=== PATIENT | female | born 1985 | race African-American/Black ===

== ENCOUNTER 2023-01-17 10:46 | Outpatient (OUT) | payer OTHER, SELFPAY ==
--- NOTE | 2023-01-17 10:57 | XR_ITS ---
The [address] [address] Patient Name: ELIANA HAGER MRN: [id number] date: 1985 Sex: F Assigned Patient Location: [facility] Current Patient Location: [facility] Accession/Order Number: [id number] Exam Date: 01/17/2023 11:00 Report Date: 01/17/2023 13:01 At the request of: KRISTINA CALVILLO Procedure: XR knee ZACHARY 4V EXAMINATION: XR knee ZACHARY 4V HISTORY: Pain In Bilateral Knee COMPARISON: No relevant comparison available. FINDINGS: RIGHT FINDINGS: BONES: No acute fracture or dislocation. Moderate tricompartmental osteoarthropathy with joint space narrowing and marginal osteophyte formation SOFT TISSUES: Negative. No visible soft tissue swelling. OTHER: Negative. LEFT FINDINGS: BONES: No acute fracture or dislocation. Moderate tricompartmental osteoarthropathy with joint space narrowing and marginal osteophyte formation SOFT TISSUES: Negative. No visible soft tissue swelling. OTHER: Small suprapatellar joint effusion XR/XR knee ZACHARY 4V IMPRESSION: RIGHT CONCLUSION: Moderate osteoarthritis LEFT CONCLUSION: Moderate osteoarthritis Electronically authenticated by: MINOR GARCIA Date: 01/17/2023 13:01
== END 2023-01-17 10:47 | disposition home or self-care (01) ==
LOC: RAD 10:46
PROVIDERS: Visit Provider Orthopaedic Surgery
DX: M25.561 Pain in right knee (principal); M25.562 Pain in left knee; M17.0 Bilateral primary osteoarthritis of knee
CPT/HCPCS: 73564

== ENCOUNTER 2023-05-24 19:38 | Emergency (ER) | payer SELFPAY ==
[2023-05-24 19:47] VITALS: BP 152/84; PULSE 84; RESP 16; TEMP 38.4; O2SAT 98; BMI 80.5
--- NOTE | 2023-05-24 20:07 | XR_ITS ---
The [address] [address] Patient Name: ELIANA HAGER MRN: [id number] date: 1985 Sex: F Assigned Patient Location: ED.MAIN Current Patient Location: ER Accession/Order Number: [id number] Exam Date: 05/24/2023 20:10 Report Date: 05/24/2023 20:29 At the request of: BASIA NESS Procedure: XR chest 2V EXAM: XR chest 2V REASON FOR EXAM: Female, 37 years, cough, fever. TECHNIQUE: PA and lateral views of the chest are performed. COMPARISON: None. FINDINGS: Study is slightly limited due to large body habitus. The lungs are expanded and clear. Normal pleura. Normal size heart. Normal mediastinum and carolyn. Normal visualized pulmonary arteries. Normal visualized aortic arch and descending thoracic aorta. Normal visualized thoracic spine. Normal visualized ribs, clavicles, and shoulders. There is no demonstrated abnormality of the visualized soft tissue structures of the upper abdomen. XR/XR chest 2V IMPRESSION: Normal examination of the chest. Electronically authenticated by: LOLA ROSAS Date: 05/24/2023 20:29
[2023-05-24 20:18] LABS: Adenovirus NOT DETECTED (NOT DETECTE); Bordetella parapertussis NOT DETECTED (NOT DETECTE); Coronavirus 229E NOT DETECTED (NOT DETECTE); Coronavirus HKU1 NOT DETECTED (NOT DETECTE); Coronavirus NL63 NOT DETECTED (NOT DETECTE); Coronavirus OC43 NOT DETECTED (NOT DETECTE); Human Metapneumovirus NOT DETECTED (NOT DETECTE); Human Rhinovirus/Enterovirus NOT DETECTED (NOT DETECTE); Influenza B NOT DETECTED (NOT DETECTE); Mycoplasma pneumoniae NOT DETECTED (NOT DETECTE); Parainfluenza Virus 1 NOT DETECTED (NOT DETECTE); Parainfluenza Virus 2 NOT DETECTED (NOT DETECTE); Parainfluenza Virus 3 NOT DETECTED (NOT DETECTE); Parainfluenza Virus 4 NOT DETECTED (NOT DETECTE); Respiratory Syncytial Virus NOT DETECTED (NOT DETECTE); SARS-CoV-2 NOT DETECTED (NOT DETECTE)
[2023-05-24] MEDS: ACETAMINOPHEN 500 MG TABLET 1000 MG PO (20:30)
--- NOTE | 2023-05-24 20:30 | ED_ITS ---
HPI - General Adult General Chief complaint: Upper Respiratory Infection Stated complaint: FLU Time Seen by Provider: 05/24/23 19:50 Source: patient Mode of arrival: Wheelchair Limitations: no limitations History of Present Illness HPI narrative: Patient presents with URI symptoms - nasal congestion, sore throat, cough - that has been present since mid April. She developed fever today and also has been choking on phlegm, causing gagging and vomiting. She said if she tries to eat she vomits. On Apr 25 she was evaluated at [place] ED and diagnosed with RSV. 2 weeks later she went back for continued symptoms, tested negative for Influenza and Covid and was diagnosed with virus . 2 weeks ago she was placed on Augmentin 500mg BID for UTI . Symptoms have not resolved. She is concerned about pneumonia. She took Tylenol around 945am this morning. Related Data Home Medications Medication Instructions Recorded Confirmed allopurinol 100 mg tablet 100 mg PO DAILY 05/24/23 05/24/23 cholecalciferol (vitamin D3) 1,250 1,250 mcg PO DAILY 05/24/23 05/24/23 mcg (50,000 unit) capsule dulaglutide 0.75 mg/0.5 mL 0.75 mg subcut .weekly 05/24/23 05/24/23 subcutaneous pen injector (Trulicity) ferrous sulfate 325 mg (65 mg 325 mg PO DAILY 05/24/23 05/24/23 iron) tablet,delayed release lorazepam 1 mg tablet 1 mg PO PRN 05/24/23 05/24/23 losartan 50 mg-hydrochlorothiazide 1 tab PO DAILY 05/24/23 05/24/23 12.5 mg tablet metformin 500 mg tablet 500 mg PO DAILY 05/24/23 05/24/23 thiamine HCl (vitamin B1) 50 mg 50 mg PO DAILY 05/24/23 05/24/23 tablet Previous Rx's Medication Instructions Recorded euugtikpgmlpgvg-xedzgtbcgnitjyj-AF 5 ml PO Q6H PRN cold symptoms #118 05/24/23 2 mg-30 mg-10 mg/5 mL oral syrup mL (Bromfed DM) ondansetron 4 mg disintegrating 4 mg PO Q6H PRN nausea and 05/24/23 tablet vomiting #20 tabs Allergies Allergy/AdvReac Type Severity Reaction Status Date / Time No Known Drug Allergies Allergy Verified 05/24/23 19:54 PFSH PFSH Social History Smoking status: Never smoker Exam Narrative Exam Narrative: Nurses notes and vital signs reviewed and patient is not hypoxic. Febrile T101.1F General: Well-appearing and in no apparent distress. Skin: Warm, dry, no pallor noted. No rash. Head: Normocephalic, atraumatic. Neck: Supple, non-tender. No cervical lymphadenopathy. No meningismus. Eye: Pupils are equal, round and EOMI. No scleral icterus. Ears, Nose, Mouth, and Throat: TM are dull bilaterally, mild posterior oropharynx erythema and nasal mucosal hypertrophy, uvula is mid-line. Oral mucosa is moist Cardiovascular: Regular Rate and Rhythm without murmur, gallop or rub. Respiratory: No accessory muscle use or respiratory distress. Lungs are clear to auscultation, no wheezing, rales or rhonchi Musculoskeletal: normal ROM GI: Abdomen is soft, non-distended. Normal bowel sounds. No tenderness to palpation. No rebound, guarding, or rigidity noted. Neurological: A&O x4. No cranial nerve dysfunction observed. No truncal ataxia. Moves all extremities. Sensation intact. Psychiatric: Cooperative and interactive. Normal mood and affect. Constitutional Vital Signs, click to edit/add: Last Vital Signs Temp 101.1 F H 05/24/23 19:47 Pulse 84 05/24/23 19:47 Resp 16 05/24/23 19:47 BP 152/84 H 05/24/23 19:47 Pulse Ox 98 05/24/23 19:47 O2 Del Method Room Air 05/24/23 19:47 Course Vital Signs Vital signs: Vital Signs Temperature 101.1 F H 05/24/23 19:47 Pulse Rate 84 05/24/23 19:47 Respiratory Rate 16 05/24/23 19:47 Blood Pressure 152/84 H 05/24/23 19:47 Pulse Oximetry 98 05/24/23 19:47 Oxygen Delivery Method Room Air 05/24/23 19:47 Temperature 101.1 F H 05/24/23 19:47 Pulse Rate 84 05/24/23 19:47 Respiratory Rate 16 05/24/23 19:47 Blood Pressure 152/84 H 05/24/23 19:47 Pulse Oximetry 98 05/24/23 19:47 Oxygen Delivery Method Room Air 05/24/23 19:47 Medical Decision Making MDM Narrative Medical decision making narrative: Patient was swabbed -respiratory panel & rapid strep. She was also given Tylenol for her fever and Zofran oral dissolvable tablet for nausea. Chest x-ray did not reveal any acute abnormality, per radiologist. Limited by body habitus. Strep negative. Patient tested positive for Influenza. She is outside of the window for tamiflu. She was discharged home with prescriptions for bromfed cough syrup and zofran ODT. Lab Data Lab results reviewed: Yes I reviewed the patient's lab results Labs: Lab Results 05/24/23 Range/Units 19:55 Adenovirus (PCR) Not detected (NOT DETECTE) C. pneumoniae DNA (PCR) Not detected (NOT DETECTE) Coronavirus Type OC43 Not detected (NOT DETECTE) Coronavirus Type HKU1 Not detected (NOT DETECTE) Coronavirus Type 229E Not detected (NOT DETECTE) Coronavirus Type NL63 Not detected (NOT DETECTE) Human Metapneumovir PCR Not detected (NOT DETECTE) Influenza A (H3) PCR Detected M. pneumoniae (PCR) Not detected (NOT DETECTE) Parainfluenza PCR Not detected (NOT DETECTE) Parainfluenza 2 (PCR) Not detected (NOT DETECTE) Parainfluenza 3 (PCR) Not detected (NOT DETECTE) Parainfluenza 4 (PCR) Not detected (NOT DETECTE) RSV (RT-PCR) Not detected (NOT DETECTE) Entero/Rhino (PCR) Not detected (NOT DETECTE) SARS-CoV-2 (PCR) Not detected (NOT DETECTE) Streptococcus Screen Negative Bordetella pertussis (PCR) Not detected (NOT DETECTE) B parapertussis DNA PCR Not detected (NOT DETECTE) Influenza Type B (PCR) Not detected (NOT DETECTE) Imaging Data Chest x-ray: Radiologist's impression: ITS Impressions Chest X-Ray 05/24/23 20:07 IMPRESSION: Normal examination of the chest. Electronically authenticated by: LOLA ROSAS Date: 05/24/2023 20:29 Discharge Plan Discharge Chief Complaint: Upper Respiratory Infection Clinical Impression: Viral infection, Influenza Patient Disposition: Home, Self-Care Time of Disposition Decision: 21:18 Prescriptions / Home Meds: New ondansetron 4 mg tablet,disintegrating 4 mg PO Q6H PRN (Reason: nausea and vomiting) Qty: 20 0RF ptiigebnklkkwhx-vvmnnxjkg-RT [Bromfed DM] 2-30-10 mg/5 mL syrup 5 ml PO Q6H PRN (Reason: cold symptoms) Qty: 118 0RF No Action metformin 500 mg tablet 500 mg PO DAILY allopurinol 100 mg tablet 100 mg PO DAILY lorazepam 1 mg tablet 1 mg PO PRN ferrous sulfate 325 mg (65 mg iron) tablet,delayed release (DR/EC) 325 mg PO DAILY losartan-hydrochlorothiazide 50-12.5 mg tablet 1 tab PO DAILY thiamine HCl (vitamin B1) 50 mg tablet 50 mg PO DAILY cholecalciferol (vitamin D3) 1,250 mcg (50,000 unit) capsule 1,250 mcg PO DAILY Trulicity 0.75 mg/0.5 mL pen injector 0.75 mg SUBCUT .weekly Instructions: Influenza (ED), Viral Syndrome (ED) Stand Alone Forms: Portal Instructions Referrals: Physician,Non-Staff, MD [Primary Care Provider] - 1 week
[2023-05-24] MEDS: ONDANSETRON 4 MG RAPDIS TABLET SL (20:40)
[2023-05-24 20:44] LABS: Internal Control Within Normal Limits; Strep A Antigen Screen Negative
[2023-05-24 21:11] LABS: Influenza A\\H3 DETECTED
[2023-05-24 21:30] VITALS: BP 145/90; PULSE 90; RESP 20; O2SAT 98
== END 2023-05-24 21:30 | disposition home or self-care (01) ==
PROVIDERS: Emergency Provider Emergency Medicine
DX: J10.1 Influenza due to other identified influenza virus with other respiratory manifestations (principal); R50.9 Fever, unspecified; Z79.899 Other long term (current) drug therapy; Z79.84 Long term (current) use of oral hypoglycemic drugs; Z20.822 Contact with and (suspected) exposure to COVID-19
CPT/HCPCS: 0202U; 71046; 87070; 87880; 99285; Q0162

== ENCOUNTER 2023-08-08 07:54 | Outpatient (RCR) | payer OTHER, SELFPAY ==
[2023-07-27 14:26] VITALS: BP 123/75; PULSE 67; TEMP 36.6; O2SAT 93
--- NOTE | 2023-07-27 14:33 | PC.NURSE ---
1355: Pt. to [facility] via w/c accompanied by mother. Pt. brought own Vit. B12 vials in prescription bottle. Directions on bottle to administer B12 IM daily x 5 days then weekly. Pt. medicated with Vitamin B12 Im to left deltoid, no bleeding to site. Covered with bandaid prophylactically. Right breast dressing removed. Packing in wound moistened before removal. 4x4 gauze packing with small amount serosang. drainage. Wound bed irrigated with saline and loosely packed with saline soaked 4x4. Covered with ABD and secured with paper tape. Pt. tolerated with min. c/o. Pt. asked about family member changing dressing and giving injection to save on travel from [place] daily. Informed pt. that this RN would teach designated person on dressing change and administration of IM B12. Pt. relays understanding. Pt. given list of supplies to purchase for dressings. Pt. relays comfort. 1413: Pt. d/c'd via w/c to car and home with mother.
[2023-07-28 13:15] VITALS: BP 153/72; PULSE 78; TEMP 36.3; O2SAT 95
--- NOTE | 2023-07-28 14:42 | PC.NURSE ---
1315: Pt. to [facility] via w/c accompanied by mother. Dressing and 4x4 packing removed from right breast. Both with small amount serosang. drainage. Edges of wound well defined. Wound bed beefy red. Irrigated with saline. Packed with saline soaked 4x4. Covered with ABD and secured with tape. Pt. brought home med. Vit. B12. Pt. medicated with Vitamin B12 IM to right deltoid. Trace bleeding to site, covered with bandaid. Pt. tolerated all with min. c/o discomfort. 1330: Pt. transported via w/c to car and home with mother.
[2023-07-29 14:29] VITALS: BP 134/76; PULSE 74; TEMP 36.3; O2SAT 96
--- NOTE | 2023-07-29 14:30 | PC.NURSE ---
1330 Arrival per wheelchair to department. alert oriented. Dressing removed from rt breast area, dressing removed. noted small amount of drainage on old dressing. packing removed, wound measure approx 4.5 cm deep appears beefy red wound bed. 4 cm in transverse, and 1.5 cm from head to toe. wound just superior to rt nipple area. area of induration from aprox 2 o'cloc position to 6 oclock position, patient complains of pain with wound care. wound irrigated with ns, skin surrounding wound cleansed with soap and water, skin prep applied, wound packed with ns wetted 4x4 opened up fully, nearly all of 4x4 packed into wound. covered with abd, secured with tape. Medicated with vit b 12 1000 mg IM as ordered. released per wheelchair
--- NOTE | 2023-07-29 14:31 | PC.NURSE ---
Patient brought in her B12 Injection, in the original bottle with the prescription label. This was given in her left deltoid, she tolerated injection well.
--- NOTE | 2023-07-31 12:29 | PC.NURSE ---
[employer] made two attempts to contact patient in regards to her appointment. [employer] did leave message for patient to call [facility] [place] and notify us if she isn't going to make her appointment. She was a no call no show on 07/30/23.
[2023-08-01 14:31] VITALS: BP 148/82; PULSE 78; TEMP 36.6; O2SAT 97
--- NOTE | 2023-08-01 14:34 | PC.NURSE ---
1415: Pt. to [facility] via w/c accompanied by mother. Medicated with home med. Vit. B12 to left deltoid. Trace bleeding to site, bandaid applied. Dressin to right breast removed. Packing removed with small amount serosang. drainage noted. Wound bed flushed with saline irrigant. Packed with fluffed saline soaked 4x4. Covered with ABD and secured with mesh tape. Pt. tolerated all with minimal c/o. 1429: Pt. taken to car via w/c and d/c'd to home with mother.
--- NOTE | 2023-08-03 11:35 | PC.NURSE ---
1115 Arrival per wheelchair with family accompanying patient. dressing removed from rt breast above nipple area, ns to old packing to loosen and remove, small amount of drainage on old dressing. wound irrigated with normal saline, repacked with 1 4x4 wet with normal saline, surrounding skin cleansed with soap and water, rinsed, dried, skin prep applied. packing covered with abd, secured with mesh tape, tolerated well. Released per wheelchair
--- NOTE | 2023-08-03 11:44 | PC.NURSE ---
1115 Vitamin B12 1000 mcg IM rt deltoid per Gisselle Herrera RN(using home meds). patient tolerated well.
== END 2023-08-09 23:59 | disposition home or self-care (01) ==
LOC: INF 07:54
PROVIDERS: Visit Provider Internal Medicine Hematology & Oncology
DX: N61.1 Abscess of the breast and nipple (principal)
CPT/HCPCS: 96372

== ENCOUNTER 2023-10-04 07:36 | Outpatient (RCR) | payer OTHER, SELFPAY ==
[2023-09-28 10:40] VITALS: BP 132/70; PULSE 66; TEMP 37.4; O2SAT 96
--- NOTE | 2023-09-28 11:16 | PC.NURSE ---
1040:Pt. to [facility] via w/c accompanied by 2 children. VSS. Dressing to right breast wound removed. 4x4 packing removed. Both with serosang. drainage observed. See documentation on wound appearance. Wound flushed with saline and outer area cleansed with saline. Wound packed with saline soaked 4x4 and covered with ABD dressing. Secured with paper tape after skin prep applied. Pt. relayed moderate pain with procedure. 1055: Pt. d/c'd via w/c to home with kids.
--- NOTE | 2023-09-29 11:26 | PC.NURSE ---
see wound assessment. old dressing removed, pinkish drainage noted on old packing. irrigated with ns, wound bed beefy red. surrounding skin clear, no irritation noted, cleansed with soap and water, skin prep applied to intact skin, repacked with 4x4 fluff/wet with ns. covered with abd, secured with paper tape. tolerated fairly well. did note above wound some induration of breast tissue. noted moderate amount of pain with care of wound.
--- NOTE | 2023-09-30 13:42 | PC.NURSE ---
1100 old dressing removed, pinkish drainage noted on old packing. irrigated with ns, wound bed beefy red. surrounding skin clear, no irritation noted, cleansed with soap and water, skin prep applied to intact skin, repacked with 4x4 fluff/wet with ns. covered with abd, secured with paper tape. tolerated fairly well. did note above wound some induration of breast tissue. noted moderate amount of pain with care of wound. patient states she is not coming in on weekend going to have family change dressing.
== END 2023-10-07 10:52 | disposition home or self-care (01) ==
LOC: INF 07:36
PROVIDERS: Visit Provider Internal Medicine Hematology & Oncology
DX: Z48.01 Encounter for change or removal of surgical wound dressing (principal)

== ENCOUNTER 2024-02-20 20:23 | Emergency (ER) | payer OTHER, SELFPAY ==
[2024-02-20 20:28] VITALS: BP 120/93; PULSE 68; TEMP 36.6; O2SAT 99; BMI 77.9
--- OUTSIDE RECORDS SUMMARY | 2024-02-20 20:29 | XMS_ITS | CCD ---
Author Organization [facility] Care Team Providers Care Potato Grader Name Role Phone CESAR MARTIN Admitting Unavailable CESAR MARTIN Attending Unavailable MISC, DOCTOR Primary Care Unavailable MINOR NUNO V Consulting Unavailable CESAR MARTIN Consulting Unavailable TOLEDO, JESUS MANUEL S Admitting Unavailable [place] JESUS MANUEL S Attending Unavailable MISC, DOCTOR Consulting Unavailable TOLEDO, JESUS MANUEL S Consulting Unavailable TOLEDO, JESUS MANUEL S Admitting Unavailable TOLEDO, JESUS MANUEL S Attending Unavailable [facility] Unava ilable TOLEDO, JESUS MANUEL S Consulting Unavailable TOLEDO, JESUS MANUEL S Admitting Unavailable TOLEDO, JESUS MANUEL S Attending Unavailable [facility] Unava ilable JESUS MAE Consulting Unavailable JACOB SANTANA Admitting Unavailable JACOB SANTANA Attending Unavailable Mp Smith Primary Care Provider [phone] BEVERLY SALMERON Referring Unavailabl e FAVIOLA, BEVERLY Trivedi Primary Care Unavailabl e FAVIOLA, BEVERLY Trivedi Referring Unavailabl e FAVIOLABEVERLY Primary Care Unavailabl e FAVIOLABEVERLY Referring Unavailabl e FAVIOLA, BEVERLY Trivedi Primary Care Unavailabl e FAVIOLABEVERLY Referring Unavailabl e FAVIOLA, BEVERLY Trivedi Primary Care Unavailabl e SERVICES, [facility] Care Unava ilable RAVI THIBODEAUX Attending Unavailable RAVI THIBODEAUX Attending Unavailable RAVI THIBODEAUX Referring Unavailable SERVICES, [facility] Care Unava ilable ABEL COFFEY Attending Unavailable BEVERLY SALMERON Referring Unavailabl e FAVIOLA, BEVERLY Trivedi Primary Care Unavailabl e NON STAFF Primary Care Provider UnavailCONCHITA Aceves Emergency Provider MD Lauren Oropeza Admit Provider MD Lauren Oropeza Attending Provider DO Kash Hooks Attending Provider MD Мария Danielle Other Provider CHANEL COFFEYNADIYA Trivedi Attending Unavailable ALEXXABEL SAMAYOA Referring Unavailable FAVIOLA, BEVERLY Trivedi Primary Care Unavailabl e FAVIOLA, BEVERLY M Referring Unavailabl e FAVIOLA, BEVERLY M Primary Care Unavailabl e NADERER, MP A Primary Care Unavailable ECTOR REDDING Attending Unavailable NADERER, MP A Primary Care Unavailable KENYA HERNÁNDEZ Attending Unavailable NADERER, MP A Primary Care Unavailable ECTOR REDDING Attending Unavailable ECTOR REDDING Referring Unavailable NADERER, MP A Primary Care Unavailable ECTOR REDDING Attending Unavailable VERO FRITZ Attending Unavailable NADERER, MP A Primary Care Unavailable NADERER, MP A Primary Care Unavailable ECTOR REDDING Attending Unavailable NADERER, MP A Primary Care Unavailable KENYA HERNÁNDEZ Attending Unavailable DO Yared Saavedra Emergency Provider [phone] MD Мария Danielle Attending Provider МАРИЯ TERESA Attending Unavailable МАРИЯ TERESA Attending Unavailable NON STAFF Primary Care Unavailable Мария Danielle Admitting Unavailable Мария Danielle Attending Unavailable Yared Saavedra Admitting Unavailable Yared Saavedra Attending Unavailable NON STAFF Primary Care Unavailable Kash Hooks Attending Unavailabl e NON STAFF Primary Care Unavailable Мария Danielle Consulting Unavailable Lauren Oropeza Admitting Unavailable PIRKL, TOMASA Referring Unavailable JACKSON, JUAQUIN Referring Unavailable JACKSON, JUAQUIN Referring Unavailable SALMISTYALDMARY, AYA Referring Unavailable JACKSONJUAQUIN NOBLE Referring Unavailable RAFA PERRY Attending Unavailable DASH HARDIN Attending Unavailabl e MAKENZIE BRAVO Attending Unavailable DINO, ALEXX Admitting Unavailable MICHELLE MEYERS Attending Unavailable PIRKL, TOMASA Referring Unavailable SHELIA RODRIGUEZ Referring Unavailable PIRKL, TOMASA Referring Unavailable PIRKL, TOMASA Referring Unavailable Allergies Allergy Classification Reported Allergen(s) Allergy Type Date of Onset Reaction(s) Facility (4 sources) Ibuprofen; Translations: [IBUPROFEN] Drug Allergy [facility] Repository (1 source) ALLERGIES NOT ON FILE; Translations: [ALLERGIES NOT ON FILE] Propensity to adverse reactions (disorder) [facility] Repository Medications Current Medications Medication Drug Class(es) Dates Sig (Normalized) Sig (Original) acetaminophen 325 mg / oxyCODONE hydrochloride 5 mg oral tablet (6 sources) Opioid Agonist Start: 09-27-2023 take 1 tablet by mouth every six hours Oxycodone-Acetami nophen (Percocet) 5-325 mg tablet Active 1 TAB PO Every 6 hours 05 11September 27, 2023 Start: 09-23-2023 End: 09-27-2023 take 1 tablet by mouth every four to six hours Oxycodone-Acetaminophen (Percocet) 5-325 mg tablet Discontinued 1 TAB PO EVERY 4-6 HOURS 12 September 23, 2023 September 27, 2023 12:52pm Start: 07-25-2023 End: 09-23-2023 take 1 tablet by mouth every four hours Oxycodone-Acetaminophen (Percocet) 5-325 mg tablet Discontinued 1 TAB PO Q4H 30 July 25, 2023 September 23, 2023 7:12pm allopurinol 100 mg oral tablet (12 sources) Xanthine Oxidase Inhibitor Start: 07-22-2023 take 100 mg by mouth once daily Allopurinol Active 100 MG PO Daily July 22, 2023 12:00am Start: 06-20-2007 ALLOPURINOL 30 0 MG TAB Take one(1) tablet daily. 0 06/20/2007 Active Comment on above: Take one(1) tablet d aily. amoxicillin 875 mg / clavulanate 125 mg oral tablet (5 sources) Penicillin-class Antibacterial Start: End: take 1 tablet by mouth twice daily Amoxicillin-Pot Clavulanate Active 1 TAB PO Twice daily September 23, 2023 12:00am cholecalciferol 0.125 mg oral capsule (10 sources) Vitamin D Start: take 5000 [IU] by mouth once daily Cholecalciferol (Vitamin D3) Active 5000 UNIT PO Daily July 22, 2023 12:00am Start: 06-02-2022 End: 08-01-2022 take 1 capsule by mouth every week cholecalciferol, Vitamin D3, (VITAMIN D3) 1,250 mcg (50,000 unit) cap capsule Take 1 capsule by mouth one time a week. 4 capsule 1 06/02/2022 Active Comment on above: Take 1 capsule by mo [facility] one time a week. 0.5 ml dulaglutide 3 mg/ml auto-injector (18 sources) GLP-1 Receptor Agonist Start: 07-22-2023 Dulaglutide (Trulicity) 1.5 mg/0.5 mL pen injector Active 1.5 MG SUBCUT every week July 22, 2023 12:00am Start: 09-20-2022 End: 12-07-2022 TRULICITY 1.5 mg/0.5 mL pen injector INJECT 1 SYRINGE SUBCUTANEOUSLY ONCE A WEEK 4 mL 0 12/07/2022 Active Start: 07-14-2022 End: 08-13-2022 TRULICITY 1.5 mg/0.5 mL pen injector INJECT 1 SYRINGE SUBCUTANEOUSLY ONCE A WEEK 4 mL 0 08/04/2022 Active Start: 06-16-2022 End: 10-08-2022 inject 0.75 mg by subcutaneous injection every week dulaglutide (TRULICITY) 0.75 mg/0.5 mL pen injector Inject 0.75 mg subcutaneously one time a week. 2 mL 0 06/16/2022 10/08/2022 Discontinued Comment on above: Inject 0.75 mg subcu taneously one time a week. Inject 1.5 mg subcut aneously one time a week. INJECT 1 SYRINGE SUB CUTANEOUSLY ONCE A WEEK ferrous sulfate 325 mg oral tablet (9 sources) Start: 07-22-2023 take 1 tablet by mouth once daily Ferrous Sulfate (Glen-Time) 325 mg (65 mg iron) tablet Active 325 MG PO Daily July 22, 2023 12:00am Start: 06-02-2022 End: 08-31-2022 take 1 tablet by mouth once daily ferrous sulfate 325 mg (65 mg iron) tablet Take 1 tablet by mouth once daily. 30 tablet 2 06/02/2022 08/31/2022 Active FERROUS SULFATE ORAL ferrous sulfate 0 Active Comment on above: Take 1 tablet by [facility] once daily. ferrous sulfate gabapentin 100 mg oral capsule (3 sources) Anti-epileptic Agent Star t: 07-10 take 1 capsule by mouth once daily Gabapentin (Neurontin) 100 mg capsule Active 100 MG PO Daily July 22, 2023 12:00am hydroCHLOROthiazide 25 mg oral tablet (3 sources) Thiazide Diuretic Star t: 07-10 take 25 mg by mouth once daily Hydrochlorothiazide Active 25 MG PO Daily July 22, 2023 12:00am metFORMIN hydrochloride 500 mg oral tablet (3 sources) Biguanide Star t: 07-10 take 500 mg by mouth once daily Metformin Active 500 MG PO Daily July 22, 2023 12:00am tirzepatide (MOUNJARO) 2.5 mg/0.5 mL pen injector (1 source) Star t: 05-13 End: 06-10 inject 2.5 mg by subcutaneous injection every week tirzepatide (MOUNJARO) 2.5 mg/0.5 mL pen injector Inject 2.5 mg subcutaneously one time a week. 2 mL 0 05/31/2022 06/30/2022 Active Comment on above: Inject 2.5 mg subcut aneously one time a week. tirzepatide (MOUNJARO) 5 mg/0.5 mL pen injector (1 source) Star t: 06-09 End: 07-10 inject 5 mg by subcutaneous injection every week tirzepatide (MOUNJARO) 5 mg/0.5 mL pen injector Inject 5 mg subcutaneously one time a week. 2 mL 0 06/25/2022 07/25/2022 Active Comment on above: Inject 5 mg subcutan eously one time a week. Completed/Discontinued Medications Medication Drug Class(es) Dates Sig (Normalized) Sig (Original) Calcium Carbonate / vitamin D3 (9 sources) Start: 04-02-2008 calcium carbonate/vitamin d3(CALCIUM 500 WITH VITAMIN D 500 MG-125 UNIT TAB) Take one(1) tablet twice daily. 0 0 04/02/2008 Active Comment on above: Take one(1) tablet t wice daily. ciprofloxacin 500 mg oral tablet (13 sources) Quinolone Antimicrobial Start: 07-22-2023 End: 07-25-2023 take 500 mg by mouth twice daily Ciprofloxacin Hcl Discontinued 500 MG PO Twice daily July 22, 2023 12:00am July 25, 2023 2:22pm Start: 06-20-2008 ciprofloxacin hcl(CIPRO 500 MG TAB) Take one(1) tablet twice daily. 6 0 06/20/2008 Active Comment on above: Take one(1) tablet t wice daily. colchicine 0.6 mg oral tablet (3 sources) Start: 07-22-19 24 End: 07-23-19 24 take 0.6 mg by mouth once daily Colchicine Discontinued 0.6 MG PO Daily July 22, 2023 12:00am July 23, 2023 6:38pm CPAP (9 sources) Start: 07-13-19 08 CPAP Use as directed. 0 07/13/2007 Active Comment on above: Use as directed. famotidine 20 mg oral tablet (9 sources) Histamine-2 Receptor Antagonist Start: 02-20-20 08 FAMOTIDINE 20 MG TAB take one tab twice a day 180 2 02/20/2008 Active Comment on above: take one tab twice a day lisinopril 40 mg oral tablet (3 sources) Angiotensin Converting Enzyme Inhibitor Start: 07-22-19 24 End: 07-23-19 24 take 40 mg by mouth once daily Lisinopril Discontinued 40 MG PO Daily July 22, 2023 12:00am July 23, 2023 6:38pm nystatin 100 unt/mg topical powder (9 sources) Polyene Antifungal Start: 06-21-19 09 NYSTATIN 100,000 UNIT/G TOPICAL POWDER TOPICAL 2 TIMES DAILY 30grams 0 06/20/2008 Active Comment on above: TOPICAL 2 TIMES EDNA Y ondansetron 4 mg disintegrating oral tablet (9 sources) Serotonin-3 Receptor Antagonist Start: 05-27-19 09 ondansetron(ZOFRAN ODT 4 MG TAB, RAPID DISSOLVE) Take one(1) tablet daily. 0 0 05/27/2008 Active Comment on above: Take one(1) tablet d aily. vits w-ca,fe,fa(<1mg)(PRENA DALTON FORMULA TAB) (9 sources) Start: 05-24-19 09 vits w-ca,fe,fa( Take one(1) tablet daily. 0 0 05/24/2008 Active Comment on above: Take one(1) tablet d aily. 72 hr scopolamine 0.0139 mg/hr transdermal system (9 sources) Anticholinergic Start: 05-27-19 09 SCOPOLAMINE 1.5 MG 72 HR TRANSDERM PATCH Every 72 hours 0 0 05/27/2008 Active Comment on above: Every 72 hours Sennosides-Docusate Sodium (3 sources) Start: 07-25-19 End: 09-23-19 take 1 tablet by mouth twice daily Sennosides-Docusate Sodium Discontinued 1 TAB-CAP PO Twice daily July 25, 2023 12:00am September 23, 2023 7:12pm Start: 07-25-2023 take 1 tablet by stacey th twice daily Sennosides-Docusate Sodium Active 1 TAB-CAP PO Twice daily July 25, 2023 12:00am thiamine 50 mg oral tablet (7 sources) Start: 06-02-2022 End: 08-31-2022 take 1 tablet by mouth once daily thiamine (VITAMIN B1) 50 mg tablet Take 1 tablet by mouth once daily. 30 tablet 2 06/02/2022 Active Comment on above: Take 1 tablet by stacey th once daily. ursodiol 300 mg oral capsule (9 sources) Bile Acid Start: 02-20-2008 URSODIOL 300 M G CAP Take one(1) capsule twice daily. 180 2 02/20/2008 Active Comment on above: Take one(1) capsule twice daily. vitamin b12 1 mg/ml injectable solution (15 sources) Vitamin B12 Start: 07-25-2023 End: 09-23-2023 Cyanocobalamin (Vitamin B-12) Discontinued 1000 MCG IM Daily July 25, 2023 12:00am September 23, 2023 7:11pm Give once a day for 5 doses, then once a week for 5 doses. Start: 07-22-2023 take 100 ug by mouth once daily Cyanocobalamin (Vitamin B-12) Active 100 MCG PO Daily July 22, 2023 12:00am take 1 tablet by stacey th once daily cyanocobalamin (VITAMIN B-12) 1,000 mcg tab cyanocobalamin (vit B-12) 1,000 mcg tablet TAKE 1 TABLET BY MOUTH ONCE DAILY 0 Active Comment on above: cyanocobalamin (vit B-12) 1,000 mcg tablet TAKE 1 TABLET BY MOUTH ONCE DAILY Problems Active Problems Problem Classification Problem Date Documented Da te Episodic/Chronic Complications of surgical procedures or medical care (9 sources) Post-surgical malabsorption; Translations: [Postsurgical malabsorption, not elsewhere classified] Onset: 8 04-02-2008 Chronic Deficiency and other anemia (2 sources) Iron deficiency anemia, unspecified; Translations: [Iron deficiency anemia, unspecified] Onset: 4 Episodic Diabetes mellitus without complication (10 sources) Type 2 diabetes mellitus without complications; Translations: [Type 2 diabetes mellitus] Onset: 9 07-23-2023 Chronic Essential hypertension (10 sources) Essential (primary) hypertension; Translations: [Essential hypertension] Onset: 8 06-20-2007 Chronic Genitourinary symptoms and ill-defined conditions (9 sources) Urinary incontinence; Translations: [Unspecified urinary incontinence] Onset: 8 07-13-2007 Chronic Gout and other crystal arthropathies (9 sources) Gout; Translations: [Gout, unspecified] Onset: 8 06-20-2007 Chronic Headache; including migraine (9 sources) Migraine without aura; Translations: [Migraine without aura, not intractable, without status migrainosus] Onset: 8 07-13-2007 Chronic Immunizations and screening for infectious disease (2 sources) Encounter for immunization; Translations: [Encounter for immunization] Onset: 4 Episodic Malaise and fatigue (2 sources) Weakness; Translations: [Weakness] Onset: 4 Episodic Miscellaneous mental health disorders (11 sources) Eating disorder; Translations: [Eating disorder, unspecified] Onset: 8 Chronic Mood disorders (18 sources) Recurrent major depressive episodes, mild ; Translations: [Major depressive disorder, recurrent, mild] Onset: 8 06-20-2007 Chronic Nausea and vomiting (6 sources) Nausea with vomiting, unspecified; Translations: [Vomiting, unspecified] Onset: 9 Episodic Nonmalignant breast conditions (15 sources) Unspecified lump in the right breast, unspecified quadrant; Translations: [Abscess of the breast and nipple] Onset: 4 07-22-2023 Episodic Osteoarthritis (15 sources) Bilateral primary osteoarthritis of knee; Translations: [Degenerative joint disease involving multiple joints] Onset: 8 07-13-2007 Chronic Other aftercare (1 source) MCC (current) use of oral hypoglycemic drugs; Translations: [FCI USE ORAL HYPOGLYCEMIC DX] Onset: 9 Other connective tissue disease (2 sources) Unspecified symptoms and signs involving the nervous system; Translations: [Unspecified symptoms and signs involving the nervous system] Onset: 4 Episodic Other gastrointestinal disorders (9 sources) History of bypass of stomach; Translations: [Bariatric surgery status] Onset: 3 02-07-2023 Episodic Other gastrointestinal disorders (1 source) Diarrhea, unspecified; Translations: [Diarrhea, unspecified] Onset: 4 Episodic Other lower respiratory disease (11 sources) Dyspnea; Translations: [Shortness of breath] Onset: 8 Episodic Other lower respiratory disease (1 source) Shortness of breath; Translations: [Shortness of breath] Onset: 4 Episodic Other nervous system disorders (3 sources) Neuropathy; Translations: [Polyneuropathy, unspecified] 07-23-2023 Chronic Other nervous system disorders (4 sources) Polyneuropathy, unspecified; Translations: [Mononeuritis of unspecified site] Onset: 4 07-25-2023 Chronic Other nervous system disorders (1 source) Acute postoperative pain; Translations: [Other acute postprocedural pain] 09-27-2023 Episodic Other nervous system disorders (1 source) Other acute postprocedural pain; Translations: [Other acute postprocedural pain] Onset: 4 Episodic Other nutritional; endocrine; and metabolic disorders (1 source) Obesity, unspecified; Translations: [OBESITY UNSPECIFIED] Onset: 9 Chronic Other nutritional; endocrine; and metabolic disorders (9 sources) Disorder of lipid metabolism; Translations: [Disorder of lipoprotein metabolism, unspecified] Onset: 8 07-13-2007 Chronic Other nutritional; endocrine; and metabolic disorders (10 sources) Morbid obesity; Translations: [Morbid (severe) obesity due to excess calories] Onset: 8 02-07-2023 Chronic Other nutritional; endocrine; and metabolic disorders (5 sources) Body mass index 40+ - severely obese; Translations: [Body mass index (BMI) 70 or greater, adult] 02-18-2023 Chronic Other nutritional; endocrine; and metabolic disorders (6 sources) Body mass index (BMI) 70 or greater, adult; Translations: [Body Mass Index 70 and over, adult] Onset: 4 07-25-2023 Chronic Other nutritional; endocrine; and metabolic disorders (5 sources) Morbid (severe) obesity due to excess calories; Translations: [Psychological factors affecting morbid obesity (HCC)] Onset: 8 Chronic Other nutritional; endocrine; and metabolic disorders (1 source) Abnormal weight gain; Translations: [Weight gain following gastric bypass surgery] Onset: 4 Episodic Other upper respiratory infections (1 source) Chronic sinusitis, unspecified; Translations: [Chronic sinusitis, unspecified] Onset: 4 Chronic Residual codes; unclassified (9 sources) Sleep apnea; Translations: [Sleep apnea, unspecified] Onset: 8 Chronic Residual codes; unclassified (5 sources) Obstructive sleep apnea syndrome; Translations: [Obstructive sleep apnea (adult) (pediatric)] Onset: 3 02-07-2023 Chronic Residual codes; unclassified (2 sources) Obstructive sleep apnea (adult) (pediatric); Translations: [Obstructive sleep apnea (adult) (pediatric)] Onset: 3 Chronic Residual codes; unclassified (1 source) Other specified postprocedural states; Translations: [OTH SPECIFIED POSTPROCEDURAL STATES] Onset: 9 Skin and subcutaneous tissue infections (2 sources) Abscess; Translations: [Cutaneous abscess, unspecified] 09-23-2023 Episodic Unclassified (1 source) Breast Abscess Onset: 4 Unclassified (2 sources) New Patient Onset: 4 Unclassified (1 source) Supraventricular tachycardia, unspecified; Translations: [Supraventricular tachycardia, unspecified] Onset: 4 Past or Other Problems Problem Classification Problem Date Documented Da te Episodic/Chronic Abdominal pain (1 source) Epigastric pain; Translations: [EPIGASTRIC PAIN] Onset: 9 Episodic Acute and unspecified renal failure (1 source) Acute kidney failure with tubular necrosis; Translations: [ACUTE RENAL FAILURE TUBULR NECROSIS] Onset: 9 Episodic Administrative/social admission (7 sources) Reduced mobility; Translations: [Other reduced mobility] Onset: 3 02-07-2023 Episodic Bacterial infection; unspecified site (5 sources) Other specified bacterial agents as the cause of diseases classified elsewhere; Translations: [Bacterial infection due to Proteus mirabilis] Onset: 4 07-25-2023 Episodic Calculus of urinary tract (9 sources) Kidney stone; Translations: [Calculus of kidney] Onset: 8 07-13-2007 Episodic Intestinal infection (1 source) Viral intestinal infection, unspecified; Translations: [VIRAL INTESTINAL INFECTION UNSPEC] Onset: 9 Episodic Nutritional deficiencies (7 sources) Cobalamin deficiency; Translations: [Deficiency of other specified B group vitamins] Onset: 4 07-24-2023 Episodic Other aftercare (1 source) Other [facility] (current[facility] drug therapy; Translations: [OTH [facility] CURRENT DRUG THERAPY] Onset: 9 Episodic Other gastrointestinal disorders (6 sources) Bariatric surgery status; Translations: [Bariatric surgery status] Onset: 3 07-25-2023 Episodic Other non-traumatic joint disorders (4 sources) Pain in left knee; Translations: [PAIN IN LEFT KNEE] Onset: 9 Episodic Other non-traumatic joint disorders (1 source) Pain in right knee; Translations: [PAIN IN RIGHT KNEE] Onset: 9 Episodic Other upper respiratory infections (1 source) Streptococcal pharyngitis; Translations: [STREPTOCOCCAL PHARYNGITIS] Onset: 9 Episodic Unclassified (1 source) Supraventricular tachycardia, unspecified; Translations: [Supraventricular tachycardia, unspecified] Onset: 4 Results Test Name Value Interpretation Reference Range Facility 12-28-2023 36 No answer post discharge [facility] 12-23-2023 36 Discussed results wi th patient, who is agreeable to starting APAP. Faxed order, demographics, PSG report, and visit notes to [facility]. [facility] 36 ----- Message from A joe Choi MD sent at 12/23/2023 1:36 PM EDT ----- Regarding: Positive PSG Positive PSG. Report complete. Dae, please notify the patient and ask if she would be agreeable to be set up on APAP therapy. Will place order on your desk just in case. [facility] 2912-21-2023 29 Encounter addended b y: Kleber Choi MD on: 12/23/2023 1:38 PM Actions taken: Charge Capture section accepted [facility] Orders Onlyon 12-19-2023 Orders Only [id number] Bernie Hager chey Yepez 1985 Provider Department Center 12/19/2023 [id number] HARDIN INT MED Comprehensiv Family History Family history unknown: Yes [facility] Office Visiton 12-09-2023 Follow-up visit [id number] Bernie Hager chey Yepez 1985 Provider Department Center 12/09/2023 [id number] BRAVO [facility] INT MED Comprehensiv Family History Family history unknown: Yes Level of Service:53542 ME OFFICE/OUTPATIENT ESTABLISHED LOW MDM 20 MIN Reason for Visit and Comments: Office Visit [Other] - Pain in the right breast Paper work [facility] Office Visiton 11-25-2023 Follow-up visit [id number] Bernie Hager chey Yepez 1985 Provider Department Center 11/25/2023 [id number] PERRY [facility] Family History Family history unknown: Yes Level of Service:70186 ME OFFICE/OUTPATIENT ESTABLISHED MOD MDM 30 MIN Reason for Visit and Comments: New Patient [Other] - [facility] Follow up SVT [facility] MICROALBUMIN, URINE, RANDOMo n 11-14-2023 Albumin DL <= 20 mg/L (U) [Mass/Vol] mg/dL Normal [facility] Comment on above: Performed By: #### L [id number] #### [facility] (BEAKER) [address] [place] [address] Creatinine (U) [Mass/Vol] 49.0 mg/dL Normal 26-299 [facility] Comment on above: Performed By: #### L [id number] #### [facility] ([facility]) [address] [place] [address] MICROALBUMIN/CREATININ E (MG/G) IN URINE Normal [facility] Comment on above: Result Comment: Unab le to calculate Performed By: #### L [id number] #### [facility] ([facility] [address] [facility] [place] [address] Office Visiton 11-14-2023 Follow-up visit [id number] Bernie Hager 1985 [facility] Provider Department Center 11/14/2023 [id number] NATARAJAN INT MED Comprehensiv Family History Family history unknown: Yes Level of Service:20940 ME TRANSJ CARE MGMT HIGH MDM F2F 7 DOROTA D DISCHARGE () Reason for Visit and Comments: Hospital Follow-up [832] Normal [facility] Telephoneon 11-14-2023 Telephone [id number] Bernie Hager 1985 Provider Department Center 11/14/2023 [id number] RAMIREZ [facility] QA None Family History Family history unknown: Yes [facility] 36on 11-09-2023 36 Attempted call at 10 :18 am and voicemail said unable to leave a message. Normal [facility] Telephoneon 11-09-2023 Telephone [id number] Bernie Hager 1985 Provider Department Center 11/09/2023 ROSELYN PAZ KYRA [facility] C Family History Family history unknown: Yes [facility] 30on 11-08-2023 30 The patient is Moder ately Stable - Low risk of patient condition declining or worsening The patient's goals for the shift include dc The clinical goals for the shift include VSS comfort Normal [facility] POCT GLUCOSE METER UNSOLICIT ED RESULTSon 11-08-2023 Glucose [Mass/Vol] 120 mg/dL High 70-105 [address] [facility] Comment on above: Order Comment: Waive d Testing in the ED is performed under the ED CLIA certificate #[id number]. Result Comment: rajiv mathias Performed By: #### L [id number] #### [facility] ([facility]) [address] [place] [address] 30on 11-07-2023 30 The patient is Moder ately Stable - Low risk of patient condition declining or worsening The patient's goals for the shift include dc The clinical goals for the shift include VSS comfort Problem: Pain - Adult Goal: Verbalizes/displays adequate comfort level or baseline comfort level Outcome: Progressing Flowsheets (Taken 11/06/2023914 by Elda Sierra RN) Verbalizes/displays adequate comfort level or baseline comfort level: Encourage patient to monitor pain and request assistance Assess pain using appropriate pain scale Administer analgesics based on type and severity of pain and evaluate response Implement non-pharmacological measures as appropriate and evaluate response Problem: Safety - Adult Goal: Free from fall injury Outcome: Progressing Flowsheets (Taken 11/06/20232099 by Jeronimo Serra RN) Free from fall injury: Assess patient frequently for physical needs Sibley fall precautions as indicated by assessment Identify cognitive and physical deficits and behaviors that affect risk of falls Educate patient/family on patient safety, including physical limitations Instruct patient to call for assistance with activity based on assessment Problem: Discharge Planning Goal: Discharge to home or other facility with appropriate resources Outcome: Progressing Flowsheets (Taken 11/06/2023914 by Elda Sierra RN) Discharge to home or other facility with appropriate resources: Identify barriers to discharge with patient and caregiver Arrange for needed discharge resources and transportation as appropriate Identify discharge learning needs (meds, wound care, etc) Problem: Chronic Conditions and Co-morbidities Goal: Patient's chronic conditions and co-morbidity symptoms are monitored and maintained or improved Outcome: Progressing Flowsheets (Taken 11/06/2023914 by Elda Sierra RN) Care Plan - Patient's Chronic Conditions and Co-Morbidity Symptoms are Monitored and Maintained or Improved: Monitor and assess patient's chronic conditions and comorbid symptoms for stability, deterioration, or improvement Collaborate with multidisciplinary team to address chronic and comorbid conditions and prevent exacerbation or deterioration Update acute care plan with appropriate goals if chronic or comorbid symptoms are exacerbated and prevent overall improvement and discharge Normal [facility] 30 Daily Case Managemen t Update Multidisciplinary rounds have been completed. Barriers to Discharge: Pending Clinical course. Await CT and echocardiogram. Cardiology recommending Outpatient stress and Started metoprolol. Return home on discharge. 17:03 Spoke with patient and she would like DME to be at [facility] in [place], [place]. Faxed prescription and F2F to [facility] and then given to patient. Information added to AVS for Msc. Diet: Dietary Orders (From admission, onward) Start Ordered 11/06/23 0019 Regular Diet Heart Healthy/HTN, CABG,Stroke, (2gNA, low fat, low cholesterol) Diet effective now Question Answer Comment Room Service? Yes Fat restriction: Heart Healthy/HTN, CABG,Stroke, (2gNA, low fat, low cholesterol) 11/06/23 0018 Physician Expected Discharge Date: 11/08/2023 Discharge Delays: PT Six Click Score: 22 OT Six Click Score: PT Recommendations: OT Recommendations: New Consults: Therapy Orders (From admission, onward) Start Ordered 11/06/23 1312 OT eval and treat Until therapy completed Question: Reason for OT? Answer: left leg weakness, numbess 11/06/23 1311 11/06/23 1311 PT eval and treat Until therapy completed Question: Reason for PT? Answer: lef tleg weakness, numbess 11/06/23 1311 Normal [facility] 30 The patient is Moder ately Stable - Low risk of patient condition declining or worsening The patient's goals for the shift include comfort The clinical goals for the shift include vss Normal [facility] 30 The patient is Moder ately Stable - Low risk of patient condition declining or worsening The patient's goals for the shift include comfort The clinical goals for the shift include vss Normal [facility] BASIC METABOLIC PANELon 07- Anion gap [Moles/Vol] 10 mmol/L Normal 7-20 [facility] Comment on above: Performed By: #### L [id number] ####[facility] ([facility])[address] [place] [address] Calcium [Mass/Vol] 9.2 mg/dL Normal 8.6-10.3 [facility] Comment on above: Performed By: #### L [id number] ####[facility] ([facility] [place] [address] Chloride [Moles/Vol] 103 mmol/L Normal 98-107 [facility] Comment on above: Performed By: #### L [id number] ####[facility] ([facility])[address] [place] [address] CO2 [Moles/Vol] 26 mmol/L Normal 21-31 [facility] Comment on above: Performed By: #### L [id number] ####[facility] ([facility])[address] [place] [address] Creatinine [Mass/Vol] 0.85 mg/dL Normal 0.60-1.20 [facility] Comment on above: Performed By: #### L [id number] ####[facility] ([facility])[address] [place] [address] GLOMERULAR FILTRATION RATE ML/MIN/1.73 SQ M.PREDICTED 89.3 mL/min/1.73m*2 Normal >60.0 [facility] Comment on above: Result Comment: The [facility]???s estimated glomerular filtration rate (eGFR) will no longer include consideration of race in its calculation. The National Kidney Foundation???s eGFR Task Force developed new recommendations for the estimation of the glomerular filtration rate in the [place] They recommend immediate implementation of the new equation refit without the race variable in all laboratories because the calculation does not include race. In addition to not including race in the calculation and reporting, it included diversity in its development, and has acceptable performance characteristics and potential consequences that do not disproportionately affect any one group of individuals. Performed By: #### L [id number] ####[facility] ([facility])[address] [place] [address] Glucose [Mass/Vol] 92 mg/dL Normal 70-100 [facility] Comment on above: Performed By: #### L [id number] ####[facility] ([facility])[address] [place] [address] Potassium [Moles/Vol] 4.0 mmol/L Normal 3.5-5.1 [facility] Comment on above: Performed By: #### L [id number] ####[facility] ([facility]AKER)[address] [place] [address] Sodium [Moles/Vol] 135 mmol/L Low 136-145 [facility] Comment on above: Performed By: #### L [id number] ####[facility] ([facility] [place] [address] Urea nitrogen [Mass/Vol] 7 mg/dL Normal 7-25 [facility] Comment on above: Performed By: #### L [id number] ####[facility] ([facility])[address] [place] [address] UREA NITROGEN/CREATININE (MASS RATIO) IN SER/PLAS 8.2 Normal [facility] Comment on above: Performed By: #### L [id number] ####[facility] ([facility])[address] [place] [address] CBC WITH AUTO DIFFERENTIALon 11-07-2023 Basophils (Bld) [#/Vol] 0.02 10*3/uL Normal 0.00-0.20 [facility] Comment on above: Performed By: #### L [id number] #### [facility] ([facility]) [address] [place] [address] Basophils/100 WBC (Bld) 0.4 % Normal 0.0-1.0 [facility] Comment on above: Performed By: #### L [id number] #### [facility] ([facility]) [address] [place] [address] Eosinophils (Bld) [#/Vol] 0.07 10*3/uL Normal 0.00-0.50 [facility] Comment on above: Performed By: #### L [id number] #### [facility] ([facility]) [address] [place] [address] Eosinophils/100 WBC (Bld) 1.5 % Normal 0.0-6.0 [facility] Comment on above: Performed By: #### L [id number] #### [facility] ([facility]) [address] [place] [address] Erythrocyte distribution width (RBC) [Ratio] 18.5 % High 11.5-15.0 [facility] Comment on above: Performed By: #### L [id number] #### [facility] ([facility]) [address] [place] [address] ERYTHROCYTE MEAN CORPUSCULAR HEMOGLOBIN CONCENTRATION (G/DL) BY AUTOMATED 31.0 g/dL Low 32.0-35.0 [facility] Comment on above: Performed By: #### L [id number] #### [facility] ([facility]) [address] [place] [address] Hematocrit (Bld) [Volume fraction] 29.4 % Low 36.0-48.0 [facility] Comment on above: Performed By: #### L [id number] #### [facility] ([facility]) [address] [place] [address] Hemoglobin (Bld) [Mass/Vol] 9.1 g/dL Low 12.0-15.0 [facility] Comment on above: Performed By: #### L [id number] #### [facility] ([facility]) [address] [place] [address] Immature granulocytes (Bld) [#/Vol] 0.01 10*3/uL Normal 0.00-0.20 [facility] Comment on above: Performed By: #### L [id number] #### [facility] ([facility]) [address] [place] [address] Immature granulocytes/100 WBC (Bld) 0.2 % Normal 0.0-1.0 [facility] Comment on above: Performed By: #### L [id number] #### [facility] ([facility]) [address] [place] [address] Lymphocytes (Bld) [#/Vol] 1.97 10*3/uL Normal 1.20-4.00 [facility] Comment on above: Performed By: #### L [id number] #### [facility] ([facility]) [address] [place] [address] Lymphocytes/100 WBC (Bld) 42.1 % Normal 20.0-45.0 [facility] Comment on above: Performed By: #### L [id number] #### [facility] ([facility]) [address] [place] [address] MCH (RBC) [Entitic mass] 27.6 pg Normal 27.0-33.0 [facility] Comment on above: Performed By: #### L [id number] #### [facility] ([facility]) [address] [place] [address] MCV (RBC) [Entitic vol] 89.1 fL Normal 82.0-98.0 [facility] Comment on above: Performed By: #### L [id number] #### [facility] ([facility]) [address] [place] [address] Monocytes (Bld) [#/Vol] 0.33 10*3/uL Normal 0.10-1.00 [facility] Comment on above: Performed By: #### L [id number] #### [facility] ([facility]) [address] [place] [address] Monocytes/100 WBC (Bld) 7.1 % Normal 5.0-12.0 [facility] Comment on above: Performed By: #### L [id number] #### [facility] ([facility]) [address] [place] [address] Neutrophils (Bld) [#/Vol] 2.28 10*3/uL Normal 1.60-7.60 [facility] Comment on above: Performed By: #### L [id number] #### [facility] ([facility]) [address] [place] [address] Neutrophils/100 WBC (Bld) 48.7 % Normal 40.0-72.0 [facility] Comment on above: Performed By: #### L [id number] #### [facility] ([facility]) [address] [place] [address] NRBC (PER 100 WBCS) BY AUTOMATED COUNT 0.0 % Normal 0 [facility] Comment on above: Performed By: #### L [id number] #### [facility] ([facility]) [address] [place] [address] PLATELETS (10*3/UL) IN BLOOD AUTOMATED COUNT 274 10*3/uL Normal 150-400 [facility] Comment on above: Performed By: #### L [id number] #### [facility] ([facility]) [address] [place] [address] RBC (Bld) [#/Vol] 3.30 10*6/uL Low 3.80-5.00 [facility] Comment on above: Performed By: #### L [id number] #### [facility] ([facility]) [address] [place] [address] WBC (Bld) [#/Vol] 4.68 10*3/uL Normal 4.00-10.60 [facility] Comment on above: Performed By: #### L [id number] #### [facility] ([facility]) [address] [place] [address] CT HEAD WO IV CONTRASTon CT HEAD WO IV CONTRAST HISTORY: A 37 yea r old female with the history of the stroke is suspected. Left-sided weakness. EXAM/TECHNIQUE: Multidetector spiral CT scan of brain is obtained. Multiplanar reconstruction images are reformatted. COMPARISON: Comparison is made with prior CT scan of the head of 11/05/2023. FINDINGS: The ventricular system is normal in size and configuration. There is normal differentiation of canela and white matters. There is no evidence of intracranial hemorrhage or acute pathology. The cerebellum and brainstem are unremarkable.No mass effect, midline shift of the structures or extra-axial fluid collections are noted. There is a empty sella. The calvarium is intact. The visualized paranasal sinuses and mastoid air cells are clear. IMPRESSION: *No evidence of intracranial hemorrhage or acute pathology. *No significant interval change from prior study. All CT scans at this facility use dose modulation, iterative reconstruction, and/or weight based dosing when appropriate to reduce radiation dose to as low as reasonably achievable. Electronically signed: Sher Frank. 8 Invalid Interpretation Code [facility] DSon 11-07-2023 DS Admit Date 11/05/2023 Discharge Date 11/07/2023 Discharge Diagnosis SVT (supraventricular tachycardia) (CMS/HCC) suspect complex migraine Elevated troponin - likely demand ischemia from SVT Primary hypertension Iron deficnecy Anemia DMII - HgbA1C 5.9 Obese class 3/morbid obesity - BMI 78 Discharge Disposition Home or Self Care () Discharge Medications Your medication list START taking these medications Instructions Last Dose Given Next Dose Due aspirin 81 mg EC tablet Start taking on: November 08, 2023 Take 1 tablet (81 mg) by mouth in the morning for 30 doses. Do not start before November 08, 2023. atorvastatin 40 mg tablet Commonly known as: Lipitor Take 1 tablet (40 mg) by mouth at bedtime for 30 doses. CONTINUE taking these medications Instructions Last Dose Given Next Dose Due allopurinol 100 mg tablet Commonly known as: Zyloprim cholecalciferol (vitamin D3) 50 mcg (2,000 unit) capsule cyanocobalamin 1,000 mcg tablet Commonly known as: Vitamin B-12 FERROUS SULFATE ORAL HYDROcodone-acetaminophen 5-325 mg tablet Commonly known as: [place] losartan-hydrochlorothiazi de 50-12.5 mg tablet Commonly known as: Hyzaar metFORMIN XR 500 mg 24 hr tablet Commonly known as: Glucophage-XR Trulicity 1.5 mg/0.5 mL pen injector Generic drug: dulaglutide Where to Get Your Medications These medications were sent to [address] [place] [address] [address] aspirin 81 mg EC tablet atorvastatin 40 mg tablet Activity Normal activity as tolerated Diet Continue on the same type of diet and foods as you were eating before your admission. Drink plenty of water. Allergies Patient has no known allergies. Hospital Course History of Present Illness Eliana Hager is an 37 y.o. female who came from home with past medical history of morbid obesity s/p gastric bypass, hypertension, DM2, depression presents to the emergency department with a chief complaint of palpitations, nausea, lightheadedness and diaphoresis. Patient states that these symptoms awoke her from sleep. She also endorses shortness of breath but denies chest pain. She denies taking any medications to help. She states that she called EMS. When EMS arrived, patient was found to have a heart rate in the 190s. Patient was given 6 mg IV adenosine, nitroglycerin and Zofran in the rig which improved heart rate to the 120s. In the emergency department, patient was found a blood pressure of 123/78, heart rate 118, temp 97.9 and 99% on room air. Labs were completed showing hemoglobin 10.9, troponin 0.06. Repeat troponin comes back at 0.25. CXR was completed showing no acute cardiopulmonary abnormality. EKG is completed showing sinus tachycardia. During my examination, patient reports that palpitations, nausea, lightheadedness, diaphoresis had subsided but does still state a mild headache with some left eye blurry vision. CT scan to be ordered to rule out any further process, however, before CT scan could be ordered, patient began to have sudden onset left upper extremity and left lower extremity numbness, tingling and weakness. She was also noted to have a left-sided facial droop. Stroke alert was called. NIH was found to be a 4. CT head without IV contrast showed no acute intracranial pathology. CTA head/neck also without acute pathology. Scans reviewed by neurology stroke attending and they would like ASA and MR brain in AM. Hospital Course Left leg weakness - initial stroke eval negative in the ER although NIHSS 4 - neuro was consulted - we were unable to do an MRI on the brain due to her weight - Neuro did repeat CTOH - they think she likely had a complex migraine - recommend ASA 81mg once a day SVT - When EMS arrived, patient was found to have a heart rate in the 190s. Patient was given 6 mg IV adenosine, nitroglycerin and Zofran in the rig which improved heart rate to the 120s. - echo pending at discharge, follow up with cards - cards consulted She presented via EMS after awakening with tachycardia. It is reported that she was in an SVT however, the documentation of that is unavailable to us to review. She is on a bblocker which is reasonable for prevention of recurrent SVT events. An alternative would be an SVT ablation, however, her body weight over 450 lbs likely precludes this, at least for now, due to weight limits on the table.We would recommend an outpatient echo and lexiscan stress to evaluate the abnormal troponin, however, this may very well just represent the SVT which is a known cause of elevation in this enzyme. Pertinent Physical Exam At Time of Discharge Physical Exam Constitutional: Appearance: Normal appearance. HENT: Head: Normocephalic. Mouth/Throat: Mouth: Mucous membranes are moist. Eyes: Extraocular Movements: Extraocular movements intact. Pupils: Pupils are equal, round, a (more content not included)... Normal [facility] FOLATEon 11-07-2023 FOLATE (NG/ML) IN SER/PLAS 10.06 ng/mL Normal 6.6-1000 [facility] Comment on above: Performed By: #### L [id number] #### [facility] ([facility]) [address] [place] [address] IRON AND TIBCon 11-07-2023 IRON (UG/DL) IN SER/PLAS 60 ug/dL Normal 50-212 [facility] Comment on above: Performed By: #### L [id number] ####[facility] ([facility])[address] [place] [address] IRON BINDING CAPACITY (UG/DL) IN SER/PLAS 396 ug/dL Normal 250-450 [facility] Comment on above: Performed By: #### L [id number] ####[facility] ([facility])[address] [place] [address] IRON BINDING CAPACITY.UNSATURATED (UG/DL) IN SER/PLAS 336.0 ug/dL Normal 155.0-355. 0 [facility] Comment on above: Performed By: #### L [id number] ####[facility] ([facility])[address] [place] [address] IRON SATURATION (%) IN SER/PLAS 15 % Low 20-50 [facility] Comment on above: Performed By: #### L [id number] ####[facility] ([facility])[address] [place] [address] MAGNESIUMon 11-07-2023 Magnesium [Mass/Vol] 1.9 mg/dL Normal 1.9-2.7 [facility] Comment on above: Performed By: #### L [id number] ####[facility] ([facility])[address] [place] [address] NURSNOTEon 11-07-2023 NURSNOTE Pt. Requires a baria tric rolling walker d/t generalized weakness. The pt.'s medical condition limits her ability to participate in MRADLS. The pt.'s mobility limitation cannot be sufficiently resoled by the use of a cane and can be with a walker. The pt. Can safely use the rolling walker. It will significantly improve MRADLS and will be used on a daily basis. The pt. Is aware of the need and benefit. Normal [facility] POCT GLUCOSE METER UNSOLICIT ED RESULTSon 11-07-2023 Glucose [Mass/Vol] 107 mg/dL High 70-105 [facility] Comment on above: Order Comment: Waive d Testing in the ED is performed under the ED CLIA certificate #[id number]. Result Comment: [email or web address] Performed By: #### L [id number] ####[facility] ([facility])[address] [place] [address] Glucose [Mass/Vol] 116 mg/dL High 70-105 [facility] Comment on above: Order Comment: Waive d Testing in the ED is performed under the ED CLIA certificate #[id number]. Result Comment: [email or web address] Performed By: #### L [id number] ####[facility] ([employer])[address] [place] [address] Glucose [Mass/Vol] 106 mg/dL High 70-105 [facility] Comment on above: Order Comment: Waive d Testing in the ED is performed under the ED CLIA certificate #[id number]. Result Comment: [email or web address] Performed By: #### L [id number] ####[facility] ([facility])[address] [place] [address] Glucose [Mass/Vol] 111 mg/dL High 70-105 [facility] Comment on above: Order Comment: Waive d Testing in the ED is performed under the ED CLIA certificate #[id number]. Result Comment: [email or web address] Performed By: #### L [id number] ####[facility] ([facility])[address] [place] [address] VITAMIN B12on 11-07-2023 Cobalamin (Vitamin B12) [Mass/Vol] 510 pg/mL Normal 180-914 [facility] Comment on above: Result Comment: REFE RENCE RANGES: 180-914 pg/mL Normal 145-179 pg/mL Indeterminate <145 pg/mL Deficient Performed By: #### L [id number] ####[facility] ([facility])[address] [place] [place] [address] 30on 11-06-2023 30 Problem: Pain - Adul t Goal: Verbalizes/displays adequate comfort level or baseline comfort level Outcome: Progressing Flowsheets (Taken 11/06/2023914) Verbalizes/displays adequate comfort level or baseline comfort level: Encourage patient to monitor pain and request assistance Assess pain using appropriate pain scale Administer analgesics based on type and severity of pain and evaluate response Implement non-pharmacological measures as appropriate and evaluate response Problem: Safety - Adult Goal: Free from fall injury Outcome: Progressing Flowsheets (Taken 11/06/2023914) Free from fall injury: Assess patient frequently for physical needs Identify cognitive and physical deficits and behaviors that affect risk of falls Sibley fall precautions as indicated by assessment Educate patient/family on patient safety, including physical limitations Instruct patient to call for assistance with activity based on assessment Modify environment to reduce risk of injury Consider OT/PT consult to assist with strengthening/mobility Problem: Discharge Planning Goal: Discharge to home or other facility with appropriate resources Outcome: Progressing Flowsheets (Taken 11/06/2023914) Discharge to home or other facility with appropriate resources: Identify barriers to discharge with patient and caregiver Arrange for needed discharge resources and transportation as appropriate Identify discharge learning needs (meds, wound care, etc) Problem: Chronic Conditions and Co-morbidities Goal: Patient's chronic conditions and co-morbidity symptoms are monitored and maintained or improved Outcome: Progressing Flowsheets (Taken 11/06/2023914) Care Plan - Patient's Chronic Conditions and Co-Morbidity Symptoms are Monitored and Maintained or Improved: Monitor and assess patient's chronic conditions and comorbid symptoms for stability, deterioration, or improvement Collaborate with multidisciplinary team to address chronic and comorbid conditions and prevent exacerbation or deterioration Update acute care plan with appropriate goals if chronic or comorbid symptoms are exacerbated and prevent overall improvement and discharge Problem: Neurosensory - Adult Goal: Achieves stable or improved neurological status Outcome: Progressing Flowsheets (Taken 11/06/2023914) Achieves stable or improved neurological status: Assess for and report changes in neurological status Initiate measures to prevent increased intracranial pressure Maintain blood pressure and fluid volume within ordered parameters to optimize cerebral perfusion and minimize risk of hemorrhage Monitor temperature, glucose, and sodium. Initiate appropriate interventions as ordered Problem: Respiratory - Adult Goal: Achieves optimal ventilation and oxygenation Outcome: Progressing Flowsheets (Taken 11/06/2023914) Achieves optimal ventilation and oxygenation: Assess for changes in respiratory status Assess for changes in mentation and behavior Position to facilitate oxygenation and minimize respiratory effort Oxygen supplementation based on oxygen saturation or arterial blood gases Respiratory therapy support as indicated Problem: Cardiovascular - Adult Goal: Maintains optimal cardiac output and hemodynamic stability Outcome: Progressing Flowsheets (Taken 11/06/2023914) Maintains optimal cardiac output and hemodynamic stability: Monitor blood pressure and heart rate Monitor urine output and notify Licensed Independent Practitioner for values outside of normal range Assess for signs of decreased cardiac output Problem: Skin/Tissue Integrity - Adult Goal: Skin integrity remains intact Outcome: Progressing Flowsheets (Taken 11/06/2023914) Skin integrity remains intact: Monitor for areas of redness and/or skin breakdown Problem: Musculoskeletal - Adult Goal: Return mobility to safest level of function Outcome: Progressing Flowsheets (Taken 11/06/2023914) Return mobility to safest level of function: Assess patient stability and activity tolerance for standing, transferring and ambulating with or without assistive devices Assist with transfers and ambulation using safe patient handling equipment as needed Ensure adequate protection for wounds/incisions during mobilization Obtain physical therapy/occupational therapy consults as needed Instruct patient/family in ordered activity level Problem: Gastrointestinal - Adult Goal: Maintains or returns to baseline bowel function Outcome: Progressing Flowsheets (Taken 11/06/2023914) Maintains or returns to baseline bowel function: Assess bowel function Encourage oral fluids to ensure adequate hydration Encourage mobilization and activity Problem: Genitourinary - Adult Goal: Absence of urinary retention Outcome: Progressing Flowsheets (Taken 11/06/2023914) Absence of urinary retention: Assess patient???s ability to void and empty bladder (more content not included)... Normal [facility] 30 Daily Case Managemen t Update Multidisciplinary rounds have been completed. Barriers to Discharge: 11/05: ER admit for SVT. Given adenosine by EMS. L sided facial droop/blurry vision. Stroke alert called overnight -TS Diet: Dietary Orders (From admission, onward) Start Ordered 11/06/23 0019 Regular Diet Heart Healthy/HTN, CABG,Stroke, (2gNA, low fat, low cholesterol) Diet effective now Question Answer Comment Room Service? Yes Fat restriction: Heart Healthy/HTN, CABG,Stroke, (2gNA, low fat, low cholesterol) 11/06/23 0018 Physician Expected Discharge Date: Unknown Discharge Delays: PT Six Click Score: 24 OT Six Click Score: PT Recommendations: OT Recommendations: New Consults: Consult Orders (From admission, onward) Start Ordered 11/06/23 0025 Inpatient consult to Neurology Stroke Once Provider: (Not yet assigned) Question Answer [facility] [employer] NEUROLOGY STROKE TEAM Reason for Consult? stroke like symptoms Level of Consultation Consultation and Management 11/06/23 0025 11/05/23 1849 Inpatient consult to Cardiology Once Specialty: Cardiology Provider: (Not yet assigned) Question Answer [facility] [employer] CARDIOLOGY TEAM Reason for Consult? SVT Level of Consultation Consultation and Management 11/05/23 1848 [facility] BASIC METABOLIC PANELon 10-10 Anion gap [Moles/Vol] 11 mmol/L Normal 7-20 [facility] Comment on above: Performed By: #### L [id number] ####[facility] (BEAKER)[address] [place] [place] [address] Calcium [Mass/Vol] 8.7 mg/dL Normal 8.6-10.3 [facility] Comment on above: Performed By: #### L [id number] ####[facility] (BEAKER)[address] [place] [place] [address] Chloride [Moles/Vol] 103 mmol/L Normal 98-107 [facility] Comment on above: Performed By: #### L [id number] ####[facility] (BEAKER)[address] [place] [place] [address] CO2 [Moles/Vol] 24 mmol/L Normal 21-31 [facility] Comment on above: Performed By: #### L [id number] ####[facility] ([facility])[address] [place] [address] Creatinine [Mass/Vol] 0.93 mg/dL Normal 0.60-1.20 [facility] Comment on above: Performed By: #### L [id number] ####[facility] ([facility])[address] [place] [address] GLOMERULAR FILTRATION RATE ML/MIN/1.73 SQ M.PREDICTED 80.2 mL/min/1.73m*2 Normal >60.0 [facility] Comment on above: Result Comment: The [facility]???s estimated glomerular filtration rate (eGFR) will no longer include consideration of race in its calculation. The National Kid[employer] Foundation???s eGFR Task Force developed new recommendations for the estimation of the glomerular filtration rate in the [place] They recommend immediate implementation of the new equation refit without the race variable in all laboratories because the calculation does not include race. In addition to not including race in the calculation and reporting, it included diversity in its development, and has acceptable performance characteristics and potential consequences that do not disproportionately affect any one group of individuals. Performed By: #### L [id number] ####[facility] ([facility])[address] [place] [address] Glucose [Mass/Vol] 94 mg/dL Normal 70-100 [facility] Comment on above: Performed By: #### L [id number] ####[facility] ([facility])[address] [place] [address] Potassium [Moles/Vol] 4.2 mmol/L Normal 3.5-5.1 [facility] Comment on above: Performed By: #### L [id number] ####[facility] ([facility])[address] [place] [address] Sodium [Moles/Vol] 134 mmol/L Low 136-145 [facility] Comment on above: Performed By: #### L [id number] ####[facility] ([facility])[address] [place] [address] Urea nitrogen [Mass/Vol] 7 mg/dL Normal 7-25 [facility] Comment on above: Performed By: #### L [id number] ####[facility] [place] [address] UREA NITROGEN/CREATININE (MASS RATIO) IN SER/PLAS 7.5 Normal [facility] Comment on above: Performed By: #### L [id number] ####[facility] ([facility] [place] [address] CBCon 11-06-2023 Erythrocyte distribution width (RBC) [Ratio] 18.8 % High 11.5-15.0 [facility] Comment on above: Performed By: #### L [id number] #### [facility] ([facility]) [address] [place] [address] ERYTHROCYTE MEAN CORPUSCULAR HEMOGLOBIN CONCENTRATION (G/DL) BY AUTOMATED 29.9 g/dL Low 32.0-35.0 [facility] Comment on above: Performed By: #### L [id number] #### [facility] ([facility]) [address] [place] [address] Hematocrit (Bld) [Volume fraction] 30.4 % Low 36.0-48.0 [facility] Comment on above: Performed By: #### L [id number] #### [facility] ([facility]) [address] [place] [address] Hemoglobin (Bld) [Mass/Vol] 9.1 g/dL Low 12.0-15.0 [facility] Comment on above: Performed By: #### L [id number] #### [facility] ([facility] [address] [place] [address] MCH (RBC) [Entitic mass] 27.4 pg Normal 27.0-33.0 [facility] Comment on above: Performed By: #### L [id number] #### [facility] ([facility] [address] [place] [address] MCV (RBC) [Entitic vol] 91.6 fL Normal 82.0-98.0 [facility] Comment on above: Performed By: #### L [id number] #### [facility] ([facility]) [address] [place] [address] PLATELETS (10*3/UL) IN BLOOD AUTOMATED COUNT 268 10*3/uL Normal 150-400 [facility] Comment on above: Performed By: #### L [id number] #### [facility] ([facility]) [address] [place] [address] RBC (Bld) [#/Vol] 3.32 10*6/uL Low 3.80-5.00 [facility] Comment on above: Performed By: #### L [id number] #### [facility] ([facility]) [address] [place] [address] WBC (Bld) [#/Vol] 6.43 10*3/uL Normal 4.00-10.60 [facility] Comment on above: Performed By: #### L [id number] #### [facility] ([facility]) [address] [place] [address] CONSULTon 11-06-2023 CONSULT ------ -- Attestation signed by Ángel Castellanos MD at 11/06/2023 3:26 PM I spoke with and examined Ms. Hager and agree with Dr. Doris Fontenot along with his assessment and plan. She presented via EMS after awakening with tachycardia. It is reported that she was in an SVT however, the documentation of that is unavailable to us to review. She is on a bblocker which is reasonable for prevention of recurrent SVT events. An alternative would be an SVT ablation, however, her body weight over 450 lbs likely precludes this, at least for now, due to weight limits on the table. We would recommend an outpatient echo and lexiscan stress to evaluate the abnormal troponin, however, this may very well just represent the SVT which is a known cause of elevation in this enzyme. -- Reason For Consult SVT History Of Present Illness Eliana Hager is a 37 y.o. female presenting with Rapid Heart Rate. PMHx of morbid obesity s/p gastric bypass, HTN, DM2, depression, reported SVT who presents to the emergency department with a chief complaint of palpitations, nausea, lightheadedness and diaphoresis. Patient states her symptoms awoke her from sleep and were associated with shortness of breath but denies chest pain. She denies taking any medications to help. She states that she called EMS. When EMS arrived, patient was found to have a heart rate in the 190s. Patient was given 6 mg IV adenosine, nitroglycerin and Zofran in the rig which improved heart rate to the 120s. No strips could be found upon evaluating the patient In the ED, patient was found a blood pressure of 123/78, heart rate 118, temp 97.9 and 99% on room air. Labs were completed showing hemoglobin 10.9, troponin 0.06. Repeat troponin comes back at 0.25. CXR was completed showing no acute cardiopulmonary abnormality. EKG is completed showing sinus tachycardia and nonspecific T wave changes. Follow up EKG showed normal sinus rhythm. Patient states that she had similar episodes years ago where she went to the ED for similar presentation and was given some medication and sent back home. Of note, during her hospitalization she developed strokelike symptoms and is being evaluated by neurology to rule out stroke. Past Medical History She has a past medical history of Depression (07/14/2017), Diabetes mellitus ([facility]), Essential hypertension (06/20/2007), Morbid obesity ([facility]) (12/07/2007), and S/P gastric bypass (02/07/2023). Surgical History She has a past surgical history that includes Gastric bypass. Family History Family History Family history unknown: Yes Social History She reports that she has never smoked. She has never used smokeless tobacco. She reports current alcohol use. She reports that she does not use drugs. Allergies Patient has no known allergies. Medications Medications Prior to Admission Medication Sig Dispense Refill Last Dose allopurinol (Zyloprim) 100 mg tablet Take 1 tablet by mouth in the morning. Trulicity 1.5 mg/0.5 mL pen injector Inject 1.5 mg under the skin 1 (one) time per week. cholecalciferol, vitamin D3, 50 mcg (2,000 unit) capsule Take 1 capsule by mouth in the morning. cyanocobalamin (Vitamin B-12) 1,000 mcg tablet Take 1 tablet by mouth in the morning. FERROUS SULFATE ORAL Take by mouth in the morning. HYDROcodone-acetaminophen ([place]) 5-325 mg tablet Take 2 tablets by mouth every 4 (four) hours if needed for moderate pain (4-7 pain score). losartan-hydrochlorothiazi de (Hyzaar) 50-12.5 mg tablet Take 1 tablet by mouth in the morning. metFORMIN XR (Glucophage-XR) 500 mg 24 hr tablet Take 500 mg by mouth 2 times daily. Active Hospital Medications Medication Dose Route Frequency Last Admin acetaminophen 650 mg oral q6h PRN 650 mg at 11/06/23 1205 allopurinol 100 mg oral Daily 100 mg at 11/06/23 0920 aspirin 81 mg oral Daily 81 mg at 11/06/23 1315 atorvastatin 40 mg oral Nightly cholecalciferol 2,000 Units oral Daily 2,000 Units at 11/06/23 09 [START ON 11/07/2023] clopidogrel 75 mg oral Daily cyanocobalamin 1,000 mcg oral Daily 1,000 mcg at 11/06/23 0920 glucose 24 g oral q15 min PRN Or dextrose 50 % in water (D50W) 25 g intravenous q15 min PRN heparin (porcine) 5,000 Units subcutaneous q12h MICAH 5,000 Units at 11/06/23 0920 insulin lispro 0-5 Units subcutaneous TID with meals And insulin lispro 0-4 Units subcutaneous Nightly losartan-hydrochlorothiazi de 1 tablet oral Daily 1 tablet at 11/06/23 09 melatonin 5 mg oral Nightly PRN 5 mg at 11/05/232114 ondansetron ODT 4 mg oral q8h PRN Or ondansetron 4 mg intravenous q6h PRN Review of Systems 12 point ROS negative except as in HPI Last Recorded Vitals Patient Vitals for the past 24 hrs: BP Temp Temp src Pulse Resp SpO2 Weight 11/06/23 1200 105/65 36.5 ???C (97. (more content not included)... Normal [facility] CONSULT ------ -- Attestation signed by Josey Power MD at 11/20/2023 11:16 PM I saw and examined the patient with Neurology fellow, I agree with examination, assessment, plan -- Stroke/ Neurointerventional Consult Note DATE OF ADMISSION 11/05/2023 1:40 PM REASON FOR CONSULTATION: Blurred vision and left sided weakness PCP: Beverly Salmeron MD CHIEF COMPLAINT: Blurred vision and left sided weakness HISTORY OF PRESENT ILLNESS: Eliana Hager is a 37 y.o. Black or female with PMH significant for Type II DM, HTN, morbid obesity s/p gastric bypass who presented initially with chief complain of left eye blurred vision and palpitation. She states that she woke from a nap around 12:00 pm, 11/05/2023 when noticed black spots in the left eye given the fact she went to bed around 6:00 am. Patient presented to the ER and she was found to have a heart rate in the 190s. Patient was given 6 mg IV adenosine, nitroglycerin and Zofran in the rig which improved heart rate to the 120s. Later last night nursing staff noticed left sided weakness involving face,arm and leg. Today she states that the weakness in the arm has improved but still have significant weakness in the left leg and numbness in the left side. LKW: 11/05/2023, 6:00 am NIHSS:5 TPA: No, out of window Endovasular:No DTN: Baseline Modified [place] Scale:2 PROBLEM: Principal Problem: SVT (supraventricular tachycardia) ([facility]) Active Problems: Elevated troponin Depression Diabetes mellitus, type II ([facility]) Essential hypertension Morbid obesity ([facility]) S/P gastric bypass Hypomagnesemia Stroke-like symptoms PAST MEDICAL HISTORY: Past Medical History: Diagnosis Date Depression 07/14/2017 Diabetes mellitus ([facility]) Essential hypertension 06/20/2007 Morbid obesity ([facility]) 12/07/2007 S/P gastric bypass 02/07/2023 PAST SURGICAL HISTORY: Past Surgical History: Procedure Laterality Date GASTRIC BYPASS ALLERGIES: No Known Allergies HOME MEDICATIONS: Medications Prior to Admission Medication Sig Dispense Refill Last Dose allopurinol (Zyloprim) 100 mg tablet Take 1 tablet by mouth in the morning. Trulicity 1.5 mg/0.5 mL pen injector Inject 1.5 mg under the skin 1 (one) time per week. cholecalciferol, vitamin D3, 50 mcg (2,000 unit) capsule Take 1 capsule by mouth in the morning. cyanocobalamin (Vitamin B-12) 1,000 mcg tablet Take 1 tablet by mouth in the morning. FERROUS SULFATE ORAL Take by mouth in the morning. HYDROcodone-acetaminophen ([place]) 5-325 mg tablet Take 2 tablets by mouth every 4 (four) hours if needed for moderate pain (4-7 pain score). losartan-hydrochlorothiazi de (Hyzaar) 50-12.5 mg tablet Take 1 tablet by mouth in the morning. metFORMIN XR (Glucophage-XR) 500 mg 24 hr tablet Take 500 mg by mouth 2 times daily. SOCIAL HISTORY: Social History Socioeconomic History Marital status: Single Spouse name: Not on file Number of children: Not on file Years of education: Not on file Highest education level: Not on file Occupational History Not on file Tobacco Use Smoking status: Never Smokeless tobacco: Never Substance and Sexual Activity Alcohol use: Yes Drug use: Never Sexual activity: Not on file Other Topics Concern Not on file Social History Narrative Not on file Social Determinants of Health Financial Resource Strain: Low Risk (11/05/2023) Overall Financial Resource Strain (CARDIA) Difficulty of Paying Living Expenses: Not hard at all Food Insecurity: No Food Insecurity (11/05/2023) Hunger Vital Sign Worried About Running Out of Food in the Last Year: Never true Ran Out of Food in the Last Year: Not on file Transportation Needs: No Transportation Needs (11/05/2023) Transportation Lack of Transportation (Medical): No Lack of Transportation (Non-Medical): Not on file Physical Activity: Not on file Stress: Not on file Social Connections: Not on file Intimate Partner Violence: Unknown (11/05/2023) Humiliation, Afraid, Rape, and Kick questionnaire Fear of Current or Ex-Partner: No Emotionally Abused: Not on file Physically Abused: Not on file Sexually Abused: Not on file Housing Stability: Low Risk (11/05/2023) Housing Stability Vital Sign Unable to Pay for Housing in the Last Year: Not on file Number of Places Lived in the Last Year: Not on file Unstable Housing in the Last Year: No FAMILY HISTORY: Family History Family history unknown: Yes REVIEW OF SYSTEMS: Pertinent items are noted in HPI. PHYSICAL EXAM: Vital Signs: Blood pressure 105/65, pulse 73, temperature 36.5 ???C (97.7 ???F), temperature source Temporal, resp. rate 16, height 1.651 m (5' 5 ), weight (!) 214 kg (471 lb 12.8 oz), SpO2 98 %. Respiratory Source: @RESPSOURCE@ Admission Weight: Weight: (more content not included)... Normal [facility] D-DIMER, QUANTITATIVEon - FIBRIN D-DIMER (UG/L FEU) IN PLATELET POOR PLASMA 0.35 mcg/mL FEU Normal 0.27-0.49 [facility] Comment on above: Order Comment: D-Dim er values of less than 0.50 ug/ml (FEU) are considered to be a negative predictor of thrombosis. However, the D-Dimer result should be used in conjunction with pretest probability and should not be used alone to diagnose a thrombotic event. Performed By: #### L [id number] ####[facility] (BEAKER)[address] [place] [address] HEMOGLOBIN A1Con 11-06-2023 Glucose [Mass/Vol] 123 mg/dL Normal [facility] Comment on above: Performed By: #### L [id number] ####[facility] ([facility])[address] [place] [address] HbA1c (Bld) [Mass fraction] 5.9 % Normal 4.0-6.0 [facility] Comment on above: Performed By: #### L [id number] ####[facility] ([facility])[address] [place] [address] LIPID PANELon 11-06-2023 CHOL/HDL 3.5 mg/dL Normal [facility] Comment on above: Order Comment: fasti ng Performed By: #### L [id number] ####[facility] ([facility])[address] [place] [address] Cholesterol [Mass/Vol] 143 mg/dL Normal 120-200 Un [facility] Comment on above: Order Comment: fasti ng Performed By: #### L [id number] ####[facility] ([facility])[address] [place] [address] Magnesium [Mass/Vol] 62 mg/dL Normal 40-149 [facility] Comment on above: Order Comment: fasti ng Result Comment: TRIG LYCERIDE REFERENCE RANGE: 20 YEARS AND OLDER CARDIOVASCULAR RISK LESS THAN 150 mg/dL LOW RISK 150 TO 199 mg/dL BORDERLINE RISK 200 mg/dL AND GREATER HIGH RISK Performed By: #### L [id number] ####[facility] ([facility])[address] [place] [address] Magnesium [Mass/Vol] 90 mg/dL Normal 0-160 [facility] Comment on above: Order Comment: fasti ng Performed By: #### L [id number] ####[facility] (BEAKER)[address] [place] [address] Magnesium [Mass/Vol] 41 mg/dL Normal 23-92 [facility] Comment on above: Order Comment: fasti ng Performed By: #### L [id number] ####[facility] (BEAKER)[address] [place] [address] NON HDL CHOL. (LDL+VLDL) 102 Normal [facility] Comment on above: Order Comment: fasti ng Performed By: #### L [id number] ####[facility] ([facility] [place] [address] TOTAL VLDL-C 12 mg/dL Normal 0-40 [facility] Comment on above: Order Comment: fasti ng Performed By: #### L [id number] ####[facility] ([facility])[address] [place] [address] MAGNESIUMon 11-06-2023 Magnesium [Mass/Vol] 2.2 mg/dL Normal 1.9-2.7 [facility] Comment on above: Performed By: #### L [id number] #### [facility] ([facility]) [address] [place] [address] NURSNOTEon 11-06-2023 NURSNOTE Pt came up from ED a t approximately 2130. During assessment, patient reported blurriness in left eye. Primary was already made aware of this down in ED. Patient also reported numbness and tingling in both her lower extremities, however claimed this is her baseline, due to not taking her prescribed gabapentin. During assessment patient showed no deficits in strength on either side and was able to get up to walk to the bathroom. At 2300, Dr. Ulrich and CHARISSE Mehta entered patient's room and performed a stroke assessment, resulting in a stroke alert being called. Patient taken down for stat CT at this time. Normal [facility] POCT GLUCOSE METER UNSOLICIT ED RESULTSon 11-06-2023 Glucose [Mass/Vol] 126 mg/dL High 70-105 [facility] Comment on above: Order Comment: Waive d Testing in the ED is performed under the ED CLIA certificate #[id number]. Result Comment: [email or web address] Performed By: #### L [id number] ####[facility] ([facility] [place] [address] Glucose [Mass/Vol] 108 mg/dL High 70-105 [facility] [place] [facility] Comment on above: Order Comment: Waive d Testing in the ED is performed under the ED CLIA certificate #[id number]. Result Comment: [email or web address] Performed By: #### L [id number] ####[facility] ([facility])[address] [place] [address] Glucose [Mass/Vol] 132 mg/dL High 70-105 [facility] Comment on above: Order Comment: Waive d Testing in the ED is performed under the ED CLIA certificate #[id number]. Result Comment: [email or web address] Performed By: #### L [id number] ####[facility] ([facility])[address] [place] [address] Glucose [Mass/Vol] 105 mg/dL Normal 70-105 [facility] Comment on above: Order Comment: Waive d Testing in the ED is performed under the ED CLIA certificate #[id number]. Result Comment: [email or web address] Performed By: #### L [id number] #### [facility] ([facility]) [address] [place] [address] TROPONIN Ion 11-06-2023 Troponin I.cardiac [Mass/Vol] 0.04 ng/mL Normal 0.00-0.04 [facility] Comment on above: Performed By: #### L [id number] ####[facility] ([facility])[address] [place] [address] Troponin I.cardiac [Mass/Vol] 0.05 ng/mL High 0.00-0.04 [facility] Comment on above: Performed By: #### L [id number] ####[facility] ([facility] [place] [address] Troponin I.cardiac [Mass/Vol] 0.10 ng/mL High 0.00-0.04 [facility] Comment on above: Performed By: #### L [id number] #### [facility] ([facility]) [address] [place] [address] TSHon 11-06-2023 THYROTROPIN (MIU/L) IN SER/PLAS BY DETECTION LIMIT <= 0.05 MIU/L 3.30 mIU/L Normal 0.34-5.60 [facility] Comment on above: Performed By: #### L [id number] #### [facility] ([facility]) [address] [place] [address] 30on 11-04-2023 30 The patient is Moder ately Stable - Low risk of patient condition declining or worsening The patient's goals for the shift include COMFORT The clinical goals for the shift include VSS Normal [facility] BASIC METABOLIC PANELon 10-10 Anion gap [Moles/Vol] 13 mmol/L Normal 7-20 [facility] Comment on above: Performed By: #### L [id number] #### [facility] ([facility]) [address] [place] [address] Calcium [Mass/Vol] 9.2 mg/dL Normal 8.6-10.3 [facility] Comment on above: Performed By: #### L [id number] #### [facility] ([facility]) [address] [place] [address] Chloride [Moles/Vol] 105 mmol/L Normal 98-107 [facility] Comment on above: Performed By: #### L [id number] #### [facility] ([facility]) [address] [place] [address] CO2 [Moles/Vol] 21 mmol/L Normal 21-31 [facility] Comment on above: Performed By: #### L [id number] #### [facility] ([facility]) [address] [place] [address] Creatinine [Mass/Vol] 0.88 mg/dL Normal 0.60-1.20 [facility] Comment on above: Performed By: #### L [id number] #### [facility] ([facility]) [address] [place] [address] GLOMERULAR FILTRATION RATE ML/MIN/1.73 SQ M.PREDICTED 85.7 mL/min/1.73m*2 Normal >60.0 [facility] Comment on above: Result Comment: The [facility]???s estimated glomerular filtration rate (eGFR) will no longer include consideration of race in its calculation. The National Kid[employer] Foundation???s eGFR Task Force developed new recommendations for the estimation of the glomerular filtration rate in the [place] They recommend immediate implementation of the new equation refit without the race variable in all laboratories because the calculation does not include race. In addition to not including race in the calculation and reporting, it included diversity in its development, and has acceptable performance characteristics and potential consequences that do not disproportionately affect any one group of individuals. Performed By: #### L [id number] #### [facility] ([facility]) [address] [place] [address] Glucose [Mass/Vol] 107 mg/dL High 70-100 [facility] Comment on above: Performed By: #### L [id number] #### [facility] ([facility]) [address] [place] [address] Potassium [Moles/Vol] 4.2 mmol/L Normal 3.5-5.1 [facility] Comment on above: Performed By: #### L [id number] #### [facility] ([facility]) [address] [place] [address] Sodium [Moles/Vol] 135 mmol/L Low 136-145 [facility] Comment on above: Performed By: #### L [id number] #### [facility] ([facility]) [address] [place] [address] Urea nitrogen [Mass/Vol] 5 mg/dL Low 7-25 [facility] Comment on above: Performed By: #### L [id number] #### [facility] ([facility]) [address] [place] [address] UREA NITROGEN/CREATININE (MASS RATIO) IN SER/PLAS 5.7 Normal [facility] Comment on above: Performed By: #### L [id number] #### [facility] ([facility]) [address] [place] [address] CBC WITH AUTO DIFFERENTIALon 11-05-2023 Basophils (Bld) [#/Vol] 0.05 10*3/uL Normal 0.00-0.20 [facility] Comment on above: Performed By: #### L [id number] #### [facility] ([facility]) [address] [place] [address] Basophils/100 WBC (Bld) 0.6 % Normal 0.0-1.0 [facility] Comment on above: Performed By: #### L [id number] #### [facility] ([facility]) [address] [place] [address] Eosinophils (Bld) [#/Vol] 0.07 10*3/uL Normal 0.00-0.50 [facility] Comment on above: Performed By: #### L [id number] #### [facility] ([facility]) [address] [place] [address] Eosinophils/100 WBC (Bld) 0.9 % Normal 0.0-6.0 [facility] Comment on above: Performed By: #### L [id number] #### [facility] ([facility]) [address] [place] [address] Erythrocyte distribution width (RBC) [Ratio] 18.5 % High 11.5-15.0 [facility] Comment on above: Performed By: #### L [id number] #### [facility] ([facility]) [address] [place] [address] ERYTHROCYTE MEAN CORPUSCULAR HEMOGLOBIN CONCENTRATION (G/DL) BY AUTOMATED 30.1 g/dL Low 32.0-35.0 [facility] Comment on above: Performed By: #### L [id number] #### [facility] ([facility]) [address] [place] [address] Hematocrit (Bld) [Volume fraction] 36.2 % Normal 36.0-48.0 [facility] Comment on above: Performed By: #### L [id number] #### [facility] ([facility]) [address] [place] [address] Hemoglobin (Bld) [Mass/Vol] 10.9 g/dL Low 12.0-15.0 [facility] Comment on above: Performed By: #### L [id number] #### [facility] ([facility] [address] [place] [address] Immature granulocytes (Bld) [#/Vol] 0.02 10*3/uL Normal 0.00-0.20 [facility] Comment on above: Performed By: #### L [id number] #### [facility] ([facility]) [address] [place] [address] Immature granulocytes/100 WBC (Bld) 0.2 % Normal 0.0-1.0 [facility] Comment on above: Performed By: #### L [id number] #### [facility] ([facility]) [address] [place] [address] Lymphocytes (Bld) [#/Vol] 3.89 10*3/uL Normal 1.20-4.00 [facility] Comment on above: Performed By: #### L [id number] #### [facility] ([facility]) [address] [place] [address] Lymphocytes/100 WBC (Bld) 48.0 % High 20.0-45.0 [facility] Comment on above: Performed By: #### L [id number] #### [facility] ([facility]) [address] [place] [address] MCH (RBC) [Entitic mass] 27.7 pg Normal 27.0-33.0 [facility] Comment on above: Performed By: #### L [id number] #### [facility] ([facility]) [address] [place] [address] MCV (RBC) [Entitic vol] 91.9 fL Normal 82.0-98.0 [facility] Comment on above: Performed By: #### L [id number] #### [facility] ([facility]) [address] [place] [address] Monocytes (Bld) [#/Vol] 0.57 10*3/uL Normal 0.10-1.00 [facility] Comment on above: Performed By: #### L [id number] #### [facility] ([facility]) [address] [place] [address] Monocytes/100 WBC (Bld) 7.0 % Normal 5.0-12.0 [facility] Comment on above: Performed By: #### L [id number] #### [facility] ([facility]) [address] [place] [address] Neutrophils (Bld) [#/Vol] 3.51 10*3/uL Normal 1.60-7.60 [facility] Comment on above: Performed By: #### L [id number] #### [facility] ([facility]) [address] [place] [address] Neutrophils/100 WBC (Bld) 43.3 % Normal 40.0-72.0 [facility] Comment on above: Performed By: #### L [id number] #### [facility] ([facility]) [address] [place] [address] NRBC (PER 100 WBCS) BY AUTOMATED COUNT 0.0 % Normal 0 [facility] Comment on above: Performed By: #### L [id number] #### [facility] ([facility]) [address] [place] [address] PLATELETS (10*3/UL) IN BLOOD AUTOMATED COUNT 335 10*3/uL Normal 150-400 [facility] Comment on above: Performed By: #### L [id number] #### [facility] ([facility]) [address] [place] [address] RBC (Bld) [#/Vol] 3.94 10*6/uL Normal 3.80-5.00 [facility] Comment on above: Performed By: #### L [id number] #### [facility] ([facility]) [address] [place] [address] WBC (Bld) [#/Vol] 8.11 10*3/uL Normal 4.00-10.60 [facility] Comment on above: Performed By: #### L [id number] #### [facility] ([facility]) [address] [place] [address] CT BRAIN PERFUSIONon [address] BRAIN PERFUSION 11/05/2023 11:31 PM CLINICAL INDICATIONS: New left eye blurring of the vision. Left-sided weakness and left leg numbness. TECHNOLOGIST COMMENTS: Stroke like symptoms. QUESTION FOR RADIOLOGIS: Evaluate possible stroke PROTOCOL: CT brain perfusion CONTRAST: 150 mL Omnipaque 350 TECHNIQUE: Multidetector CT axial slices of the brain were obtained without IV contrast. Sagittal, coronal, and 3-D reconstructions were performed and viewed on a separate workstation. Dynamic acquisition CT perfusion images were obtained in 18 seperate phases during and after administration of 50 mL Omnipaque 350 intravenously. Arterial and venous time activity curves were generated with regions of interest drawn over the arterial and venous circulations. Color maps for mean transit time, cerebral blood flow, cerebral perfusion, and time to peak perfusion were generated in the axial plane. Dynamic 3-D CT angiography images were reconstructed in sagittal coronal and axial plane and viewed on a separate workstation. All CT scans at this facility use dose modulation, iterative reconstruction, and/or weight based dosing when appropriate to reduce radiation dose to as low as reasonably achievable. COMPARISON: Noncontrast brain CT and CTA of the head earlier today FINDINGS: Arterial input function DYLON selected: RUBI. Venous outflow function DYLON: Torcula. Parametric maps: CTP characteristics {for area of interest}: + CBF {cerebral blood flow}: Symmetric. + MTT {mean transit time}: Symmetric. + CBV {cerebral blood volume}: Symmetric. Vascular territory involved: None. Tissue involved: None. Cerebral blood flow less than 30% is 0 mL. Time to maximum more than 6 seconds is 0 mL. Mismatch volume is 0 mL. mismatch ratio: none. If there is persistent concern for possible stroke, diffusion weighted MRI may be helpful in further evaluation. IMPRESSION: Symmetric perfusion indices. If there is persistent concern for possible stroke, diffusion weighted MRI may be helpful in further evaluation. Electronically signed: Grant Leiva MD. Not Vldtd Invalid Interpretation Code [facility] CT HEAD WO IV CONTRASTon CT HEAD WO IV CONTRAST CT HEAD WO IV CON TRAST 11/05/2023 11:31 PM CLINICAL INDICATIONS: New left biliary vision. Left-sided weakness and leg numbness. TECHNOLOGIST COMMENTS: Stroke like symptoms. QUESTION FOR THE RADIOLOGIST: Evaluate possibility of stroke. PROTOCOL: TECHNIQUE:Multi-detector CT axial slices of the brain were obtained without IV contrast. Helical,sagittal, coronal, and 3-D reconstructions were performed and viewed on a separate workstation. All CT scans at this facility use dose modulation, iterative reconstruction, and/or weight based dosing when appropriate to reduce radiation dose to as low as reasonably achievable COMPARISON: None. FINDINGS: There is no shift of the midline structures, acute intracranial bleeding, mass effects, or evidence of acute ischemia. The ventricular system is normal in size. The brainstem and the cerebellum are unremarkable. Suggestion of partial empty sella. The visualized intraorbital contents, the visualized paranasal sinuses, and the infratemporal soft tissues show no acute abnormality. The osseous structures in the skull base and the calvarium show no abnormality. IMPRESSION: No evidence of acute intracranial pathology Electronically signed: Grant Leiva MD. Normal [facility] CTA HEAD W IV CONTRASTon CTA HEAD W IV CONTRAST CTA HEAD W IV CON [facility] 11/05/2023 11:31 PM CLINICAL INDICATIONS: Left eye blurry vision and left-sided weakness in the arm and left leg numbness. PROTOCOL: CTA of the head CONTRAST: 150 mL Omnipaque 350 TECHNIQUE: Multi-detector CT angiography axial slices of the head were obtained before and during intravenous administration of IV contrast material. Sagittal, coronal, and 3-D reconstructions were performed and viewed on a separate workstation. All CT scans at this facility use dose modulation, iterative reconstruction, and/or weight based dosing when appropriate to reduce radiation dose to as low as reasonably achievable. COMPARISON: Noncontrast brain CT obtained earlier today FINDINGS: The superior cerebellar arteries, posterior inferior cerebellar arteries, and the basilar artery are within normal limits. The posterior cerebellar arteries are unremarkable. The intracranial segments of the internal carotid arteries are within normal limits. There are normal anterior and middle cerebral arteries. Anterior communicating artery is patent. Posterior communicating arteries are present. The deep venous system and dural venous systems appear to be patent. No bony abnormalities are appreciated. Study is slightly compromised due to suboptimal bolus timing and large body habitus IMPRESSION: No acute intracranial pathology. No evidence of focal stenosis, aneurysmal dilatation, dissection or occlusion. Electronically signed: Grant Leiva MD. Normal [facility] CTA NECK W IV CONTRASTon CTA NECK W IV CONTRAST CTA NECK W IV CON TRAST 11/05/2023 11:31 PM CLINICAL INDICATIONS: New left eye blurry vision, left-sided arm weakness and left leg numbness. PROTOCOL: Neck CTA CONTRAST: 150 mL Omnipaque 350 TECHNIQUE: Multi-detector CT angiography axial slices of the neck were obtained during intravenous administration of IV contrast material. Sagittal, coronal, and 3-D reconstructions were performed and viewed on a separate workstation. The [place] Symptomatic Carotid Endarterectomy Trial (NASCET) method for calculating the degree of stenosis was utilized for stenosis measurements. COMPARISON: None. FINDINGS: Examination is slightly suboptimal due to large body habitus and large neck with significant soft tissues limiting resolution despite using high-dose of contrast. There is a normal 3-vessel arch. The subclavian arteries are normal in course and caliber. The vertebral arteries are normal in course and caliber arising from the subclavian arteries. The superior cerebellar arteries, posterior inferior cerebellar arteries, and the basilar artery are within normal limits. The posterior cerebellar arteries are unremarkable. The common and internal carotid arteries are normal in course and caliber. Intracranially there are normal anterior and middle cerebral arteries. The anterior communicating artery is patent. The posterior communicating arteries are present. The deep venous system and dural venous systems appear to be patent. No bony abnormalities are appreciated. The lung apices are within normal limits. IMPRESSION: No evidence of focal stenosis, aneurysmal dilatation, dissection or occlusion. All CT scans at this facility use dose modulation, iterative reconstruction, and/or weight based dosing when appropriate to reduce radiation dose to as low as reasonably achievable Electronically signed: Grant Leiva MD. 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 Patient states she woke up this morning around noon with a rapid heart beat, nausea, lightheadedness, and diaphoresis. EMS states they found her heart rate to be around 190. Patient was given zofran, nitroglycerin, and adenosine en route. Patient's heart rate dropped to 115-120 after 6mg of adenosine. Normal [facility] EDPROVon 11-05-2023 EDPROV ------ -- Attestation signed by Juaquin Jackson MD at 11/06/2023 8:51 AM I performed a history and physical examination of Eliana Hager and discussed her management with the resident. I agree with the history, physical, assessment, and plan of care, with the following exceptions: None Juaquin Jackson MD -- HPI Chief Complaint Patient presents with Rapid Heart Rate HPI 37-year-old female presents emergency department via EMS after found to be in SVT she reports that she is feeling palpitations and feeling lightheadedness. EMS reports that she had a heart rate close to 180s and was given 6 mg of adenosine which converted her to normal sinus. Patient states that she is feeling asymptomatic at this time. Rakesh Coma Scale Score: 15 Patient History Past Medical History: Diagnosis Date Diabetes mellitus (CMS/HCC) Past Surgical History: Procedure Laterality Date GASTRIC BYPASS No family history on file. Social History Tobacco Use Smoking status: Never Smokeless tobacco: Never Substance Use Topics Alcohol use: Yes Drug use: Never Review of Systems Review of Systems Cardiovascular: Positive for palpitations. Physical Exam ED Triage Vitals Temp Heart Rate Resp BP 11/05/23 1433 11/05/23 1345 11/05/23 1345 11/05/23 1345 36.6 ???C (97.9 ???F) (!) 118 26 123/78 SpO2 Temp Source Heart Rate Source Patient Position 11/05/23 1345 11/05/23 1433 -- -- 98 % Oral BP Location FiO2 (%) -- -- Physical Exam Vitals and nursing note reviewed. Constitutional: General: She is not in acute distress. Appearance: She is well-developed. HENT: Head: Normocephalic and atraumatic. Eyes: Conjunctiva/sclera: Conjunctivae normal. Cardiovascular: Rate and Rhythm: Regular rhythm. Tachycardia present. Heart sounds: No murmur heard. Pulmonary: Effort: Pulmonary effort is normal. No respiratory distress. Breath sounds: Normal breath sounds. Abdominal: Palpations: Abdomen is soft. Tenderness: There is no abdominal tenderness. Musculoskeletal: General: No swelling. Cervical back: Neck supple. Skin: General: Skin is warm and dry. Capillary Refill: Capillary refill takes less than 2 seconds. Neurological: Mental Status: She is alert. Psychiatric: Mood and Affect: Mood normal. Procedures ED Course & MDM ED Course as of 11/05/232122 Sat Nov 05, [id number] Patient presented to EMS with SVT that was converted to normal sinus after 6mg of adenosine. Low suspicion for ACS provided nonischemic EKG and negative troponin. Low suspicion for pneumonia or pneumothorax with chest x-ray. Low suspicion for aortic dissection as patient had equal radial pulses with no motor deficits in either arm. She has an upward trend of troponin and I believe she would benefit from observation, trend in troponin and cardiology consult. Patient is agreeable to this plan. [LH] ED Course User Index [LH] Lula Sage MD Diagnoses as of 11/05/232122 Supraventricular tachycardia ([facility]/HCC) Medical Decision Making Attestation: I performed a history and physical exam on this patient and discussed his or her management with the resident. I reviewed the resident's note and agree with the documented findings and plan of care with the following exceptions: None Provider Statement DENY: Provider Statement 2nd Scribe. By electronically signing this emergency patient record, the Emergency Physician/CUSTOMER CARE VOICE CONSULTANT/PA-C attests that all entries made into the electronic medical record by the scribe prior to the Physician/CUSTOMER CARE VOICE CONSULTANT/PA-C signature reflect an accurate accounting of the evaluation and care rendered by that Emergency Physician/CUSTOMER CARE VOICE CONSULTANT/PA-C. The Emergency Physician/CUSTOMER CARE VOICE CONSULTANT/PA-C assumes full responsibility for those entries. The Emergency Physician/CUSTOMER CARE VOICE CONSULTANT/PAEdwinC also attests that any patient testing or treatment that was instituted by nursing staff. Lula Sage MD Resident 11/05/237 Normal [facility] MAGNESIUMon 11-05-2023 Magnesium [Mass/Vol] 1.7 mg/dL Low 1.9-2.7 [facility] Comment on above: Performed By: #### L [id number] #### [facility] ([facility]) [address] [place] [address] POCT GLUCOSE METER UNSOLICIT ED RESULTSon 11-05-2023 Glucose [Mass/Vol] 113 mg/dL High 70-105 [facility] Comment on above: Order Comment: Waive d Testing in the ED is performed under the ED CLIA certificate #[id number]. Result Comment: clon [email or web address] Performed By: #### L [id number] #### [facility] ([facility]) [address] [place] [address] Glucose [Mass/Vol] 112 mg/dL High 70-105 [facility] Comment on above: Order Comment: Waive d Testing in the ED is performed under the ED CLIA certificate #[id number]. Result Comment: [email or web address] Performed By: #### L [id number] ####[facility] ([facility])[address] [place] [address] TROPONIN Ion 11-05-2023 Troponin I.cardiac [Mass/Vol] 0.15 ng/mL Critically high 0.00-0.04 [facility] Comment on above: Result Comment: M-ME EVIOUS CRITICAL RESULT Previous result verified on 11/05/2023 1722 on specimen/case [id number] called with component Troponin I for procedure Troponin I with value 0.25 ng/mL. Performed By: #### L [id number] #### [facility] ([facility]) [address] [place] [address] Troponin I.cardiac [Mass/Vol] 0.25 ng/mL Critically high 0.00-0.04 [facility] Comment on above: Result Comment: M-TR OPONIN INITIAL CRITICAL HIGH; RESPUN AND RETESTED Performed By: #### L [id number] #### [facility] ([facility]) [address] [place] [address] Troponin I.cardiac [Mass/Vol] 0.06 ng/mL High 0.00-0.04 [facility] Comment on above: Performed By: #### L [id number] #### [facility] ([facility]) [address] [place] [address] Aerobic Cultureon 09-27-2023 Aerobic Culture Comment Right breast abscess ORGANISM: Proteus mirabilis (O:PROMIR) Comments Pure Growth Quantity of Growth Light Growth Comment Right breast abscess No Anaerobes Isolated 3 Days Comment Right breast abscess Gram Stain Result 2+ White Blood Cells No Bacteria Seen Aerobic LIN Charge (NMIC56) SUSCEPTIBILITY ORGANISM: O:PROMIR ANTIBIOTIC INTERPRETATION LIN Amikacin S <16 Amoxacillin/K Clavulanate S <8 Ampicillin S <8 Ampicillin/Sulbactam S <4 Aztreonam S <4 Cefazolin S <2 Cefepime S <2 Ceftazidime S <1 Ceftazidime/Avibactam S <4 Ceftolozane/Tazobactam S <2 Ceftriaxone S <1 Cefuroxime S <4 Ciprofloxacin S <0.25 Ertapenem S <0.5 Gentamicin S 4 Levofloxacin S <0.5 Meropenem S <1 Meropenem/Vaborbactam S <2 Piperacillin/Tazobactam S <8 Tobramycin S 4 Trimethoprim/Sulfamethoxaz ole S <0.5 S = SUSCEPTIBLE I = INTERMEDIATE R = RESISTANT BLANK = DATA NOT AVAILABLE, OR DRUG NOT ADVISABLE OR TESTED R* = RESISTANCE DUE TO EXTENDED SPECTRUM BETA-LACTAMASES ESBL = EXTENDED SPECTRUM BETA-LACTAMASE TFG = THYMIDINE-DEPENDENT STRAIN GENESIS = BETA-LACTAMASE POSITIVE IB = INDUCIBLE BETA-LACTAMASE. APPEARS IN PLACE OF 'S' WITH SPECIES KNOWN TO POSSESS INDUCIBLE BETA-LACTAMASES. POTENTIALLY THEY MAY BECOME RESISTANT TO ALL B-LACTAM DRUGS. PERFORMED BY: [place] [address] PATHOLOGIST [employer]ING [employer]SEMBL[employer] JONY MILAN M.D. Normal [facility] Comment on above: Performed By: #### P T, PTT, A1C WTH eA, CBC #### [address] Capillary blood glucose elías urement by glucometer (mass/volume)Ordered By: Мария Danielle on 09-27-2023 Glucose [Mass/Vol] 99 mg/dL Normal [facility] Comment on above: Random Glucose Refer ence Range is dependent on time and content of last meal. Glucose of more than 200 mg/dL in a nonstressed, ambulatory subject supports the diagnosis of Diabetes Mellitus. Result Comment: [place] om Glucose Reference Range is dependent on time and content of last meal. Glucose of more than 200 mg/dL in a nonstressed, ambulatory subject supports the diagnosis of Diabetes Mellitus. Performed By: #### P T, PTT, A1C WTH eA, CBC #### [place] [id number] [facility] ECG 12 lead ECGon 09-27-2023 ECG 12 lead ECG [facility] [place] [address] Electrocardiograph Report Signed Patient: Eliana Hager MR#: [id number] 08 : 1985 Acct:[id number] Age/Sex: 37 / F ADM Date: 09/27/23 Loc: [place] Room: Type: [facility] Attending Dr: Мария Danielle MD Ordering Provider: MINOR JACKSON DO Date of Service: 09/27/23 ECG/ECG 12 lead ECG: preop Copies to: Test Reason : Blood Pressure : / mmHG Vent. Rate : 073 BPM Atrial Rate : 073 BPM P-R Int : 132 ms QRS Dur : 082 ms QT Int : 422 ms P-R-T Axes : 048 010 -25 degrees QTc Int : 464 ms Normal sinus rhythm T wave abnormality, consider inferior ischemia Abnormal ECG No previous ECGs available Confirmed by BRENDAN WOO [facility] ([id number] on 09/27/2023 2:23:25 PM Referred By: Electronically Signed By:ERNESTO CARDONA MD [facility] Transcribed By: MUS Signed By Ernesto Cardona MD, [facility] 09/27/23 1423 Normal [facility] Glucose Poct Glucometerson 0 09-27-2023 Commemt1 Glu2: Cleaned Meter Normal [facility] Comment on above: Result Comment: PERF ORMED BY: [place] [address] PATHOLOGIST [employer] JONY MILAN M.D. Performed By: #### P T, PTT, A1C WTH eA, CBC #### [facility] [address] [place] [address] HCG ( test) IA.rapi d Ql (U)Ordered By: MINOR JACKSON on 09-27-2023 HCG ( test) Ql (U) Negative [facility] HCG,Urineon 09-27-2023 Beta HCG ( test) Ql (U) Negative Normal [facility] Comment on above: Result Comment: PERF ORMED BY: [place] [address] PATHOLOGIST [employer] JONY MILAN M.D. Performed By: #### U HCG #### [address] No Panel InformationOrdered By: Мария Danielle on 09-27-2023 Bedside Glucose Comment Glu2: cleaned meter [facility] Alanine aminotransferase [En zymatic activity/volume] in Serum or PlasmaOrdered By: Yared Saavedra on 09-23-2023 ALT [Catalytic activity/Vol] 6 U/L Low 7-52 [facility] Comment on above: Performed By: #### P T, PTT, A1C WTH eA, CBC #### [facility] [address] [place] [address] Albumin [Mass/volume] in Ser um or Plasma by Bromocresol green (BCG) dye binding methoOrdered By: Yared Saavedra on 09-23-2023 Albumin BCG dye [Mass/Vol] 3.8 g/dL 3.5-5.7 [facility] Alkaline phosphatase [Enzyma tic activity/volume] in Serum or PlasmaOrdered By: Yared Saavedra on 09-23-2023 ALP [Catalytic activity/Vol] 73 U/L Normal 34-104 [facility] Comment on above: Performed By: #### P T, PTT, A1C WTH eA, CBC #### [facility] [address] Aspartate aminotransferase [ Enzymatic activity/volume] in Serum or PlasmaOrdered By: Yared Saavedra on 09-23-2023 AST [Catalytic activity/Vol] 16 U/L Normal 13-39 [facility] Comment on above: Performed By: #### P T, PTT, A1C WTH eA, CBC #### [address] Automated basophil %Ordered By: Yared Saavedra on 09-23-2023 Basophils/100 WBC (Bld) 0.6 % Normal . [facility] Comment on above: Performed By: #### P T, PTT, A1C WTH eA, CBC #### [address] Automated basophil countOrde red By: Yared Saavedra on 09-23-2023 Basophils (Bld) [#/Vol] 0.1 10*3/uL Normal 0.0-0.2 [facility] Comment on above: Result Comment: PERF ORMED BY: [place] [address] PATHOLOGIST [employer]ING [employer] JONY MILAN M.D. Performed By: #### P T, PTT, A1C WTH eA, CBC #### [address] Automated blood monocyte cou ntOrdered By: Yared Saavedra on 09-23-2023 Monocytes (Bld) [#/Vol] 0.7 10*3/uL Normal 0.0-0.8 [facility] Comment on above: Performed By: #### P T, PTT, A1C WTH eA, CBC #### [place] [address] [place] Automated eosinophil %Ordere d By: Yared Saavedra on 09-23-2023 Eosinophils/100 WBC (Bld) 0.9 % Normal . [facility] Comment on above: Performed By: #### P T, PTT, A1C WTH eA, CBC #### [facility] [address] Automated eosinophil countOr dered By: Yared Saavedra on 09-23-2023 Eosinophils (Bld) [#/Vol] 0.1 10*3/uL Normal 0.0-0.45 [facility] Comment on above: Performed By: #### P T, PTT, A1C WTH eA, CBC #### [facility] [address] Automated monocyte %Ordered By: Yared Saavedra on 09-23-2023 Monocytes/100 WBC (Bld) 6.6 % Normal . [facility] Comment on above: Performed By: #### P T, PTT, A1C WTH eA, CBC #### [facility] [address] [place] [address] Automated neutrophil %Ordere d By: Yared Saavedra on 09-23-2023 Neutrophils/100 WBC (Bld) 69.4 % Normal . [facility] Comment on above: Performed By: #### P T, PTT, A1C WTH eA, CBC #### [facility] [address] [place] [address] Bilirubin.total [Mass/volume ] in Serum or PlasmaOrdered By: Yared Saavedra on 09-23-2023 Bilirubin [Mass/Vol] 0.3 mg/dL Normal 0.3-1.0 [facility] Comment on above: Performed By: #### P T, PTT, A1C WTH eA, CBC #### [facility] [address] [place] [address] [place] Calcium [Mass/volume] in Ser um or PlasmaOrdered By: Yared Saavedra on 09-23-2023 Calcium [Mass/Vol] 9.5 mg/dL Normal 8.6-10.3 [facility] Comment on above: Performed By: #### P T, PTT, A1C WTH eA, CBC #### [facility] [address] Carbon dioxide, total [Moles /volume] in Serum or PlasmaOrdered By: Yared Saavedra on 09-23-2023 CO2 [Moles/Vol] 25.8 mmol/L Normal 21.0-31.0 [facility] Comment on above: Performed By: #### P T, PTT, A1C WTH eA, CBC #### [facility] [address] [place] [address] Chloride [Moles/volume] in S vanna or PlasmaOrdered By: Yared Saavedra on 09-23-2023 Chloride [Moles/Vol] 102 mmol/L Normal 98-107 [facility] Comment on above: Performed By: #### P T, PTT, A1C WTH eA, CBC #### [address] Complete Blood Count Auto Di ffon 09-23-2023 Mean Corpuscular HGB Conc 32.3 g/dL Normal 32.0-35.0 [facility] Comment on above: Performed By: #### P T, PTT, A1C WTH eA, CBC #### [place] [address] [place] Monocytes/100 WBC (Bld) 20.93 % High 0.00-20.00 [facility] Comment on above: Result Comment: For adults in ED, MDW > 20.0 may be associated with a higher risk of sepsis during the first 12 hrs of hospital admission Performed By: #### P T, PTT, A1C WTH eA, CBC #### [facility] [address] [place] [address] [place] NRBC% 0.1 /100{WBC} Normal 0-0.5 [facility] Comment on above: Performed By: #### P T, PTT, A1C WTH eA, CBC #### [facility] [address] [place] [address] Comprehensive Metabolic Pane [place] 09-23-2023 Albumin [Mass/Vol] 3.8 g/dL Normal 3.5-5.7 [facility] Comment on above: Performed By: #### P T, PTT, A1C WTH eA, CBC #### [facility] [address] [place] [address] [place] Creatinine Clr Calc Pharmacy 165.73 Normal [facility] Comment on above: Result Comment: PERF ORMED BY: [place] [address] PATHOLOGIST [employer] JONY MILAN M.D. Performed By: #### P T, PTT, A1C WTH eA, CBC #### [facility] [address] [place] [address] [place] GFR/1.73 sq M.predicted MDRD (S/P/Bld) [Vol rate/Area] mL/min/{1.73_m2} Normal [facility] Comment on above: Performed By: #### P T, PTT, A1C WTH eA, CBC #### [facility] [address] [place] [address] [place] Creatinine [Mass/volume] in Serum or PlasmaOrdered By: Yared Saavedra on 09-23-2023 Creatinine [Mass/Vol] 0.87 mg/dL Normal 0.60-1.20 [facility] Comment on above: Performed By: #### P T, PTT, A1C WTH eA, CBC #### [place] [address] [place] Erythrocyte distribution wid th [Ratio] by Automated countOrdered By: Yared Saavedra on 09-23-2023 Erythrocyte distribution width (RBC) [Ratio] 20.1 % High 11.9-15.3 [facility] Comment on above: Performed By: #### P T, PTT, A1C WTH eA, CBC #### [facility] [address] [place] [address] [place] Erythrocytes [#/volume] in B lood by Automated countOrdered By: Yared Saavedra on 09-23-2023 RBC (Bld) [#/Vol] 3.51 10*6/uL Low 3.60-5.00 [facility] Comment on above: Performed By: #### P T, PTT, A1C WTH eA, CBC #### [facility] [address] [place] [address] [place] Glucose [Mass/volume] in Ser um or PlasmaOrdered By: Yared Saavedra on 09-23-2023 Glucose [Mass/Vol] 93 mg/dL Normal 70-100 [facility] Comment on above: ADA recommended refe rence rangeRandom Glucose Reference Range is dependent on time and content of last meal. Glucose of more than 200 mg/dL in a nonstressed, ambulatory subject supports the diagnosis of Diabetes Mellitus. Result Comment: [place] om Glucose Reference Range is dependent on time and content of last meal. Glucose of more than 200 mg/dL in a nonstressed, ambulatory subject supports the diagnosis of Diabetes Mellitus. ADA recommended reference range Performed By: #### P T, PTT, A1C WTH eA, CBC #### [facility] [address] Hematocrit [Volume Fraction] of Blood by Automated countOrdered By: Yared Saavedra on 09-23-2023 Hematocrit (Bld) [Volume fraction] 31.5 % Low 34.0-46.4 [facility] Comment on above: Performed By: #### P T, PTT, A1C WTH eA, CBC #### [facility] [address] [place] [address] [place] Hemoglobin [Mass/volume] in BloodOrdered By: Yared Saavedra on 09-23-2023 Hemoglobin (Bld) [Mass/Vol] 10.2 g/dL Low 11.8-15.4 [facility] Comment on above: Performed By: #### P T, PTT, A1C WTH eA, CBC #### [facility] [address] [place] [address] [place] Leukocytes [#/volume] correc arnoldo for nucleated erythrocytes in Blood by Automated counOrdered By: Yared Saavedra on 09-23-2023 WBC corrected for nucl RBC Auto (Bld) [#/Vol] 10.4 10*3/uL 3.8-11.6 [facility] Leukocytes [#/volume] in Blo od by Automated countOrdered By: Yared Saavedra on 09-23-2023 WBC (Bld) [#/Vol] 10.4 10*3/uL Normal 3.8-11.6 [facility] Comment on above: Performed By: #### P T, PTT, A1C WTH eA, CBC #### [facility] [address] Lymphocytes [#/volume] in Bl ood by Automated countOrdered By: Yared Saavedra on 09-23-2023 Lymphocytes (Bld) [#/Vol] 2.3 10*3/uL Normal 1.00-4.8 [facility] Comment on above: Performed By: #### P T, PTT, A1C WTH eA, CBC #### [place] [address] [place] Lymphocytes/100 leukocytes i n Blood by Automated countOrdered By: Yared Saavedra on 09-23-2023 Lymphocytes/100 WBC (Bld) 22.5 % Normal . [facility] Comment on above: Performed By: #### P T, PTT, A1C WTH eA, CBC #### [address] MCH [Entitic mass] by Automa arnoldo countOrdered By: Yared Saavedra on 09-23-2023 MCH (RBC) [Entitic mass] 29.0 pg Normal 24.7-34.3 [facility] Comment on above: Performed By: #### P T, PTT, A1C WTH eA, CBC #### [address] MCHC Auto (RBC) [Mass/Vol]Or dered By: Yared Saavedra on 09-23-2023 MCHC (RBC) [Mass/Vol] 32.3 g/dL 32.0-35.0 [facility] MCV [Entitic volume] by Auto mated countOrdered By: Yared Saavedra on 09-23-2023 MCV (RBC) [Entitic vol] 89.9 fL Normal 80-100 [facility] Comment on above: Performed By: #### P T, PTT, A1C WTH eA, CBC #### [place] [address] [place] Monocyte distribution width [Entitic volume] in Blood by AutomatedOrdered By: Yared Saavedra on 09-23-2023 Monocyte distribution width Auto (Bld) [Entitic vol] 20.93 % 0.00-20.00 [facility] Comment on above: For adults in ED, MD W > 20.0 may be associated with a higher risk of sepsis during the first 12 hrs of hospital admission Neutrophils [#/volume] in Bl ood by Automated countOrdered By: Yared Saavedra on 09-23-2023 Neutrophils (Bld) [#/Vol] 7.2 10*3/uL Normal 1.8-7.7 [facility] Comment on above: Performed By: #### P T, PTT, A1C WTH eA, CBC #### [facility] [address] No Panel InformationOrdered By: Yared Saavedra on 09-23-2023 Estimated GFR (CKD-EPI) > 60.0 mL/Min [facility] Creatinine Clearance (Chem 165.73 [facility] Nucleated erythrocytes [Pres ence] in Blood by Automated countOrdered By: Yared Saavedra on 09-23-2023 Nucleated RBC Auto Ql (Bld) 0.1 /100{WBC} 0-0.5 [facility] Platelet mean volume [Entiti c volume] in Blood by Automated countOrdered By: Yared Saavedra on 09-23-2023 Platelet mean volume (Bld) [Entitic vol] 8.1 fL Normal 6.3-10.7 [facility] Comment on above: Performed By: #### P T, PTT, A1C WTH eA, CBC #### [facility] [address] [place] [address] [place] Platelets [#/volume] in Bloo d by Automated countOrdered By: Yared Saavedra on 09-23-2023 Platelets (Bld) [#/Vol] 326 10*3/uL Normal 150-450 [facility] Comment on above: Performed By: #### P T, PTT, A1C WTH eA, CBC #### [facility] [address] [place] [address] [place] Potassium [Moles/volume] in Serum or PlasmaOrdered By: Yared Saavedra on 09-23-2023 Potassium [Moles/Vol] 3.9 mmol/L Normal 3.5-5.1 [facility] Comment on above: Performed By: #### P T, PTT, A1C WTH eA, CBC #### [facility] [address] [place] [address] Protein [Mass/volume] in Ser um or PlasmaOrdered By: Yared Saavedra on 09-23-2023 Protein [Mass/Vol] 7.9 g/dL Normal 6.4-8.9 [facility] Comment on above: Performed By: #### P T, PTT, A1C WTH eA, CBC #### [facility] [address] [place] [address] Serum globulin measurement b y calculation (mass/volume)Ordered By: Yared Saavedra on 09-23-2023 Globulin (S) [Mass/Vol] 4.1 g/dL [facility] Comment on above: Performed By: #### P T, PTT, A1C WTH eA, CBC #### [facility] [address] [place] [address] Serum or plasma albumin/glob ulin mass ratioOrdered By: Yared Saavedra on 09-23-2023 Albumin/Globulin [Mass ratio] 0.9 {ratio} [facility] Comment on above: Performed By: #### P T, PTT, A1C WTH eA, CBC #### [facility] [address] [place] [address] Serum or plasma anion gap de terminationOrdered By: Yared Saavedra on 09-23-2023 Anion gap [Moles/Vol] 11.1 mmol/L Normal 6.0-15.0 [facility] Comment on above: Performed By: #### P T, PTT, A1C WTH eA, CBC #### [facility] [address] [place] [address] Sodium [Moles/volume] in Ser um or PlasmaOrdered By: Yared Saavedra on 09-23-2023 Sodium [Moles/Vol] 135 mmol/L Low 136-145 [facility] Comment on above: Performed By: #### P T, PTT, A1C WTH eA, CBC #### [address] Urea nitrogen [Mass/volume] in Serum or PlasmaOrdered By: Yared Saavedra on 09-23-2023 Urea nitrogen [Mass/Vol] 5 mg/dL Low 7-25 [facility] Comment on above: Performed By: #### P T, PTT, A1C WTH eA, CBC #### [address] Automated basophil %Ordered By: Kash Hooks on 07-25-2023 Basophils/100 WBC (Bld) 0.5 % Normal . [facility] Comment on above: Performed By: #### P T, PTT, A1C WTH eA, CBC #### [address] Automated basophil countOrde red By: Kash Hooks on 07-25-2023 Basophils (Bld) [#/Vol] 0.0 10*3/uL Normal 0.0-0.2 [facility] Comment on above: Result Comment: PERF ORMED BY: [place] [address] PATHOLOGIST [employer] JONY MILAN M.D. Performed By: #### P T, PTT, A1C WTH eA, CBC #### [address] Automated blood monocyte cou ntOrdered By: Kash Hooks on 07-25-2023 Monocytes (Bld) [#/Vol] 0.4 10*3/uL Normal 0.0-0.8 [facility] Comment on above: Performed By: #### P T, PTT, A1C WTH eA, CBC #### [address] Automated eosinophil %Ordere d By: Kash Hooks on 07-25-2023 Eosinophils/100 WBC (Bld) 2.5 % Normal . [facility] Comment on above: Performed By: #### P T, PTT, A1C WTH eA, CBC #### [address] Automated eosinophil countOr dered By: Kash Hooks on 07-25-2023 Eosinophils (Bld) [#/Vol] 0.1 10*3/uL Normal 0.0-0.45 [facility] Comment on above: Performed By: #### P T, PTT, A1C WTH eA, CBC #### [facility] [address] Automated monocyte %Ordered By: Kash Hooks on 07-25-2023 Monocytes/100 WBC (Bld) 7.8 % Normal . [facility] Comment on above: Performed By: #### P T, PTT, A1C WTH eA, CBC #### [address] Automated neutrophil %Ordere d By: Kash Hooks on 07-25-2023 Neutrophils/100 WBC (Bld) 52.1 % Normal . [facility] Comment on above: Performed By: #### P T, PTT, A1C WTH eA, CBC #### [address] Basic Metabolic Panelon 07-10 Creatinine Clr Calc Pharmacy 159.80 Normal [facility] Comment on above: Result Comment: PERF ORMED BY: [place] [address] PATHOLOGIST [employer] JONY MILAN M.D. Performed By: #### P T, PTT, A1C WTH eA, CBC #### [place] [address] [place] GFR/1.73 sq M.predicted MDRD (S/P/Bld) [Vol rate/Area] mL/min/{1.73_m2} Normal [facility] Comment on above: Performed By: #### P T, PTT, A1C WTH eA, CBC #### [place] [address] [place] Calcium [Mass/volume] in Ser um or PlasmaOrdered By: Kash Hooks on 07-25-2023 Calcium [Mass/Vol] 9.0 mg/dL Normal 8.6-10.3 [facility] Comment on above: Performed By: #### P T, PTT, A1C WTH eA, CBC #### [facility] [address] Capillary blood glucose elías urement by glucometer (mass/volume)Ordered By: Kash Hooks on 07-25-2023 Glucose [Mass/Vol] 137 mg/dL Normal [facility] Comment on above: Random Glucose Refer ence Range is dependent on time and content of last meal. Glucose of more than 200 mg/dL in a nonstressed, ambulatory subject supports the diagnosis of Diabetes Mellitus. Result Comment: [place] om Glucose Reference Range is dependent on time and content of last meal. Glucose of more than 200 mg/dL in a nonstressed, ambulatory subject supports the diagnosis of Diabetes Mellitus. PERFORMED BY: [address] [place] [address] PATHOLOGIST [employer] JONY MILAN M.D. Performed By: #### P T, PTT, A1C WTH eA, CBC #### [place] [address] [place] Carbon dioxide, total [Moles /volume] in Serum or PlasmaOrdered By: Kash Hooks on 07-25-2023 CO2 [Moles/Vol] 30.7 mmol/L Normal 21.0-31.0 [facility] Comment on above: Performed By: #### P T, PTT, A1C WTH eA, CBC #### [facility] [address] [place] [address] [place] Chloride [Moles/volume] in S vanna or PlasmaOrdered By: Kash Hooks on 07-25-2023 Chloride [Moles/Vol] 100 mmol/L Normal 98-107 [facility] Comment on above: Performed By: #### P T, PTT, A1C WTH eA, CBC #### [facility] [address] [place] [address] Complete Blood Count Auto Di ffon 07-25-2023 Mean Corpuscular HGB Conc 32.4 g/dL Normal 32.0-35.0 [facility] Comment on above: Performed By: #### P T, PTT, A1C WTH eA, CBC #### [address] NRBC% 0.1 /100{WBC} Normal 0-0.5 [facility] Comment on above: Performed By: #### P T, PTT, A1C WTH eA, CBC #### [address] Creatinine [Mass/volume] in Serum or PlasmaOrdered By: Kash Hooks on 07-25-2023 Creatinine [Mass/Vol] 0.87 mg/dL Normal 0.60-1.20 [facility] Comment on above: Performed By: #### P T, PTT, A1C WTH eA, CBC #### [address] Erythrocyte distribution wid th [Ratio] by Automated countOrdered By: Kash Hooks on 07-25-2023 Erythrocyte distribution width (RBC) [Ratio] 20.5 % High 11.9-15.3 [facility] Comment on above: Performed By: #### P T, PTT, A1C WTH eA, CBC #### [address] Erythrocytes [#/volume] in B lood by Automated countOrdered By: Kash Hooks on 07-25-2023 RBC (Bld) [#/Vol] 3.24 10*6/uL Low 3.60-5.00 [facility] Comment on above: Performed By: #### P T, PTT, A1C WTH eA, CBC #### [address] Glucose Poct Glucometerson 0 07-25-2023 Glucose [Mass/Vol] 121 mg/dL Normal [facility] Comment on above: Result Comment: [place] om Glucose Reference Range is dependent on time and content of last meal. Glucose of more than 200 mg/dL in a nonstressed, ambulatory subject supports the diagnosis of Diabetes Mellitus. PERFORMED BY: [place] [address] PATHOLOGIST [employer]ING [employer]SEMBLER JONY MILAN M.D. Performed By: #### G VIVI #### Point of Care testing , Glucose [Mass/volume] in Ser um or PlasmaOrdered By: Kash Hooks on 07-25-2023 Glucose [Mass/Vol] 96 mg/dL Normal 70-100 [facility] Comment on above: ADA recommended refe rence rangeRandom Glucose Reference Range is dependent on time and content of last meal. Glucose of more than 200 mg/dL in a nonstressed, ambulatory subject supports the diagnosis of Diabetes Mellitus. Result Comment: [place] Glucose Reference Range is dependent on time and content of last meal. Glucose of more than 200 mg/dL in a nonstressed, ambulatory subject supports the diagnosis of Diabetes Mellitus. ADA recommended reference range Performed By: #### P T, PTT, A1C WTH eA, CBC #### [address] Hematocrit [Volume Fraction] of Blood by Automated countOrdered By: Kash Hooks on 07-25-2023 Hematocrit (Bld) [Volume fraction] 29.3 % Low 34.0-46.4 [facility] Comment on above: Performed By: #### P T, PTT, A1C WTH eA, CBC #### [facility] [address] [place] [address] [place] Hemoglobin [Mass/volume] in BloodOrdered By: Kash Hooks on 07-25-2023 Hemoglobin (Bld) [Mass/Vol] 9.5 g/dL Low 11.8-15.4 [facility] Comment on above: Performed By: #### P T, PTT, A1C WTH eA, CBC #### [place] [address] [place] Leukocytes [#/volume] correc arnoldo for nucleated erythrocytes in Blood by Automated counOrdered By: Kash Hooks on 07-25-2023 WBC corrected for nucl RBC Auto (Bld) [#/Vol] 5.7 10*3/uL 3.8-11.6 [facility] Leukocytes [#/volume] in Blo od by Automated countOrdered By: Kash Hooks on 07-25-2023 WBC (Bld) [#/Vol] 5.7 10*3/uL Normal 3.8-11.6 [facility] Comment on above: Performed By: #### P T, PTT, A1C WTH eA, CBC #### [place] [address] [place] Lymphocytes [#/volume] in Bl ood by Automated countOrdered By: Kash Hooks on 07-25-2023 Lymphocytes (Bld) [#/Vol] 2.1 10*3/uL Normal 1.00-4.8 [facility] Comment on above: Performed By: #### P T, PTT, A1C WTH eA, CBC #### [place] [address] [place] Lymphocytes/100 leukocytes i n Blood by Automated countOrdered By: Kash Hooks on 07-25-2023 Lymphocytes/100 WBC (Bld) 37.1 % Normal . [facility] Comment on above: Performed By: #### P T, PTT, A1C WTH eA, CBC #### [facility] [address] [place] [address] [place] MCH [Entitic mass] by Automa arnoldo countOrdered By: Kash Hooks on 07-25-2023 MCH (RBC) [Entitic mass] 29.3 pg Normal 24.7-34.3 [facility] Comment on above: Performed By: #### P T, PTT, A1C WTH eA, CBC #### [place] [address] [place] MCHC Auto (RBC) [Mass/Vol]Or dered By: Kash Hooks on 07-25-2023 MCHC (RBC) [Mass/Vol] 32.4 g/dL 32.0-35.0 [facility] MCV [Entitic volume] by Auto mated countOrdered By: Kash Hooks on 07-25-2023 MCV (RBC) [Entitic vol] 90.4 fL Normal 80-100 [facility] Comment on above: Performed By: #### P T, PTT, A1C WTH eA, CBC #### [facility] [address] Neutrophils [#/volume] in Bl ood by Automated countOrdered By: Kash Hooks on 07-25-2023 Neutrophils (Bld) [#/Vol] 3.0 10*3/uL Normal 1.8-7.7 [facility] Comment on above: Performed By: #### P T, PTT, A1C WTH eA, CBC #### [facility] [address] [place] [address] No Panel InformationOrdered By: Kash Hooks on 07-25-2023 Estimated GFR (CKD-EPI) > 60.0 mL/Min [facility] Creatinine Clearance (Chem 159.80 [facility] Nucleated erythrocytes [Pres ence] in Blood by Automated countOrdered By: Kash Hooks on 07-25-2023 Nucleated RBC Auto Ql (Bld) 0.1 /100{WBC} 0-0.5 [facility] Platelet mean volume [Entiti c volume] in Blood by Automated countOrdered By: Kash Hooks on 07-25-2023 Platelet mean volume (Bld) [Entitic vol] 8.1 fL Normal 6.3-10.7 [facility] Comment on above: Performed By: #### P T, PTT, A1C WTH eA, CBC #### [facility] [address] [place] [address] [place] Platelets [#/volume] in Bloo d by Automated countOrdered By: Kash Hooks on 07-25-2023 Platelets (Bld) [#/Vol] 322 10*3/uL Normal 150-450 [facility] Comment on above: Performed By: #### P T, PTT, A1C WTH eA, CBC #### [facility] [address] Potassium [Moles/volume] in Serum or PlasmaOrdered By: Kash Hooks on 07-25-2023 Potassium [Moles/Vol] 4.2 mmol/L Normal 3.5-5.1 [facility] Comment on above: Performed By: #### P T, PTT, A1C WTH eA, CBC #### [facility] [address] Serum or plasma anion gap de terminationOrdered By: Kash Hooks on 07-25-2023 Anion gap [Moles/Vol] 11.5 mmol/L Normal 6.0-15.0 [facility] Comment on above: Performed By: #### P T, PTT, A1C WTH eA, CBC #### [facility] [address] Sodium [Moles/volume] in Ser um or PlasmaOrdered By: Kash Hooks on 07-25-2023 Sodium [Moles/Vol] 138 mmol/L Normal 136-145 [facility] Comment on above: Performed By: #### P T, PTT, A1C WTH eA, CBC #### [facility] [address] Urea nitrogen [Mass/volume] in Serum or PlasmaOrdered By: Kash Hooks on 07-25-2023 Urea nitrogen [Mass/Vol] 6 mg/dL Low 7-25 [facility] Comment on above: Performed By: #### P T, PTT, A1C WTH eA, CBC #### [facility] [address] A1C with Estimated Average G melon 07-24-2023 Glucose [Mass/Vol] 108 mg/dL Normal [facility] Comment on above: Result Comment: PERF ORMED BY: [place] [address] PATHOLOGIST [employer]ING [employer]SEMBLER JONY MILAN M.D. Performed By: #### P T, PTT, A1C WTH eA, CBC #### [facility] [address] Activated partial thrombopla stin time (aPTT) in platelet poor plasma by coagulation aOrdered By: Kash Hooks on 07-24-2023 aPTT Coag (PPP) [Time] 27.9 s 25.1-36.5 [facility] Comment on above: A hematocrit value g reater than 55% may lead to inaccurate results in coagulation testing. Patients having hematocrit values >55% require a special collection tube for coagulation studies. Please contact the laboratory at [phone] for redraw instructions. Aerobic Cultureon 07-24-2023 Aerobic Culture Comment right breast abscess ORGANISM: Proteus mirabilis (O:PROMIR) Quantity of Growth Moderate Growth Comment right breast abscess Anaerobic Culture Results No Anaerobes Isolated 3 Days Comment right breast abscess Gram Stain Result Rare Epithelial Cells Rare White Blood Cells No Bacteria Seen Aerobic LIN Charge (NMIC56) SUSCEPTIBILITY ORGANISM: O:PROMIR ANTIBIOTIC INTERPRETATION LIN Amikacin S <16 Amoxacillin/K Clavulanate S <8 Ampicillin S <8 Ampicillin/Sulbactam S <4 Aztreonam S <4 Cefazolin S <2 Cefepime S <2 Ceftazidime S <1 Ceftazidime/Avibactam S <4 Ceftolozane/Tazobactam S <2 Ceftriaxone S <1 Cefuroxime S <4 Ciprofloxacin S <0.25 Ertapenem S <0.5 Gentamicin S 4 Levofloxacin S <0.5 Meropenem S <1 Meropenem/Vaborbactam S <2 Piperacillin/Tazobactam S <8 Tobramycin S <2 Trimethoprim/Sulfamethoxaz ole S <0.5 S = SUSCEPTIBLE I = INTERMEDIATE R = RESISTANT BLANK = DATA NOT AVAILABLE, OR DRUG NOT ADVISABLE OR TESTED R* = RESISTANCE DUE TO EXTENDED SPECTRUM BETA-LACTAMASES ESBL = EXTENDED SPECTRUM BETA-LACTAMASE TFG = THYMIDINE-DEPENDENT STRAIN GENESIS = BETA-LACTAMASE POSITIVE IB = INDUCIBLE BETA-LACTAMASE. APPEARS IN PLACE OF 'S' WITH SPECIES KNOWN TO POSSESS INDUCIBLE BETA-LACTAMASES. POTENTIALLY THEY MAY BECOME RESISTANT TO ALL B-LACTAM DRUGS. PERFORMED BY: [place] [address] PATHOLOGIST [employer]ING [employer] ASSEMBLER JONY MILAN M.D. Normal [facility] Comment on above: Performed By: #### P T, PTT, A1C WTH eA, CBC #### [address] Basic Metabolic Panelon 07-10 Anion gap [Moles/Vol] 9.5 mmol/L Normal 6.0-15.0 [facility] Comment on above: Performed By: #### P T, PTT, A1C WTH eA, CBC #### [address] Calcium [Mass/Vol] 9.1 mg/dL Normal 8.6-10.3 [facility] Comment on above: Performed By: #### P T, PTT, A1C WTH eA, CBC #### [address] Chloride [Moles/Vol] 103 mmol/L Normal 98-107 [facility] Comment on above: Performed By: #### P T, PTT, A1C WTH eA, CBC #### [address] CO2 [Moles/Vol] 25.6 mmol/L Normal 21.0-31.0 [facility] Comment on above: Performed By: #### P T, PTT, A1C WTH eA, CBC #### [address] Creatinine [Mass/Vol] 0.90 mg/dL Normal 0.60-1.20 [facility] Comment on above: Performed By: #### P T, PTT, A1C WTH eA, CBC #### [address] Creatinine Clr Calc Pharmacy 152.62 Normal [facility] Comment on above: Performed By: #### P T, PTT, A1C WTH eA, CBC #### [facility] [address] [place] [address] [place] GFR/1.73 sq M.predicted MDRD (S/P/Bld) [Vol rate/Area] mL/min/{1.73_m2} Normal [facility] Comment on above: Performed By: #### P T, PTT, A1C WTH eA, CBC #### [facility] [address] [place] [address] [place] Glucose [Mass/Vol] 95 mg/dL Normal 70-100 [facility] Comment on above: Result Comment: [facility] Glucose Reference Range is dependent on time and content of last meal. Glucose of more than 200 mg/dL in a nonstressed, ambulatory subject supports the diagnosis of Diabetes Mellitus. ADA recommended reference range Performed By: #### P T, PTT, A1C WTH eA, CBC #### [facility] [address] [place] [address] [place] Potassium [Moles/Vol] 4.1 mmol/L Normal 3.5-5.1 [facility] Comment on above: Performed By: #### P T, PTT, A1C WTH eA, CBC #### [facility] [address] [place] [address] [place] Sodium [Moles/Vol] 134 mmol/L Low 136-145 [facility] Comment on above: Performed By: #### P T, PTT, A1C WTH eA, CBC #### [facility] [address] [place] [address] [place] Urea nitrogen [Mass/Vol] 7 mg/dL Normal 7-25 [facility] Comment on above: Performed By: #### P T, PTT, A1C WTH eA, CBC #### [facility] [address] Complete Blood Count Auto Di ffon 07-24-2023 Basophils (Bld) [#/Vol] 0.0 10*3/uL Normal 0.0-0.2 [facility] Comment on above: Result Comment: PERF ORMED BY: [place] [address] PATHOLOGIST [employer]ING [employer]SEMBLER JONY MILAN M.D. Performed By: #### P T, PTT, A1C WTH eA, CBC #### [address] Basophils/100 WBC (Bld) 0.4 % Normal . [facility] Comment on above: Performed By: #### P T, PTT, A1C WTH eA, CBC #### [address] Eosinophils (Bld) [#/Vol] 0.1 10*3/uL Normal 0.0-0.45 [facility] Comment on above: Performed By: #### P T, PTT, A1C WTH eA, CBC #### [address] Eosinophils/100 WBC (Bld) 1.3 % Normal . [facility] Comment on above: Performed By: #### P T, PTT, A1C WTH eA, CBC #### [address] Erythrocyte distribution width (RBC) [Ratio] 20.8 % High 11.9-15.3 [facility] Comment on above: Performed By: #### P T, PTT, A1C WTH eA, CBC #### [address] Hematocrit (Bld) [Volume fraction] 29.6 % Low 34.0-46.4 [facility] Comment on above: Performed By: #### P T, PTT, A1C WTH eA, CBC #### [address] Hemoglobin (Bld) [Mass/Vol] 9.6 g/dL Low 11.8-15.4 [facility] Comment on above: Performed By: #### P T, PTT, A1C WTH eA, CBC #### [address] Lymphocytes (Bld) [#/Vol] 1.8 10*3/uL Normal 1.00-4.8 [facility] Comment on above: Performed By: #### P T, PTT, A1C WTH eA, CBC #### [address] Lymphocytes/100 WBC (Bld) 29.3 % Normal . [facility] Comment on above: Performed By: #### P T, PTT, A1C WTH eA, CBC #### [address] MCH (RBC) [Entitic mass] 29.3 pg Normal 24.7-34.3 [facility] Comment on above: Performed By: #### P T, PTT, A1C WTH eA, CBC #### [address] MCV (RBC) [Entitic vol] 89.9 fL Normal 80-100 [facility] Comment on above: Performed By: #### P T, PTT, A1C WTH eA, CBC #### [address] Mean Corpuscular HGB Conc 32.5 g/dL Normal 32.0-35.0 [facility] Comment on above: Performed By: #### P T, PTT, A1C WTH eA, CBC #### [address] Monocytes (Bld) [#/Vol] 0.5 10*3/uL Normal 0.0-0.8 [facility] Comment on above: Performed By: #### P T, PTT, A1C WTH eA, CBC #### [place] [address] [place] Monocytes/100 WBC (Bld) 7.4 % Normal . [facility] Comment on above: Performed By: #### P T, PTT, A1C WTH eA, CBC #### [address] Neutrophils (Bld) [#/Vol] 3.8 10*3/uL Normal 1.8-7.7 [facility] Comment on above: Performed By: #### P T, PTT, A1C WTH eA, CBC #### [address] Neutrophils/100 WBC (Bld) 61.6 % Normal . [facility] Comment on above: Performed By: #### P T, PTT, A1C WTH eA, CBC #### [address] NRBC% 0.0 /100{WBC} Normal 0-0.5 [facility] Comment on above: Performed By: #### P T, PTT, A1C WTH eA, CBC #### [address] Platelet mean volume (Bld) [Entitic vol] 8.4 fL Normal 6.3-10.7 [facility] Comment on above: Performed By: #### P T, PTT, A1C WTH eA, CBC #### [address] Platelets (Bld) [#/Vol] 320 10*3/uL Normal 150-450 [facility] Comment on above: Performed By: #### P T, PTT, A1C WTH eA, CBC #### [address] RBC (Bld) [#/Vol] 3.29 10*6/uL Low 3.60-5.00 [facility] Comment on above: Performed By: #### P T, PTT, A1C WTH eA, CBC #### [address] WBC (Bld) [#/Vol] 6.2 10*3/uL Normal 3.8-11.6 [facility] Comment on above: Performed By: #### P T, PTT, A1C WTH eA, CBC #### [address] Folate [Mass/volume] in Seru m or PlasmaOrdered By: Kash Hooks on 07-24-2023 Folate [Mass/Vol] 9.6 ng/mL >5.9 [facility] Comment on above: Folate reference ran ge: >5.9 ng/mlThe WHO technical consultation on folate and vitamin [id number] has determined that folate concentrations lessthan 4 ng/ml are considered deficient. Glucose Poct Glucometerson 0 07-24-2023 Commemt1 Glu2: Cleaned Meter Normal [facility] Comment on above: Result Comment: PERF ORMED BY: [place] [id number] PATHOLOGIST [employer]ING [employer] ASSEMBLER JONY MILAN M.D. Performed By: #### P T, PTT, A1C WTH eA, CBC #### [place] [address] [place] Glucose [Mass/Vol] 189 mg/dL Normal [facility] Comment on above: Result Comment: [place] Glucose Reference Range is dependent on time and content of last meal. Glucose of more than 200 mg/dL in a nonstressed, ambulatory subject supports the diagnosis of Diabetes Mellitus. Performed By: #### P T, PTT, A1C WTH eA, CBC #### [place] [address] [place] Glucose [Mass/Vol] 141 mg/dL Normal [facility] Comment on above: Result Comment: [place] Glucose Reference Range is dependent on time and content of last meal. Glucose of more than 200 mg/dL in a nonstressed, ambulatory subject supports the diagnosis of Diabetes Mellitus. PERFORMED BY: [place] [id number] PATHOLOGIST FISHING [employer] ASSEMBLER JOYN MILAN M.D. Performed By: #### P T, PTT, A1C WTH eA, CBC #### [place] [id number] [place] Glucose [Mass/Vol] 122 mg/dL Normal [facility] Comment on above: Result Comment: [place] Glucose Reference Range is dependent on time and content of last meal. Glucose of more than 200 mg/dL in a nonstressed, ambulatory subject supports the diagnosis of Diabetes Mellitus. PERFORMED BY: [address] [address] PATHOLOGIST FISHING [employer] ASSEMBLER JONY MILAN M.D. Performed By: #### P T, PTT, A1C WTH eA, CBC #### [address] [place] [address] [place] Glucose [Mass/Vol] 94 mg/dL Normal [facility] Comment on above: Result Comment: [place] Glucose Reference Range is dependent on time and content of last meal. Glucose of more than 200 mg/dL in a nonstressed, ambulatory subject supports the diagnosis of Diabetes Mellitus. PERFORMED BY: [place] [address] PATHOLOGIST FISHING [employer] ASSEMBLER JONY MILAN M.D. Performed By: #### P T, PTT, A1C WTH eA, CBC #### [address] Commemt1 Glu2: Cleaned Meter Normal [facility] Comment on above: Result Comment: PERF ORMED BY: [place] [address] PATHOLOGIST FISHING [employer] ASSEMBLER JONY MILAN M.D. Performed By: #### P T, PTT, A1C WTH eA, CBC #### [address] Glucose [Mass/Vol] 104 mg/dL Normal [facility] Comment on above: Result Comment: [facility] Glucose Reference Range is dependent on time and content of last meal. Glucose of more than 200 mg/dL in a nonstressed, ambulatory subject supports the diagnosis of Diabetes Mellitus. Performed By: #### P T, PTT, A1C WTH eA, CBC #### [address] Glucose mean value [Mass/vol ume] in Blood Estimated from glycated hemoglobinOrdered By: Kash Hooks on 07-24-2023 Average glucose Estimated from glycated hemoglobin (Bld) [Mass/Vol] 108 mg/dL [facility] Gram Stainon 07-24-2023 Microscopic observation Gram stain Nom (Unsp spec) Comment right breast abscess Gram Stain Result Rare Epithelial Cells Rare White Blood Cells No Bacteria Seen PERFORMED BY: [place] [address] PATHOLOGIST [employer]ING [employer] ASSEMBLER JONY MILAN M.D. Normal [facility] Comment on above: Performed By: #### P T, PTT, A1C WTH eA, CBC #### [facility] [address] Gram stain for investigation of transfusion reactionOrdered By: Мария Danielle on 07-24-2023 Microscopic observation Gram stain Nom (Unsp spec) Proteus mirabilis [facility] Hemoglobin A1c percentageOrd ered By: Kash Hooks on 07-24-2023 HbA1c (Bld) [Mass fraction] 5.4 % Normal 4.3-5.6 [facility] Comment on above: Increased risk for d iabetes: 5.7 - 6.4diabetes: >6.4glycemic control for adults with diabetes: <7.0 Result Comment: Incr eased risk for diabetes: 5.7 - 6.4 diabetes: >6.4 glycemic control for adults with diabetes: <7.0 Performed By: #### P T, PTT, A1C WTH eA, CBC #### [facility] [address] INR in Platelet poor plasma by Coagulation assayOrdered By: Kash Hooks on 07-24-2023 INR Coag (PPP) [Relative time] 1.1 {INR} Normal [facility] Comment on above: INR Therapeutic Rang e A) Pre- and Peroperative OAT started two weeks before surgery. NOT HIP SURGERY: 1.5 - 2.5 HIP SURGERY: 2 - 3B) Primary and secondary prevention of venous THROMBOSIS: 2 - 3C) Active venous thrombosis, pulmonary embolismand prevention of recurrent venous thrombosis: 2 - 3D) Prevention of arterial thromboembolismincluding patients with mechanical heart valves: 3 - 4.5 Result Comment: INR Therapeutic Range A) Pre- and Peroperative OAT started two weeks before surgery. NOT HIP SURGERY: 1.5 - 2.5 HIP SURGERY: 2 - 3 B) Primary and secondary prevention of venous THROMBOSIS: 2 - 3 C) Active venous thrombosis, pulmonary embolism and prevention of recurrent venous thrombosis: 2 - 3 D) Prevention of arterial thromboembolism including patients with mechanical heart valves: 3 - 4.5 Performed By: #### P T, PTT, A1C WTH eA, CBC #### [facility] [address] [place] [address] [place] 07-24-2023 L Specimen: Received: 07/25/23 Status: MADISYN Roque Num: [id number] Spec Type: Surgical Subm Dr: Мария Danielle MD Tissues: A Breast Biopsy/Mass Not Requiring Micro Eval of Margins (RT BREAST MASS) Procedures: HE/6, Gross/Micro L4 Age/ Patient Sex Location Account Attending Physician ChellyKayleehilda Yepez 37/F 3T [id number] Kash L DO Neva SPEC NUM: [id number] RECD: 07/25/23 STATUS: MADISYN ROQUE NUM: [id number] NELSON: 07/24/[address]: Мария Danielle MD ENTERED: 07/25/[address] [facility] DR: SPEC TYPE: Surgical DEPT: S ORDERED: HE/6, Gross/Micro L4 ORDERED: HE/6, Gross/Micro L4 Pathological Diagnosis Right breast mass, excision: -Patchy severe chronic inflammation around breast glands and ducts with moderate surrounding stromal fibrosis and occasional lymphangiectasia or pseudo microcystic change in at least 2 foci, and occasional mild surrounding chronic fatty degeneration, and at least 1 small focus of mild acute inflammation, 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 The specimen is serially sectioned and submitted entirely in A1?A6. RG/CYC Clinical history: Right breast abscess CPT Codes 38764 Specimen: [id number] Received: 07/25/23 Status: MADISYN Roque Num: [id number] Spec Type: Surgical Subm Dr: Мария Danielle MD Tissues: A Breast Biopsy/Mass Not Requiring Micro Eval of Margins (RT BREAST MASS) Procedures: HE/6, Gross/Micro L4 Patient: Eliana Hager [id number] (Continued) Signed (signature on file) Imelda Meyers MD 07/27/23 0958 Normal [facility] No Panel InformationOrdered By: Kash Hooks on 07-24-2023 Bedside Glucose Comment Glu2: cleaned meter [facility] Partial Thromboplastin Timeo n 07-24-2023 aPTT Coag (Bld) [Time] 27.9 s Normal 25.1-36.5 [facility] Comment on above: Result Comment: A he matocrit value greater than 55% may lead to inaccurate results in coagulation testing. Patients having hematocrit values >55% require a special collection tube for coagulation studies. Please contact the laboratory at [phone] for redraw instructions. PERFORMED BY: [place] [address] PATHOLOGIST [employer]ING [employer] ASSEMBLER JONY MILAN M.D. Performed By: #### P T, PTT, A1C WTH eA, CBC #### [facility] [address] [place] [address] [facility] Prothrombin time (PT)Ordered By: Kash Hooks on 07-24-2023 PT Coag (PPP) [Time] 12.7 s Normal 9.0-12.9 [facility] Comment on above: A hematocrit value g reater than 55% may lead to inaccurate results in coagulation testing. Patients having hematocrit values >55% require a special collection tube for coagulation studies. Please contact the laboratory at [phone] for redraw instructions. Result Comment: A he matocrit value greater than 55% may lead to inaccurate results in coagulation testing. Patients having hematocrit values >55% require a special collection tube for coagulation studies. Please contact the laboratory at [phone] for redraw instructions. Performed By: #### P T, PTT, A1C WTH eA, CBC #### [facility] [address] [place] [address] [facility] Serum or plasma trough vanco mycin levelOrdered By: Lauren Oropeza on 07-24-2023 Vancomycin trough [Mass/Vol] 13.9 ug/mL 10.0-20.0 [facility] Comment on above: Last dose: - Vancomycin [Mass/volume] in Serum or Plasma --peakOrdered By: Lauren Oropeza on 07-24-2023 Vancomycin peak [Mass/Vol] 17.8 ug/mL 20.0-40.0 [facility] Comment on above: Last dose: - Vancomycin,Peakon 07-24-2023 Vancomycin,Peak 17.8 ug/mL Low 20.0-40.0 [facility] Comment on above: Order Comment: Comme nt ?DRAW 1 HOUR AFTER INFUSION COMPLETES WANTS SOMEBODY ELSE ANALI YBARRA NOTIFIED ANALI 2323 RN TO TRY TO GET VANCO Date of last dose?: 20230723 Time of last dose?: 2048 Result Comment: Last dose: - PERFORMED BY: [place] [address] PATHOLOGIST [employer] JONY MILAN M.D. Performed By: #### P T, PTT, A1C WTH eA, CBC #### [address] Vancomycin,Troughon 07-24-19 Vancomycin,Trough 13.9 ug/mL Normal 10.0-20.0 [facility] Comment on above: Result Comment: Last dose: - PERFORMED BY: [place] [address] PATHOLOGIST [employer]SEM[employer] JONY MILAN M.D. Performed By: #### P T, PTT, A1C WTH eA, CBC #### [address] Vancomycin,Trough 23.3 ug/mL High 10.0-20.0 [facility] Comment on above: Order Comment: Time of next dose? 429 Date of last dose?: 20230723 Time of last dose?: 2048 Result Comment: Last dose: - PERFORMED BY: [place] [address] PATHOLOGIST [employer]SEM[employer] JONY MILAN M.D. Performed By: #### P T, PTT, A1C WTH eA, CBC #### [address] Vit. B12/Folate Profileon Folate 9.6 ng/mL Normal >5.9 [facility] Comment on above: Result Comment: Rand te reference range: >5.9 ng/ml The WHO technical consultation on folate and vitamin b12 deficiencies has determined that folate concentrations less than 4 ng/ml are considered deficient. PERFORMED BY: [place] [address] PATHOLOGIST [employer]SEM[employer] JONY MILAN M.D. Performed By: #### P T, PTT, A1C WTH eA, CBC #### [address] Vitamin B12 ser/plasOrdered By: Kash Hooks on 07-24-2023 Cobalamin (Vitamin B12) [Mass/Vol] 141 pg/mL Low 180-914 [facility] Comment on above: Performed By: #### P T, PTT, A1C WTH eA, CBC #### [facility] [address] [place] [id number] [facility] Bacterial blood cultureOrder ed By: Oumar Rivas on 07-23-2023 Bacteria identified Cx Nom (Bld) NO GROWTH 5 DAYS [facility] Blood Cultureon 07-23-2023 Bacteria identified Cx Nom (Bld) RN Notified AB 1519 RN NOTIFIED NO GROWTH 5 DAYS PERFORMED BY: [facility] [address] [place] [address] PATHOLOGIST [employer] JONY MILAN M.D. Normal [facility] Comment on above: Performed By: #### P T, PTT, A1C WTH eA, CBC #### [place] [id number] [facility] Glucose Poct Glucometerson 0 07-23-2023 Glucose [Mass/Vol] 120 mg/dL Normal [facility] Comment on above: Result Comment: [facility] Glucose Reference Range is dependent on time and content of last meal. Glucose of more than 200 mg/dL in a nonstressed, ambulatory subject supports the diagnosis of Diabetes Mellitus. PERFORMED BY: [place] [address] PATHOLOGIST [employer]SEM[employer]ER JONY MILAN M.D. Performed By: #### G LULS #### Point of Care testing , Glucose [Mass/Vol] 123 mg/dL Normal [facility] Comment on above: Result Comment: [facility] Glucose Reference Range is dependent on time and content of last meal. Glucose of more than 200 mg/dL in a nonstressed, ambulatory subject supports the diagnosis of Diabetes Mellitus. PERFORMED BY: [place] [id number] PATHOLOGIST [employer]SEMBLER JONY MILAN M.D. Performed By: #### P T, PTT, A1C WTH eA, CBC #### [place] [id number] [facility] Glucose [Mass/Vol] 128 mg/dL Normal [facility] Comment on above: Result Comment: [place] Glucose Reference Range is dependent on time and content of last meal. Glucose of more than 200 mg/dL in a nonstressed, ambulatory subject supports the diagnosis of Diabetes Mellitus. PERFORMED BY: [place] [address] PATHOLOGIST [employer]ING [employer]SEM[employer] JONY MILAN M.D. Performed By: #### P T, PTT, A1C WT eA, CBC #### [place] [id number] [facility] Glucose [Mass/Vol] 105 mg/dL Normal [facility] Comment on above: Result Comment: [facility] Glucose Reference Range is dependent on time and content of last meal. Glucose of more than 200 mg/dL in a nonstressed, ambulatory subject supports the diagnosis of Diabetes Mellitus. PERFORMED BY: [place] [address] PATHOLOGIST [employer]ING [employer] ASSEMBLER JONY MILAN M.D. Performed By: #### G LULS #### Point of Care testing , Alanine aminotransferase [En zymatic activity/volume] in Serum or PlasmaOrdered By: Oumar Rivas on 07-22-2023 ALT [Catalytic activity/Vol] 7 U/L Normal 7-52 [facility] Comment on above: Performed By: #### C BC, CMP #### [place] [address] [place] Albumin [Mass/volume] in Ser um or Plasma by Bromocresol green (BCG) dye binding methoOrdered By: Oumar Rivas on 07-22-2023 Albumin BCG dye [Mass/Vol] 3.9 g/dL 3.5-5.7 [facility] Alkaline phosphatase [Enzyma tic activity/volume] in Serum or PlasmaOrdered By: Oumar Rivas on 07-22-2023 ALP [Catalytic activity/Vol] 74 U/L Normal 34-104 [facility] Comment on above: Performed By: #### C BC, CMP #### [address] Aspartate aminotransferase [ Enzymatic activity/volume] in Serum or PlasmaOrdered By: Oumar Rivas on 07-22-2023 AST [Catalytic activity/Vol] 18 U/L Normal 13-39 [facility] Comment on above: Performed By: #### C BC, CMP #### [address] Automated basophil %Ordered By: Oumar Rivas on 07-22-2023 Basophils/100 WBC (Bld) 0.9 % Normal . [facility] Comment on above: Performed By: #### C BC, CMP #### [address] Automated basophil countOrde red By: Oumar Rivas on 07-22-2023 Basophils (Bld) [#/Vol] 0.1 10*3/uL Normal 0.0-0.2 [facility] Comment on above: Result Comment: PERF ORMED BY: [place] [address] PATHOLOGIST [employer] JONY MILAN M.D. Performed By: #### C BC, CMP #### [address] Automated blood monocyte cou ntOrdered By: Oumar Rivas on 07-22-2023 Monocytes (Bld) [#/Vol] 0.4 10*3/uL Normal 0.0-0.8 [facility] Comment on above: Performed By: #### C BC, CMP #### [address] Automated eosinophil %Ordere d By: Oumar Rivas on 07-22-2023 Eosinophils/100 WBC (Bld) 1.1 % Normal . [facility] Comment on above: Performed By: #### C BC, CMP #### [address] Automated eosinophil countOr dered By: Oumar Rivas on 07-22-2023 Eosinophils (Bld) [#/Vol] 0.1 10*3/uL Normal 0.0-0.45 [facility] Comment on above: Performed By: #### C BC, CMP #### [address] Automated monocyte %Ordered By: Oumar Rivas on 07-22-2023 Monocytes/100 WBC (Bld) 4.8 % Normal . [facility] Comment on above: Performed By: #### C BC, CMP #### [facility] [address] Automated neutrophil %Ordere d By: Oumar Rivas on 07-22-2023 Neutrophils/100 WBC (Bld) 60.7 % Normal . [facility] Comment on above: Performed By: #### C BC, CMP #### [address] Automated urine color determ inationOrdered By: Oumar Rivas on 07-22-2023 Color (U) Yellow Normal Yellow [facility] Comment on above: Order Comment: Name Collection Type:: Voided Performed By: #### P T, PTT, A1C WTH eA, CBC #### [address] Bacterial blood cultureOrder ed By: Oumar Rivas on 07-22-2023 Bacteria identified Cx Nom (Bld) NO GROWTH 5 DAYS [facility] Bilirubin Test strip Ql (U)O rdered By: Oumar Rivas on 07-22-2023 Bilirubin Ql (U) Negative Negative [facility] Bilirubin.total [Mass/volume ] in Serum or PlasmaOrdered By: Oumar Rivas on 07-22-2023 Bilirubin [Mass/Vol] 0.5 mg/dL Normal 0.3-1.0 [facility] Comment on above: Performed By: #### C BC, CMP #### [address] Blood Cultureon 07-22-2023 Bacteria identified Cx Nom (Bld) NO GROWTH 5 DAYS PERFORMED BY: [place] [address] PATHOLOGIST [employer] JONY MILAN M.D. Normal [facility] Comment on above: Performed By: #### P T, PTT, A1C WTH eA, CBC #### [address] Calcium [Mass/volume] in Ser um or PlasmaOrdered By: Oumar Rivas on 07-22-2023 Calcium [Mass/Vol] 9.7 mg/dL Normal 8.6-10.3 [facility] Comment on above: Performed By: #### C BC, CMP #### [address] Carbon dioxide, total [Moles /volume] in Serum or PlasmaOrdered By: Oumar Rivas on 07-22-2023 CO2 [Moles/Vol] 24.9 mmol/L Normal 21.0-31.0 [facility] Comment on above: Performed By: #### C BC, CMP #### [address] Chloride [Moles/volume] in S vanna or PlasmaOrdered By: Oumar Rivas on 07-22-2023 Chloride [Moles/Vol] 100 mmol/L Normal 98-107 [facility] Comment on above: Performed By: #### C BC, CMP #### [address] Complete Blood Count Auto Di ffon 07-22-2023 Mean Corpuscular HGB Conc 32.4 g/dL Normal 32.0-35.0 [facility] Comment on above: Performed By: #### C BC, CMP #### [address] Monocytes/100 WBC (Bld) 22.30 % High 0.00-20.00 [facility] Comment on above: Result Comment: For adults in ED, MDW > 20.0 may be associated with a higher risk of sepsis during the first 12 hrs of hospital admission Performed By: #### C BC, CMP #### [address] NRBC% 0.1 /100{WBC} Normal 0-0.5 [facility] Comment on above: Performed By: #### C BC, CMP #### [address] Comprehensive Metabolic Pane [place] 07-22-2023 Albumin [Mass/Vol] 3.9 g/dL Normal 3.5-5.7 [facility] Comment on above: Performed By: #### C BC, CMP #### [address] Creatinine Clr Calc Pharmacy 157.26 Normal [facility] Comment on above: Result Comment: PERF ORMED BY: [place] [address] PATHOLOGIST [employer] JONY MILAN M.D. Performed By: #### C BC, CMP #### [address] GFR/1.73 sq M.predicted MDRD (S/P/Bld) [Vol rate/Area] mL/min/{1.73_m2} Normal [facility] Comment on above: Performed By: #### C BC, CMP #### [address] Creatinine [Mass/volume] in Serum or PlasmaOrdered By: Oumar Rivas on 07-22-2023 Creatinine [Mass/Vol] 0.91 mg/dL Normal 0.60-1.20 [facility] Comment on above: Performed By: #### C BC, CMP #### [address] Erythrocyte distribution wid th [Ratio] by Automated countOrdered By: Oumar Rivas on 07-22-2023 Erythrocyte distribution width (RBC) [Ratio] 21.1 % High 11.9-15.3 [facility] Comment on above: Performed By: #### C BC, CMP #### [address] Erythrocytes [#/volume] in B lood by Automated countOrdered By: Oumar Rivas on 07-22-2023 RBC (Bld) [#/Vol] 3.89 10*6/uL Normal 3.60-5.00 [facility] Comment on above: Performed By: #### C BC, CMP #### [facility] [address] [place] [id number] [facility] Glucose Poct Glucometerson 0 07-22-2023 Glucose [Mass/Vol] 135 mg/dL Normal [facility] Comment on above: Result Comment: [place] Glucose Reference Range is dependent on time and content of last meal. Glucose of more than 200 mg/dL in a nonstressed, ambulatory subject supports the diagnosis of Diabetes Mellitus. PERFORMED BY: [facility] [address] [place] [address] PATHOLOGIST [employer]SEM[employer]ER JONY MILAN M.D. Performed By: #### P T, PTT, A1C WTH eA, CBC #### [facility] [address] [place] [id number] [facility] Glucose [Mass/volume] in Ser um or PlasmaOrdered By: Oumar Rivas on 07-22-2023 Glucose [Mass/Vol] 98 mg/dL Normal 70-100 [facility] Comment on above: ADA recommended refe rence rangeRandom Glucose Reference Range is dependent on time and content of last meal. Glucose of more than 200 mg/dL in a nonstressed, ambulatory subject supports the diagnosis of Diabetes Mellitus. Result Comment: [place] Glucose Reference Range is dependent on time and content of last meal. Glucose of more than 200 mg/dL in a nonstressed, ambulatory subject supports the diagnosis of Diabetes Mellitus. ADA recommended reference range Performed By: #### C BC, CMP #### [facility] [address] [place] [id number] [facility] HCG ( test) IA.rapi d Ql (U)Ordered By: Oumar Rivas on 07-22-2023 HCG ( test) Ql (U) Negative [facility] HCG,Urineon 07-22-2023 Beta HCG ( test) Ql (U) Negative Normal [facility] Comment on above: Order Comment: Name Collection Type:: Voided Result Comment: PERF ORMED BY: [address] [place] [address] PATHOLOGIST [employer]ING [employer]SEMBLER JONY MILAN M.D. Performed By: #### P T, PTT, A1C WTH eA, CBC #### [facility] [address] [place] [address] Hematocrit [Volume Fraction] of Blood by Automated countOrdered By: Oumar Rivas on 07-22-2023 Hematocrit (Bld) [Volume fraction] 35.2 % Normal 34.0-46.4 [facility] Comment on above: Performed By: #### C BC, CMP #### [address] Hemoglobin [Mass/volume] in BloodOrdered By: Oumar Rivas on 07-22-2023 Hemoglobin (Bld) [Mass/Vol] 11.4 g/dL Low 11.8-15.4 [facility] Comment on above: Performed By: #### C BC, CMP #### [address] Ketones Auto test strip (U) [Mass/Vol]Ordered By: Oumar Rivas on 07-22-2023 Ketones (U) [Mass/Vol] Negative Negative [facility] Leukocytes [#/volume] correc arnoldo for nucleated erythrocytes in Blood by Automated counOrdered By: Oumar Rivas on 07-22-2023 WBC corrected for nucl RBC Auto (Bld) [#/Vol] 8.3 10*3/uL 3.8-11.6 [facility] Leukocytes [#/volume] in Blo od by Automated countOrdered By: Oumar Rivas on 07-22-2023 WBC (Bld) [#/Vol] 8.3 10*3/uL Normal 3.8-11.6 [facility] Comment on above: Performed By: #### C BC, CMP #### [place] [address] [place] Lymphocytes [#/volume] in Bl ood by Automated countOrdered By: Oumar Rivas on 07-22-2023 Lymphocytes (Bld) [#/Vol] 2.7 10*3/uL Normal 1.00-4.8 [facility] Comment on above: Performed By: #### C BC, CMP #### [address] Lymphocytes/100 leukocytes i n Blood by Automated countOrdered By: Oumar Rivas on 07-22-2023 Lymphocytes/100 WBC (Bld) 32.5 % Normal . [facility] Comment on above: Performed By: #### C BC, CMP #### [address] MCH [Entitic mass] by Automa arnoldo countOrdered By: Oumar Rivas on 07-22-2023 MCH (RBC) [Entitic mass] 29.3 pg Normal 24.7-34.3 [facility] Comment on above: Performed By: #### C BC, CMP #### [address] MCHC Auto (RBC) [Mass/Vol]Or dered By: Oumar Rivas on 07-22-2023 MCHC (RBC) [Mass/Vol] 32.4 g/dL 32.0-35.0 [facility] MCV [Entitic volume] by Auto mated countOrdered By: Oumar Rivas on 07-22-2023 MCV (RBC) [Entitic vol] 90.6 fL Normal 80-100 [facility] Comment on above: Performed By: #### C BC, CMP #### [address] Monocyte distribution width [Entitic volume] in Blood by AutomatedOrdered By: Oumar Rivas on 07-22-2023 Monocyte distribution width Auto (Bld) [Entitic vol] 22.30 % 0.00-20.00 [facility] Comment on above: For adults in ED, MD W > 20.0 may be associated with a higher risk of sepsis during the first 12 hrs of hospital admission Neutrophils [#/volume] in Bl ood by Automated countOrdered By: Oumar Rivas on 07-22-2023 Neutrophils (Bld) [#/Vol] 5.0 10*3/uL Normal 1.8-7.7 [facility] Comment on above: Performed By: #### C BC, CMP #### [address] Nitrite Test strip Ql (U)Ord ered By: Oumar Rivas on 07-22-2023 Nitrite Ql (U) Negative Negative [facility] No Panel InformationOrdered By: Oumar Rivas on 07-22-2023 Estimated GFR (CKD-EPI) > 60.0 mL/Min [facility] Creatinine Clearance (Chem 157.26 [facility] Nucleated erythrocytes [Pres ence] in Blood by Automated countOrdered By: Oumar Rivas on 07-22-2023 Nucleated RBC Auto Ql (Bld) 0.1 /100{WBC} 0-0.5 [facility] Platelet mean volume [Entiti c volume] in Blood by Automated countOrdered By: Oumar Rivas on 07-22-2023 Platelet mean volume (Bld) [Entitic vol] 8.2 fL Normal 6.3-10.7 [facility] Comment on above: Performed By: #### C BC, CMP #### [address] Platelets [#/volume] in Bloo d by Automated countOrdered By: Oumar Rivas on 07-22-2023 Platelets (Bld) [#/Vol] 377 10*3/uL Normal 150-450 [facility] Comment on above: Performed By: #### C BC, CMP #### [address] Potassium [Moles/volume] in Serum or PlasmaOrdered By: Oumar Rivas on 07-22-2023 Potassium [Moles/Vol] 3.8 mmol/L Normal 3.5-5.1 [facility] Comment on above: Performed By: #### C BC, CMP #### [address] Protein Auto test strip (U) [Mass/Vol]Ordered By: Oumar Rivas on 07-22-2023 Protein (U) [Mass/Vol] Negative Negative [facility] Protein [Mass/volume] in Ser um or PlasmaOrdered By: Oumar Rivas on 07-22-2023 Protein [Mass/Vol] 8.6 g/dL Normal 6.4-8.9 [facility] Comment on above: Performed By: #### C KRISTINA, CMP #### [facility] [address] [place] [address] Serum globulin measurement b y calculation (mass/volume)Ordered By: Oumar Rivas on 07-22-2023 Globulin (S) [Mass/Vol] 4.7 g/dL Normal [facility] Comment on above: Performed By: #### C KRISTINA, CMP #### [address] Serum or plasma albumin/glob ulin mass ratioOrdered By: Oumar Rivas on 07-22-2023 Albumin/Globulin [Mass ratio] 0.8 {ratio} [facility] Comment on above: Performed By: #### C KRISTINA, CMP #### [address] Serum or plasma anion gap de terminationOrdered By: Oumar Rivas on 07-22-2023 Anion gap [Moles/Vol] 12.9 mmol/L Normal 6.0-15.0 [facility] Comment on above: Performed By: #### C KRISTINA, CMP #### [address] Sodium [Moles/volume] in Ser um or PlasmaOrdered By: Oumar Rivas on 07-22-2023 Sodium [Moles/Vol] 134 mmol/L Low 136-145 [facility] Comment on above: Performed By: #### C KRISTINA, CMP #### [address] Specific gravity Auto test s trip (U) [Rel density]Ordered By: Oumar Rivas on 07-22-2023 Specific gravity (U) [Rel density] 1.012 1.001-1.03 0 [facility] US breast RT limitedon 07-21 US breast RT limited [facility] [place] [address] [place] [address] Ultrasound Report Signed Patient: Eliana Hager MR#: [id number] 08 : 1985 Acct:[id number] Age/Sex: 37 / F ADM Date: 07/22/23 Loc: ER Room: Type: [facility] ER Attending Dr: Ordering Provider: Oumar Rivas APRN Date of Service: 07/22/23 US/US breast RT limited: pain, induration Copies to: Oumar Rivas APRN Ultrasound of the RIGHT breast HISTORY: History of RIGHT breast abscess. Patient on antibiotics. No improvement. History of drainage. nipple discharge. RIGHT breast scan in region of pain. At the 12 o'clock position in the retroareolar region there is complex fluid collection with internal debris and surrounding increased vascularity. This measures up to 4.5 cm. This is 5 cm from the nipple. US/US breast RT limited IMPRESSION: Complex fluid collection with surrounding increased vascularity concerning for abscess. Impression dictated by: Nicholas Ospina M.D.07/22/2023 4:28 PM Dictation Location: [place] [address] Tech: Izabel Yoana Transcribed By: OSCAR 07/22/23 1628 Dictated By: Nicholas Ospina DO 07/22/23 1625 Signed By: 07/22/23 1628 Normal [facility] Urea nitrogen [Mass/volume] in Serum or PlasmaOrdered By: Oumar Rivas on 07-22-2023 Urea nitrogen [Mass/Vol] 7 mg/dL Normal 7-25 [facility] Comment on above: Performed By: #### C BC, CMP #### [facility] [address] [place] [address] [place] Urinalysison 07-22-2023 Appearance (U) Clear Normal Clear [facility] Comment on above: Order Comment: Name Collection Type:: Voided Performed By: #### P T, PTT, A1C WTH eA, CBC #### [facility] [address] [place] [id number] [place] Bilirubin,Urine Negative Normal Negative [facility] Comment on above: Order Comment: Name Collection Type:: Voided Performed By: #### P T, PTT, A1C WTH eA, CBC #### [facility] [address] [place] [id number] [place] Glucose Ql (U) Normal Normal Normal [facility] Comment on above: Order Comment: Name Collection Type:: Voided Performed By: #### P T, PTT, A1C WTH eA, CBC #### [address] Ketones Ql (U) Negative Normal Negative [facility] Comment on above: Order Comment: Name Collection Type:: Voided Performed By: #### P T, PTT, A1C WTH eA, CBC #### [address] Leukocyte esterase Test strip Ql (U) Negative Normal Negative [facility] Comment on above: Order Comment: Name Collection Type:: Voided Performed By: #### P T, PTT, A1C WTH eA, CBC #### [place] [address] [place] Nitrite,Urine Negative Normal Negative [facility] Comment on above: Order Comment: Name Collection Type:: Voided Performed By: #### P T, PTT, A1C WTH eA, CBC #### [place] [address] [place] Occult Blood,Urine Negative Normal Negative [facility] Comment on above: Order Comment: Name Collection Type:: Voided Performed By: #### P T, PTT, A1C WTH eA, CBC #### [place] [address] [place] Protein,Urine Negative Normal Negative [facility] Comment on above: Order Comment: Name Collection Type:: Voided Performed By: #### P T, PTT, A1C WTH eA, CBC #### [place] [address] [place] Specificy [place],Urine 1.012 Normal 1.001-1.03 0 [facility] Comment on above: Order Comment: Name Collection Type:: Voided Performed By: #### P T, PTT, A1C WTH eA, CBC #### [address] Urobilinogen,Urine Normal Normal Normal [facility] Comment on above: Order Comment: Name Collection Type:: Voided Performed By: #### P T, PTT, A1C WTH eA, CBC #### [facility] [address] Urine clarity by refractomet ry automatedOrdered By: Oumar Rivas on 07-22-2023 Clarity Refractometry automated (U) Clear Clear [facility] Urine glucose measurement by automated test strip (mass/volume)Ordered By: Oumar Rivas on 07-22-2023 Glucose Auto test strip (U) [Mass/Vol] Normal mg/dL Normal [facility] Urine hemoglobin detection b y automated test stripOrdered By: Oumar Rivas on 07-22-2023 Hemoglobin Auto test strip Ql (U) Negative Negative [facility] Urine leukocyte esterase det ection by automated test stripOrdered By: Oumar Rivas on 07-22-2023 Leukocyte esterase Auto test strip Ql (U) Negative Negative [facility] Urine pH measurement by auto mated test stripOrdered By: Oumar Rivas on 07-22-2023 pH (U) 7.0 [pH] Normal 5.0-9.0 [facility] Comment on above: Order Comment: Name Collection Type:: Voided Performed By: #### P T, PTT, A1C WT eA, CBC #### [facility] [address] Urobilinogen Auto test strip (U) [Mass/Vol]Ordered By: Oumar Rivas on 07-22-2023 Urobilinogen (U) [Mass/Vol] Normal mg/dL Normal [facility] BASIC METABOLIC PANLon 07-20 Anion gap [Moles/Vol] 13 mmol/L Normal 5-15 [facility] Comment on above: Performed By: #### C SANDRINE TERRY, [address]-5 #### [facility] ([id number]) [address] [place] [address] Calcium [Mass/Vol] 9.6 mg/dL Normal 8.5-10.5 [facility] Comment on above: Performed By: #### C SANDRINE TERRY, 68478-2 #### [facility] ([id number]) [address], [address] [place] [address] Chloride [Moles/Vol] 100 mmol/L Normal 98-109 [facility] Comment on above: Performed By: #### C HARRISON [facility], 1987-08, 43080-9 #### [facility] ([id number]) [address], [address] [place] [address] CO2 [Moles/Vol] 24 mmol/L Normal 22-32 [facility] Comment on above: Performed By: #### SANDRINE Ponce BCA, 1989-08, 68334-2 #### [facility] ([id number]) [address], [address] [place] [address] Creatinine [Mass/Vol] 0.90 mg/dL Normal 0.40-1.00 [facility] Comment on above: Result Comment: METH OD TRACEABLE TO IDMS STANDARD Performed By: #### C HARRISON [facility], 1987-08, 32224-1 #### [facility] ([id number]) [address], [address] [place] [address] GFR/1.73 sq M.predicted among non-blacks MDRD (S/P/Bld) [Vol rate/Area] 83 mL/min/{1.73_m2} Normal >59 [facility] Comment on above: Result Comment: Reported eGFR is based on the CKD-EPI 2020 equation that does not use a race coefficient. Performed By: #### C SANDRINE TERRY, 1989-08, 31609-7 #### [facility] ([id number]) [address], [address] [place] [address] Glucose [Mass/Vol] 75 mg/dL Normal 65-99 [facility] Comment on above: Performed By: #### SANDRINE Ponce BCA, 1989-08, 06972-4 #### [facility] ([id number]) [address], [address] [place] [address] Potassium [Moles/Vol] 3.9 mmol/L Normal 3.5-5.0 [facility] Comment on above: Performed By: #### C HARRISON [facility], 1989-08, 60296-1 #### [facility] ([id number]) [address], [address] [place] [address] Sodium [Moles/Vol] 137 mmol/L Normal 134-146 [facility] Comment on above: Performed By: #### C HARRISON [facility], 1989-08, 41857-6 #### [facility] ([id number]) [address], [address] [place] [address] Urea nitrogen [Mass/Vol] 7 mg/dL Normal 5-23 [facility] Comment on above: Performed By: #### Kris TERRY [facility], 1989-08, 06788-0 #### [facility] ([id number]) [address], [address] [place] [address] BLOOD CULTUREon 07-21-2023 Bacteria identified Aer cx Nom (Bld) SPECIMEN NOTES 20ml left antecubital CULTURE RESULTS NO GROWTH 5 DAYS Normal [facility] Comment on above: Performed By: #### 1 7928-3 #### [facility] ([id number]) [address] [place] [address] Bacteria identified Aer cx Nom (Bld) SPECIMEN NOTES left acub CULTURE RESULTS NO GROWTH 5 DAYS Normal [facility] Comment on above: Performed By: #### 1 7928-3 #### [facility] ([id number]) [address] [place] [address] CBC AND AUTO DIFFon 07-21-19 24 ABSOLUTE BASOPHIL 0.0 X10E9/L Normal 0.0-0.2 [facility] Comment on above: Performed By: #### C SANDRINE TERRY, 1989-08, 77690-7 #### [facility] ([id number]) [address], [address] [place] [address] ABSOLUTE NEUTROPHIL 4.5 X10E9/L Normal 1.5-6.6 [facility] Comment on above: Performed By: #### Kris TERRY [facility], 1989-08, 54492-8 #### [facility] ([id number]) [address], [address] [place] [address] Basophils/100 WBC (Bld) 0.5 % Normal [facility] Comment on above: Performed By: #### Kris TERRY [facility], 1989-08, 37593-6 #### [facility] ([id number]) [address], [address] [place] [address] Eosinophils (Bld) [#/Vol] 0.1 10*3/uL Normal 0.0-0.4 [facility] Comment on above: Performed By: #### Kris TERRY [facility], 1989-08, 02608-3 #### [facility] ([id number]) [address], [address] [place] [address] Eosinophils/100 WBC (Bld) 1.4 % Normal [facility] Comment on above: Performed By: #### Kris TERRY [facility], 1989-08, 44231-9 #### [facility] ([id number]) [address], [address] [place] [address] Erythrocyte distribution width (RBC) [Ratio] 20.8 % High 11.5-15.0 [facility] Comment on above: Performed By: #### Kris TERRY [facility], 1989-08, 75438-2 #### [facility] ([id number]) [address] [place] [address] Hematocrit (Bld) [Volume fraction] 33.3 % Low 35-47 [facility] Comment on above: Performed By: #### Kris TERRY [facility], 1989-08, 30382-6 #### [facility] ([id number]) [address], [address] [place] [address] Hemoglobin (Bld) [Mass/Vol] 10.9 g/dL Low 11.7-15.5 [facility] Comment on above: Performed By: #### C SANDRINE TERRY, 1989-08, 18146-4 #### [facility] ([id number]) [address], [address] [place] [address] Lymphocytes (Bld) [#/Vol] 2.5 10*3/uL Normal 1.0-3.5 [facility] Comment on above: Performed By: #### Kris TERRY [facility], 1987-08, 30511-4 #### [facility] ([id number]) [address], [address] [place] [address] Lymphocytes/100 WBC (Bld) 32.4 % Normal [facility] Comment on above: Performed By: #### Kris TERRY [facility], 1989-08, 85646-6 #### [facility] ([id number]) [address], [address] [place] [address] MCH (RBC) [Entitic mass] 29.8 pg Normal 27-34 [facility] Comment on above: Performed By: #### SANDRINE Ponce BCA, 1989-08, 52138-8 #### [facility] ([id number]) [address], [address] [place] [address] MCHC (RBC) [Mass/Vol] 32.8 g/dL Normal 32-36 [facility] Comment on above: Performed By: #### SANDRINE Ponce BCA, 1989-08, 15181-1 #### [facility] ([id number]) [address], [address] [place] [address] MCV (RBC) [Entitic vol] 91 fL Normal 80-100 [facility] Comment on above: Performed By: #### SANDRINE Ponce BCA, 1989-08, 09185-0 #### [facility] ([id number]) [address], [address] [place] [address] Monocytes (Bld) [#/Vol] 0.5 10*3/uL Normal 0-0.9 [facility] Comment on above: Performed By: #### Kris TERRY [facility], 1989-08, 98485-1 #### [facility] ([id number]) [address], [address] [place] [address] Monocytes/100 WBC (Bld) 6.5 % Normal [facility] Comment on above: Performed By: #### Kris TERRY [facility], 1989-08, 88909-7 #### [facility] ([id number]) [address], [address] [place] [address] Neutrophils/100 WBC (Bld) 59.2 % Normal [facility] Comment on above: Performed By: #### Kris TERRY [facility], 1989-08, 86135-5 #### [facility] ([id number]) [address], [address] [place] [address] Platelet mean volume (Bld) [Entitic vol] 8.3 fL Normal 7-12 [facility] Comment on above: Performed By: #### Kris TERRY [facility], 1989-08, 38308-0 #### [facility] ([id number]) [address] [place] [address] Platelets (Bld) [#/Vol] 361 10*3/uL Normal 150-450 [facility] Comment on above: Performed By: #### Kris TERRY [facility], 1989-08, 14220-1 #### [facility] ([id number]) [address], [address] [place] [address] RBC COUNT 3.67 X10E12/L Low 3.80-5.20 [facility] Comment on above: Performed By: #### C HARRISON [facility], 1989-08, 27376-6 #### [facility] ([id number]) [address], [address] [place] [address] WBC (Bld) [#/Vol] 7.6 10*3/uL Normal 4.0-11.0 [facility] Comment on above: Performed By: #### C HARRISON [facility], 1989-08, 74678-6 #### [facility] ([id number]) [address], [address] [place] [address] CRP [Mass/Vol]on 07-21-2023 C REACTIVE PROTEIN 1.4 mg/dL High 0.000-0.7 4 4 [facility] Comment on above: Performed By: #### SANDRINE Ponce BCA, 1989-08, 81752-0 #### [facility] ([id number]) [address], [address] [place] [address] ESR Photometric method (Bld) [Velocity]on 07-21-2023 ESR, ERYTHROCYTE SEDIMENTATION RATE 77 mm/h High 0-20 [facility] Comment on above: Performed By: #### Kris TERRY [facility], 1989-08, 97239-3 #### [facility] ([id number]) [address], [address] [place] [address] US BREAST RT LIMITEDon 07-20 US BREAST RT LIMITED US BREAST RT LIMITE D EXAM: US BREAST RT LIMITED, 07/21/2023 12:10 PM CLINICAL INDICATIONS:Abscess of right breast. COMPARISON: Ultrasound 07/05/2023 and 07/14/2023 TECHNIQUE: Multiple real-time canela-scale images of the right breast in the retroareolar region was performed. Color Doppler was utilized to assess vascular flow. FINDINGS: Heterogeneous lobulated lesion measuring up to 3.3 cm consistent with the known abscess has recurred and measures approximately, similar to that on the pre--- aspiration ultrasound from 07/05/2023. Small amount of adjacent color flow vascularity present. IMPRESSION: Recurrent retroareolar abnormality consistent with known abscess. Have discussed this with the patient at time of exam. BI-RADS: BI-RADS 2 - Benign Recommendation: Follow up with referring physician Patient was given the results before leaving the department. Finalized by Fredrick Horvath MD on 07/21/2023 12:30 PM 2 F/U REFER DR Rollins [facility] ANAEROBE CULTUREon 4 Bacteria identified Anaer cx Nom (Unsp spec) CULTURE RESULTS NO ANAEROBIC ORGANISMS ISOLATED [facility] Comment on above: Performed By: #### C BCA, PINR, 02881-7, CMP, 3040-3, 82092-0, 94465-5 #### [facility] ([id number]) [address] [place] [address] ASPIRATE CULTUREon 4 Bacteria identified Aer cx Nom (Asp) GRAM STAIN >25 WHITE BLOOD CELLS/LPF 0 SQUAMOUS EPITHELIAL CELLS/LPF FEW GRAM NEGATIVE RODS CULTURE RESULTS MODERATE PROTEUS MIRABILIS [ S = SUSCEPTIBLE R = RESISTANT I = INTERMEDIATE S-DO = Susceptible-dose dependent NS = Non-suscceptible NO = No Interpretation ] Organism: PROTEUS MIRABILIS Antibiotic Interpretation LIN Status AMPICILLIN S <=2 F AMP/SULBACTAM S <=2/1 F CEFAZOLIN UNK <=4 F CLSI interpretive criteria for nonurinary isolates are as follows: <=2 Susceptible, 4 Intermediate, Resistant >=8. Contact Microbiology laboratory if further susceptibility testing for Cefazolin is required. CEFTRIAXONE S <=1 F CIPROFLOXACIN S <=0.25 F GENTAMICIN S <=1 F LEVOFLOXACIN S <=0.12 F PIPERACIL/TAZOBACTAM S <=4 F TOBRAMYCIN S <=1 F Susceptible [facility] Comment on above: Performed By: #### C BCA, PINR, 67081-7, CMP, 3040-3, 25912-2, 68064-1 #### [facility] ([id number]) [address] [place] [address] US BREAST CYST ASP INITIAL R Ton 04-04-2024 US BREAST CYST ASP INITIAL RT US BREAST CYST ASP INITIAL RT US BREAST CYST ASP INITIAL RT WITH TOMOSYNTHESIS. HISTORY: Abnormal ultrasound and prior diagnostic mammogram 07/05/2023 COMPARISON: Comparison FINDINGS: Risks and benefits explained to the patient. Written consent obtained. Site overlying the heterogeneous abnormality 12:00 position right breast identified under ultrasound guidance guidance, sterilely compared, locally anesthetized. During scanning it was noted that there is a large amount of acoustic through transmission and there were swirling echoes within the abnormality which was thought to represent an abscess. Biopsy was deferred and instead a 6.5 [place] one-step catheter was placed into abnormality and 10 mL cyst of hand-colored pus was removed this was sent to the laboratory for culture and sensitivity. After completion of the aspiration the abnormality was dramatically decreased in size no definite solid mass remain present. IMPRESSION: * Ultrasound-guided aspiration of what appears mammographically and procedurally to the eighth breast abscess. * ASSESSMENT: BI-RADS 3 probably benign * Recommendation: 6 month follow-up ultrasound. To confirm that the abscess does not recur in that no focal mass does generate in the area of the abscess. IMPRESSION: BI-RADS 3 - Probably Benign Finalized by Yoseph Morales MD on 07/14/2023 3:11 PM 3 Normal [facility] MAMM DIAGNOSTIC BILATERAL W CADon 07-05-2023 MAMM DIAGNOSTIC BILATERAL W CAD MAMM DIAGNOSTIC BILATERAL W CAD EXAM: MAMM DIAGNOSTIC BILATERAL W CAD, US BREAST RT LIMITED, 07/05/2023 11:26 AM CLINICAL INDICATIONS: Mass of right breast, unspecified quadrant, COMPARISON: None TECHNIQUE: Bilateral digital tomosynthesis MLO and CC views of the breasts were obtained, with creation of synthetic 2D views. Computer aided detection was utilized. Also, targeted ultrasound towards the palpable abnormality of the right breast performed. FINDINGS: There are scattered areas of fibroglandular density. In the retroareolar right breast 12:00 position, there is a 3 cm mass on the mammogram that correlates as palpated. Targeted ultrasound of this region shows a 3.2 cm heterogeneous solid lobulated mass. No internal color flow vascularity seen. There are no other suspicious masses, calcifications, or areas of architectural distortions. IMPRESSION: Retroareolar right breast mass is high suspicion for malignancy. Ultrasound-guided biopsy is recommended and will be scheduled. I have discussed the findings and biopsy with the patient at the time of exam. BI-RADS: BI-RADS 5 - Highly Suggestive of Malignancy Recommendation: Biopsy is recommended Patient was given the results before leaving the department. Finalized by Fredrick Horvath MD on 07/05/2023 12:07 PM 5 b BIOPSY Normal [facility] US BREAST RT LIMITEDon 07-04 US BREAST RT LIMITED US BREAST RT LIMITE D EXAM: MAMM DIAGNOSTIC BILATERAL W CAD, US BREAST RT LIMITED, 07/05/2023 11:26 AM CLINICAL INDICATIONS: Mass of right breast, unspecified quadrant, COMPARISON: None TECHNIQUE: Bilateral digital tomosynthesis MLO and CC views of the breasts were obtained, with creation of synthetic 2D views. Computer aided detection was utilized. Also, targeted ultrasound towards the palpable abnormality of the right breast performed. FINDINGS: There are scattered areas of fibroglandular density. In the retroareolar right breast 12:00 position, there is a 3 cm mass on the mammogram that correlates as palpated. Targeted ultrasound of this region shows a 3.2 cm heterogeneous solid lobulated mass. No internal color flow vascularity seen. There are no other suspicious masses, calcifications, or areas of architectural distortions. IMPRESSION: Retroareolar right breast mass is high suspicion for malignancy. Ultrasound-guided biopsy is recommended and will be scheduled. I have discussed the findings and biopsy with the patient at the time of exam. BI-RADS: BI-RADS 5 - Highly Suggestive of Malignancy Recommendation: Biopsy is recommended Patient was given the results before leaving the department. Finalized by Fredrick Horvath MD on 07/05/2023 12:07 PM 5 b BIOPSY Normal [facility] XR CHEST 1 VWon 04-29-2023 XR CHEST 1 VW XR CHEST 1 VW History: cough Exam/Technique: Single AP view of the chest was obtained Comparison: Chest x-ray 02/25/2023 Findings: Cardiomediastinal silhouette is within normal range. There is no focal areas of airspace disease, pleural effusion or pneumothorax. IMPRESSION: Unremarkable chest x-ray Finalized by Whitney Langford MD on 04/28/2023 10:24 PM Normal [facility] CBC AND AUTO DIFFon 04-28-19 24 ABSOLUTE BASOPHIL 0.0 X10E9/L Normal 0.0-0.2 [facility] Comment on above: Performed By: #### C BCA, PINR, 46241-5, CMP, 3040-3, 54470-8, 06704-8 #### [facility] ([id number]) [address] [place] [address] ABSOLUTE NEUTROPHIL 3.4 X10E9/L Normal 1.5-6.6 [facility] [place] Comment on above: Performed By: #### C BCA, PINR, 91171-4, CMP, 3040-3, 37316-6, 72622-8 #### [facility] ([id number]) [address] [place] [address] Basophils/100 WBC (Bld) 0.6 % Normal [facility] Comment on above: Performed By: #### C BCA, PINR, 01569-5, CMP, 3040-3, 51210-7, 30917-4 #### [facility] ([id number]) [address] [place] [address] Eosinophils (Bld) [#/Vol] 0.1 10*3/uL Normal 0.0-0.4 [facility] Comment on above: Performed By: #### C BCA, PINR, 28814-3, CMP, 3040-3, 33579-6, 44973-9 #### [facility] ([id number]) [address] [place] [address] Eosinophils/100 WBC (Bld) 1.6 % Normal [facility] Comment on above: Performed By: #### C BCA, PINR, 22167-2, CMP, 3040-3, 12110-3, 94303-8 #### [facility] ([id number]) [address] [place] [address] Erythrocyte distribution width (RBC) [Ratio] 19.1 % High 11.5-15.0 [facility] Comment on above: Performed By: #### C BCA, PINR, 46756-1, CMP, 3040-3, 40838-2, 13071-0 #### [facility] ([id number]) [address] [place] [address] Hematocrit (Bld) [Volume fraction] 32.8 % Low 35-47 [facility] Comment on above: Performed By: #### C BCA, PINR, 80170-2, CMP, 3040-3, 85882-6, 79037-1 #### [facility] ([id number]) [address] [place] [address] 117[address] Hemoglobin (Bld) [Mass/Vol] 10.7 g/dL Low 11.7-15.5 [facility] Comment on above: Performed By: #### C BCA, PINR, 51149-8, CMP, 3040-3, 53978-7, 12502-3 #### [facility] ([id number]) [address] [place] [address] Lymphocytes (Bld) [#/Vol] 2.4 10*3/uL Normal 1.0-3.5 [facility] Comment on above: Performed By: #### C BCA, PINR, 17531-0, CMP, 3040-3, 06009-1, 85542-9 #### [facility] ([id number]) [address] [place] [address]77[address] Lymphocytes/100 WBC (Bld) 37.0 % Normal [facility] Comment on above: Performed By: #### C BCA, PINR, 53043-5, CMP, 3040-3, 68605-6, 54249-5 #### [facility] ([id number]) [address] [place] [address] MCH (RBC) [Entitic mass] 28.9 pg Normal 27-34 [facility] Comment on above: Performed By: #### C BCA, PINR, 47241-7, CMP, 3040-3, 96162-2, 23535-5 #### [facility] ([id number]) [address] [place] [address] MCHC (RBC) [Mass/Vol] 32.7 g/dL Normal 32-36 [facility] Comment on above: Performed By: #### C BCA, PINR, 64012-5, CMP, 3040-3, 10263-4, 35463-9 #### [facility] ([id number]) [address] [place] [address] 21854 MCV (RBC) [Entitic vol] 88 fL Normal 80-100 [facility] Comment on above: Performed By: #### C BCA, PINR, 81874-2, CMP, 3040-3, 27119-8, 09688-1 #### [facility] ([id number]) [address] [place] [address]88[address] Monocytes (Bld) [#/Vol] 0.6 10*3/uL Normal 0-0.9 [facility] Comment on above: Performed By: #### C BCA, PINR, 60647-9, CMP, 3040-3, 53239-4, 41196-4 #### [facility] ([id number]) [address] [place] [address] 32231 Monocytes/100 WBC (Bld) 9.4 % Normal [facility] Comment on above: Performed By: #### C BCA, PINR, 41310-5, CMP, 3040-3, 28235-4, 46169-3 #### [facility] ([id number]) [address] [place] [address] 82260 Neutrophils/100 WBC (Bld) 51.4 % Normal [facility] Comment on above: Performed By: #### C BCA, PINR, 20071-7, CMP, 3040-3, 54343-9, 71314-1 #### [facility] ([id number]) [address] [place] [address]42 Platelet mean volume (Bld) [Entitic vol] 8.6 fL Normal 7-12 [facility] Comment on above: Performed By: #### C BCA, PINR, 32659-0, CMP, 3040-3, 47530-7, 07930-7 #### [facility] ([id number]) [address] [place] [address] 99081 Platelets (Bld) [#/Vol] 295 10*3/uL Normal 150-450 [facility] Comment on above: Performed By: #### C BCA, PINR, 74291-7, CMP, 3040-3, 39600-3, 68385-6 #### [facility] ([id number]) [address] [place] [address] RBC COUNT 3.72 X10E12/L Low 3.80-5.20 [facility] Comment on above: Performed By: #### C BCA, PINR, 59043-4, CMP, 3040-3, 70959-1, 70868-4 #### [facility] ([id number]) [address] [place] [address] 95682 WBC (Bld) [#/Vol] 6.5 10*3/uL Normal 4.0-11.0 [facility] Comment on above: Performed By: #### C BCA, PINR, 11175-1, CMP, 3040-3, 68017-0, 00282-6 #### [facility] ([id number]) [address] [place] [address]608 COMPREHENSIVE METABOLIC PANE [place] 04-28-2023 Albumin [Mass/Vol] 3.7 g/dL Normal 3.2-5.3 [facility] Comment on above: Performed By: #### C BCA, PINR, 09650-0, CMP, 3040-3, 96345-2, 41576-2 #### [facility] ([id number]) [address] [place] [address]386 ALP [Catalytic activity/Vol] 55 U/L Normal 39-130 [facility] Comment on above: Performed By: #### C BCA, PINR, 71840-2, CMP, 3040-3, 14930-8, 78186-2 #### [facility] ([id number]) [address] [place] [address] 00922 ALT [Catalytic activity/Vol] 15 U/L Normal 0-31 [facility] Comment on above: Performed By: #### C BCA, PINR, 63292-6, CMP, 3040-3, 84317-1, 37732-5 #### [facility] ([id number]) [address] [place] [address] 44679 Anion gap [Moles/Vol] 12 mmol/L Normal 5-15 [facility] Comment on above: Performed By: #### C BCA, PINR, 24299-7, CMP, 3040-3, 02082-6, 79644-3 #### [facility] ([id number]) [address] [place] [address] 00118 AST [Catalytic activity/Vol] 61 U/L High 0-41 [facility] Comment on above: Performed By: #### C BCA, PINR, 57042-1, CMP, 3040-3, 82900-9, 51956-4 #### [facility] ([id number]) [address] [place] [address] 75436 Bilirubin [Mass/Vol] 0.6 mg/dL Normal 0.3-1.2 [facility] [place] Comment on above: Performed By: #### C BCA, PINR, 54164-6, CMP, 3040-3, 90978-5, 80980-7 #### [facility] ([id number]) [address] [place] [address] 34177 Calcium [Mass/Vol] 8.5 mg/dL Normal 8.5-10.5 [facility] Comment on above: Performed By: #### C BCA, PINR, 62659-9, CMP, 3040-3, 86992-3, 68319-6 #### [facility] ([id number]) [address] [place] [address] 67785 Chloride [Moles/Vol] 99 mmol/L Normal 98-109 [facility] [place] Comment on above: Performed By: #### C BCA, PINR, 84731-7, CMP, 3040-3, 20614-6, 81073-3 #### [facility] ([id number]) [address] [place] [address] 94233 CO2 [Moles/Vol] 21 mmol/L Low 22-32 [facility] Comment on above: Performed By: #### C BCA, PINR, 91366-3, CMP, 3040-3, 71454-4, 48254-6 #### [facility] [facility] ([id number]) [address] [place] [address]10 Creatinine [Mass/Vol] 1.10 mg/dL High 0.40-1.00 [facility] Comment on above: Result Comment: METH OD TRACEABLE TO IDMS STANDARD Performed By: #### C BCA, PINR, 51819-0, CMP, 3040-3, 62213-2, 65545-7 #### [facility] ([id number]) [address] [place] [address] 97298 GFR/1.73 sq M.predicted among non-blacks MDRD (S/P/Bld) [Vol rate/Area] 66 mL/min/{1.73_m2} Normal >59 [facility] Comment on above: Result Comment: Reported eGFR is based on the CKD-EPI 2020 equation that does not use a race coefficient. Performed By: #### C BCA, PINR, 40381-6, CMP, 3040-3, 43447-7, 89552-0 #### [facility] ([id number]) [address] [place] [address] 82658 Glucose [Mass/Vol] 98 mg/dL Normal 65-99 [facility] Comment on above: Performed By: #### C BCA, PINR, 13744-7, CMP, 3040-3, 82947-0, 16051-9 #### [facility] ([id number]) [address] [place] [address] 30686 Potassium [Moles/Vol] 3.7 mmol/L Normal 3.5-5.0 [facility] Comment on above: Performed By: #### C BCA, PINR, 87328-4, CMP, 3040-3, 32326-1, 06047-0 #### [facility] ([id number]) [address] [place] [address] 76719 Protein [Mass/Vol] 8.7 g/dL High 6.0-8.0 [facility] Comment on above: Performed By: #### C BCA, PINR, 41434-3, CMP, 3040-3, 51773-5, 45923-6 #### [facility] ([id number]) [address] [place] [address] 64328 Sodium [Moles/Vol] 132 mmol/L Low 134-146 [facility] Comment on above: Performed By: #### C BCA, PINR, 85458-4, CMP, 3040-3, 82368-3, 54064-0 #### [facility] ([id number]) [address] [place] [address] 57608 Urea nitrogen [Mass/Vol] 12 mg/dL Normal 5-23 [facility] Comment on above: Performed By: #### C BCA, PINR, 69079-4, CMP, 3040-3, 89610-8, 83535-1 #### [facility] ([id number]) [address] [place] [address] 61406 LIPASEon 04-28-2023 Lipase [Catalytic activity/Vol] 28 U/L Normal 17-40 [facility] Comment on above: Performed By: #### C BCA, PINR, 47319-1, CMP, 3040-3, 96773-2, 30742-6 #### [facility] ([id number]) [address] [place] [address] 72541 MAGNESIUMon 04-28-2023 Magnesium [Mass/Vol] 2.2 mg/dL Normal 1.8-2.6 [facility] [place] Comment on above: Performed By: #### C BCA, PINR, 05174-7, CMP, 3040-3, 03724-5, 11277-4 #### [facility] ([id number]) [address] [place] [address] 04948 PROTIME AND INRon 04-28-2023 INR Coag (PPP) [Relative time] 1.2 {INR} High 0.8-1.1 [facility] Comment on above: Performed By: #### C BCA, PINR, 42109-9, CMP, 3040-3, 97339-1, 59126-3 #### [facility] ([id number]) [address] [place] [address] 64221 PT Coag (PPP) [Time] 14.4 s High 9.8-13.2 [facility] [place] Comment on above: Result Comment: NEW REFERENCE RANGE Performed By: #### C BCA, PINR, 32684-0, CMP, 3040-3, 04410-3, 94497-8 #### [facility] ([id number]) [address] [place] [address] 96674 SARS/FLU A+B/RSV by NAAT/Mol ecularon 04-28-2023 SARS/FLU A+B/RSV by NAAT/Molecular FLU A PCR Negative (qualifier value) FLU B PCR Negative (qualifier value) RSV by PCR Negative (qualifier value) SARS CoV 2 Not detected (qualifier value) NOTE The Xpert Xpress SARS-CoV-2/Flu/RSV Plus test is a rapid, multiplexed real-time RT-PCR test intended for the simultaneous qualitative detection and differentiation of SARS-CoV-2, influenza A, influenza B and respiratory syncytial virus (RSV) viral RNA from individuals suspected of respiratory viral infection consistent with COVID-19 by their healthcare provider. This test has not been validated in asymptomatic patients. The Xpert Xpress SARS-CoV-2 test is intended for use by qualified and trained operators who are performing tests using either [employer] or [employer] systems and is limited to laboratories that meet the CLIA requirements to perform high and moderate complexity tests. The Xpert Xpress SARS-CoV-2/Flu/RSV Plus is only for use under the Food and Drug Administration's Emergency Use Authorization. Results are for the simultaneous detection and differentiation of SARS-CoV-2, influenza A, influenza B and RSV nucleic acids in clinical specimens. SARS-CoV-2, influenza A, influenza B and RSV RNA identified by this test are generally detectable in upper respiratory samples during the acute phase of infection. Positive results are indicative of the presence of the identified virus, but do not rule out bacterial infection or co-infection with other pathogens not detected by this test. Clinical correlation with patient history and other diagnostic information is necessary to determine patient infection status. The agent detected may not be the definite cause of disease. Negative results do not preclude SARS-CoV-2, influenza A, influenza B and RSV infection and should not be used as the sole basis for treatment or other patient management decisions. Negative results must be combined with clinical observations, patient history and epidemiological information. An Invalid result may occur with specimen-associated inhibition unable to be resolved with specimen repeat. Fact Sheet for Healthcare Providers: https://www.fda.gov/media/ 634185/download Fact Sheet for Patients: https://www.fda.gov/media/ 424860/download Normal [facility] Comment on above: Performed By: #### C OVFLR #### [facility] ([id number]) [address] [place] [address], [place] [address] TROPONIN Ion 04-28-2023 Troponin I.cardiac [Mass/Vol] 0.03 ng/mL Normal 0.00-0.04 [facility] Comment on above: Performed By: #### C BCA, PINR, 64503-1, CMP, 3040-3, 24781-2, 49189-6 #### [facility] ([id number]) [address] [place] [address] 60228 aPTT Coag (PPP) [Time]on aPTT Coag (Bld) [Time] 32 s Normal 26-37 [facility] Comment on above: Result Comment: NEW REFERENCE RANGE Performed By: #### C BCA, PINR, 84587-1, CMP, 3040-3, 66905-6, 22187-3 #### [facility] ([id number]) [address] [place] [address] 39845 CNOVon 02-07-2023 CNOV Office Visit (GENBMI ) -- ELIANA HAGER Marleni ([id number]) 1985 F Date Time Provider Department 02/07/23 1:00 PM VERO FRITZ During your visit today, we recorded the following information about you: Pulse Blood pressure Weight Height 91/minute 147/67 218.9 kg 1.651 m Last Period 01/08/23 Vero Fritz MD 02/07/2023 2:25 PM Signed BARIATRIC SURGERY NEW PATIENT CONSULTATION HISTORY AND PHYSICAL Date: February 07, 2023 Time: 2:03 PM Name: Eliana Hager BMI Surgical Pathway Visit type: Bariatric Surgeon Visit This is a 37 year old female with morbid obesity (Body mass index is 80.31 kg/m?.) who presents to clinic for consideration of bariatric surgery. S/P silicon banded RYGB over 15 years ago. No GI symptoms. Weight gain Current BMI 80 Limited mobility, on wheelchair She needs to lose weight to be eligible for knee arthroplasty ARIELA T2DM, on trulicity PAST MEDICAL HISTORY: PAST MEDICAL HISTORY Diagnosis Date Calculus of kidney 2002 Pain in joint, multiple sites back,hips,knees Unspecified essential hypertension Unspecified sleep apnea Unspecified urinary incontinence PAST SURGICAL HISTORY: PAST SURGICAL HISTORY Procedure Laterality Date LITHOTRIPSY XTRCORP SHOCK WAVE 2002 Lithotripsy FAMILY HISTORY: No family history on file. SOCIAL HISTORY: Social History Tobacco Use Smoking status: Never Smokeless tobacco: Never Substance Use Topics Alcohol use: Yes Comment: social Drug use: No MEDICATIONS: Prior to Admission Medications: FERROUS SULFATE ORAL ferrous sulfate TRULICITY 1.5 mg/0.5 mL pen injector INJECT 1 SYRINGE SUBCUTANEOUSLY ONCE A WEEK cyanocobalamin (VITAMIN B-12) 1,000 mcg tab cyanocobalamin (vit B-12) 1,000 mcg tablet TAKE 1 TABLET BY MOUTH ONCE DAILY calcium carbonate/vitamin d3(CALCIUM 500 WITH VITAMIN D 500 MG-125 UNIT TAB) Take one(1) tablet twice daily. CPAP Use as directed. ALLOPURINOL 300 MG TAB Take one(1) tablet daily. thiamine (VITAMIN B1) 50 mg tablet Take 1 tablet by mouth once daily. cholecalciferol, Vitamin D3, (VITAMIN D3) 1,250 mcg (50,000 unit) cap capsule Take 1 capsule by mouth one time a week. NYSTATIN 100,000 UNIT/G TOPICAL POWDER TOPICAL 2 TIMES DAILY (Patient not taking: Reported on 05/31/2022) ciprofloxacin hcl(CIPRO 500 MG TAB) Take one(1) tablet twice daily. (Patient not taking: Reported on 05/31/2022) SCOPOLAMINE 1.5 MG 72 HR TRANSDERM PATCH Every 72 hours (Patient not taking: Reported on 05/31/2022) ondansetron(ZOFRAN ODT 4 MG TAB, RAPID DISSOLVE) Take one(1) tablet daily. (Patient not taking: Reported on 05/31/2022) vits w-ca,fe,fa(<1mg)( FORMULA TAB) Take one(1) tablet daily. URSODIOL 300 MG CAP Take one(1) capsule twice daily. (Patient not taking: Reported on 05/31/2022) FAMOTIDINE 20 MG TAB take one tab twice a day (Patient not taking: Reported on 02/07/2023) ALLERGIES: ALLERGIES No Known Allergies REVIEW OF SYSTEMS: GENERAL: Negative for malaise, significant weight loss and fever NECK: Negative for lumps, goiter, pain and significant neck swelling RESPIRATORY: Negative for cough, wheezing or shortness of breath. CARDIOVASCULAR: Negative for chest pain, leg swelling or palpitations. GI: Negative for abdominal discomfort, blood in stools or black stools or change in bowel habits : No history of dysuria, frequency or incontinence MUSCULOSKELETAL: Negative for joint pain or swelling, back pain or muscle pain. SKIN: Negative for lesions, rash, and itching. PSYCH: Negative for sleep disturbance, mood disorder and recent psychosocial stressors. ENDOCRINE: Negative for cold or heat intolerance, polyuria, polydipsia and goiter. PHYSICAL EXAM: BP 147/67 Pulse 91 Ht 165.1 cm (5' 5 ) Wt (!) 218.9 kg (482 lb 9.6 oz) LMP 01/08/2023 (Approximate) BMI 80.31 kg/m? GENERAL: No apparent distress. Pt is alert and oriented x3. HEENT: Head is normocephalic and atraumatic. Extraocular muscles are intact. Pupils are equal, round, and reactive to light and accommodation. Nares appeared normal. Mouth is well hydrated and without lesions. Mucous membranes are moist. Posterior pharynx clear of any exudate or lesions. NECK: Supple. No carotid bruits. No lymphadenopathy or thyromegaly. LUNGS: Clear to auscultation. HEART: Regular rate and rhythm without murmur. ABDOMEN: Soft, nontender, and nondistended. Positive bowel sounds. No hepatosplenomegaly was noted. EXTREMITIES: Without any cyanosis, clubbing, rash, lesions or edema. NEUROLOGIC: Cranial nerves II through XII are grossly intact. PSYCHIATRIC: Flat affect, but denies suicidal or homicidal ideations. SKIN: No ulceration or induration present. Assessment IMPRESSION: Eliana Hager is a 37 year old female with the following diagnosis and co-morbidities: Body mass index is 80.31 kg/m?. Diagnosis n (more content not included)... Normal [facility] KNEE LEFT 3 [facility] 05-15-[address] [facility] Department of Radiology [address] [place] [id number] Patient Name: ELIANA HAGER : 1985 Sex: F Age: Race: Black Pt. Location: 84 Patient Status: O Ordered Date: 05/15/2020 9:55:00 AM Completed Date: 05/15/2020 09:55 AM Requesting Provider: BERNABE DESAI Attending Provider: BERNABE DESAI Report Copy To: Signs & Symptoms: M17.0 Bilateral primary osteoarthritis of knee I10 History: Comments: Evaluate Exam: KNEE LEFT 3 [facility] KNEE LEFT 3 [facility] CLINICAL INFORMATION: Patient states having bilateral knee pain. No known trauma. VIEWS: AP,Lateral and Tangential views were obtained. COMPARISON: 10/06/2016. IMPRESSION: 1. Mild progressive tricompartmental degenerative changes with osteophytic spurring noted. No significant joint effusion. There is no visualized fracture. Normal patellar alignment. Electronically signed: Maury Leblanc. Transcribed by: [email or web address], User Resident: Electronically Signed by: MAURY LEBLANC @ 05/15/2020 11:20 AM Normal [facility] Comment on above: Order Comment: Evalu ate KNEE RIGHT [address] Son KNEE RIGHT [address] [facility] Department of Radiology [address] [place] [phone] Patient Name: ELIANA HAGER : 1985 Sex: F Age: Race: Black Pt. Location: 84 Patient Status: O Ordered Date: 05/15/2020 9:55:00 AM Completed Date: 05/15/2020 09:55 AM Requesting Provider: BERNABE DESAI Attending Provider: BERNABE DESAI Report Copy To: Signs & Symptoms: M17.0 Bilateral primary osteoarthritis of knee I10 History: Comments: Evaluate Exam: KNEE RIGHT 3 [facility] KNEE RIGHT 3 [facility] CLINICAL INFORMATION: Patient states having bilateral knee pain. No known trauma. VIEWS: AP,Lateral and Tangential views were obtained. COMPARISON: 10/06/2016. IMPRESSION: 1. Tricompartmental degenerative changes with no evidence of acute fracture. There is a small joint effusion. Normal patellar alignment. Electronically signed: Maury Leblanc. Transcribed by: [email or web address], User Resident: Electronically Signed by: MAURY LEBLANC @ 05/15/2020 11:21 AM Normal [facility] Comment on above: Order Comment: Evalu ate XR Chest 2 Viewson 9 XR Chest 2 Views Exam Date/Time: 12/04/2018 16:27 EDT Reason for Exam: Pre Op Report IMPRESSION: NO RADIOGRAPHIC EVIDENCE OF ACTIVE DISEASE IN THE CHEST. CLINICAL INFORMATION: Pre Op COMPARISON: None available. FINDINGS: Two views of the chest were obtained. Heart and mediastinum appear normal. The lungs appear clear. Visualized bony thorax and remainder of the chest appears unremarkable. FINAL REPORT Dictated: 12/06/2018 9:48 am Jadon Vega M.D. Signed (Electronic Signature): 12/06/2018 9:48 am Signed by: Jadon Vega M.D. Transcribed by: OLU Technologist: CIARRA Rollins [facility] Coding Summary.on 12-05-2018 Coding Summary. CODING DATE: 019 FINAL [facility] DSC STATUS: Home (Routine DC) PAYOR: Medicaid EAPG DESCRIPTION 0471 PLAIN FILM 0413 CARDIOGRAM 0457 VENIPUNCTURE 0408 LEVEL I HEMATOLOGY TESTS 0402 BASIC CHEMISTRY TESTS 0400 LEVEL I CHEMISTRY TESTS 0410 URINALYSIS ADMIT DX: REASON FOR VISIT DX: Z01.818 Encounter for other preprocedural examination FINAL DX: PRINCIPAL: Z01.818 Encounter for other preprocedural examination SECONDARY: PYMT PROC EAPG STAT DESCRIPTION DOCTOR NAME DATE NOTE: The code number assigned matches the documented diagnosis and / or procedure in the patient's chart. However, the narrative phrase printed from the coding software may appear abbreviated, or result in slightly different terminology. Coded By: Loretta Quinteros CphT Date Saved: 12/05/2018 01:13 pm Normal [facility] BUNon 12-04-2018 Urea nitrogen [Mass/Vol] 12 mg/dL Normal 5-21 [facility] Comment on above: Performed By: #### 2 105084, 1596467, [id number], 8517082, 1550098 #### [facility] Laboratory [address] [place] [address] CBC w/Indiceson 12-04-2018 Erythrocyte distribution width (RBC) [Ratio] 20.3 % High 10.9-14.2 [facility] Comment on above: Performed By: #### 2 737938 #### [facility] Laboratory [address] [place] [address] Hematocrit (Bld) [Volume fraction] 34.9 % Normal 34.0-46.0 [facility] Comment on above: Performed By: #### 2 614235 #### [facility] [address] [place] [address] Hemoglobin (Bld) [Mass/Vol] 11.3 g/dL Low 12.0-16.0 [facility] Comment on above: Performed By: #### 2 282979 #### [facility] [address] [place] [address] MCH (RBC) [Entitic mass] 29.5 pg Normal 27.0-34.0 [facility] Comment on above: Performed By: #### 2 643205 #### [facility] [address] [place] [address] MCHC (RBC) [Mass/Vol] 32.3 g/dL Low 33.3-35.7 [facility] Comment on above: Performed By: #### 2 547521 #### [facility] [address] [place] [address] MCV (RBC) [Entitic vol] 91.3 fL Normal 80.0-100.0 [facility] Comment on above: Performed By: #### 2 928203 #### [facility] [address] [place] [address] Platelet mean volume (Bld) [Entitic vol] 8.3 fL Normal 6.4-10.8 [facility] Comment on above: Performed By: #### 2 958126 #### [facility] [address] [place] [address] Platelets (Bld) [#/Vol] 331.0 E9/L Normal 150.0-500. 0 [facility] Comment on above: Performed By: #### 2 650459 #### [facility] [address] [place] [address] RBC (Bld) [#/Vol] 3.8 E12/L Low 4.3-5.9 [facility] Comment on above: Performed By: #### 2 370092 #### [facility] [address] [place] [address] WBC corrected for nucl RBC Auto (Bld) [#/Vol] 8.6 E9/L Normal 4.0-11.0 [facility] Comment on above: Performed By: #### 2 975022 #### [facility] Laboratory [address] [place] [address] [place] [address] Creatinineon 12-04-2018 Creatinine [Mass/Vol] 0.9 mg/dL Normal 0.5-1.3 [facility] Comment on above: Performed By: #### 2 925606, 4079422, 16052353, 0773631, 5999433 #### [facility] [address] [place] [address] Glucoseon 12-04-2018 Glucose [Mass/Vol] 74 mg/dL Normal 55-199 [facility] Comment on above: Performed By: #### 2 489084, 3679739, 44837247, 7412481, 9478014 #### [facility] [address] [place] [address] Lyteson 12-04-2018 Anion gap [Moles/Vol] 16 mmol/L Normal 6-16 [facility] Comment on above: Performed By: #### 2 093537, 3383781, 87537090, 1665235, 1023613 #### [facility] [address] [place] [address] Chloride [Moles/Vol] 101 mmol/L Normal 101-111 [facility] Comment on above: Performed By: #### 2 948703, 7048266, 98715416, 6764323, 2691686 #### [facility] [address] [place] [address] CO2 [Moles/Vol] 25 mmol/L Normal 21-31 [facility] Comment on above: Performed By: #### 2 472733, 8631162, 81184648, 7563959, 7545596 #### [facility] Laboratory [address] [place] [address] Potassium [Moles/Vol] 3.8 mmol/L Normal 3.5-5.3 [facility] Comment on above: Performed By: #### 2 802077, 9496107, 79316989, 1001480, 9377764 #### [facility] Laboratory [address] [place] [address] Sodium [Moles/Vol] 138 mmol/L Normal 135-145 [facility] Comment on above: Performed By: #### 2 767381, 0717620, 54620641, 6484042, 9250591 #### [facility] [address] [place] [address] U BetaHcg Qualon 12-04-2018 HCG.beta subunit (U) [Moles/Vol] Negative Normal [facility] Comment on above: Performed By: #### 2 [id number] #### [facility] Laboratory [address] [place] [address] eGFRon 12-04-2018 GFR/1.73 sq M predicted among blacks MDRD (S/P/Bld) [Vol rate/Area] mL/min/{1.73_m2} Normal >=59 [facility] Comment on above: Order Comment: Order added by Discern Expert. Result Comment: eGFR is race adjusted. AA=. Performed By: #### 2 418072, 7779209, 10921130, 0511072, 8331077 #### [facility] [address] [place] [address] GFR/1.73 sq M predicted among non-blacks MDRD (S/P/Bld) [Vol rate/Area] mL/min/{1.73_m2} Normal >=59 [facility] Comment on above: Order Comment: Order added by Discern Expert. Result Comment: Psych Coordinator bronwyn kidney disease could be indicated at eGFR's of less than 60 mL/min/1.73m2. Kidney failure is indicated at less than 15 mL/min/1.73m2. Performed By: #### 2 789643, 7804713, 26723782, 3766025, 9721544 #### [facility] Laboratory [address] [place] [address] CONSULTATIONon 08-28-2018 CONSULTATION CONSULTATION PAIN MANAGEMENT Consultation Date: 08-28-18 HISTORY OF PRESENT ILLNESS: This is a pleasant 32 year-old female patient who comes to the pain clinic with bilateral knee pain. She rates the bilateral knee pain a 9/10 which is a constant achy sensation. Activities that increase the pain are standing, walking, transitioning, morning, time stairs, bending, and sleep. Activities that decrease the pain are sitting for short periods of time, lying down, naproxen, and Tylenol. On August 15, 2018 the patient had a #1 bilateral genicular nerve block which afforded the patient 25% relief of her pain and symptoms. We discussed the genicular nerve block leading up to radiofrequency ablation multiple times in the office today as the patient stated she did not understand what Dr. Toledo had in mind for me . I discussed with her that we are assessing to see if the genicular nerve block leading up to ablation would be of assistance. However, again, she states she did not get relief from the genicular nerve block but states she had 75% relief of her pain for one hour. Both the patient and mother state they don't understand the procedure she had done. Again, I discussed with the patient the injection she had and for what reasons we were doing so. PHYSICAL EXAM: VITALS:BP 150/83 with a heart rate of 56. The patient is 5'4 , 196 kg. HEENT:Head is atraumatic, normocephalic. Facial symmetry is maintained. NECK:Supple without any overt lesions. Trachea is midline. Neck is bullous. HEART:Regular rate with no JVD noted. LUNGS:Normal expansion, with unlabored breathing, no audible wheezing noted. ABDOMEN:Soft, nondistended, and morbidly obese. BACK:Range of motion is within functional limits for flexion, extension, and rotation. EXTREMITIES:No clubbing or cyanosis is noted to the upper or lower extremities. No pedal edema is noted to the bilateral lower extremities. There is no erythema, warmth, or edema noted to the bilateral knees. There is noted crepitus to the bilateral knees. MUSCULOSKELETAL:Intact with no motor weaknesses to the upper or lower extremities bilaterally. NEUROLOGICAL:The patient is neurologically intact to the upper and lower extremities bilaterally. PSYCHIATRIC:The patient is cooperative, alert and oriented x3, and appropriate for mood and affect. DIAGNOSES: 1. Bilateral knee pain. 2. Bilateral osteoarthritis, status post bilateral knee arthroscopies. 3. Obesity. PLAN: 1. The patient declines a #2 genicular nerve block at this time. We discussed proceeding to assist her in regards weight loss management and consulting a aerial gunner. She declines at this time. 2. The patient is to return to the pain clinic on a p.r.n. basis. Dictated by Jesus Mae APRN [facility] Signed and Approved by: JESUS MAE 08/28/2018 15:15:00 Normal [facility] POINT OF CARE GLUCOSEon 05 Glucose [Mass/Vol] 84 mg/dL Normal 74-106 [facility] Comment on above: Performed By: #### P OCGLUC #### [facility] [address] [place], [place] [address] Anthnoy Cohen PREG HCG QUALon 08-15-2018 , QUAL Negative Normal NEGATIVE [facility] Comment on above: Performed By: #### P REG #### [facility] [address], [place] [address] Anthony Cohen CONSULTATIONon 07-11-2018 CONSULTATION CONSULTATION PAIN MANAGEMENT Consultation Date: 07-11-18 HISTORY OF PRESENT ILLNESS: Today in the office I saw Eliana Hager. This is a 32 year-old female who is referred to us by [facility] in [place]. The patient has severe bilateral knee pain. The patient gives a history of gouty osteoarthritis. She describes a sharp, achy pain. She describes a 10/10. ADL: Sitting, standing, walking, even laying down aggravates her pain as does bending, and climbing stairs. The patient has undergone bariatric surgery in 2009, prior to the surgery she weighed 602 pounds, currently she weighs 412 pounds at a height of 5'4 . The patient has been seen by orthopedics in [facility], and has failed cortisone and Synvisc injections. She has undergone Physical Therapy, her last visit being March of 2018 in [place]. She's had a right knee arthroscopy, approximately a year ago and debridement. The patient has been seen by Dr. Pillai in the past and Dr. Barraza. MEDICATIONS: The patient currently takes Tylenol arthritis on a t.i.d. basis. In the past the patient was on Percocet 5/325 mg t.i.d., she is not taking this currently. PHYSICAL EXAM: GENERAL:This is a pleasant, cooperative female who does not appear to be in any acute distress. VITALS:Stable at 143/79 with a heart rate of 82. The patient again, was reporting a 10/10 pain. HEAD:Atraumatic, normocephalic. NECK:No crepitus is noted. The patient has a bullous neck. HEART:Regular rate, normal rhythm. LUNGS:Normal expansion, no audible wheezing. ABDOMEN:Protuberant, distended. The patient, once again is 412 pounds. BACK:The patient has fluidity in her range of motion. EXTREMITIES:Valgus deformity of the knees are noted bilaterally. The patient is tender along the genicular nerves bilaterally, medial and lateral aspect. No instability was noted in the knee. The patient does have patellar crepitus noted. MUSCULOSKELETAL:Is within normal to functional limits bilaterally. NEUROLOGICALLY:No overt deficits are noted. PSYCHIATRICALLY:Affect is appropriate. IMPRESSION: 1. Bilateral painful knee. 2. Osteoarthritis of the knees, [place] [facility] PLAN: 1. In the interim, given that the patient has had bariatric surgery, we recommend that patient take turmeric on a b.i.d. basis and add calcium supplements also. 2. We will schedule the patient for bilateral genicular nerve block since the patient has failed the cortisone injection, Synvisc injection, and has completed her Physical Therapy in March of 2018. The patient understands and would like to proceed. cc:[facility] Signed and Approved by: DR JESUS MANUEL TOLEDO 07/18/2018 11:23:00 Normal [facility] CBC AUTO DIFFon 05-22-2018 Basophils (Bld) [#/Vol] 0.0 103/ul Normal 0.0-0.1 [facility] Comment on above: Performed By: #### C BC #### [facility] [address] [place] [address] Anthony Vicki Basophils/100 WBC (Bld) 0.2 % Normal 0.2-2.0 [facility] Comment on above: Performed By: #### C BC #### [facility] [address], [place] [address] Anthony Vicki Eosinophils (Bld) [#/Vol] 0.0 103/ul Normal 0.0-0.7 [facility] Comment on above: Performed By: #### C BC #### [facility] [address] [id number] Anthony Vicki Eosinophils/100 WBC (Bld) 0.1 % Critically low 0.9-7.0 [facility] Comment on above: Performed By: #### C BC #### [facility] [address] [place], [place] [phone] Anthonydylan Cohen Erythrocyte distribution width (RBC) [Ratio] 21.6 % Critically high 11.0-15.0 [facility] Comment on above: Performed By: #### C BC #### [facility] [address] [place], [place] [phone] Anthony Vicki Hematocrit (Bld) [Volume fraction] 32.5 % Critically low 36.0-48.0 [facility] Comment on above: Performed By: #### C BC #### [facility] [address] [place], [place] [phone] Anthony Vicki Hemoglobin (Bld) [Mass/Vol] 10.6 g/dL Critically low 12.0-16.0 [facility] Comment on above: Performed By: #### C BC #### [facility] [address] [place], [place] [phone] Anthony Vicki IG # 0.09 10e3/ul Critically high 0.00-0.03 [facility] Comment on above: Performed By: #### C BC #### [facility] [address] [place], [place] [phone] Anthony Vicki IG % 0.6 % Critically high 0.0-0.5 [facility] Comment on above: Performed By: #### C BC #### [facility] [address] [place], [place] [phone] Anthony Vicki Lymphocytes (Bld) [#/Vol] 2.3 103/ul Normal 1.2-3.8 [facility] Comment on above: Performed By: #### C BC #### [facility] [address] [place], [place] [phone] Anthony Vicki Lymphocytes/100 WBC (Bld) 15.9 % Critically low 20.5-60.0 [facility] Comment on above: Performed By: #### C BC #### [facility] [address] [place] [address] Anthony Cohen MANUAL DIFF REQ NO Normal [facility] Comment on above: Performed By: #### C BC #### [facility] [address] [place], [place] [phone] nAthony Cohen MCH (RBC) [Entitic mass] 29.4 pg Normal 26.7-34.0 [facility] Comment on above: Performed By: #### C BC #### [facility] [address] [place], [place] [phone] Anthony Cohen MCHC (RBC) [Mass/Vol] 32.6 g/dL Normal 29.9-35.2 [facility] Comment on above: Performed By: #### C BC #### [facility] [address] [place], [place] [phone] Anthonydylan Cohen MCV (RBC) [Entitic vol] 90.3 fL Normal 81.0-99.0 [facility] Comment on above: Performed By: #### C BC #### [facility] [address] [place], [place] [phone] Anthony Vicki Monocytes (Bld) [#/Vol] 0.7 103/ul Normal 0.3-0.8 [facility] Comment on above: Performed By: #### C BC #### [facility] [address] [place], [place] [phone] Anthony Vicki Monocytes/100 WBC (Bld) 5.0 % Normal 1.7-12.0 [facility] Comment on above: Performed By: #### C BC #### [facility] [address] [place], [place] [phone] Anthony Vicki Neutrophils (Bld) [#/Vol] 11.2 103/ul Critically high 1.4-6.5 [facility] Comment on above: Performed By: #### C BC #### [facility] [address] [place], [place] [phone] Anthony Vicki Neutrophils/100 WBC (Bld) 78.2 % Critically high 43.0-75.0 [facility] Comment on above: Performed By: #### C BC #### [facility] [address], [place] [address] Anthony Cohen Platelet mean volume (Bld) [Entitic vol] 10.0 fL Normal 9.5-13.5 [facility] Comment on above: Performed By: #### C BC #### [facility] [address], [place] [address] Anthony Cohen Platelets (Bld) [#/Vol] 244 103/ul Normal 150-450 [facility] Comment on above: Performed By: #### C BC #### [facility] [address], [place] [address] Anthony Nevarezen RBC (Bld) [#/Vol] 3.60 106/ul Critically low 4.20-5.40 [facility] Comment on above: Performed By: #### C BC #### [facility] [address] [place] [address] Anthonydylan Nevarezen WBC (Bld) [#/Vol] 14.3 103/ul Critically high 4.0-11.0 [facility] Comment on above: Performed By: #### C BC #### [facility] [address] [place] [address] ABD/PELVIS W CONon 2018 CT ABD/PELVIS W CON [address] [place] [id number] Patient: ELIANA HAGER Exam Date: 05/22/2018 : 1985 Gender:F Ordering : CESAR MARTIN . Admission #: [id number] Family : [facility] Order #: [id number] CLICK HERE TO VIEW EXAM RADIOLOGY REPORT PROCEDURE: CT ABDOMEN AND PELVIS WITH CONTRAST COMPARISON: None. INDICATIONS: Acute vomiting, diarrhea and epigastric pain TECHNIQUE: CT images were created with IV contrast. Axial, Coronal, and Sagittal images. DOSE: 4856 mGycm; 100 cc Omnipaque 300 FINDINGS: LUNG BASES: No visible pulmonary or pleural disease. LIVER: No enlargement, atrophy, abnormal density, or significant focal lesion. BILIARY: No visible dilatation or calcification. PANCREAS: No lesion, fluid collection, ductal dilatation, or atrophy. SPLEEN: No enlargement or focal lesion. ADRENALS: No mass or enlargement. KIDNEYS: No mass, obstruction, or calcification. BOWEL/MESENTERY: Suture line along the stomach. Nonobstructive bowel gas pattern AORTA/VASCULAR: No aneurysm or dissection. RETROPERITONEUM: No mass or adenopathy. LYMPH NODES: No adenopathy. URINARY BLADDER: No visible focal wall thickening, lesion, or calculus. PELVIC ORGANS: No visible mass. Pelvic organs appropriate for patient age. ABDOMINAL WALL: No mass or hernia. BONES: No bony lesion or fracture. CONCLUSION: 1. No acute intraperitoneal abnormality Dictated by: Minor Nuno M.D. on 05/22/2018 at 15:08 Approved by: Minor Nuno M.D. on 05/22/2018 at 15:12 Normal [facility] ER URINE PROFILEon 9 Bilirubin [Mass/Vol] SMALL Normal NEGATIVE [facility] Comment on above: Performed By: #### JABIER RODRIGUEZ #### [facility] [address] [place] [address] Anthony Vicki BLOOD TRACE-INTACT Normal NEGATIVE [facility] Comment on above: Performed By: #### JABIER RODRIGUEZ #### [facility] [address] [place] [address] Anthony Vicki Clarity (U) CLEAR Normal [facility] Comment on above: Performed By: #### JABIER RODRIGUEZ #### [facility] [address] [place] [address] Anthony Vicki Color (U) YELLOW Normal YELLOW [facility] Comment on above: Performed By: #### JABIER RODRIGUEZ #### [facility] [address] [place] [address] Anthony Vicki ERUAHD A micrscopic examina tion will be performed if indicated. Normal [facility] Comment on above: Performed By: #### JABIER RODRIGUEZ #### [facility] [address] [place] [address] Anthony Vicki Glucose [Mass/Vol] Negative Normal NEGATIVE [facility] Comment on above: Performed By: #### JABIER RODRIGUEZ #### [facility] [address] [place] [address] Anthony Vicki Ketones Ql (U) 40 mg/dl Normal NEGATIVE [facility] Comment on above: Performed By: #### MARYJO RODRIGUEZRO #### [facility] [address] [place] [address] Anthonydylan Cohen Nitrite Ql (U) Negative Normal NEGATIVE [facility] Comment on above: Performed By: #### Leatha HAQ UMICRO #### [facility] [address] [place] [address] Anthonydylan Cohen pH (Bld) 5.5 Normal 5-9 [facility] Comment on above: Performed By: #### Leatha HAQ UMICRO #### [facility] [address] [place] [address] Anthony Cohen Protein (U) [Mass/Vol] TRACE Normal [facility] Comment on above: Performed By: #### MARYJO RODRIGUEZRO #### [facility] [address] [place] [address] Anthony Cohen SPEC GRAVITY 1.025 Normal 1.005-<=1. 025 [facility] Comment on above: Performed By: #### Leatha HAQ UMICRO #### [facility] [address] [place] [address] Anthony Cohen UR MICRO IND INDICATED Normal [facility] Comment on above: Performed By: #### Leatha HAQ UMICRO #### [facility] [address] [place] [address] Anthony Cohen Urobilinogen Qn (U) 1.0 EU/dl Normal [facility] Comment on above: Performed By: #### Leatha HAQ UMICRO #### [facility] [address] [place] [address] Anthonydylan Cohen WBC (Bld) [#/Vol] TRACE Normal NEGATIVE [facility] Comment on above: Performed By: #### Leatha HAQ UMICRO #### [facility] [address] [place] [address] Anthony Cohen PROF 14(COMP METB)on 019 Albumin [Mass/Vol] 3.3 g/dL Critically low 3.5-5.0 [facility] Comment on above: Performed By: #### C MP #### [facility] [address] [id number] Anthony Vicki Albumin/Globulin [Mass ratio] 0.6 {ratio} Normal [facility] Comment on above: Performed By: #### C MP #### [facility] [address] [id number] Anthony Vicki ALP [Catalytic activity/Vol] 112 U/L Normal 38-126 [facility] Comment on above: Performed By: #### C MP #### [facility] [address] [phone] Anthony Vicki ALT [Catalytic activity/Vol] 13 U/L Normal 9-52 [facility] Comment on above: Performed By: #### C MP #### [facility] [address] [place], [place] [address] Anthony Vicki Anion gap [Moles/Vol] 14.3 mmol/L Normal Th [facility] Comment on above: Performed By: #### C MP #### [facility] [address] [place], [place] [address] Anthony Vicki AST [Catalytic activity/Vol] 21 U/L Normal 14-36 [facility] Comment on above: Performed By: #### C MP #### [facility] [address] [place], [place] [address] Anthony Vicki Bilirubin Ql (U) 0.4 mg/dL Normal 0.2-1.3 [facility] Comment on above: Performed By: #### C MP #### [facility] [address] [place], [place] [address] Anthony Vicki Calcium [Mass/Vol] 9.0 mg/dL Normal 8.4-10.2 [facility] Comment on above: Performed By: #### C MP #### [facility] [address] [place], [place] [address] Anthony Vicki Chloride [Moles/Vol] 99 mmol/L Normal 98-107 [facility] Comment on above: Performed By: #### C MP #### [facility] [address] [address] Anthony Vicki CO2 [Moles/Vol] 25.2 mmol/L Normal 22.0-30.0 [facility] Comment on above: Performed By: #### C MP #### [facility] [address] [address] Anthony Vicki Creatinine [Mass/Vol] 1.11 mg/dL Critically high 0.52-1.04 [facility] Comment on above: Performed By: #### C MP #### [facility] [address] [place], [place] [address] Anthony Vicki EGFR-AF DANISH >60 Normal >=60 [facility] Comment on above: Performed By: #### C MP #### [facility] [address] [place] [address] Anthony Vicki EGFR-NON AF DANISH 56 mL/min/1.73m2 Critically low >=60 [facility] Comment on above: Performed By: #### C MP #### [facility] [address] [place] [address] Anthony Vicki Globulin (S) [Mass/Vol] 5.1 g/dL Normal [facility] Comment on above: Performed By: #### C MP #### [facility] [address] [place] [address] Anthony Vicki Glucose [Mass/Vol] 92 mg/dL Normal 74-106 [facility] Comment on above: Performed By: #### C MP #### [facility] [address] [place] [address] Anthony Vicki Potassium [Moles/Vol] 3.5 mmol/L Normal 3.4-5.0 [facility] Comment on above: Performed By: #### C MP #### [facility] [address] [place], [place] [address] Anthony Vicki Protein [Mass/Vol] 8.4 g/dL Critically high 6.1-8.2 [facility] Comment on above: Performed By: #### C MP #### [facility] [address] [place] [address] Anthony Vicki Sodium [Moles/Vol] 135 mmol/L Critically low 137-145 [facility] Comment on above: Performed By: #### C MP #### [facility] [address] [place] [address] Anthony Vicki Urea nitrogen [Mass/Vol] 8.0 mg/dL Normal 7.0-17.0 [facility] Comment on above: Performed By: #### C MP #### [facility] [address] [place] [address] Anthony Vicki Urea nitrogen/Creatinine [Mass ratio] 7.2 mg/mg Normal [facility] Comment on above: Performed By: #### C MP #### [facility] [address] [place] [address] Anthony Vicki STREPT SCREENon 05-22-2018 STREP SCREEN A Positive Normal NEGATIVE [facility] Comment on above: Performed By: #### S SCRN #### [facility] [address] [place] [address] Anthony Vicki URINE MICROSCOPIC ONLYon Bacteria LM.HPF (Urine sed) [#/Area] TRACE Normal NONE SEEN [facility] Comment on above: Performed By: #### MARYJO RODRIGUEZRO #### [facility] [address] [place] [address] Anthony Vicki CAST SEEN Normal NONE SEEN [facility] Comment on above: Performed By: #### Leatha HAQ UMICRO #### [facility] [address] [place] [address] Anthony Vicki Crystals LM Nom (Urine sed) NONE SEEN Normal NONE SEEN [facility] Comment on above: Performed By: #### Leatha HAQ UMICRO #### [facility] [address] [place] [address] Anthony Vicki CULTURE NOT INDICATED Normal [facility] Comment on above: Performed By: #### Leatha HAQ UMICRO #### [facility] [address] [place] [address] Anthony Vicki Epithelial cells LM.HPF (Urine sed) [#/Area] RARE Normal [facility] Comment on above: Performed By: #### JABIER RODRIGUEZ #### [facility] [address], [place] [address] Anthony Vicki HYALINE CAST RARE Normal [facility] Comment on above: Performed By: #### JABIER RODRIGUEZ #### [facility] [address], [place] [address] Anthony Vicki MUCOUS NONE SEEN Normal NONE SEEN [facility] Comment on above: Performed By: #### JABIER RODRIGUEZ #### [facility] [address] [id number] Anthoyn Vicki RBC (U) [#/Vol] 2-5 Normal 0-2 [facility] Comment on above: Performed By: #### JABIER RODRIGUEZ #### [facility] [address] [id number] Anthony Vicki WBC (Bld) [#/Vol] 0-2 Normal NONE SEEN [facility] Comment on above: Performed By: #### JABIER RODRIGUEZ #### [facility] [address] [id number] Anthonydylan Nevarezen Vital Signs Date Time Vital Sign Value Performing Clinician Faci lity 09-27-2023 14:15-0400 Diastolic blood pressure 84 mm[Hg] [facility] 09-27-2023 14:15-0400 Heart rate 76 /min [facility] 09-27-2023 14:15-0400 Respiratory rate 16 /min [facility] 09-27-2023 14:15-0400 SaO2% (BldA) [Mass fraction] 96 % [facility] 09-27-2023 14:15-0400 Systolic blood pressure 126 mm[Hg] [facility] 09-27-2023 13:15-0400 Body temperature 98 [degF] [facility] 09-27-2023 12:50-0400 Inhaled oxygen flow rate 8 L/min [facility] 09-27-2023 11:52-0400 Body mass index (BMI) [Ratio] 80.5 kg/m2 [facility] 09-27-2023 11:31-0400 Body height 165.1 cm [facility] 09-27-2023 11:31-0400 Body weight 219.53 kg [facility] 09-23-2023 18:50-0400 Diastolic blood pressure 94 mm[Hg] [facility] 09-23-2023 18:50-0400 Heart rate 86 /min [facility] 09-23-2023 18:50-0400 Respiratory rate 20 /min [facility] 09-23-2023 18:50-0400 SaO2% (BldA) [Mass fraction] 96 % [facility] 09-23-2023 18:50-0400 Systolic blood pressure 178 mm[Hg] [facility] 09-23-2023 15:19-0400 Body height 165.1 cm [facility] 09-23-2023 15:19-0400 Body temperature 98.2 [degF] [facility] 09-23-2023 15:19-0400 Body weight 216.81 kg [facility] 07-25-2023 16:00-0400 Body temperature 98 [degF] [facility] 07-25-2023 16:00-0400 Diastolic blood pressure 79 mm[Hg] [facility] 07-25-2023 16:00-0400 Heart rate 67 /min [facility] 07-25-2023 16:00-0400 Respiratory rate 18 /min [facility] 07-25-2023 16:00-0400 SaO2% (BldA) [Mass fraction] 100 % [facility] 07-25-2023 16:00-0400 Systolic blood pressure 128 mm[Hg] [facility] 07-25-2023 04:20-0400 Body weight 206 kg [facility] 07-24-2023 08:44-0400 Inhaled oxygen flow rate 8 L/min [facility] 07-24-2023 07:54-0400 Body height 165.1 cm [facility] 07-24-2023 07:54-0400 Body mass index (BMI) [Ratio] 74.2 kg/m2 [facility] 07-22-2023 17:00-0400 Body temperature 98.1 [degF] [facility] 07-22-2023 17:00-0400 Diastolic blood pressure 88 mm[Hg] [facility] 07-22-2023 17:00-0400 Heart rate 72 /min [facility] 07-22-2023 17:00-0400 Respiratory rate 18 /min [facility] 07-22-2023 17:00-0400 SaO2% (BldA) [Mass fraction] 96 % [facility] 07-22-2023 17:00-0400 Systolic blood pressure 146 mm[Hg] [facility] 07-22-2023 11:10-0400 Body height 165.1 cm [facility] 07-22-2023 11:10-0400 Body weight 214.54 kg [facility] 02-18-2023 09:02-0500 Body weight 219.[address] Work Phone: [facility] 02-07-2023 13:12-0400 Body height 165.1 cm Vero Fritz MD Work Phone: [facility] 02-07-2023 13:12-0400 Body weight 218.91 kg Vero Fritz MD Work Phone: [facility] 02-07-2023 13:12-0400 Diastolic blood pressure 67 mm[Hg] Vero Fritz MD Work Phone: [facility] 02-07-2023 13:12-0400 Heart rate 91 /min Vero Fritz MD Work Phone: [facility] 02-07-2023 13:12-0400 Systolic blood pressure 147 mm[Hg] Vero Fritz MD Work Phone: [facility] Encounters Encounter Date Encounter Type Care Provider Facility Start: 12-21-2023 End: 12-21-2023 ambulatory JESSY MOBLEY [facility] Start: 12-09-2023 End: 12-09-2023 ambulatory MAKENZIE BRAVO [facility] Start: 11-25-2023 End: 11-25-2023 ambulatory RAFA PERRY [facility] Start: 11-14-2023 ambulatory TOMASA MEHTA [facility] Start: 11-14-2023 End: 11-14-2023 ambulatory DASH HARDIN [facility] Start: 11-07-2023 Evaluation and management of inpatient SHELIA RODRIGUEZ [facility] Start: 11-07-2023 Evaluation and management of inpatient TOMASA MEHTA [facility] Start: 11-07-2023 Evaluation and management of inpatient TOMASA MEHTA [facility] Start: 11-05-2023 Evaluation and management of inpatient TOMASA [facility] Start: 11-05-2023 Emergency department patient visit JUAQUIN [facility] Start: 11-05-2023 Emergency department patient visit [facility] Start: 11-05-2023 End: 11-08-2023 Evaluation and management of inpatient ALEXX SUN [facility] Start: 10-05-2023 End: 10-05-2023 ambulatory МАРИЯ DANIELLE V Not Available Start: 09-27-2023 End: 09-27-2023 Admission to same day surgery center [facility] [place] Start: 09-27-2023 End: 09-27-2023 ambulatory NON STAFF [facility] Work Phone: Start: 09-26-2023 End: 09-26-2023 ambulatory МАРИЯ DANIELLE V Not Available Start: 09-23-2023 End: 09-23-2023 Emergency department patient visit [facility] Work Phone: Start: 09-07-2023 End: 09-07-2023 ambulatory MP A NARESHERER Facility:[facility] Start: 08-26-2023 End: 08-26-2023 ambulatory MP A NADERER Facility:[facility] Start: 07-22-2023 End: 07-25-2023 Non-patient / Non-visit [facility] Work Phone: Start: 07-22-2023 End: 07-25-2023 Evaluation and management of inpatient [facility] [place] [facility] Work Phone: Start: 07-21-2023 End: 07-22-2023 ambulatory BEVERLY SALMERON [facility] Start: 07-19-2023 End: 07-19-2023 ambulatory [facility] Start: 07-14-2023 End: 07-15-2023 ambulatory BEVERLY [facility] Start: 07-05-2023 End: 07-06-2023 ambulatory BEVERLY [facility] Start: 04-28-2023 End: 04-29-2023 Emergency department patient visit RAVI PORTEREWS [facility] Start: 04-28-2023 End: 04-29-2023 Emergency department patient visit [facility] Start: 03-18-2023 End: 03-18-[address] Work Phone: General Surgery Comment on above: Dietary counseling ( Primary Dx); S/P gastric bypass; BMI 70 and over, adult (HCC) Start: 03-18-2023 End: 03-18-2023 Telemedicine consultation with patient Kenya Delpra RD Work Phone: [facility] Start: 02-24-2023 End: 02-24-2023 ambulatory MP SMITH Facility:[facility] Start: 02-18-2023 End: 02-18-[address] Work Phone: General Surgery Comment on above: Dietary counseling ( Primary Dx); BMI 70 and over, adult (HCC); S/P gastric bypass Start: 02-18-2023 End: 02-18-2023 Telemedicine consultation with patient Kenya Delpra RD Work Phone: [facility] Start: 02-15-2023 End: 02-15-2023 ambulatory MP SMITH Facility:[facility] Start: 02-07-2023 End: 02-07-2023 Patient encounter procedure Vero Fritz MD Work Phone: General Surgery Comment on above: Morbid obesity (HCC) (Primary Dx); Limited mobility; S/P gastric bypass; Obstructive sleep apnea (adult) (pediatric) Start: 02-07-2023 End: 02-07-2023 ambulatory VERO FRITZ Facility:[facility] Start: 12-05-2022 Refill Sondra Causey MD Work Phone: General Surgery Comment on above: Refill Request Start: 11-07-2022 Refill Sondra Causey MD Work Phone: General Surgery Comment on above: Refill Request Start: 10-08-2022 Refill Sondra Causey MD Work Phone: General Surgery Comment on above: Refill Request Start: 08-04-2022 Refill Sondra Causey MD Work Phone: General Surgery Comment on above: Refill Request Start: 06-16-2022 ambulatory Sondra Causey MD Work Phone: General Surgery Comment on above: Medication update Start: 06-16-2022 E-mail encounter fro m caregiver Sondra Causey MD Work Phone: [facility] Start: 06-02-2022 Orders Only Sondra Causey MD Work Phone: Peds Endocrinology Start: 03-23-2019 Patient encounter procedure JACOB SANTANA Facility:[facility] Start: 08-28-2018 End: 08-29-2018 Patient encounter procedure JESUS MANUEL Alvarez TOLEDO Facility:[facility] Start: 08-15-2018 End: 08-15-2018 Patient encounter procedure JESUS MANUEL Alvarez [place]O Facility:[facility] Start: 07-11-2018 End: 07-12-2018 Patient encounter procedure JESUS MANUEL Alvarez [place]O Facility:[facility] Start: 05-22-2018 End: 05-22-2018 Patient encounter procedure CESAR MARTIN Facility:[facility] Procedures Date Procedure Procedure Detail Performing Clinician Start: 09-27-2023 Debridement Start: 07-24-2023 Investigation of tra nsfusion reaction Start: 07-24-2023 Debridement Start: 07-23-2023 Blood culture for ba cteria, including anaerobic screen Start: 07-22-2023 Ultrasonography of r ight breast Start: 07-22-2023 Blood culture for ba cteria, including anaerobic screen Plan of Treatment Date Care Activity Detail Author Start: 09-27-2023 Microscopic observation [Identifier] in Unspecified specimen by Gram stain [facility] Start: 09-27-2023 End: 09-27-2023 [facility] Start: 07-25-2023 [facility] Start: 07-24-2023 [facility] Start: 07-23-2023 Blood culture for bacteria, including anaerobic screen Blood Culture [facility] Start: 07-22-2023 Hospital admission [facility] Start: 07-22-2023 Referral to general surgeon [facility] Start: 07-22-2023 [facility] Start: 07-22-2023 Bacteria identified in Blood by Culture [facility] Start: 07-22-2023 Blood culture for bacteria, including anaerobic screen Blood Culture [facility] Start: 07-22-2023 Drainage of Right Breast, Open Approach Drainage of Right Breast, Open Approach [facility] Start: 07-22-2023 Drainage of Right Breast, Percutaneous Approach Drainage of Right Breast, Percutaneous Approach [facility] Start: 12-10-2022 Influenza vaccination [facility] Start: 12-10-2021 Influenza vaccination INFLUENZA (#1) [facility] Start: 11-21-2013 HPV TESTING HPV TESTING [facility] Start: 11-21-2004 PAP TESTING PAP TESTING [facility] Start: 11-21-2002 Urine microalbumin profile [facility] Start: 11-21-2001 ANNUAL PCP TEAM CHRONIC DISEASE VISIT ANNUAL PCP TEAM CHRONIC DISEASE VISIT [facility] Start: 11-21-2001 BP CONTROLLED (<130/80) BP CONTROLLED (<130/80) [facility] Start: 11-21-2001 HEPATITIS C SCREENING HEPATITIS C SCREENING [facility] Start: 11-21-2001 HIV SCREENING HIV SCREENING [facility] Start: 05-24-1984 COVID-19 VACCINE (#1) COVID-19 VACCINE (#1) [facility] Start: 1985 HEPATITIS B (1 of 3 - 3-dose series) HEPATITIS B (1 of 3 - 3-dose series) [facility] Start: 1985 Hepatitis B Vaccine (1 of 3 - 3-dose series) Hepatitis B Vaccine (1 of 3 - 3-dose series) [facility] Bacteria identified in Unspecified specimen by Aerobe culture [facility] Bacteria identified in Unspecified specimen by Anaerobe culture [facility] Patient Education [facility] Work Phone: Patient referral [facility] Work Phone: [facility] Immunizations Immunization Date Immunization Notes Care Provider Fa cili 06-19-2008 influenza virus vacc ine, unspecified formulation Sondra Causey MD Work Phone: [facility] Payers Date Payer Category Payer Self-pay 2023 Unknown [id number] 2022 Unknown [id number] 2017 Medicaid [place] [employer] [place] [id number] 2017-Present [phone] [address] [place] [address] Medicaid [id number] 1983 Unknown [id number] 1983 Unknown [id number] [id number] 1983 Unknown [id number] 2.840.1.922739.3.579.2.593 1983 Unknown [id number] 2.840.1.163718.3.579.2.593 1983 Unknown [id number] [id number] 1983 Unknown [id number] 2.16840.1.061175.3.579.2.1286 1983 Unknown [id number] 2.840.1.145783.3.579.2.1286 1983 Unknown [id number] 2.16.840.1.531826.3.579.2.6 1983 Unknown [id number] 2.16.840.1.050216.3.579.2.1286 1983 Unknown [id number] 2.840.1.307155.3.579.2.1285 1983 Unknown [id number] 2.840.1.361204.3.579.2.128 1983 Unknown [id number] 2.840.1.906185.3.579.2.1285 1983 Unknown [id number] 2.840.1.734802.3.579.2.1285 1983 Unknown [id number] 2.840.1.435861.3.579.2.1285 1983 Unknown [id number] 2.840.1.559907.3.579.2.1258 1983 Unknown [id number] [id number] 1959 Unknown [id number] Medicare [id number] Unknown [id number] Unknown [id number] 2.840.1.422926.3.579.2.531 Unknown [id number] [id number] Social History Date Type Detail Facility Start: 05-31-2022 End: 09-27-2023 Tobacco smoking status NHIS Never smoked tobacco [facility] Start: 05-31-2022 Tobacco use and exposure Smokeless tobacco non-user [facility] Start: 05-31-2022 End: 02-18-2023 Alcohol intake Current drinker of alcohol (finding) [facility] Start: 06-20-2007 Alcohol Comment social [facility] Start: 1985 Sex Assigned At Not on file [facility] Start: 05-31-2022 End: 08-16-2022 History of Social function [facility] Start: 05-31-2022 End: 08-16-2022 Tobacco use panel [facility] National Score (1-100), lower number is lower risk 95 [facility] Start: 1985 Sex Assigned At Female [facility] NEGATED: Highlighted row [facility] Goals Date Patient Goal Desired Activity /State Functional Status Date Assessment Result Facility 07-22-2023 Functional status Patient at Baseline [facility] Work Phone: Mental Status Date Assessment Result Facility 07-22-2023 Cognitive function Cognitive Sta tus Patient at Baseline [facility] Work Phone: Clinical Notes 08-04-2022 to 12-21-2023 Note Date & Type Note Facility 12-21-2023 Note Functional Outcomes of Sleep Questionnaire Some people have difficulty performing everyday activities when they feel tired or sleepy. The purpose of this questionnaire is to find out if you generally have difficulty carrying out certain activities because you are too sleepy or tired. In this questionnaire, when the words ???sleepy??? or ???tired??? are used, it means the feeling that you can't keep your eyes open, your head is droopy, that you want to ???nod off???, or that you feel the urge to take a nap. These words do not refer to the tired or fatigued feeling you may have after you have exercised. 1) Do you have difficulty concentrating on the things you do because you are sleepy or tired? 3. Yes, a little difficulty 2) Do you generally have difficulty remembering things, because you are sleepy or tired? 4. No difficulties 3) Do you have difficulty operating a motor vehicle for SHORT distances (less than 100 miles) because you become sleepy or tired? 4. No difficulties 4) Do you have difficulty operating a motor vehicle for LONG distances (greater than 100 miles) because you become sleepy or tired? 3. Yes, a little difficulty 5) Do you have difficulty visiting with your family or friends in THEIR homes because you are sleepy or tired? 1. Yes, ,extreme difficulty 6) Has your relationship with your family, friends, or work colleagues been affected because you are sleepy or tired? 3. Yes,, a little 7) Do you have difficulty watching a movie or videotape because you become sleepy or tired? 1. Yes, ,extreme difficulty 8) Do you have difficulty being as active as you want to be in the EVENING because you are too sleepy or tired? 1. Yes, ,extreme difficulty 9) Do you have difficulty being as active as you want to be in the MORNING because you are too sleepy or tired? 2. Yes, moderate difficulty 10) Has your desire for intimacy or sex been affected because you are sleepy or tired? 4. No TOTAL 26 FOSQ-10??? 2004, Carley Mclain FOSQ-10 - [facility] [id number] [facility] 12-21-2023 Note [place] Sleepiness S cheryle Please rate the following as to how likely the patient would be to dose off or fall asleep for each of the situations Never = 0 Slight chance = 1 Moderate Chance = 2 High Chance = 3 Sitting and Reading... 2 Watching TV...2 Sitting inactive in a public place (theater, meeting) ...1 As a passenger in a car for an hour without a break... 1 Lying down in the afternoon to rest...3 Sitting and talking to someone... 0 Sitting quietly after lunch (without alcohol)... 3 In a car, while stopped for a few minutes in traffic... 0 Total score...12 Please check the symptoms/complaints of the patient Please answer (Y)es or (N)o Snoring/Loud Snoring... Witnessed Apneas... Excessive daytime sleepiness... Waking gasping/choking... Morning Headaches... Complaints of restless legs... Wakes with sour taste... Difficulty following directions... Confusion/Forgetfulness... Sleep walking/talks in your sleep... Grinds teeth... Difficulty staying asleep ... Difficulty initiating sleep... Acting out your dreams... Difficulty ambulating... Incontinence... Subjective no Objective No data found. Physical Exam Lab Results Component Value Date NA 135 (L) 11/07/2023 K 4.0 11/07/2023 CL 103 11/07/2023 ANIONGAP 10 11/07/2023 BUN 7 11/07/2023 CREATININE 0.85 11/07/2023 CALCIUM 9.2 11/07/2023 MG 1.9 11/07/2023 No results found for: BILITOT , BILIDIR , ALKPHOS , AST , ALT , PROT , ALBUMIN Lab Results Component Value Date WBC 4.68 11/07/2023 RBC 3.30 (L) 11/07/2023 HGB 9.1 (L) 11/07/2023 HCT 29.4 (L) 11/07/2023 MCV 89.1 11/07/2023 MCH 27.6 11/07/2023 MCHC 31.0 (L) 11/07/2023 RDW 18.5 (H) 11/07/2023 NEUTOPHILPCT 48.7 11/07/2023 LYMPHOPCT 42.1 11/07/2023 MONOPCT 7.1 11/07/2023 EOSPCT 1.5 11/07/2023 BASOPCT 0.4 11/07/2023 NEUTROABS 2.28 11/07/2023 LYMPHSABS 1.97 11/07/2023 MONOSABS 0.33 11/07/2023 EOSABS 0.07 11/07/2023 BASOSABS 0.02 11/07/2023 PLT 274 11/07/2023 NRBC 0.0 11/07/2023 No X-ray results found for the past 24 hoursNo MRI results found for the past [address] results found for the past 24 hours Encounter Date: 11/05/23 ECG 12 lead Result Value Ventricular Rate 79 Atrial Rate 79 ME Interval 132 QRS DURATION 78 QT Interval 402 QTC CALCULATION(BAZETT) 460 P [place] 36 R-[place] 36 T Wave [place] 10 Impression Normal sinus rhythm Normal ECG Confirmed by Sabrina Baldwin ([id number]) on 11/08/2023 9:37:51 AM Nutrition Screen Assessment/Plan Active Problems: There are no active Hospital Problems. no [facility] 12-09-2023 Note Patient completed [place] via [employer], positive for finances, SW sent resources and letter on this date. [facility] 12-09-2023 Note Subjective Patient ID: Eliana Hager is a 38 y.o. female who presents for Office Visit (Pain in the right breast /Paper work ). HPI Pt reports she had a cyst to right breast in July and was treated and surgically removed. She feels it is back again and infected. States it is warm to touch and draining greenish fluid. Rates pain at 9/10 Review of Systems Constitutional: Positive for fever. HENT: Negative. Eyes: Negative. Respiratory: Negative. Cardiovascular: Negative. Gastrointestinal: Negative. Endocrine: Negative. Genitourinary: Negative. Musculoskeletal: Negative. Skin: Negative. Allergic/Immunologic: Negative. Neurological: Negative. Hematological: Negative. Psychiatric/Behavioral: Negative. Objective Temp: [36.4 ???C (97.5 ???F)] 36.4 ???C (97.5 ???F) Heart Rate: [68-69] 68 Resp: [20] 20 BP: (126-127)/(69-71) 126/69 Physical Exam Constitutional: Appearance: She is obese. HENT: Head: Normocephalic. Right Ear: External ear normal. Left Ear: External ear normal. Nose: Nose normal. Mouth/Throat: Mouth: Mucous membranes are moist. Eyes: Extraocular Movements: Extraocular movements intact. Conjunctiva/sclera: Conjunctivae normal. Cardiovascular: Rate and Rhythm: Normal rate and regular rhythm. Pulses: Normal pulses. Heart sounds: Normal heart sounds. Pulmonary: Effort: Pulmonary effort is normal. Chest: Breasts: Right: Skin change and tenderness present. Left: Normal. Comments: Small open area to right breast at areola line. Slightly reddened, tender to touch, some drainage noted on clothes Abdominal: Palpations: Abdomen is soft. Musculoskeletal: General: Normal range of motion. Cervical back: Normal range of motion. Skin: General: Skin is warm. Capillary Refill: Capillary refill takes less than 2 seconds. Neurological: Mental Status: She is oriented to person, place, and time. Psychiatric: Behavior: Behavior normal. Assessment/Plan Pt. Has infected area to right breast above nipple around areola. Will treat with doxycycline. Instructed to keep area covered when drainage noted, also needs to keep the area clean and dry. Will return in 2 weeks to check that infection has cleared up. States she had a recent mammogram that was negative in July. Diagnoses and all orders for this visit: Infection of right breast - doxycycline (Monodox) 100 mg capsule; Take 1 capsule (100 mg) by mouth two times daily for 10 days. Take with at least 8 ounces (large glass) of water, do not lie down for 30 minutes after No diagnosis found. No orders of the defined types were placed in this encounter. No results found for this or any previous visit (from the past 36 hour(s)). No follow-ups on file. [facility] 11-25-2023 Note Cardiology Follow Up Progress Note Chief Complaint: New Patient ([facility] Follow up SVT/) HPI: Eliana Hager is a 38 y.o. female who Clinic today for posthospitalization follow-up. Patient was recently hospitalized with SVT and mildly elevated troponin. She has a history of SVT previously, and this episode was similar to her previous episodes. Patient states her symptoms awoke her from sleep and were associated with shortness of breath but denies chest pain. She states that she called EMS. When EMS arrived, patient was found to have a heart rate in the 190s. Patient was given 6 mg IV adenosine, nitroglycerin and Zofran in the rig which improved heart rate to the 120s. No strips could be found upon evaluating the patient In the hospital, patient was initiated on metoprolol. No ischemic evaluation was recommended at the time due to patient's weight and inability to use equipment. Today for follow-up. Overall, she is doing well. She has not had any recurrent episodes of SVT. She states on occasion, she has a few additional palpitations. She was supposed to increase her metoprolol, although, she has not yet done so. She adamantly denies any chest pain. She denies any shortness of breath. She does have some lower extremity edema, which she attributes to her hydrochlorothiazide being stopped. No additional complaints or concerns at the present time Cardiology ROS: 10 point ROS is performed and is negative unless otherwise specified in HPI. Medications Current Outpatient Medications on File Prior to Visit Medication Sig Dispense Refill allopurinol (Zyloprim) 100 mg tablet Take 1 tablet by mouth in the morning. aspirin 81 mg EC tablet Take 1 tablet (81 mg) by mouth in the morning for 30 doses. Do not start before November 08, 2023. 30 tablet 0 atorvastatin (Lipitor) 40 mg tablet Take 1 tablet (40 mg) by mouth at bedtime for 30 doses. 30 tablet 0 cholecalciferol, vitamin D3, 50 mcg (2,000 unit) capsule Take 1 capsule by mouth in the morning. cyanocobalamin (Vitamin B-12) 1,000 mcg tablet Take 1 tablet by mouth in the morning. ferrous sulfate 325 (65 Fe) MG EC tablet Take 1 tablet (65 mg of iron) by mouth with breakfast. 30 tablet 1 HYDROcodone-acetaminophen ([place]) 5-325 mg tablet Take 2 tablets by mouth every 4 (four) hours if needed for moderate pain (4-7 pain score). losartan-hydrochlorothiazide (Hyzaar) 50-12.5 mg tablet Take 1 tablet by mouth in the morning. metFORMIN XR (Glucophage-XR) 500 mg 24 hr tablet Take 500 mg by mouth 2 times daily. metoprolol tartrate (Lopressor) 25 mg tablet Take 1.5 tablets (37.5 mg) by mouth two times daily. 90 tablet 1 semaglutide (Ozempic) 1 mg/dose (2 mg/1.5 mL) pen injector Inject 1 mg under the skin 1 (one) time per week. 6 mL 2 No current facility-administered medications on file prior to visit. Allergies Ibuprofen Physical Exam VITAL SIGNS: BP 169/84 (BP Location: Right arm, Patient Position: Sitting, BP Cuff Size: Adult) Pulse 65 Resp 16 Ht 1.651 m (5' 5 ) Wt (!) 213 kg (470 lb) LMP 11/12/2023 SpO2 97% BMI 78.21 kg/m??? Constitutional: Well developed, Well nourished, No acute distress, Non-toxic appearance. HENT: Normocephalic, Atraumatic, Bilateral external ears have normal appearance, Nose appears normal, nares are patent. Eyes: PERRLA, EOMI, Conjunctiva normal, No discharge. Neck: Normal range of motion, No tenderness, Supple, No stridor. No cervical lymphadenopathy noted. Cardiovascular: Normal heart rate, Normal rhythm, No murmurs, No rubs, No gallops. Thorax & Lungs: Normal breath sounds, No respiratory distress, No wheezing, No chest tenderness to palpation. Abdomen: Bowel sounds normal, Soft, Nontender, No masses, No pulsatile masses. Skin: Warm, Dry, No erythema, No rash. Back: No tenderness, No CVA tenderness. Extremities: Intact distal pulses, No edema, No tenderness, No cyanosis, No clubbing. Musculoskeletal: Grossly normal strength in extremities Neurologic: Alert & oriented x 3, no gross focal neurological deficits Psychiatric: Affect normal, Judgment normal, Mood normal. EKG results: Encounter Date: 11/05/23 ECG 12 lead Result Value Ventricular Rate 79 Atrial Rate 79 ME Interval 132 QRS DURATION 78 QT Interval 402 QTC CALCULATION(BAZETT) 460 P [place] 36 R-[place] 36 T Wave [place] 10 Impression Normal sinus rhythm Normal ECG Confirmed by Sabrina Baldwin ([id number]) on 11/08/2023 9:37:51 AM Echo results: No echocardiogram results found for the past 12 months Radiology: ECG 12 lead Normal sinus rhythm Normal ECG Confirmed by Sabrina Baldwin ([id number]) on 11/08/2023 9:37:51 AM ECG 12 lead (Now) Sinus tachycardia Nonspecific ST changes Confirmed by Sabrina Baldwin ([id number]) on 11/08/2023 9:20:18 AM Assessment/Plan: Eliana Hager is a 38 y.o. female with History of non-ST elevation myocardial infarction (NSTEMI) SVT (supraventricular tachycardia) (CMS/HCC) Primary hypertension (more content not included)... [facility] 11-15-2023 Note Wheelchair and offic e notes sent to [facility] in [place]. [facility] 11-15-2023 Note Wheelchair is ready for worm picker at the [place] [facility] location. Per [facility] they left a message for patient letting her know it's ready for worm picker [facility] 11-15-2023 Note Wheelchair ordered f or patient at appointment, office note needs supporting documentation for need for wheelchair. Message sent to the provider. [facility] 11-14-2023 Note -- Attestation signed by Jessy Mobley MD at 11/21/2023 1:57 PM GC: I saw this patient. I personally was physically present for the critical/benitez portions that determines the level of service. I was directly involved in the management and treatment plan of the patient. I reviewed resident Dash Hardin 's note and agree with the documentation -- Patient: Eliana Hager : 1985 PCP: Petrona Strickland MD Eliana Hager is a 37 y.o. female presenting today for follow-up after being discharged from [facility] 6 days ago. The main problem requiring admission on was supraventricular tachycardia. The discharge summary and/or Transitional Care Management documentation was reviewed. Medication reconciliation was performed as indicated via the William as Reviewed timestamp. Eliana Hager was contacted by Transitional Care Management services within two business days after her discharge. This encounter and supporting documentation was reviewed. Admission Date: 11/05/2023. Discharge Date: 11/08/2023. Follow up testing/results: echocardiogram. Changes to the medication list? Yes Current Outpatient Medications: allopurinol (Zyloprim) 100 mg tablet, Take 1 tablet by mouth in the morning., Disp: , Rfl: aspirin 81 mg EC tablet, Take 1 tablet (81 mg) by mouth in the morning for 30 doses. Do not start before November 08, 2023., Disp: 30 tablet, Rfl: 0 atorvastatin (Lipitor) 40 mg tablet, Take 1 tablet (40 mg) by mouth at bedtime for 30 doses., Disp: 30 tablet, Rfl: 0 cholecalciferol, vitamin D3, 50 mcg (2,000 unit) capsule, Take 1 capsule by mouth in the morning., Disp: , Rfl: cyanocobalamin (Vitamin B-12) 1,000 mcg tablet, Take 1 tablet by mouth in the morning., Disp: , Rfl: HYDROcodone-acetaminophen ([place]) 5-325 mg tablet, Take 2 tablets by mouth every 4 (four) hours if needed for moderate pain (4-7 pain score)., Disp: , Rfl: losartan-hydrochlorothiazide (Hyzaar) 50-12.5 mg tablet, Take 1 tablet by mouth in the morning., Disp: , Rfl: metFORMIN XR (Glucophage-XR) 500 mg 24 hr tablet, Take 500 mg by mouth 2 times daily., Disp: , Rfl: ferrous sulfate 325 (65 Fe) MG EC tablet, Take 1 tablet (65 mg of iron) by mouth with breakfast., Disp: 30 tablet, Rfl: 1 metoprolol tartrate (Lopressor) 25 mg tablet, Take 1.5 tablets (37.5 mg) by mouth two times daily., Disp: 90 tablet, Rfl: 1 semaglutide (Ozempic) 1 mg/dose (2 mg/1.5 mL) pen injector, Inject 1 mg under the skin 1 (one) time per week., Disp: 6 mL, Rfl: 2 Medication Notes: aspirin 81 mg, astorvastatin 40 mg, lopressor 25 mg aded at the time of discharge. Patient Care Team: Petrona Strickland MD as PCP - General (Internal Medicine) Overview of course during and after hospitalization: Patient was hospitalized for palpitations, nausea, lightheadedness and diaphoresis due to supraventricular tachycardia which resolved with 6 mg of IV adenosine. She was given metoprolol 25 mg which for prevention of recurrent SVT events until she follows up with cardiology. Echo testing pending at discharge. During hospitalization, patient also developed headache, left leg weakness and left sided facial droop. Initial stroke evaluation negative in the ER, ct scan of head without contrast was unremarkable for hemorrhage or acute intracranial pathology. CTA neck with IV contrast shows no evidence of focal stenosis, aneurysmal dilatation, dissection or occlusion. MRI was unable to be performed given her weight. Neurology believes patient experienced complex migraine and recommended aspirin 81 mg daily. Since discharge, patient has been experiencing right sided throbbing headaches associated with blurry vision and floaters. Patient denies specific triggers or personal history of migraines. Patient also endorses experiencing palpitations occasionally. Patient also mentions losing her CPAP machine and requested a sleep study to get re-evaluated. She also endorses pain of bilateral knees which limits her mobility. Her walker isn't enough assistance and patient is requesting a wheelchair. Patient has a mobility limitation that significantly impairs her ability to participate in one or more mobility-related activities of daily living such as toileting, feeding, dressing, grooming, and bathing in the home. The mobility limitation cannot sufficiently resolved by the use of an appropriately fitted cane or walker. Use of a manual wheelchair will significantly improve the patient's ability to participate in MRADLs and the patient will use it on a regular basis in the home. Patient has sufficient upper extremity function and other physical and mental capabilities needed to safely self-propel the manual wheelchair that is provided in the home during a typical day. The patient has expressed a willingness t (more content not included)... [facility] 11-09-2023 Note Transition of Care [facility] Date of Admission: 11/05/2023 Date of Discharge: 11/08/2023 Discharge Diagnosis: SVT suspect complex migraine Spoke to patient for transition of care and patient reports feeling much better. Denies chest pain, shortness of breath, dizziness, headache nausea, vomiting, fever, chills. Discharge instructions and medications reviewed. Hospital follow-up appointment confirmed. [facility] 11-08-2023 Note Consulted for DME. O T/PT recommended home with outpatient therapy and a DME bariatric rolling walker. [facility] is providing scripts for outpatient therapy and DME order was sent to [employer] for approval. [facility] 11-08-2023 Note Hospital Medicine Discharge Summary Final Discharge Diagnosis: SVT (supraventricular tachycardia) (CMS/HCC) suspect complex migraine Elevated troponin - likely demand ischemia from SVT Primary hypertension Iron deficnecy Anemia DMII - HgbA1C 5.9 Obese class 3/morbid obesity Admission Diagnosis: SVT (supraventricular tachycardia) (CMS/HCC) [I47.10] Supraventricular tachycardia (CMS/HCC) [I47.10] Hospital course: Eliana Hager is an 37 y.o. female who came from home with past medical history of morbid obesity s/p gastric bypass, hypertension, DM2, depression presents to the emergency department with a chief complaint of palpitations, nausea, lightheadedness and diaphoresis. Patient states that these symptoms awoke her from sleep. She also endorses shortness of breath but denies chest pain. She denies taking any medications to help. She states that she called EMS. When EMS arrived, patient was found to have a heart rate in the 190s. Patient was given 6 mg IV adenosine, nitroglycerin and Zofran in the rig which improved heart rate to the 120s. In the emergency department, patient was found a blood pressure of 123/78, heart rate 118, temp 97.9 and 99% on room air. Labs were completed showing hemoglobin 10.9, troponin 0.06. Repeat troponin comes back at 0.25. CXR was completed showing no acute cardiopulmonary abnormality. EKG is completed showing sinus tachycardia. During my examination, patient reports that palpitations, nausea, lightheadedness, diaphoresis had subsided but does still state a mild headache with some left eye blurry vision. CT scan to be ordered to rule out any further process, however, before CT scan could be ordered, patient began to have sudden onset left upper extremity and left lower extremity numbness, tingling and weakness. She was also noted to have a left-sided facial droop. Stroke alert wascalled. NIH was found to be a 4. CT head without IV contrast showed no acute intracranial pathology. CTA head/neck also without acute pathology. Scans reviewed by neurology stroke attending and they would like ASA and MR brain in AM. Hospital Course Left leg weakness - initial stroke eval negative in the ER although NIHSS 4 - neuro was consulted - we were unable to do an MRI on the brain due to her weight - Neuro did repeat CTOH - they think she likely had a complex migraine - recommend ASA 81mg once a day SVT - When EMS arrived, patient was found to have a heart rate in the 190s. Patient was given 6 mg IV adenosine, nitroglycerin and Zofran in the rig which improved heart rate to the 120s. - echo pending at discharge, follow up with cards - cards consulted She presented via EMS after awakening with tachycardia. It is reported that she was in an SVT however, the documentation of that is unavailable to us to review. She is on a bblocker which is reasonable for prevention of recurrent SVT events. An alternative would be an SVT ablation, however, her body weight over 450 lbs likely precludes this, at least for now, due to weight limits on the table.We would recommend an outpatient echo and lexiscan stress to evaluate the abnormal troponin, however, this may very well just represent the SVT which is a known cause of elevation in this enzyme. Surgical, Invasive or Diagnostic Procedures Done During Admission: None Consultations During Admission: Neurology Dear Dr. Marco A MD, Eliana is advised to follow up with you within 1-2 weeks. Items to follow up in ambulatory setting: None Follow-up with: Neurology Scheduled appointments: Future Appointments Date Time Provider Department Center 11/14/2023 2:00 PM Keila Trejo MD [facility] INT MED Comprehensiv 11/25/2023 11:00 AM Rafa Perry MD [facility] Ariella Hos Your medication list START taking these medications Instructions Last Dose Given Next Dose Due aspirin 81 mg EC tablet Take 1 tablet (81 mg) by mouth in the morning for 30 doses. Do not start before November 08, 2023. atorvastatin 40 mg tablet Commonly known as: Lipitor Take 1 tablet (40 mg) by mouth at bedtime for 30 doses. metoprolol tartrate 25 mg tablet Commonly known as: Lopressor Take 0.5 tablets (12.5 mg) by mouth two times daily. CONTINUE taking these medications Instructions Last Dose Given Next Dose Due allopurinol 100 mg tablet Commonly known as: Zyloprim cholecalciferol (vitamin D3) 50 mcg (2,000 unit) capsule cyanocobalamin 1,000 mcg tablet Commonly known as: Vitamin B-12 FERROUS SULFATE ORAL HYDROcodone-acetaminophen 5-325 mg tablet Commonly known as: [place] losartan-hydrochlorothiazide 50-12.5 mg tablet Commonly known as: Hyzaar metFORMIN XR 500 mg 24 hr tablet Commonly known as: Glucophage-XR Trulicity 1.5 mg/0.5 mL pen injector Generic drug: dulaglutide Where to Get Your Medications These medications were sent to [facility] [address] [place] [address] [address] [facility] (more content not included)... [facility] 11-07-2023 Note Occupational Therapy Occupational Therapy Evaluation Patient Name: Eliana Hager : 1985 Today's Date: 11/07/2023 Time In: 1335 Time Out: 1402 Eliana Hager is a 37 y.o. Black or female with PMH significant for Type II DM, HTN, morbid obesity s/p gastric bypass who presented initially with chief complain of left eye blurred vision and palpitation. Patient presented to the ER and she was found to have a heart rate in the 190s. Patient was given 6 mg IV adenosine, nitroglycerin and Zofran in the rig which improved heart rate to the 120s. Later last night nursing staff noticed left sided weakness involving face, arm and leg. Today she states that the weakness in the arm has improved but still have significant weakness in the left leg and numbness in the left side. General Subjective: friendly and cooperative, reports numbness and weakness LLE , family present Patient Active Problem List Diagnosis SVT (supraventricular tachycardia) ([facility]) Elevated troponin Depression Diabetes mellitus, type II ([facility]) Essential hypertension Morbid obesity ([facility]) S/P gastric bypass Hypomagnesemia Stroke-like symptoms Past Medical History: Diagnosis Date Depression 07/14/2017 Diabetes mellitus ([facility]) Essential hypertension 06/20/2007 Morbid obesity ([facility]) 12/07/2007 S/P gastric bypass 02/07/2023 Past Surgical History: Procedure Laterality Date GASTRIC BYPASS Precautions Precautions Medical Precautions: telemetry, fall risk Pain Pain Assessment Pain Score: 8 Pain Type: (chronic gouty BLE knee pain) Cognition Cognition Overall Cognitive Status: Within Functional Limits General Assessment General Assessment Hearing: Intact Hand Dominance: Right Home Living Home Living Type of Home: House Lives With: (two minor children) Home Adaptive Equipment: (bsc, sc, gb, [facility]) Home Layout: One level Home Access: Stairs to enter with rails (6) Bathroom Shower/Tub: Walk-in shower Prior Level of Function Prior Function Level of Assumption: Independent with ADLs and functional transfers, Independent with homemaking with ambulation Prior Functional Mobility: Independent without device (drives , works) Receives Help From: Friends ADL Assistance: (assist with socks) Homemaking Assistance: Independent Prior IADLs IADL History Homemaking Responsibilities: Yes Static Sitting Balance Static Sitting Balance Static Sitting-Level of Assistance: Independent Dynamic Sitting Balance Dynamic Sitting Balance Dynamic Sitting Balance-Level of Assistance: Independent Static Standing Balance Static Standing Balance Static Standing-Level of Assistance: Close supervision ADL ADL UE Dressing Assistance: Independent LE Dressing Assistance: Minimal Transfers Transfers Transfer: (sitting EOB upon arrival., SBA with RW , 40 feet X2 and sit EOB) Objective General Assessments Activity Tolerance Endurance: Stage II Vision - Basic Assessment Current Vision: Wears glasses all the time Vision - Complex Assessment Ocular Range of Motion: Within Functional Limits (face and tongue symmetry noted) Sensation Light Touch: No apparent deficits Proprioception Proprioception: No apparent deficits Perception Inattention/Neglect: Appears intact Coordination Movements are Fluid and Coordinated: Yes Extremity Assessments RUE Assessment RUE Assessment: Within Functional Limits LUE Assessment LUE Assessment: Within Functional Limits Outcome Assessments AM-PAC 6 Clicks Putting on and taking off regular lower body clothing?: A Little (Min Assist/Contact Guard/Supervision) Bathing(Including washing,rinsing,drying)?: A Little (Min Assist/Contact Guard/Supervision) Toileting, which includes using the toilet,bedpan,or urinal?: A Little (Min Assist/Contact Guard/Supervision) Putting on and taking off regular upper body clothing?: None (Independent) Taking care of personal grooming such as brushing teeth?: None (Independent) Eating meals?: None (Independent) Total Score OT [facility]: 21 Assessment/Plan OT Assessment OT Impairments: Decreased ADL status, Decreased endurance, Decreased functional mobility OT Assessment/INFORMATION SYSTEMS MANAGER Summary: (needs skilled OT due to weakness and fatigue) Prognosis: Good Evaluation/Treatment Tolerance: Patient limited by fatigue, Patient limited by pain Medical Staff Made Aware: Yes OT Education/Comments: LB adl ae/dme, adl transfer and general home safety / technique all with good return demo Plan Level of assist: 1 assist Treatment Interventions: ADL retraining, Functional transfer training, Endurance training, Patient/family training, Neuromuscular reeducation, Compensatory technique education OT Plan: Skilled OT OT Frequency: 5 times per week until discharge & PRN OT Discharge Recommendations: Home, Outpatient OT OT - Discharge Recommendati (more content not included)... [facility] 11-07-2023 Note Physical Therapy Physical Therapy Evaluation Patient Name: Eliana Hager : 1985 Today's Date: 11/07/2023 Patient is a 37 y/o female presenting to ED 11/05/2023 with palpitations/nausea/lightheadedness. Found to be tachycardic upon arrival to ED. Sudden onset LUE/LLE weakness and numbness while in ED. Initial CT scans negative. At this time, facial droop is resolved, LUE weakness/sensation is resolved. Still with residual LLE foot numbness and weakness throughout LLE. Tolerated mobility session well, able to ambulate 80 ft with use of RW though cautious with use of LLE because she does not trust it . Discharge: Home with Outpatient PT Equipment: Bariatric RW General Subjective: RN approved PT session and OOB activity. Patient EOB upon arrival, agreeable to session. Upon completion, patient left on EOB with family present. PT Diagnosis: Impaired strength/balance Patient Active Problem List Diagnosis SVT (supraventricular tachycardia) ([facility]) Elevated troponin Depression Diabetes mellitus, type II ([facility]) Essential hypertension Morbid obesity ([facility]) S/P gastric bypass Hypomagnesemia Stroke-like symptoms Past Medical History: Diagnosis Date Depression 07/14/2017 Diabetes mellitus ([facility]) Essential hypertension 06/20/2007 Morbid obesity ([facility]) 12/07/2007 S/P gastric bypass 02/07/2023 Past Surgical History: Procedure Laterality Date GASTRIC BYPASS Precautions Precautions Medical Precautions: telemetry, fall risk Pain Pain Assessment Pain Assessment: 0-10 Pain Score: 8 Pain Type: Chronic pain (chronic BLE knee pain) Pain Location: Knee Pain Orientation: Right, Left Cognition Cognition Overall Cognitive Status: Within Functional Limits Arousal/Alertness: Appropriate responses to stimuli Orientation Level: Oriented X4 Following Commands: Follows all commands and directions without difficulty General Assessment General Assessment Hearing: Intact Hand Dominance: Right Home Living Home Living Type of Home: House Lives With: Family, Other (Comment) (Lives with with two minor children) Home Adaptive Equipment: None Home Layout: One level Home Access: Stairs to enter with rails Entrance Stairs-Rails: Both Entrance Stairs-Number of Steps: 6 Bathroom Shower/Tub: Walk-in shower Bathroom Equipment: Bedside commode, Shower chair with back, Grab bars in shower Prior Level of Function Prior Function Level of Assumption: Independent with ADLs and functional transfers, Independent with homemaking with ambulation Prior Functional Mobility: Independent without device Receives Help From: Family ADL Assistance: Needs assistance Homemaking Assistance: Independent Vision Basic Assessment Vision - Basic Assessment Current Vision: Wears glasses all the time Patient Visual Report: (reports no blurry vision at this point. Does states of occasional black spots) Activity Tolerance Activity Tolerance Endurance: Stage III General Assessments Activity Tolerance Endurance: Stage III Sensation Light Touch: Partial deficits in the LLE (Moderate deficits to LLE foot - unable to determine which toe was being touched) Coordination Movements are Fluid and Coordinated: Yes Postural Control Postural Control: Within Functional Limits Static Sitting Balance Static Sitting-Balance Support: Feet supported Static Sitting-Level of Assistance: Independent Dynamic Sitting Balance Dynamic Sitting-Balance Support: Feet supported, Right upper extremity supported, Left upper extremity supported Dynamic Sitting-Balance: Forward lean, Lateral lean Dynamic Sitting Balance-Level of Assistance: Independent Static Standing Balance Static Standing-Balance Support: With device (RW) Static Standing-Level of Assistance: Close supervision Dynamic Standing Balance Dynamic Standing-Balance Support: With device (RW) Dynamic Standing Balance-Level of Assistance: Close supervision Functional Assessments Bed Mobility Bed Mobility: No (Patient reports independent with bed mobility - not observed this session) Transfers Transfer: Yes Transfer 1 Technique 1: Sit to stand, Stand to sit (From EOB) Transfer Device 1: none Transfer Level of Assistance 1: Close supervision Ambulation Ambulation: Yes Ambulation 1 Surface 1: Level tile Device 1: Rolling walker Assistance 1: Contact guard Quality of Gait 1: Decreased weight shift through LLE resutling in decreased RLE step length. No significant LOB or instability, patient reports she does not trust her LLE Comments/Distance (ft) 1: 80 ft Extremity Assessments RUE Assessment RUE Assessment: Within Functional Limits (Symmertical strength bilaterally) LUE Assessment LUE Assessment: Within Functional Limits (Symmertical strength bilaterally) RLE Assessment RLE Assessment: Within Functional Limits LLE Assessment LLE Assessment: Exceptions to (more content not included)... [facility] 11-07-2023 Note 11/07/23 1332 Admission Assessment Questions Verify insurance with patient Yes Do you understand medical disease or what brought you into the hospital? Yes Who is your current PCP? Beverly Salmeron Can I schedule a follow up appointment for you at the time of discharge? Yes Do you understand why you are taking your current medications? Yes Are you taking your medications as prescribed? Yes Did patient provide teach back? Yes Pharmacy Bedside Delivery Status Interested Does the patient have a dependency case manager assigned to them through their insurance? No Living Arrangement (Current/Prior to Hospitalization) Private residence Does the patient have history of HHC or SNF? No Assistive Device Not applicable Patient's goal for discharge return home with children Was patient reminded that goal for discharge is 11am? Yes Does the patient have transportation at discharge? Yes Type of Residence Private residence Is PT/OT appropriate? Yes Is PT/OT ordered? Yes Is SW consult appropriate? No Is SW consult ordered? No Do you understand the benefits of MyChart? Yes Were you able to send link and activate MyChart? Yes [facility] 11-07-2023 Note Occupational Therapy Name: Eliana Hager Date of : 1985 Today's Date: 11/07/23 Pt is unable to be seen for therapy at this time secondary to off floor for ECHO . Will check back and complete therapy session as appropriate. Check No Charge Time attempted: 1027 [facility] 11-07-2023 Note Physical Therapy PT consulted for evaluation. Patient transport currently waiting outside of patient's room to take her down for Echo and then straight to MRI. Will follow up later today as able. Sanchez Aguilar PT, DPT [facility] 11-06-2023 Note Hospital Medicine Daily Progress Note - 11/06/2023 1:09 PM; Room: [address] [place] [address] Admission: 11/05/2023 1:40 PM; Length of stay: 0 days THE HOSPITALIST TEAM PREFERS TO USE [employer] CHAT FOR COMMUNICATION 7AM-7PM. IF I DO NOT RESPOND WITHIN 15 MINUTES, PLEASE PAGE ME/CALL THROUGH THE MAT PUNCHER. FROM 7PM-7AM, PLEASE PAGE [phone](COVR) Code Status: Full Code Barriers to Discharge: stroke work up, echo Expected Discharge Date: 1 - 2 days Discharge Destination: home Overview Patient is seen for evaluation and management of left side weakness, SVT Subjective Doing OK Sitting in chair Reports her left leg below her knee still feels numb and she is dragging it Physical Exam Visit Vitals BP 105/65 (BP Location: Right arm, Patient Position: Lying) Pulse 73 Temp 36.5 ???C (97.7 ???F) (Temporal) Resp 16 Intake/Output Summary (Last 24 hours) at 11/06/2023 1309 Last data filed at 11/06/2023 1205 Gross per 24 hour Intake 2361.67 ml Output 1000 ml Net 1361.67 ml Physical Exam Constitutional: Appearance: Normal appearance. HENT: Head: Normocephalic. Eyes: Extraocular Movements: Extraocular movements intact. Pupils: Pupils are equal, round, and reactive to light. Cardiovascular: Rate and Rhythm: Normal rate and regular rhythm. Pulmonary: Effort: Pulmonary effort is normal. Abdominal: General: Abdomen is flat. Neurological: Mental Status: She is alert. Estimated body mass index is 78.51 kg/m??? as calculated from the following: Height as of this encounter: 1.651 m (5' 5 ). Weight as of this encounter: 214 kg (471 lb 12.8 oz). Active Inpatient Problems Principal Problem: SVT (supraventricular tachycardia) (CMS/HCC) Active Problems: Elevated troponin Depression Diabetes mellitus, type II (CMS/HCC) Essential hypertension Morbid obesity (CMS/HCC) S/P gastric bypass Hypomagnesemia Stroke-like symptoms Assessment and Plan Left leg weakness - initial stroke eval negative in the ER although NIHSS 4 - reports her left leg still is numb today - neuro consult pending - MRI Pending - echo pending - PT/OT consulted SVT - When EMS arrived, patient was found to have a heart rate in the 190s. Patient was given 6 mg IV adenosine, nitroglycerin and Zofran in the rig which improved heart rate to the 120s. - echo pending - cards consulted Elevated troponin - likely demand ischemia from SVT - echo pending - cards consulted Primary hypertension - cont home meds Anemia - check iron levels - check B12, history of deficiency following gastric bypass DMII - HgbA1C pending - ISS Obese class 3/morbid obesity - BMI 78 Wounds: Wound 11/05/23 Incision Breast Right (Active) Date First Assessed/Time First Assessed: 11/05/232236 Present on Original Admission: Yes Primary Wound Type: (c) Incision Location: Breast Wound Location Orientation: Right Assessments 11/05/2023 9:25 PM 11/06/2023 9:15 AM Site Assessment Clean;Intact;Dry;[place] Unable to assess VTE Prophylaxis: Heparin subcutaneous Scheduled Meds allopurinol, 100 mg, oral, Daily cholecalciferol, 2,000 Units, oral, Daily cyanocobalamin, 1,000 mcg, oral, Daily heparin (porcine), 5,000 Units, subcutaneous, q12h MICAH insulin lispro, 0-5 Units, subcutaneous, TID with meals And insulin lispro, 0-4 Units, subcutaneous, Nightly losartan-hydrochlorothiazide, 1 tablet, oral, Daily Pertinent Investigations Hematology: Results from last 7 days Lab Units 11/06/23 0347 11/05/23 1415 WBC AUTO 10*3/uL 6.43 8.11 HEMOGLOBIN g/dL 9.1* 10.9* HEMATOCRIT % 30.4* 36.2 MCV fL 91.6 91.9 PLATELETS AUTO 10*3/uL 268 335 Chemistry: Results from last 7 days Lab Units 11/06/23 0347 11/05/23 1613 11/05/23 1415 SODIUM mmol/L 134* -- 135* POTASSIUM mmol/L 4.2 -- 4.2 CHLORIDE mmol/L 103 -- 105 CO2 mmol/L 24 -- 21 BUN mg/dL 7 -- 5* CREATININE mg/dL 0.93 -- 0.88 GLUCOSE mg/dL 94 -- 107* MAGNESIUM mg/dL 2.2 1.7* -- CALCIUM mg/dL 8.7 -- 9.2 No lab exists for component: AFIO2 , APHT , APCOT , APOT , ATCO2 , CK , ALB , IBILI Results from last 7 days Lab Units 11/06/23 1101 11/06/23 0737 11/05/23 2353 11/05/23 2110 POCT GLUCOSE mg/dL 132* 105 113* 112* Historical Values: (Includes values prior to this admission) Lab Results Component Value Date TSH 3.30 11/06/2023 HDL 41 11/06/2023 LDL 102 11/06/2023 No results found for: [id number] , IRON , TIBC , C3 , C4 , SARAH , CANCA , ASO , PSA , CEA , CA125 , CA199 , AFP , CA153 Imaging Discharge Planning Signed Carmelita Hutchins [facility] Medicine 11/06/2023 1:09 PM [facility] 11-05-2023 Note Hospital Medicine History and Physical 11/06/2023 12:23 AM THE HOSPITALIST TEAM PREFERS TO USE [employer]trans[employer] FOR COMMUNICATION 7AM-7PM. IF I DO NOT RESPOND WITHIN 15 MINUTES, PLEASE PAGE ME/CALL THROUGH THE MAT PUNCHER. FROM 7PM-7AM, PLEASE PAGE [phone](COVR) Chief Complaint Chief Complaint Patient presents with Rapid Heart Rate History of Present Illness Eliana Hager is an 37 y.o. female who came from home with past medical history of morbid obesity s/p gastric bypass, hypertension, DM2, depression presents to the emergency department with a chief complaint of palpitations, nausea, lightheadedness and diaphoresis. Patient states that these symptoms awoke her from sleep. She also endorses shortness of breath but denies chest pain. She denies taking any medications to help. She states that she called EMS. When EMS arrived, patient was found to have a heart rate in the 190s. Patient was given 6 mg IV adenosine, nitroglycerin and Zofran in the rig which improved heart rate to the 120s. In the emergency department, patient was found a blood pressure of 123/78, heart rate 118, temp 97.9 and 99% on room air. Labs were completed showing hemoglobin 10.9, troponin 0.06. Repeat troponin comes back at 0.25. CXR was completed showing no acute cardiopulmonary abnormality. EKG is completed showing sinus tachycardia. During my examination, patient reports that palpitations, nausea, lightheadedness, diaphoresis had subsided but does still state a mild headache with some left eye blurry vision. CT scan to be ordered to rule out any further process, however, before CT scan could be ordered, patient began to have sudden onset left upper extremity and left lower extremity numbness, tingling and weakness. She was also noted to have a left-sided facial droop. Stroke alert was called. NIH was found to be a 4. CT head without IV contrast showed no acute intracranial pathology. CTA head/neck also without acute pathology. Scans reviewed by neurology stroke attending and they would like ASA and MR brain in AM. Review of System and Physical Exam Temp: [36.5 ???C (97.7 ???F)-36.6 ???C (97.9 ???F)] 36.5 ???C (97.7 ???F) Heart Rate: [69-118] 78 Resp: [14-30] 25 BP: (101-143)/(42-81) 143/74 Physical Exam Vitals reviewed. Constitutional: Appearance: She is ill-appearing. HENT: Nose: Nose normal. Mouth/Throat: Mouth: Mucous membranes are moist. Pharynx: Oropharynx is clear. Eyes: Conjunctiva/sclera: Conjunctivae normal. Cardiovascular: Rate and Rhythm: Normal rate. Pulses: Normal pulses. Pulmonary: Effort: Pulmonary effort is normal. Breath sounds: Wheezing present. Abdominal: General: Abdomen is flat. Bowel sounds are normal. Musculoskeletal: General: Normal range of motion. Cervical back: Normal range of motion. Skin: General: Skin is warm and dry. Capillary Refill: Capillary refill takes less than 2 seconds. Neurological: Mental Status: She is alert and oriented to person, place, and time. Sensory: Sensory deficit present. Motor: Weakness present. Coordination: Coordination abnormal. Gait: Gait abnormal. Comments: NIH initially at a 4 with enhancement to a 10 upon reexamination, left upper and lower extremity weakness with sensation loss as well as facial droop Review of Systems Constitutional: Positive for diaphoresis and fatigue. Negative for appetite change, chills and fever. HENT: Negative for congestion. Eyes: Positive for visual disturbance. Respiratory: Positive for shortness of breath. Negative for chest tightness. Cardiovascular: Positive for palpitations. Negative for chest pain and leg swelling. Gastrointestinal: Positive for nausea. Negative for abdominal pain, constipation, diarrhea and vomiting. Genitourinary: Negative for difficulty urinating and dyspareunia. Musculoskeletal: Negative for arthralgias and back pain. Skin: Negative for color change and pallor. Neurological: Positive for dizziness, facial asymmetry, weakness, light-headedness, numbness and headaches. Negative for tremors, seizures, syncope and speech difficulty. Psychiatric/Behavioral: Negative for agitation, behavioral problems and confusion. Problem List Patient Active Problem List Diagnosis Date Noted Hypomagnesemia 11/06/2023 Stroke-like symptoms 11/06/2023 SVT (supraventricular tachycardia) ([facility]/HCC) 11/05/2023 Elevated troponin 11/05/2023 S/P gastric bypass 02/07/2023 Depression 07/14/2017 Diabetes mellitus, type II ([facility]/HCC) 07/14/2017 Morbid obesity ([facility]/HCC) 12/07/2007 Essential hypertension 06/20/2007 Assessment and Plan Eliana Hager is an 37 y.o. female who came from home with past medical history of morbid obesity s/p gastric bypass, hypertension, DM2, depression presents to the emergency department with a chief complaint of palpitations, nausea, lightheadedness and diaphoresis. #SVT #Elevated troponin -Patient found to be tachycardic (more content not included)... [facility] 09-07-2023 Note HNO ID: [id number] Author: ECTOR REDDING, PhD Service: ? Author Type: Physician Type: Progress Notes Filed: 09/15/2023 12:48 Note Text: [facility] Bariatric Behavioral Services Progress Note September 07, 2023 Cost Center[facility] Billing codes: 74792/Ken CPT Code: - 1518512 Virtual Psychotherapy 38-52 minutes Time initiated session: 1:05 PM to 1:50 PM I have communicated my name and active licensure. The patient's identity and physical location were verified at the time of this visit. Either the patient or their legal asset protection representative has been informed of the risks and benefits of -- and alternatives to -- treatment through a remote evaluation/session and consents to proceed with the session remotely. Platform: Zoom for Healthcare Collateral Parties Present: none Session #: 3 Subjective: The patient returns to complete her evaluation: COMPLETED EVALUATION: MENTAL HEALTH HISTORY She reported a hx of depression and was treated with counseling in 2007 through [facility] (seen 1x/month for a few years), returned in 2016 after father for grief counseling. Still sees a counselor [facility] once a month or as needed to address depression and situational stress Pt finds counseling helpful.She reported a hx of Seroquel through [facility] for 1-2 years before my bariatric surgery. Ms. Hager has never been an inpatient for a psychiatric reason. The patient has attempted suicide on the following occasions once in by cutting; got scared, ran to parents who took her to the ED; pt was evaluated and put on a 72 hr watch and was discharged home. The patient has history of self-injurious behavior (one-time). The patient has a family history of mental illness including bipolar disorder/schizophrenia (brother, son), bipolar disorder (mother) The patient denies a history of physical, sexual abuse; hx of teasing in school The following psychiatric symptoms are noted: good Depression: feeling a bit helpless and down about weight; counseling is reportedly helpful Mónica: Denies any history of hypomanic or manic episodes. Psychosis: Denies any hallucinations or delusions. Generalized Anxiety Disorder: Denies any symptoms of PREMA Panic: Denies any symptoms of panic. Obsessive Compulsive Disorder: Denies any symptoms of OCD; does like cleaning/things in their place Post-Traumatic Stress Disorder: Denies any PTSD symptoms The patient has the following level of depression: mild and episodic not requiring treatment (or stable on current regimen). Besides depressive disorders, the patient meets criteria for no discernible disorder(s). SUBSTANCE USE Alcohol Use Disorder Identification Test-C: How often do you drink Alcohol? 1 (Monthly or Less); holidays or special occasions How many drinks containing alcohol do you have on a typical day when you are drinking? 2( = 6 ); e.g. 4 wine coolers + 2 shots) How often do you have 5 or more drinks on one occasion: 1 (Less than Monthly). The patient's most recent drinking episode was New Years Terrie. AUDIT-C = 4 Rare frequency, high amounts Her goal is to cut out alcohol after surgery Currently, the patient has rare alcohol use. The patient was given a handout: The Facts About Alcohol Use AND Your Bariatric Surgery. The patient DOES NOT report current marijuana use; has tried it The patient denies current drug use; tried marijuana in past. The patient does not report social/occupational/legal consequences associated with drug or alcohol use. Currently, the patient has no reported substance abuse (prescription or illegal). Treatment included: The patient has never had any substance abuse treatment. The patient is a lifelong nonsmoker. The patient has no tobacco use. FAMILY OF ORIGIN Ms. Hager was raised in an intact family. She described her childhood as good. The patient was raised with 2 brother. The patient's mother and brothers are still living; father has been since 2017. She is currently close with her family. MARITAL FAMILY/SIGNIFICANT RELATIONSHIPS Ms. Hager has never been and is currently single. Pt has an 11yo son and has had custody of her 15yo niece since she was 6mo old The patient currently lives with her 2 kids. She describes her family life as okay... it's cool . The patient will have her mother help her after surgery during the recovery period. Other social supports include her mother, brothers, friend, extended family, and religious community. The patient reports that her social supports are supportive of her decision for surgery. 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 Her achievement in school was average. 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 [facility] 08-26-2023 Note HNO ID: [id number] Author: ECTOR REDDING, PhD Service: ? Author Type: Physician Type: Progress Notes Filed: 09/01/2023 10:31 Note Text: [facility] Bariatric Behavioral Services Progress Note August 26, 2023 Cost Center: [facility] Billing codes: 12701/Ken CPT Code: - 92701 Brief Emotional/Behavioral Assessment with scoring/documentation - [id number] Virtual Psychotherapy 55+ minutes Time initiated session: 3:05 AM to 4:02 PM I have communicated my name and active licensure. The patient's identity and physical location were verified at the time of this visit. Either the patient or their legal asset protection representative has been informed of the risks and benefits of -- and alternatives to -- treatment through a remote evaluation/session and consents to proceed with the session remotely. Platform: Zoom for Healthcare Collateral Parties Present: none Session #: 2 Subjective: The patient returns to continue the evaluation. Information below in italics was copied from my previous note on 02/15/2023 and has been edited to reflect updates. EATING/WEIGHT HISTORY: Ms. Hager was overweight as a child. Her weight at age 16 was low 400's lbs. 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 The patient reports a family history of obesity. The patient's current weight is 472 lbs.Body mass index is 78.54 kg/m?. The patient has tried weight loss strategies in the past including: Medication, including Adipex, Metformin, Trulicity, OTC meds, Nutrisystem, Slim Fast, Physician-Directed Diet, diabetic diet, counting calories, silicone banded RYGB The patient denies a history of laxative/diuretic use. The patient denies a history of vomiting to lose weight. The patient reports a history of an eating disorder (BED dx by Lamar Phillips, PhD in 2007). She has had treatment for eating disorders in the past ([facility] + additional individual sessions with [facility] 2007) The most pt has lost is 250 lbs using silicone banded RYGB. As noted above, patient had 2007 silicone banded RYGB in February 2008 at [facility] (Dr. Matthews); heaviest adult weight was reported at 612 lbs. and pre-op weight was reported 501 lbs. Lilliana = 250 lbs (<1 year). She has regained ~230 lbs and attributes regain to weight gain, Depo-Provera, falling back to poor eating habits, limited exercise d/t knee pain. Bariatric lifestyle adherence: Meal patterns: 3 meals + snacks (e.g., fruit, salads, PB or cheese crackers) Skipping meals: none since meeting with Kenya Burton eating: no, unplanned grazing; cannot eat full meal Protein intake: ?? Water intake: 34 oz Caffeine use: none Soda use: none Juice: none since March Problem Food/s: cheese Eating out: 1-2x/month Vitamins: started bariatric vitamins Grocery Shopping: patient Cooking: patient Speed of eating: not too fast eating and drinking: now I am Support Group attendance: no Self-weighing frequency: I don't. Food Records: No Changes made since working with [employer] doing protein shakes as meal replacements Trying vitamins Changed timing of eating Eating smaller portions Stopped drinking alcohol Eating Disorders (summary from 02/15/2023): Binge Eating Disorder - No Night Eating Syndrome - No Graze eating = 7 days/week without LOC MENTAL HEALTH HISTORY She reported a hx of depression and was treated with counseling in 2007 through [facility] (seen 1x/month for a few years), returned in 2016 after father for grief counseling. Still sees a counselor SANTA Sim II, [place] once a month or as needed to address depression and situational stress Pt finds counseling helpful.She reported a hx of Seroquel through [facility] for 1-2 years before my bariatric surgery. Ms. Hager has never been an inpatient for a psychiatric reason. The patient has attempted suicide on the following occasions once in by cutting; got scared, ran to parents who took her to the ED; pt was evaluated and put on a 72 hr watch and was discharged home. The patient has history of self-injurious behavior (one-time). 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 [facility] 07-25-2023 Progress note Note Date/Time July 25, 2023 9:01am [facility] [address] [place] [address] General Surgery Progress Note Signed Patient: Eliana Hager MR#: [id number] : 1985 Acct:[id number] Age/Sex: 37 / F Adm Date: 4 Loc: Room: [address] [place] [address] Type: ADM IN Attending Dr: Kash Hooks DO Copies to: ~ Date of Service: 07/25/2023 Subjective Subjective HPI: The patient is post operative day #1 status post incision and drainage of right breast abscess. Cultures are pending. She appears comfortable. Allergies & Medications Medications and Allergies Allergies No Known Allergies Allergy (Verified 07/22/23 11:11) Home Medications allopurinol 100 mg tablet 100 mg PO DAILY 07/22/23 [History Confirmed 07/22/23] cholecalciferol (vitamin D3) 125 mcg (5,000 unit) capsule 5,000 unit PO DAILY Vitamin D deficiency 07/22/23 [History Confirmed 07/22/23] ciprofloxacin HCl 500 mg tablet 500 mg PO BID 07/22/23 [History Confirmed 07/22/23] cyanocobalamin (vitamin B-12) 100 mcg tablet 100 mcg PO DAILY Vitamin B-12 deficiency 07/22/23 [History Confirmed 07/22/23] dulaglutide 1.5 mg/0.5 mL subcutaneous pen injector (Trulicity) 1.5 mg subcut QWEEK Type 2 Diabetes 07/22/23 [History Confirmed 07/22/23] ferrous sulfate 325 mg (65 mg iron) tablet (Glen-Time) 325 mg PO DAILY 07/22/23[History Confirmed 07/22/23] gabapentin 100 mg capsule (Neurontin) 100 mg PO DAILY 07/22/23 [History Confirmed 07/22/23] hydrochlorothiazide 25 mg tablet 25 mg PO DAILY Hypertension 07/22/23 [History Confirmed 07/22/23] metformin 500 mg tablet 500 mg PO DAILY Type 2 Diabetes 07/22/23 [History Confirmed 07/22/23] Active Medications Acetaminophen (Acetaminophen 325 Mg Tablet) 650 mg PO Q4H PRN PRN Reason: Fever or Pain Stop: 07/21/24 23:26 Allopurinol (Allopurinol 100 Mg Tablet) 100 mg PO DAILY MICAH Stop: 07/23/24 08:59 Last Admin: 07/25/23 08:33 Dose: 100 mg Cyanocobalamin (Cyanocobalamin 1,000 Mcg/Ml Vial) 1,000 mcg IM DAILY MICAH Stop: 07/23/24 12:29 Last Admin: 07/25/23 08:33 Dose: 1,000 mcg Diphenhydramine HCl (Diphenhydramine 50 Mg/Ml Vial) 25 mg IV-PUSH Q4H PRN PRN Reason: Allergic Symptoms Stop: 07/23/24 11:12 Last Admin: 07/24/23 11:44 Dose: 25 mg Enoxaparin Sodium (Enoxaparin 40 Mg/0.4 Ml Syringe) 40 mg SUBCUT DAILY@1000 [facility] Stop: 07/23/24 11:14 Last Admin: 07/24/23 13:21 Dose: 40 mg Gabapentin (Gabapentin 100 Mg Capsule) 100 mg PO DAILY MICAH Stop: 07/23/24 08:59 Last Admin: 07/25/23 08:33 Dose: 100 mg Hydrochlorothiazide (Hydrochlorothiazide 25 Mg Tablet) 25 mg PO DAILY MICAH Stop: 07/23/24 08:59 Last Admin: 07/25/23 08:33 Dose: 25 mg Hydromorphone HCl (Hydromorphone 0.5 Mg/0.5 Ml Syringe) 0.5 mg IV-PUSH Q4H PRN PRN Reason: Pain Scale 8 - 10 Last Admin: 07/24/23 23:31 Dose: 0.5 mg Vancomycin HCl 1.25 gm/ (Dextrose) 275 mls @ 183.333 mls/hr IV Q8H MICAH Stop: 07/22/24 00:59 Last Admin: 07/25/23 04:21 Dose: 183.33 mls/hr Ampicillin Sodium/Sulbactam Sodium (Unasyn) 3 gm in 100 mls @ 200 mls/hr IV Q6HSCH Last Admin: 07/25/23 04:22 Dose: 200 mls/hr Oxycodone/Acetaminophen (Oxycodone/Acetaminophen 5-325 Mg Tablet) 1 tab PO Q4H PRN PRN Reason: Pain Scale 4 - 7 Last Admin: 07/24/23 22:02 Dose: 1 tab Saccharomyces Boulardii (Saccharomyces Boulardii 250 Mg Capsule) 250 mg PO BID.WITH.MEALS [facility] Stop: 07/23/24 11:14 Last Admin: 07/25/23 08:34 Dose: 250 mg Sodium Chloride (Sodium Chloride 0.9 % 10 Ml Syringe) 0 ml IV-PUSH PRN PRN PRN Reason: Flush Stop: 07/21/24 11:12 Last Admin: 07/25/23 04:21 Dose: 20 ml Vancomycin HCl (Vancomycin - Pharmacy Dosing 1 Each Miscell) 1 each IV ONCE PRN; Protocol PRN Reason: ZZ.Pharmacy Consult Vitamin D (Cholecalciferol 125 Mcg (5,000 Units) Capsule) 125 mcg PO DAILY [facility] Stop: 07/23/24 08:59 Last Admin: 07/25/23 08:33 Dose: 125 mcg Exam Physical Exam Vital Signs: Temp Pulse Resp BP Pulse Ox O2 Del Method O2 Flow Rate 97.6 F 64 18 136/80 99 Room Air 8 07/24/23 20:00 07/25/23 04:20 07/25/23 04:20 07/25/23 04:20 07/25/23 04:20 07/25/23 04:20 07/24/23 08:44 Const General: cooperative and no acute distress Chest Other: Dressings dry Neuro General: patient alert and patient awake Objective Pain Assessment Right Breast: Pain Description: Soreness and Tender Pain Intensity: 9 Intake & Output 24 hour I&O: Intake & Output 07/24/23 07/25/23 07/25/23 23:59 07:59 15:59 Intake Total 1175 / 2575 340 / 340 Balance 1175 / 2575 340 / 340 Weight 206 kg Labs 07/25/23 06:22 07/25/23 06:22 Laboratory Results - Last 48 hrs. 07/25/23 06:37: POC Glucose 121 07/25/23 06:22: Corrected WBC 5.7, Uncorrected WBC Count 5.7, RBC 3.24 L, Hgb 9.5 L, Hct 29.3 L, MCV 90.4, MCH 29.3, MCHC 32.4, RDW 20.5 H, Plt Count 322, MPV8.1, Neut % (Auto) 52.1, Lymph % (Auto) 37.1, Hernando % (Auto) 7.8, Eos % (Auto) 2.5, Baso % (Auto) 0.5, Nucleat RBC Rel Count 0.1, Neut # (Auto) 3.0, Lymph # (Auto) 2.1, Hernando # (Auto) 0.4, Eos # (Auto) 0.1, Baso # (Auto) 0.0, PHA Creatinine Clear 159.80, Sodium 138, Potassium 4.2, Chloride 100, Carbon Hosjtwa75.7, Anion Gap 11.5, BUN 6 L, Creatinine 0.87, Est GFR (CKD-EPI) > 60.0, Glucose 96, Calcium 9.0 07/24/23 20:54: POC Glucose 189, POC Glucose Comment Glu2: cleaned meter 07/24/23 16:10: POC Glucose 141 07/24/23 12:11: Vancomycin Trough 13.9 07/24/23 11:06: POC Glucose 122 07/24/23 08:50: POC Glucose 94 07/24/23 07:19: Corrected WBC 6.2, Uncorrected WBC Count 6.2, RBC 3.29 L, Hgb 9.6 L, Hct 29.6 L, MCV 89.9, MCH 29.3, MCHC 32.5, RDW 20.8 H, Plt Count 320, MPV8.4, Neut % (Auto) 61.6, Lymph % (Auto) 29.3, Hernando % (Auto) 7.4, Eos % (Auto) 1.3, Baso % (Auto) 0.4, Nucleat RBC Rel Count 0.0, Neut # (Auto) 3.8, Lymph # (Auto) 1.8, Hernando # (Auto) 0.5, Eos # (Auto) 0.1, Baso # (Auto) 0.0, PT 12.7, INR1.1, APTT 27.9, PHA Creatinine Clear 152.62, Sodium 134 L, Potassium 4.1, Chloride 103, Carbon Dioxide 25.6, Anion Gap 9.5, BUN 7, Creatinine 0.90, Est GFR (CKD-EPI) > 60.0, Glucose 95, Estimat Average Glucose 108, Hemoglobin A1c 5.4, Calcium 9.1, Vitamin B12 141 L, Folate 9.6, Vancomycin Trough 23.3 H 07/24/23 06:29: POC Glucose 104, POC Glucose Comment Glu2: cleaned meter 07/24/23 00:25: Vancomycin Peak 17.8 L 07/23/23 21:10: POC Glucose 120 07/23/23 16:21: POC Glucose 123 07/23/23 11:14: POC Glucose 128 Microbiology Microbiology 07/22/23 14:25 Blood - Left Antecubital Blood Culture - Preliminary No Growth 2 Days 07/24/23 08:30 Breast,Right - Abscess Gram Stain - Final 07/23/23 09:35 Blood - Right Antecubital Blood Culture - Preliminary No Growth 1 Day A&P - General Surgery Assessment/Plan (1) Abscess of breast, right: (2) BMI 70 and over, adult: (3) Type 2 diabetes mellitus: Qualifiers: Diabetes mellitus ferry terminal supervisor insulin use: without ferry terminal supervisor use Diabetesmellitus complication status: without complication Qualified Code(s): E11.9 - Type 2 diabetes mellitus without complications Plan Continue dressing changes. Patient can have dressing changes performed at the infusion center here or at a facility in [place] if there is 1 available. She will follow-up with me in about 1 week. Documented By: Мария Danielle MD 07/25/23 0859 Signed By: <Electronically signed by MD Мария Danielle> 07/25/23 0901 [facility] Work Phone: [phone] [phone] Progress note Author Kash Hooks [facility] July 24, 2023 12:08pm Note Date/Time July 24, 2023 12: 08pm [facility] [address] [place] [id number] Hospitalist Progress Note Signed Patient: lEiana Hager MR#: [id number] : 1985 Acct:[id number] Age/Sex: 37 / F Adm Date: 4 Loc: Room: [address] [place] [address] Type: ADM IN Attending Dr: Kash Hooks DO Copies to: ~ Date of Service: 07/24/2023 Subjective Subjective Narrative: This morning the patient did go to the operating room by general surgery with Dr. Danielle for incision and drainage of the right breast abscess. After the surgery she did have some nausea and was not able to eat her breakfast. Now she has a lot of pruritus on her skin and so we are ordering hersome IV Benadryl. She reports that she is beginning to feel pain at the operative site. Otherwiseshe feels well. No headache. No lightheadedness. No fevers or chills. No rigors. We discussed discharge planning. She lives in [place]. The case management staff believes that the [facility] has a wound care center. However it is Tuesday. We will need to keep her in the hospital overnight to make sure thatthe wound care center in [place] can take her and meet her needs. I did describe to the patient, and her family members in the room, including her mother, in general and layman's terms, how important it is to correctly pack anddress this wound until it is fully healed otherwise she risks having recurrence of infection. They did express understanding. She has been on IV vancomycin. However this is not a broad-spectrum antibiotic. I will add IV Unasyn while we are awaiting culture and sensitivity results. Yesterday she described having neuropathy. This was mostly in her lower legs. She does have vitamin B12 deficiency. Her vitamin B12 level is 141. That is likely related to her gastric bypass surgery status. Exam Physical Exam Vital Signs: Temp Pulse Resp BP Pulse Ox O2 Del Method O2 Flow Rate 97.6 F 76 18 139/87 94 L Room Air 8 07/24/23 09:25 07/24/23 09:25 07/24/23 09:25 07/24/23 09:25 07/24/23 09:25 07/24/23 09:35 07/24/23 08:44 Narrative: General: Sitting upright in bed. Cardiac: Clear to auscultation. No rubs. No gallops. Heart sounds are somewhat distant auscultation. Pulm: Clear to auscultation anteriorly. No wheezing. No rhonchi. No crackles. Breast: Appropriately dressed after the surgery. Lower extremities: She does have mild venous stasis changes in the ankles bilaterally. No pitting edema. No swelling or cords bilaterally in the calves. Objective Lab Results 07/24/23 07:19 07/24/23 07:19 Microbiology Results Microbiology 07/23/23 09:35 Blood - Right Antecubital Blood Culture - Preliminary No Growth 1 Day 07/22/23 14:25 Blood - Left Antecubital Blood Culture - Preliminary No Growth 1 Day Meds Allergies and Active Meds Allergies No Known Allergies Allergy (Verified 07/22/23 11:11) Active Meds: Active Medications Generic Name Dose Route Start Last Admin Trade Name Freq PRN Reason Stop Dose Admin Acetaminophen 650 mg 07/23/23 16:15 Acetaminophen 325 Mg Tablet PO 07/21/24 23:26 Q4H PRN Fever or Pain Allopurinol 100 mg 07/24/23 09:00 07/24/23 09:31 Allopurinol 100 Mg Tablet PO 07/23/24 08:59 100 mg DAILY MICAH Administration Cyanocobalamin 250 mcg 07/24/23 09:00 07/24/23 09:30 Cyanocobalamin 500 Mcg Tablet PO 07/23/24 08:59 250 mcg DAILY MICAH Administration Diphenhydramine HCl 25 mg 07/24/23 11:13 07/24/23 11:44 Diphenhydramine 50 Mg/Ml Vial IV-PUSH 07/23/24 11:12 25 mg Q4H PRN Administration Allergic Symptoms Enoxaparin Sodium 40 mg 07/24/23 11:15 Enoxaparin 40 Mg/0.4 Ml Syringe SUBCUT 07/23/24 11:14 DAILY@1000 MICAH Gabapentin 100 mg 07/24/23 09:00 07/24/23 09:30 Gabapentin 100 Mg Capsule PO 07/23/24 08:59 100 mg DAILY MICAH Administration Hydrochlorothiazide 25 mg 07/24/23 09:00 07/24/23 09:31 Hydrochlorothiazide 25 Mg Tablet PO 07/23/24 08:59 25 mg DAILY MICAH Administration Hydromorphone HCl 0.5 mg 07/22/23 23:27 07/24/23 00:52 Hydromorphone 0.5 Mg/0.5 Ml Syringe IV-PUSH 0.5 mg Q4H PRN Administration Pain Scale 8 - 10 Vancomycin HCl 1.25 gm/ 275 mls @ 183.333 mls/hr 07/23/23 01:00 07/24/23 04:52 Dextrose IV 07/22/24 00:59 183.33 mls/hr Q8H MICAH Administration Ampicillin Sodium/Sulbactam Sodium 3 gm in 100 mls @ 200 mls/hr 07/24/23 11:15 Unasyn IV Q6H MICAH Oxycodone/Acetaminophen 1 tab 07/22/23 17:40 07/24/23 11:52 Oxycodone/Acetaminophen 5-325 Mg Tablet PO 1 tab Q4H PRN Administration Pain Scale 4 - 7 Saccharomyces Boulardii 250 mg 07/24/23 11:15 07/24/23 11:44 Saccharomyces Boulardii 250 Mg Capsule PO 07/23/24 11:14 250 mg BID.WITH.MEALS MICAH Administration Sodium Chloride 0 ml 07/22/23 11:13 07/24/23 11:44 Sodium Chloride 0.9 % 10 Ml Syringe IV-PUSH 07/21/24 11:12 10 ml PRN PRN Administration Flush Vancomycin HCl 1 each 07/22/23 17:41 Vancomycin - Pharmacy Dosing 1 Each Miscell IV ONCE PRN ZZ.Pharmacy Consult Protocol Vitamin D 125 mcg 07/24/23 09:00 07/24/23 09:31 Cholecalciferol 125 Mcg (5,000 Units) Capsule PO 07/23/24 08:59 125 mcg DAILY MICAH Administration A&P - Hospitalist Assessment/Plan (1) Abscess of breast, right: (2) Type 2 diabetes mellitus: (3) BMI 70 and over, adult: (4) History of gastric bypass: (5) Neuropathy: (6) Vitamin B 12 deficiency: Plan right breast abscess Morbid obesity (BMI 74.3) s/o gastric bypass a few years ago. Diabetes mellitus type 2. Plan: I appreciate general surgery taking this patient to the operating room on 07/24/23. Continue IV vancomycin, but add IV Unasyn while awaiting culture and sensitivityresults. Will begin vitamin B12 supplementation intramuscularly. Perhaps the wound care center that she will go to will be able to give her vitamin B12 injections. Documented By: Kash Hooks DO [id number] Signed By: <Electronically signed by Kash Hooks, > 07/24/23 1208 [facility] Work Phone: [phone] 224-669604-13-2024 Progress note Author Kash Hooks [facility] July 23, 2023 4:55pm Note Date/Time July 23, 2023 4:4 9pm [facility] [address] [place] [address] Hospitalist Progress Note Signed Patient: Eliana Hager MR#: [id number] : 1985 Acct:[id number] Age/Sex: 37 / F Adm Date: 4 Loc: Room: [address] [place] [address] Type: ADM IN Attending Dr: Kash Hooks DO Copies to: ~ Date of Service: 07/23/2023 Subjective Subjective Narrative: The patient states that pain the right breast is progressing towards the nipple. It is never gone quite that far before. She has not noticed any drainage from the nipple so far. So far she is free of any systemic complaints: No fevers chills. No diaphoresis. No abdominal pain. No diarrhea. She does note that she has a [id number] type of numbness that is affecting both of her legs from her feet up to her ankles. She is in the pipeline to get redo of gastric weight loss surgery at the [facility]. She was just 2 appointments away from being able to get it done. Got delayed when she had influenza and needed time to recover from that. Exam Physical Exam Vital Signs: Temp Pulse Resp BP Pulse Ox O2 Del Method 97.5 F L 83 18 103/60 98 Room Air 07/23/23 15:51 07/23/23 15:51 07/23/23 15:51 07/23/23 15:51 07/23/23 15:51 07/23/23 15:51 Narrative: General: Reclining in bed. Son and mother in the room with her. Cardiac: Clear to auscultation. No rubs. No gallops. Heart sounds are somewhat distant auscultation. Pulm: Clear to auscultation anteriorly. No wheezing. No rhonchi. No crackles. Breast: The right breast does have a very firm and dense area near the areola inthe 1 o'clock position. Given the propensity of the tissue in this area it is difficult to tell if there is fluctuance near the surface or if it is very deep. Lower extremities: She does have mild venous stasis changes in the ankles bilaterally. No pitting edema. No swelling or cords bilaterally in the calves. Objective Lab Results 07/22/23 14:25 07/22/23 14:25 Microbiology Results Microbiology 07/22/23 14:25 Blood - Left Antecubital Blood Culture - Preliminary No Growth 1 Day Meds Allergies and Active Meds Allergies No Known Allergies Allergy (Verified 07/22/23 11:11) Active Meds: Active Medications Generic Name Dose Route Start Last Admin Trade Name Freq PRN Reason Stop Dose Admin Acetaminophen 650 mg 07/23/23 16:15 Acetaminophen 325 Mg Tablet PO 07/21/24 23:26 Q4H PRN Fever or Pain Hydromorphone HCl 0.5 mg 07/22/23 23:27 07/23/23 15:12 Hydromorphone 0.5 Mg/0.5 Ml Syringe IV-PUSH 0.5 mg Q4H PRN Administration Pain Scale 8 - 10 Vancomycin HCl 1.25 gm/ 275 mls @ 183.333 mls/hr 07/23/23 01:00 07/23/23 09:30 Dextrose IV 07/22/24 00:59 183.33 mls/hr Q8H MICAH Administration Oxycodone/Acetaminophen 1 tab 07/22/23 17:40 07/22/23 20:28 Oxycodone/Acetaminophen 5-325 Mg Tablet PO 1 tab Q4H PRN Administration Pain Scale 4 - 7 Sodium Chloride 0 ml 07/22/23 11:13 07/23/23 15:12 Sodium Chloride 0.9 % 10 Ml Syringe IV-PUSH 07/21/24 11:12 10 ml PRN PRN Administration Flush Vancomycin HCl 1 each 07/22/23 17:41 Vancomycin - Pharmacy Dosing 1 Each Miscell IV ONCE PRN ZZ.Pharmacy Consult Protocol A&P - Hospitalist Assessment/Plan (1) Abscess of breast, right: (2) Type 2 diabetes mellitus: (3) BMI 70 and over, adult: (4) History of gastric bypass: (5) Neuropathy: Plan right breast abscess Morbid obesity s/o gastric bypass Plan: I appreciate general surgery taking this patient to the operating room tomorrow,at 8:00 in the morning for the definitive procedure. Continue IV vancomycin, Check hemoglobin A1c, folic acid, vitamin B12, and resume home medications including gabapentin, lisinopril, hydrochlorothiazide, tomorrow after surgery and would resume metformin once able to eat food well and the general surgeon declares that no more surgeries are needed. Documented By: Kash Hooks DO [id number] Signed By: <Electronically signed by Kash Hooks DO> 07/23/23 1655 [facility] Work Phone: [phone] 207-406104-13-2024 Consult note Author Мария Danielle [facility] July 23, 2023 9:22am Note Date/Time July 23, 2023 9:1 5am [facility] [address] [place] [address] General Surgery Consult Note Signed Patient: Eliana Hager MR#: [id number] : 1985 Acct:[id number] Age/Sex: 37 / F Adm Date: 4 Loc: Room: [address] [place] [address] Type: ADM IN Attending Dr: Kash Hooks DO Copies to: NON STAFF MD Kash Nava DO~ History of Present Illness Date of consult: 07/23/2023 Requesting/Attending Provider: Kash Hooks DO History of present illness: Patient is a 37-year-old female presents with a right breast abscess. This has been present for about 2 months. Patient has been treated with antibiotics. States she also had a biopsy done. The site has not improved and has worsened with increased size and pain. Patient did have an ultrasound which showed abscess in the superior portion of the right breast. Area is very tender. Currently, there are no open areas or drainage. Patient has had courses of Keflex and Cipro. Patient is diabetic. She is on metformin. She is also on Trulicity which she states is mainly for weight loss. She states she is to have bariatric surgery for weight loss but that is on hold right now because of the breast abscess. [facility] Patient's primary care provider is in [place]. Review of Systems Constitutional Constitutional: Denies fever(s) Cardiovascular Cardiovascular: Denies chest pain Respiratory Respiratory: Denies dyspnea Gastrointestinal Gastrointestinal: Denies abdominal pain Genitourinary Genitourinary: Denies difficulty voiding Integumentary/Breasts Skin/Breast: Reports breast pain Comments: Right breast mass Neurologic Neurologic: Denies syncope ON LICENSE OF [facility] Medical History (Updated 07/23/23 @ 09:20 by Мария Danielle MD) Type 2 diabetes mellitus No pertinent past medical history Surgical History (Updated 07/22/23 @ 13:48 by Carmelita George RN) History of lithotripsy History of gastric bypass History of arthroscopic knee surgery History of ankle surgery Social History Smoking Status: Never smoker Substance Use Type: None Allergies & Medications Medications and Allergies Allergies No Known Allergies Allergy (Verified 07/22/23 11:11) Home Medications allopurinol 100 mg tablet 100 mg PO DAILY 07/22/23 [History Confirmed 07/22/23] cholecalciferol (vitamin D3) 125 mcg (5,000 unit) capsule 5,000 unit PO DAILY Vitamin D deficiency 07/22/23 [History Confirmed 07/22/23] ciprofloxacin HCl 500 mg tablet 500 mg PO BID 07/22/23 [History Confirmed 07/22/23] colchicine 0.6 mg tablet 0.6 mg PO DAILY 07/22/23 [History Confirmed 07/22/23] cyanocobalamin (vitamin B-12) 100 mcg tablet 100 mcg PO DAILY Vitamin B-12 deficiency 07/22/23 [History Confirmed 07/22/23] dulaglutide 1.5 mg/0.5 mL subcutaneous pen injector (Trulicity) 1.5 mg subcut QWEEK Type 2 Diabetes 07/22/23 [History Confirmed 07/22/23] ferrous sulfate 325 mg (65 mg iron) tablet (Glen-Time) 325 mg PO DAILY 07/22/23[History Confirmed 07/22/23] gabapentin 100 mg capsule (Neurontin) 100 mg PO DAILY 07/22/23 [History Confirmed 07/22/23] hydrochlorothiazide 25 mg tablet 25 mg PO DAILY Hypertension 07/22/23 [History Confirmed 07/22/23] lisinopril 40 mg tablet 40 mg PO DAILY Hypertension 07/22/23 [History Confirmed 07/22/23] metformin 500 mg tablet 500 mg PO DAILY Type 2 Diabetes 07/22/23 [History Confirmed 07/22/23] Active Medications Acetaminophen (Acetaminophen 325 Mg Tablet) 650 mg PO Q6H PRN PRN Reason: Fever or Pain Stop: 07/21/24 23:26 Hydromorphone HCl (Hydromorphone 0.5 Mg/0.5 Ml Syringe) 0.5 mg IV-PUSH Q4H PRN PRN Reason: Pain Scale 8 - 10 Last Admin: 07/23/23 06:16 Dose: 0.5 mg Vancomycin HCl 1.25 gm/ (Dextrose) 275 mls @ 183.333 mls/hr IV Q8H MICAH Stop: 07/22/24 00:59 Last Admin: 07/23/23 00:30 Dose: 183.33 mls/hr Oxycodone/Acetaminophen (Oxycodone/Acetaminophen 5-325 Mg Tablet) 1 tab PO Q4H PRN PRN Reason: Pain Scale 4 - 7 Last Admin: 07/22/23 20:28 Dose: 1 tab Sodium Chloride (Sodium Chloride 0.9 % 10 Ml Syringe) 0 ml IV-PUSH PRN PRN PRN Reason: Flush Stop: 07/21/24 11:12 Last Admin: 07/22/23 23:49 Dose: 10 ml Vancomycin HCl (Vancomycin - Pharmacy Dosing 1 Each Miscell) 1 each IV ONCE PRN; Protocol PRN Reason: ZZ.Pharmacy Consult Exam Physical Exam Vital Signs: Temp Pulse Resp BP Pulse Ox O2 Del Method 98.1 F 73 19 124/74 99 Room Air 07/23/23 06:08 07/23/23 06:08 07/23/23 06:08 07/23/23 06:08 07/23/23 06:08 07/23/23 06:08 Const General: cooperative and no acute distress HEENT Head: atraumatic Eyes Sclera: sclerae normal (Anicteric) Chest Other: Firm tender mass superior aspect of the right breast. No open areas or drainage. Resp Auscultation: clear to auscultation bilaterally Cardio Rate: regular rate Rhythm: regular rhythm GI Palpation: soft Neuro General: patient alert and patient awake Results - Gen. Surgery Pain Assessment Right Breast: Pain Intensity: 8 Intake and Output 24 hour I&O: Intake & Output 07/22/23 07/23/23 07/23/23 23:59 07:59 15:59 Intake Total 350 / 350 0 / 0 Balance 350 / 350 0 / 0 Weight 214.5 kg 214.6 kg Labs 07/22/23 14:25 07/22/23 14:25 Laboratory Results - last 72 hr 07/23/23 06:20: POC Glucose 105 07/22/23 21:12: POC Glucose 135 07/22/23 14:25: Corrected WBC 8.3, Uncorrected WBC Count 8.3, RBC 3.89, Hgb 11.4L, Hct 35.2, MCV 90.6, MCH 29.3, MCHC 32.4, RDW 21.1 H, Plt Count 377, MPV 8.2, Neut % (Auto) 60.7, Lymph % (Auto) 32.5, Hernando % (Auto) 4.8, Eos % (Auto) 1.1, Baso % (Auto) 0.9, Nucleat RBC Rel Count 0.1, Neut # (Auto) 5.0, Lymph # (Auto) 2.7, Hernando # (Auto) 0.4, Eos # (Auto) 0.1, Baso # (Auto) 0.1, Monocyte Dist Width22.30 H, PHA Creatinine Clear 157.26, Sodium 134 L, Potassium 3.8, Chloride 100,Carbon Dioxide 24.9, Anion Gap 12.9, BUN 7, Creatinine 0.91, Est GFR (CKD-EPI) >60.0, Glucose 98, Calcium 9.7, Total Bilirubin 0.5, AST 18, ALT 7, Alkaline Phosphatase 74, Total Protein 8.6, Albumin 3.9, Globulin 4.7, Albumin/Globulin Ratio 0.8 07/22/23 14:07: Urine Color Yellow, Urine Appearance Clear, Urine pH 7.0, Ur Specific Hobart 1.012, Urine Protein Negative, Urine Glucose (UA) Normal, UrineKetones Negative, Urine Occult Blood Negative, Urine Nitrite Negative, Urine Bilirubin Negative, Urine Urobilinogen Normal, Ur Leukocyte Esterase Negative, Urine HCG, Qual Negative A&P - General Surgery (1) Abscess of breast, right: (2) BMI 70 and over, adult: (3) Type 2 diabetes mellitus: Qualifiers: Diabetes mellitus [facility] insulin use: without [facility] use Diabetesmellitus complication status: without complication Qualified Code(s): E11.9 - Type 2 diabetes mellitus without complications Plan Plan will be to perform incision and drainage of the right breast abscess under anesthesia. The procedure, benefits, risks including risks of bleeding, infection, wound healing problems discussed. Patient will require dressing changes postoperatively. We can check to see if there is an infusion center/wound center in [place] that can do her dressing changes. Otherwise, patient will see if her brother is able to do the dressing changes. Patient adarsh come to [place] for her dressing changes. Surgery will be scheduled for tomorrow morning. Documented By: Мария Danielle MD 07/23/23 0914 Signed By: <Electronically signed by MD Мария Danielle> 07/23/23 0922 [facility] Work Phone: 1(166) 375-544904-12-2024 History and physical note Author Lauren Oropeza [facility] July 22, 2023 5:42pm Note Date/Time July 22, 2023 5:3 2pm [facility] [address] [place] [address] Hospitalist H&P Signed Patient: Eliana Hager MR#: [id number] : 1985 Acct:[id number] Age/Sex: 37 / F Adm Date: 4 Loc: Room: [address] [place] [address] Type: ADM IN Attending Dr: Lauren Oropeza MD Copies to: NON STAFF Lauren Oropeza MD~ HPI DATE OF EXAMINATION: 07/22/23 CHIEF COMPLAINT: right breast pain HISTORY OF PRESENT ILLNESS: This is a 37 yo female who was sent to the emergency room by surgeon in [place] for evaluation and treatment of right breast abscess. She states she is on Cipro now which is the second antibiotic and she has had ultrasound as well as mammograms for abscess lesion in right breast. She states that the abscess was drained percutaneously at time of the I&D. she states that these abscess areas are not improving with prescribed antibiotic treatment and in fact the area of induration has increased markedly over the last several days and the area is more painful. She recounts discharge from the nipple earlier but this is not ongoing. Denies fever or chills Review of Systems Review of Systems All other systems reviewed & are negative unless noted below or in HPI ON LICENSE OF [facility] Medical History (Updated 07/22/23 @ 16:38 by Oumar Rivas APRN) No pertinent past medical history Surgical History (Updated 07/22/23 @ 13:48 by Carmelita George RN) History of lithotripsy History of gastric bypass History of arthroscopic knee surgery History of ankle surgery Social History Smoking Status: Never smoker Substance Use Type: None Meds Medications and Allergies Allergies No Known Allergies Allergy (Verified 07/22/23 11:11) Home Medications ciprofloxacin HCl 500 mg tablet 500 mg PO BID 07/22/23 [History Confirmed 07/22/23] Exam Physical Exam Vital Signs: Temp Pulse Resp BP Pulse Ox O2 Del Method 97.9 F 70 15 146/82 H 100 Room Air 07/22/23 11:10 07/22/23 11:10 07/22/23 11:10 07/22/23 11:10 07/22/23 11:10 07/22/23 11:10 Narrative: Morbidly obese Lungs CTA Heart RRR Breasts: right breast periareolar tenderness Abd soft NT Ext no edema Neuro no focal deficit Results - Hospitalist H&P Lab Results Labs: Laboratory Last Values Corrected WBC 8.3 X10E3/uL (3.8-11.6) 07/22/23 14:25 Uncorrected WBC Count 8.3 x10E3/uL (3.8-11.6) 07/22/23 14:25 RBC 3.89 X10E6/uL (3.60-5.00) 07/22/23 14:25 Hgb 11.4 g/dL (11.8-15.4) L 07/22/23 14:25 Hct 35.2 % (34.0-46.4) 07/22/23 14:25 MCV 90.6 fl (80-100) 07/22/23 14:25 MCH 29.3 pg (24.7-34.3) 07/22/23 14:25 MCHC 32.4 g/dL (32.0-35.0) 07/22/23 14:25 RDW 21.1 % (11.9-15.3) H 07/22/23 14:25 Plt Count 377 x10E3/uL (150-450) 07/22/23 14:25 MPV 8.2 fl (6.3-10.7) 07/22/23 14:25 Neut % (Auto) 60.7 % (.) 07/22/23 14:25 Lymph % (Auto) 32.5 % (.) 07/22/23 14:25 Hernando % (Auto) 4.8 % (.) 07/22/23 14: Eos % (Auto) 1.1 % (.) 07/22/23 14: Baso % (Auto) 0.9 % (.) 07/22/23 14:25 Nucleat RBC Rel Count 0.1 /100 WBC (0-0.5) 07/22/23 14:25 Neut # (Auto) 5.0 x10E3/uL (1.8-7.7) 07/22/23 14:25 Lymph # (Auto) 2.7 x10E3/uL (1.00-4.8) 07/22/23 14:25 Hernando # (Auto) 0.4 x10E3/uL (0.0-0.8) 07/22/23 14:25 Eos # (Auto) 0.1 x10E3/uL (0.0-0.45) 07/22/23 14:25 Baso # (Auto) 0.1 x10E3/uL (0.0-0.2) 07/22/23 14: Monocyte Dist Width 22.30 % (0.00-20.00) H 07/22/23 14:25 PHA Creatinine Clear 157.26 07/22/23 14:25 Sodium 134 mmol/L (136-145) L 07/22/23 14:25 Potassium 3.8 mmol/L (3.5-5.1) 07/22/23 14: Chloride 100 mmol/L (98-107) 07/22/23 14:25 Carbon Dioxide 24.9 mmol/L (21.0-31.0) 07/22/23 14:25 Anion Gap 12.9 mEq/L (6.0-15.0) 07/22/23 14:25 BUN 7 mg/dL (7-25) 07/22/23 14:25 Creatinine 0.91 mg/dL (0.60-1.20) 07/22/23 14:25 Est GFR (CKD-EPI) > 60.0 mL/Min 07/22/23 14:25 Glucose 98 mg/dL (70-100) 07/22/23 14:25 Calcium 9.7 mg/dL (8.6-10.3) 07/22/23 14:25 Total Bilirubin 0.5 mg/dl (0.3-1.0) 07/22/23 14:25 AST 18 U/L (13-39) 07/22/23 14:25 ALT 7 U/L (7-52) 07/22/23 14:25 Alkaline Phosphatase 74 U/L (34-104) 07/22/23 14:25 Total Protein 8.6 gm/dL (6.4-8.9) 07/22/23 14:25 Albumin 3.9 gm/dL (3.5-5.7) 07/22/23 14:25 Globulin 4.7 gm/dL 07/22/23 14:25 Albumin/Globulin Ratio 0.8 07/22/23 14:25 Urine Color Yellow (Yellow) 07/22/23 14:07 Urine Appearance Clear (Clear) 07/22/23 14:07 Urine pH 7.0 (5.0-9.0) 07/22/23 14:07 Ur Specific [place]art 1.012 (1.001-1.030) 07/22/23 14:07 Urine Protein Negative mg/dL (Negative) 07/22/23 14:07 Urine Glucose (UA) Normal mg/dL (Normal) 07/22/23 14:07 Urine Ketones Negative (Negative) 07/22/23 14:07 Urine Occult Blood Negative (Negative) 07/22/23 14:07 Urine Nitrite Negative (Negative) 07/22/23 14:07 Urine Bilirubin Negative (Negative) 07/22/23 14:07 Urine Urobilinogen Normal mg/dL (Normal) 07/22/23 14:07 Ur Leukocyte Esterase Negative (Negative) 07/22/23 14:07 Urine HCG, Qual Negative 07/22/23 14:07 Assessment & Plan Assessment/Plan (1) Abscess of breast, right: Plan right breast abscess Morbid obesity s/o gastric bypass Plan: IV vancomycin, pain medications Consult general surgery DVT prophylaxis IP vs OBS Justification Based on differential dx, clinical care plan, and risk of adverse events, if untreated, in my clinical judgement this patient requires an acute care setting as: INPATIENT because of an expectation of an over 2 midnight stay. Estimated length of stay (# of days): 3 Documented By: Lauren Oropeza MD 07/22/23 1728 Signed By: <Electronically signed by Lauren Oropeza MD> 07/22/23 1742 [facility] Work Phone: [phone]) 977-181804-12-2024 History and physical note Author Lauren Oropeza [facility] July 22, 2023 5:42pm Note Date/Time July 22, 2023 5:3 2pm [facility] [address] [place] [address] Hospitalist H&P Signed Patient: Eliana Hager MR#: [id number] : 1985 Acct:[id number] Age/Sex: 37 / F Adm Date: 4 Loc: Room: [address] [place] [address] Type: ADM IN Attending Dr: Lauren Oropeza MD Copies to: NON STAFF Lauren Oropeza MD~ HPI DATE OF EXAMINATION: 07/22/23 CHIEF COMPLAINT: right breast pain HISTORY OF PRESENT ILLNESS: This is a 37 yo female who was sent to the emergency room by surgeon in [place] for evaluation and treatment of right breast abscess. She states she is on Cipro now which is the second antibiotic and she has had ultrasound as well as mammograms for abscess lesion in right breast. She states that the abscess was drained percutaneously at time of the I&D. she states that these abscess areas are not improving with prescribed antibiotic treatment and in fact the area of induration has increased markedly over the last several days and the area is more painful. She recounts discharge from the nipple earlier but this is not ongoing. Denies fever or chills Review of Systems Review of Systems All other systems reviewed & are negative unless noted below or in HPI ON LICENSE OF [facility] Medical History (Updated 07/22/23 @ 16:38 by Oumar Rivas APRN) No pertinent past medical history Surgical History (Updated 07/22/23 @ 13:48 by Carmelita George RN) History of lithotripsy History of gastric bypass History of arthroscopic knee surgery History of ankle surgery Social History Smoking Status: Never smoker Substance Use Type: None Meds Medications and Allergies Allergies No Known Allergies Allergy (Verified 07/22/23 11:11) Home Medications ciprofloxacin HCl 500 mg tablet 500 mg PO BID 07/22/23 [History Confirmed 07/22/23] Exam Physical Exam Vital Signs: Temp Pulse Resp BP Pulse Ox O2 Del Method 97.9 F 70 15 146/82 H 100 Room Air 07/22/23 11:10 07/22/23 11:10 07/22/23 11:10 07/22/23 11:10 07/22/23 11:10 07/22/23 11:10 Narrative: Morbidly obese Lungs CTA Heart RRR Breasts: right breast periareolar tenderness Abd soft NT Ext no edema Neuro no focal deficit Results - Hospitalist H&P Lab Results Labs: Laboratory Last Values Corrected WBC 8.3 X10E3/uL (3.8-11.6) 07/22/23 14:25 Uncorrected WBC Count 8.3 x10E3/uL (3.8-11.6) 07/22/23 14:25 RBC 3.89 X10E6/uL (3.60-5.00) 07/22/23 14:25 Hgb 11.4 g/dL (11.8-15.4) L 07/22/23 14:25 Hct 35.2 % (34.0-46.4) 07/22/23 14:25 MCV 90.6 fl (80-100) 07/22/23 14:25 MCH 29.3 pg (24.7-34.3) 07/22/23 14:25 MCHC 32.4 g/dL (32.0-35.0) 07/22/23 14:25 RDW 21.1 % (11.9-15.3) H 07/22/23 14:25 Plt Count 377 x10E3/uL (150-450) 07/22/23 14:25 MPV 8.2 fl (6.3-10.7) 07/22/23 14:25 Neut % (Auto) 60.7 % (.) 07/22/23 14:25 Lymph % (Auto) 32.5 % (.) 07/22/23 14:25 Hernando % (Auto) 4.8 % (.) 07/22/23 14:25 Eos % (Auto) 1.1 % (.) 07/22/23 14:25 Baso % (Auto) 0.9 % (.) 07/22/23 14:25 Nucleat RBC Rel Count 0.1 /100 WBC (0-0.5) 07/22/23 14:25 Neut # (Auto) 5.0 x10E3/uL (1.8-7.7) 07/22/23 14:25 Lymph # (Auto) 2.7 x10E3/uL (1.00-4.8) 07/22/23 14:25 Hernando # (Auto) 0.4 x10E3/uL (0.0-0.8) 07/22/23 14:25 Eos # (Auto) 0.1 x10E3/uL (0.0-0.45) 07/22/23 14:25 Baso # (Auto) 0.1 x10E3/uL (0.0-0.2) 07/22/23 14:25 Monocyte Dist Width 22.30 % (0.00-20.00) H 07/22/23 14:25 PHA Creatinine Clear 157.26 07/22/23 14:25 Sodium 134 mmol/L (136-145) L 07/22/23 14:25 Potassium 3.8 mmol/L (3.5-5.1) 07/22/23 14:25 Chloride 100 mmol/L (98-107) 07/22/23 14:25 Carbon Dioxide 24.9 mmol/L (21.0-31.0) 07/22/23 14:25 Anion Gap 12.9 mEq/L (6.0-15.0) 07/22/23 14:25 BUN 7 mg/dL (7-25) 07/22/23 14:25 Creatinine 0.91 mg/dL (0.60-1.20) 07/22/23 14:25 Est GFR (CKD-EPI) > 60.0 mL/Min 07/22/23 14:25 Glucose 98 mg/dL (70-100) 07/22/23 14:25 Calcium 9.7 mg/dL (8.6-10.3) 07/22/23 14:25 Total Bilirubin 0.5 mg/dl (0.3-1.0) 07/22/23 14:25 AST 18 U/L (13-39) 07/22/23 14:25 ALT 7 U/L (7-52) 07/22/23 14:25 Alkaline Phosphatase 74 U/L (34-104) 07/22/23 14:25 Total Protein 8.6 gm/dL (6.4-8.9) 07/22/23 14:25 Albumin 3.9 gm/dL (3.5-5.7) 07/22/23 14:25 Globulin 4.7 gm/dL 07/22/23 14:25 Albumin/Globulin Ratio 0.8 07/22/23 14:25 Urine Color Yellow (Yellow) 07/22/23 14:07 Urine Appearance Clear (Clear) 07/22/23 14:07 Urine pH 7.0 (5.0-9.0) 07/22/23 14:07 Ur Specific [place] 1.012 (1.001-1.030) 07/22/23 14:07 Urine Protein Negative mg/dL (Negative) 07/22/23 14:07 Urine Glucose (UA) Normal mg/dL (Normal) 07/22/23 14:07 Urine Ketones Negative (Negative) 07/22/23 14:07 Urine Occult Blood Negative (Negative) 07/22/23 14:07 Urine Nitrite Negative (Negative) 07/22/23 14:07 Urine Bilirubin Negative (Negative) 07/22/23 14:07 Urine Urobilinogen Normal mg/dL (Normal) 07/22/23 14:07 Ur Leukocyte Esterase Negative (Negative) 07/22/23 14:07 Urine HCG, Qual Negative 07/22/23 14:07 Assessment & Plan Assessment/Plan (1) Abscess of breast, right: Plan right breast abscess Morbid obesity s/o gastric bypass Plan: IV vancomycin, pain medications Consult general surgery DVT prophylaxis IP vs OBS Justification Based on differential dx, clinical care plan, and risk of adverse events, if untreated, in my clinical judgement this patient requires an acute care setting as: INPATIENT because of an expectation of an over 2 midnight stay. Estimated length of stay (# of days): 3 Documented By: Lauren Oropeza MD 07/22/23 1728 Signed By: <Electronically signed by Lauren Oropeza MD> 07/22/23 1742 [facility] Work Phone: [phone] 325-414912-08-2023 Instructions* Patient Instructions* Kenya Hernández, ANSON - 03/18/2023 11:17 AM EST Nutrition Intervention 03/18/2023: 1. Read Nutritional Guidelines Section of Your Guide to Surgery by next session [email or web address] n 2. Do not skip meals. 3. Use protein shake 1x per day to replace any skipped meals or for breakfast -Aim for shakes <5 grams of total sugar, 20-30 grams of protein -Start to explore the protein shakes on page 39 in your Guideline booklet for the four-week full-liquid diet. Examples: Slim Fast Advanced Nutrition [place] Breakfast Essentials Light Start Drink mixed with fat free or 1% milk Atkins 15 gram protein Boost Glucose Control OWYN 4. Use the Healthy Plate Method of portion control for lunch and dinner 4 oz lean meat (fish, chicken, pork tenderloin, turkey, seafood, eggs/cheese) 1/2 plate non starchy vegetables (salad, greens, cabbage, spinach, brussels sprouts, broccoli, carrots, celery, peppers, green beans, cauliflower) 1 cup starch/starchy vegetables (corn, peas, beans, winter squash, sweet potato, brown rice, whole grain pasta, whole grain bread products, quinoa) 5. Physical activity: Aim for 150 minutes of physical activity per week. 6. Drink 64 ounces per day water. Fluids should follow these guidelines: No carbonation, no caffeine, no calories, no alcohol. 7. Start to explore vitamins and minerals for post-op (3 weeks after surgery). If you are doing a Duodenal Switch/JASMYN, you will need additional vitamins A (10,000 international unit(s)), D (3,000 international unit(s)), E (15 mg), and K (300 mcg). OR it is okay to use combination vitamins/mineralsto reduce pill volume: Take MVI with iron 2 hours from calcium, and calcium's need to be 4 hours apart from each other ??- Bariatric Fusion ADEK Complete Capsule (3x per day) AND 9802-1530 mg calcium citrate OR - Bariatric Advantage High ADEK Chewable Multivitamin (2x per day) AND 3526-4448 mg calcium citrate OR-Celebrate multi-ADEK chewable (3x per day) AND 8906-3576 mg calcium citrate AND 1 chewable Iron 45-60 mg OR -ProCare DS/JASMYN Bariatric multivitamin with 60 mg Iron (1x per day) AND 1800- 2400 mg calcium citrate daily? Pre-op goal weight: 450 pounds Protein needs AFTER surgery: 102-136 gm per day Aim to currently consume 82 grams of protein per day currently Nutrition Monitoring & Evaluation: 1-2 lb per week weight loss, adherence to above recommendations Need for Follow up: 1 month, [facility] History of Present illness Narrative* Kenya Hernández RD - 03/18/2023 10:45 AM EST [facility] Nutrition Therapy: Virtual Consult - Re-assessment I have communicated my name and active licensure. The patient s identity and physical location wereverified at the time of this visit. Either the patient or their legal asset protection representative has been informed of the risks and benefits of -- and alternatives to -- treatment through a remote evaluation andconsents to proceed with the evaluation remotely. Nutrition Diagnosis: Altered Gastrointestinal Tract Function, related to, S/P bariatric surgery, asevidenced by hx RYGB and Overweight/obesity, related to, food/nutrition - related knowledge deficitand physical inactivity, as evidenced by BMI above normative standard for age and gender RECOMMENDED MALNUTRITION DIAGNOSIS: NO MALNUTRITION IDENTIFIED NUTRITION CARE PLAN: Nutrition Intervention 03/18/2023: 1. Read Nutritional Guidelines Section of Your Guide to Surgery by next session [email or web address] n 2. Do not skip meals. 3. Use protein shake 1x per day to replace any skipped meals or for breakfast -Aim for shakes <5 grams of total sugar, 20-30 grams of protein -Start to explore the protein shakes on page 39 in your Guideline booklet for the four-week full-liquid diet. Examples: Slim Fast Advanced Nutrition [place] Breakfast Essentials Light Start Drink mixed with fat free or 1% milk Atkins 15 gram protein Boost Glucose Control OWYN 4. Use the Healthy Plate Method of portion control for lunch and dinner 4 oz lean meat (fish, chicken, pork tenderloin, turkey, seafood, eggs/cheese) 1/2 plate non starchy vegetables (salad, greens, cabbage, spinach, brussels sprouts, broccoli, carrots, celery, peppers, green beans, cauliflower) 1 cup starch/starchy vegetables (corn, peas, beans, winter squash, sweet potato, brown rice, whole grain pasta, whole grain bread products, quinoa) 5. Physical activity: Aim for 150 minutes of physical activity per week. 6. Drink 64 ounces per day water. Fluids should follow these guidelines: No carbonation, no caffeine, no calories, no alcohol. 7. Start to explore vitamins and minerals for post-op (3 weeks after surgery). If you are doing a Duodenal Switch/JASMYN, you will need additional vitamins A (10,000 international unit(s)), D (3,000 international unit(s)), E (15 mg), and K (300 mcg). OR it is okay to use combination vitamins/mineralsto reduce pill volume: Take MVI with iron 2 hours from calcium, and calcium's need to be 4 hours apart from each other ??- Bariatric Fusion ADEK Complete Capsule (3x per day) AND 9621-4383 mg calcium citrate OR - Bariatric Advantage High ADEK Chewable Multivitamin (2x per day) AND 8051-6027 mg calcium citrate OR-Celebrate multi-ADEK chewable (3x per day) AND 7844-9562 mg calcium citrate AND 1 chewable Iron 45-60 mg OR -ProCare DS/JASMYN Bariatric multivitamin with 60 mg Iron (1x per day) AND 1800- 2400 mg calcium citrate daily? Pre-op goal weight: 450 pounds Protein needs AFTER surgery: 102-136 gm per day Aim to currently consume 82 grams of protein per day currently Nutrition Monitoring & Evaluation: 1-2 lb per week weight loss, adherence to above recommendations Need for Follow up: 1 month, PROGRESS: Patient presents for follow up nutrition Virtual Consult in preparation for bariatric surgery. Patient continues to be interested in RYGB to Distal RYGB (Dr. Fritz). Since last nutrition visit patient has maintained weight. Diet recall indicates 2 meals and 2 snacks daily. Meals are higher in refined carbohydrate and inadequate in vegetable portions. Protein shakes being used as dinner meal, but she is not liking the consistency. Reviewed other lactose-free option. Fluids have improved from last visit with water volume and has significantly reduced her added sugar beverage intake. Physical activity is currently not being done due to limitations with knee pain, but has been trying to park further, walk, etc. Coordination of care with Dr. Fritz and patient to do pre-op full liquid diet for 4 weeks. Reviewed this with patient today. Patient meets the National Institutes of Health guidelines for weight loss surgery and has [employer] therefore is required to complete 4 visits covering at least 90 days of Nutrition Intervention for clearance for surgery. Today is visit 2 of 4 (Delpra 02/18/23, 03/18/23). Nutrition Intervention (Last encounter 02/18/23): 1. Read Nutritional Guidelines Section of Your Guide to Surgery by next session [email or web address] n 2. Do not skip meals. 3. Use protein shake 1x per day to replace any skipped meals or for breakfast -Aim for shakes <5 grams of total sugar, 20-30 grams of protein -Start to explore the protein shakes on page 39 in your Guideline booklet for the three-week full-liquid diet. Examples: Slim Fast Advanced Nutrition [place] Breakfast Essentials Light Start Drink mixed with fat free or 1% milk Atkins 15 gram protein Boost Glucose Control OWYN 4. Use the Healthy Plate Method of portion control for lunch and dinner 4 oz lean meat (fish, chicken, pork tenderloin, turkey, seafood, eggs/cheese) 1/2 plate non starchy vegetables (salad, greens, cabbage, spinach, brussels sprouts, broccoli, carrots, celery, peppers, green beans, cauliflower) 1 cup starch/starchy vegetables (corn, peas, beans, winter squash, sweet potato, brown rice, whole grain pasta, whole grain bread products, quinoa) 5. Physical activity: Aim for 150 minutes of physical activity per week. 6. Drink 64 ounces per day water. Fluids should follow these guidelines: No carbonation, no caffeine, no calories, no alcohol. 7. Start to explore vitamins and minerals for post-op (3 weeks after surgery). If you are doing a Duodenal Switch/JASMYN, you will need additional vitamins A (10,000 international unit(s)), D (3,000 international unit(s)), E (15 mg), and K (300 mcg). OR it is okay to use combination vitamins/mineralsto reduce pill volume: Take MVI with iron 2 hours from calcium, and calcium's need to be 4 hours apart from each other ??- Bariatric Fusion ADEK Complete Capsule (3x per day) AND 5095-8296 mg calcium citrate OR - Bariatric Advantage High ADEK Chewable Multivitamin (2x per day) AND 2704-6041 mg calcium citrate OR-Celebrate multi-ADEK chewable (3x per day) AND 5085-1712 mg calcium citrate AND 1 chewable Iron 45-60 mg OR -ProCare DS/JASMYN Bariatric multivitamin with 60 mg Iron (1x per day) AND 1800- 2400 mg calcium citrate daily? 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 ( makes me sick ); was trying OWYN Breakfast - eggs, smoked sausages, piece of wheat toast Sleeps until 12-1 pm Snack - fruit OR granola bar (unsure of low in sugar) Lunch (3-4 pm) - mashed potatoes (<1 cup), peppers, onions, 3-4 oz steak with a side of corn Snack - skips Dinner (before 7-8 pm)- OWYN Snack - skips Beverages - water (32-48 oz), cranberry juice (not daily) Alcohol - no changes Vitamins/Supplements - Vitamin B, Vitamin B12, Vitamin D3, Iron Activity: Activities of Daily 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 Resting Metabolic Rate: 2867 Malnutrition Screening Significant unintentional weight loss? No Eating less than 75% of usual intake for more than 2 weeks? No Potential Signs of Inflammation: no identifiable sources Nutritional status: Education Materials Provided: None this visit READINESS TO LEARN Cognitive ability: Alert and oriented Motivation to learn: Interested Family support: Unable to assess - Family not present Instruction provided to: Patient Patient learns best by: Multiple Methods Factors affecting learning: None Physical limitations affecting learning: None Likelihood of Adherence: High Referred by: Lam FUENTES Billing Type: Re-assess/15 min 2 units SIGNATURE: Kenya Hernández RDN, BERYL, GIORGI PATIENT NAME: Eliana Hager DATE: 03/18/2023 TIME: 11:16 AM PAGER: [id number] documented in [facility]Mag[facility] NoteHNO ID: [id number] Author: Kenya Hernández RD Service: ? Author Type: Registered Dietitian Type: Progress Notes Filed: 03/18/2023 11:17 AM Note Text: [facility] Nutrition Therapy: Virtual Consult - Re-assessment I have communicated my name and active licensure. The patient?s identity and physical location were verified at the time of this visit. Either the patient or their legal asset protection representative has been informed of the risks and benefits of -- and alternatives to -- treatment through a remote evaluation and consents to proceed with the evaluation remotely. Nutrition Diagnosis: Altered Gastrointestinal Tract Function, related to, S/P bariatric surgery, as evidenced by hx RYGB and Overweight/obesity, related to, food/nutrition - related knowledge deficit and physical inactivity, as evidenced by BMI above normative standard for age and gender RECOMMENDED MALNUTRITION DIAGNOSIS: NO MALNUTRITION IDENTIFIED NUTRITION CARE PLAN: Nutrition Intervention 03/18/2023: 1. Read Nutritional Guidelines Section of Your Guide to Surgery by next session [email or web address]?[email or web address] 2. Do not skip meals. 3. Use protein shake 1x per day to replace any skipped meals or for breakfast -Aim for shakes <5 grams of total sugar, 20-30 grams of protein -Start to explore the protein shakes on page 39 in your Guideline booklet for the four-week full-liquid diet. Examples: Slim Fast Advanced Nutrition [place] Breakfast Essentials ?Light Start? Drink mixed with fat free or 1% milk Atkins 15 gram protein Boost Glucose Control OWYN 4. Use the Healthy Plate Method of portion control for lunch and dinner 4 oz lean meat (fish, chicken, pork tenderloin, turkey, seafood, eggs/cheese) 1/2 plate non starchy vegetables (salad, greens, cabbage, spinach, brussels sprouts, broccoli, carrots, celery, peppers, green beans, cauliflower) 1 cup starch/starchy vegetables (corn, peas, beans, winter squash, sweet potato, brown rice, whole grain pasta, whole grain bread products, quinoa) 5. Physical activity: Aim for 150 minutes of physical activity per week. 6. Drink 64 ounces per day water. Fluids should follow these guidelines: No carbonation, no caffeine, no calories, no alcohol. 7. Start to explore vitamins and minerals for post-op (3 weeks after surgery). If you are doing a Duodenal Switch/JASMYN, you will need additional vitamins A (10,000 international unit(s)), D (3,000 international unit(s)), E (15 mg), and K (300 mcg). OR it is okay to use combination vitamins/minerals to reduce pill volume: Take MVI with iron 2 hours from calcium, and calcium's need to be 4 hours apart from each other ??- Bariatric Fusion ADEK Complete Capsule (3x per day) AND 9368-7697 mg calcium citrate OR - Bariatric Advantage High ADEK Chewable Multivitamin (2x per day) AND 3547-6790 mg calcium citrate OR-Celebrate multi-ADEK chewable (3x per day) AND 1521-7754 mg calcium citrate AND 1 chewable Iron 45-60 mg OR -ProCare DS/JASMYN Bariatric multivitamin with 60 mg Iron (1x per day) AND 4985-5441 mg calcium citrate daily? Pre-op goal weight: 450 pounds Protein needs AFTER surgery: 102-136 gm per day Aim to currently consume 82 grams of protein per day currently Nutrition Monitoring AND Evaluation: 1-2 lb per week weight loss, adherence to above recommendations Need for Follow up: 1 month, PROGRESS: Patient presents for follow up nutrition Virtual Consult in preparation for bariatric surgery. Patient continues to be interested in RYGB to Distal RYGB (Dr. Fritz). Since last nutrition visit patient has maintained weight. Diet recall indicates 2 meals and 2 snacks daily. Meals are higher in refined carbohydrate and inadequate in vegetable portions. Protein shakes being used as dinner meal, but she is not liking the consistency. Reviewed other lactose-free option. Fluids have improved from last visit with water volume and has significantly reduced her added sugar beverage intake. Physical activity is currently not being done due to limitations with knee pain, but has been trying to park further, walk, etc. Coordination of care with Dr. Fritz and patient to do pre-op full liquid diet for 4 weeks. Reviewed this with patient today. Patient meets the National Institutes of Health guidelines for weight loss surgery and has [employer] Insurance therefore is required to complete 4 visits covering at least 90 days of Nutrition Intervention for clearance for surgery. Today is visit 2 of 4 (Delpra 02/18/23, 03/18/23). Nutrition Intervention (Last encounter 02/18/23): 1. Read Nutritional Guidelines Section of Your Guide to Surgery by next session [email or web address]?[email or web address] 2. Do not skip meals. 3. Use protein shake 1x per day to repl (more content not included)...[facility]11-16-[facility]23 NoteHNO ID: [id number] Author: Ector Redding, PhD Service: ? Author Type: Physician Type: Progress Notes Filed: 02/24/2023 4:40 PM Note Text: [facility] Progress Note 02/24/2023 Billing code: [id number] Patient did not attend, cancel, or reschedule this appointment. BMI Psych-- follow-up Ector Redding, PhD Clinical Health PsychologistAshtabula [facility]11-10-[facility] Instructions* Patient Instructions* Kenya Hernández RD - 02/18/2023 9:54 AM EST Nutrition Intervention 02/18/2023: 1. Read Nutritional Guidelines Section of Your Guide to Surgery by next session [email or web address] n 2. Do not skip meals. 3. Use protein shake 1x per day to replace any skipped meals or for breakfast -Aim for shakes <5 grams of total sugar, 20-30 grams of protein -Start to explore the protein shakes on page 39 in your Guideline booklet for the three-week full-liquid diet. Examples: Slim Fast Advanced Nutrition [place] Breakfast Essentials Light Start Drink mixed with fat free or 1% milk Atkins 15 gram protein Boost Glucose Control OWYN 4. Use the Healthy Plate Method of portion control for lunch and dinner 4 oz lean meat (fish, chicken, pork tenderloin, turkey, seafood, eggs/cheese) 1/2 plate non starchy vegetables (salad, greens, cabbage, spinach, brussels sprouts, broccoli, carrots, celery, peppers, green beans, cauliflower) 1 cup starch/starchy vegetables (corn, peas, beans, winter squash, sweet potato, brown rice, whole grain pasta, whole grain bread products, quinoa) 5. Physical activity: Aim for 150 minutes of physical activity per week. 6. Drink 64 ounces per day water. Fluids should follow these guidelines: No carbonation, no caffeine, no calories, no alcohol. 7. Start to explore vitamins and minerals for post-op (3 weeks after surgery). If you are doing a Duodenal Switch/JASMYN, you will need additional vitamins A (10,000 international unit(s)), D (3,000 international unit(s)), E (15 mg), and K (300 mcg). OR it is okay to use combination vitamins/mineralsto reduce pill volume: Take MVI with iron 2 hours from calcium, and calcium's need to be 4 hours apart from each other ??- Bariatric Fusion ADEK Complete Capsule (3x per day) AND 8426-1287 mg calcium citrate OR - Bariatric Advantage High ADEK Chewable Multivitamin (2x per day) AND 9348-1495 mg calcium citrate OR-Celebrate multi-ADEK chewable (3x per day) AND 3220-1040 mg calcium citrate AND 1 chewable Iron 45-60 mg OR -ProCare DS/JASMYN Bariatric multivitamin with 60 mg Iron (1x per day) AND 1800- 2400 mg calcium citrate daily? Pre-op goal weight: 450 pounds Protein needs AFTER surgery: 102-136 gm per day Aim to currently consume 82 grams of protein per day currently Nutrition Monitoring & Evaluation: 1-2 lb per week weight loss Need for Follow up: 1 month, scheduling documented in [facility] encounterMag[facility]11-[facility] History of Present illness Narrative* Kenya Hernández RD - 02/18/2023 9:15 AM EST [facility] Nutrition Therapy: Virtual Consult - Initial Assessment I have communicated my name and active licensure. The patient s identity and physical location wereverified at the time of this visit. Either the patient or their legal asset protection representative has been informed of the risks and benefits of -- and alternatives to -- treatment through a remote evaluation andconsents to proceed with the evaluation remotely. Nutrition Diagnosis: Altered Gastrointestinal Tract Function, related to, S/P bariatric surgery, asevidenced by s/p RYGB and Overweight/obesity, related to, food/nutrition - related knowledge deficit and physical inactivity, as evidenced by BMI above normative standard for age and gender. RECOMMENDED MALNUTRITION DIAGNOSIS: NO MALNUTRITION IDENTIFIED NUTRITION CARE PLAN Nutrition Intervention 02/18/2023: 1. Read Nutritional Guidelines Section of Your Guide to Surgery by next session [email or web address] 2. Do not skip meals. 3. Use protein shake 1x per day to replace any skipped meals or for breakfast -Aim for shakes <5 grams of total sugar, 20-30 grams of protein -Start to explore the protein shakes on page 39 in your Guideline booklet for the three-week full-liquid diet. Examples: Slim Fast Advanced Nutrition [place] Breakfast Essentials Light Start Drink mixed with fat free or 1% milk Atkins 15 gram protein Boost Glucose Control OWYN 4. Use the Healthy Plate Method of portion control for lunch and dinner 4 oz lean meat (fish, chicken, pork tenderloin, turkey, seafood, eggs/cheese) 1/2 plate non starchy vegetables (salad, greens, cabbage, spinach, brussels sprouts, broccoli, carrots, celery, peppers, green beans, cauliflower) 1 cup starch/starchy vegetables (corn, peas, beans, winter squash, sweet potato, brown rice, whole grain pasta, whole grain bread products, quinoa) 5. Physical activity: Aim for 150 minutes of physical activity per week. 6. Drink 64 ounces per day water. Fluids should follow these guidelines: No carbonation, no caffeine, no calories, no alcohol. 7. Start to explore vitamins and minerals for post-op (3 weeks after surgery). If you are doing a Duodenal Switch/JASMYN, you will need additional vitamins A (10,000 international unit(s)), D (3,000 international unit(s)), E (15 mg), and K (300 mcg). OR it is okay to use combination vitamins/mineralsto reduce pill volume: Take MVI with iron 2 hours from calcium, and calcium's need to be 4 hours apart from each other ??- Bariatric Fusion ADEK Complete Capsule (3x per day) AND 7653-2220 mg calcium citrate OR - Bariatric Advantage High ADEK Chewable Multivitamin (2x per day) AND 9020-8890 mg calcium citrate OR-Celebrate multi-ADEK chewable (3x per day) AND 7403-7927 mg calcium citrate AND 1 chewable Iron 45-60 mg OR -ProCare DS/JASMYN Bariatric multivitamin with 60 mg Iron (1x per day) AND 1800- 2400 mg calcium citrate daily? Pre-op goal weight: 450 pounds Protein needs AFTER surgery: 102-136 gm per day Aim to currently consume 82 grams of protein per day currently Nutrition Monitoring & Evaluation: 1-2 lb per week weight loss Need for Follow up: 1 month, scheduling Patient presents for initial nutrition consult for preparation in bariatric surgery. Patient is interested in revision RYGB to distal bypass (Dr. Fritz). Height and weight discussed today. Presentswith class III obesity, BMI of 80.38. Significant medical comorbidities include HTN, ARIELA, gout, kidney stone, eating disorder (unspecified), depression. Patient has slightly higher (48 % TWL) weight loss expectations, anticipating weight loss of 233 lbs., with desired weight of 250 lbs. following surgery. Patient has good understanding of weight loss surgery and nutritional implications followingsurgery. Previous diet attempts include portion control, increased exercise. Weight history significant for 612 lbs pre surgery RYGB, lilliana weight 250 lbs, then weight gain with continual weight gain from getting the depo shot. 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 Greatest motivationfor surgery includes weight loss for knee replacement surgery, overall improvement in QOL. Diet recall indicates inconsistent pattern due to complex work hours (2 pm-8 am). Patient overall inadequate with fiber and protein, meals unstructured and mostly processed due to convenience. Patient currently not using protein shakes, reviewed for pre/post-op and might benefit from a plant-based protein shake as patient reports dairy upsets her stomach. Fluid intake excessive in sugar sweetenedbeverages and inadequate in water; reviewed fluids with patient. Patient with RYGB, inadequate vitamin/mineral intake as she is not taking any bariatric MVI or calcium; reviewed additional ADEK and calcium that patient will need to take post-op and recommended that she start a bariatric MVI at thistime plus calcium. PA inadequate due to limitations with knee pain, patient able to do ADL's daily. [place] body weight: 150 lbs. Excess body weight: 333 lbs. Goal weight pre-op: 450 lbs. Lilliana weight: 250 lbs Protein needs currently: 82 gm (1.2 g protein/kg IBW) Protein needs estimated (POST-OP): 102-136 gm (1.5-2.0 g protein/kg IBW for distal bypass) Patient meets the National Institutes of Health guidelines for weight loss surgery and has [employer] therefore is required to complete 4 months covering 90 days of Nutrition Intervention for clearance for surgery. 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 Vegetables that patient does like include keely greens, corn, green beans; reports that she doesn't like other vegetables which is a barrier to further weight loss. Patient reports that she is lactose intolerant. 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 Additional Activity: Sedentary (Little or no exercise: <1x/week) ADL'S Anthropometrics: Height: Last 1 Encounter Ht Readings:\ Date: Ht: 02/07/2023 165.1 cm (5' 5 ) Weight: Last 1 Encounter Wt Readings: Date: Wt: 02/07/2023 218.9 kg (482 lb 9.6 oz) Body mass index is 80.38 kg/m . Resting Metabolic Rate: 2865 Malnutrition Screening Significant unintentional weight loss? No Eating less than 75% of usual intake for more than 2 weeks? No Potential Signs of Inflammation: no identifiable sources Education Materials Provided: BMI Nutrition Guidelines:Guide to Surgery and Healthy Lunch/Dinner Plate READINESS TO LEARN Cognitive ability: Alert and oriented Motivation to learn: Interested Family support: Unable to assess - Family not present Instruction provided to: Patient Patient learns best by: Multiple Methods Factors affecting learning: None Physical limitations affecting learning: None Referred by: Lam FUENTES Billing Type: Initial Assess/15 min 3 units SIGNATURE: Kenya Hernández RDN, GIORGI CORDOBA PATIENT NAME: Eliana Hager DATE: 02/18/2023 TIME: 9:53 AM PAGER: [facility] NoteHNO ID: [id number] Author: Kenya Hernández RD Service: ? Author Type: Registered Dietitian Type: Progress Notes Filed: 02/18/2023 9:57 AM Note Text: [facility] Nutrition Therapy: Virtual Consult - Initial Assessment I have communicated my name and active licensure. The patient?s identity and physical location were verified at the time of this visit. Either the patient or their legal asset protection representative has been informed of the risks and benefits of -- and alternatives to -- treatment through a remote evaluation and consents to proceed with the evaluation remotely. Nutrition Diagnosis: Altered Gastrointestinal Tract Function, related to, S/P bariatric surgery, as evidenced by s/p RYGB and Overweight/obesity, related to, food/nutrition - related knowledge deficit and physical inactivity, as evidenced by BMI above normative standard for age and gender. RECOMMENDED MALNUTRITION DIAGNOSIS: NO MALNUTRITION IDENTIFIED NUTRITION CARE PLAN Nutrition Intervention 02/18/2023: 1. Read Nutritional Guidelines Section of Your Guide to Surgery by next session [email or web address] 2. Do not skip meals. 3. Use protein shake 1x per day to replace any skipped meals or for breakfast -Aim for shakes <5 grams of total sugar, 20-30 grams of protein -Start to explore the protein shakes on page 39 in your Guideline booklet for the three-week full-liquid diet. Examples: Slim Fast Advanced Nutrition [place] Breakfast Essentials ?Light Start? Drink mixed with fat free or 1% milk Atkins 15 gram protein Boost Glucose Control OWYN 4. Use the Healthy Plate Method of portion control for lunch and dinner 4 oz lean meat (fish, chicken, pork tenderloin, turkey, seafood, eggs/cheese) 1/2 plate non starchy vegetables (salad, greens, cabbage, spinach, brussels sprouts, broccoli, carrots, celery, peppers, green beans, cauliflower) 1 cup starch/starchy vegetables (corn, peas, beans, winter squash, sweet potato, brown rice, whole grain pasta, whole grain bread products, quinoa) 5. Physical activity: Aim for 150 minutes of physical activity per week. 6. Drink 64 ounces per day water. Fluids should follow these guidelines: No carbonation, no caffeine, no calories, no alcohol. 7. Start to explore vitamins and minerals for post-op (3 weeks after surgery). If you are doing a Duodenal Switch/JASMYN, you will need additional vitamins A (10,000 international unit(s)), D (3,000 international unit(s)), E (15 mg), and K (300 mcg). OR it is okay to use combination vitamins/minerals to reduce pill volume: Take MVI with iron 2 hours from calcium, and calcium's need to be 4 hours apart from each other ??- Bariatric Fusion ADEK Complete Capsule (3x per day) AND 3484-7029 mg calcium citrate OR - Bariatric Advantage High ADEK Chewable Multivitamin (2x per day) AND 0785-1965 mg calcium citrate OR-Celebrate multi-ADEK chewable (3x per day) AND 8132-6606 mg calcium citrate AND 1 chewable Iron 45-60 mg OR -ProCare DS/JASMYN Bariatric multivitamin with 60 mg Iron (1x per day) AND 6199-4472 mg calcium citrate daily? Pre-op goal weight: 450 pounds Protein needs AFTER surgery: 102-136 gm per day Aim to currently consume 82 grams of protein per day currently Nutrition Monitoring AND Evaluation: 1-2 lb per week weight loss Need for Follow up: 1 month, scheduling Patient presents for initial nutrition consult for preparation in bariatric surgery. Patient is interested in revision RYGB to distal bypass (Dr. Fritz). Height and weight discussed today. Presents with class III obesity, BMI of 80.38. Significant medical comorbidities include HTN, ARIELA, gout, kidney stone, eating disorder (unspecified), depression. Patient has slightly higher (48 % TWL) weight loss expectations, anticipating weight loss of 233 lbs., with desired weight of 250 lbs. following surgery. Patient has good understanding of weight loss surgery and nutritional implications following surgery. Previous diet attempts include portion control, increased exercise. Weight history significant for 612 lbs pre surgery RYGB, lilliana weight 250 lbs, then weight gain with continual weight gain from getting the depo shot. 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 Greatest motivation for surgery includes weight loss for knee replacement surgery, overall improvement in QOL. Diet recall indicates inconsistent pattern due to complex work hours (2 pm-8 am). Patient overall inadequate with fiber and protein, meals unstructured and mostly processed due to convenience. Patient currently not using protein shakes, reviewed for pre/post-op and might benefit from a plant-based protein shake as patient reports dairy upsets her stomach. Fluid i (more content not included)...[facility]11-07-[facility] Note HNO ID: [id number] Author: Ector Redding, PhD Service: ? Author Type: Physician Type: Progress Notes Filed: 02/23/2023 8:06 PM Note Text: [facility] BARIATRIC SURGERY BEHAVIORAL HEALTH EVALUATION DATE OF SERVICE: February 15, 2023 TIME OF SERVICE: 11:07 AM -12:07 PM COST CENTER: [facility] CPT CODE: - 32814 Brief Emotional/Behavioral Assessment with scoring/documentation - [id number] Virtual Psych Diagnostic Eval BILLING CODE: ENDO PSYL MAIN 06917/Ken DATE OF FIRST SERVICE THIS CYCLE: February 15, 2023 SESSION #: 1 BMI Surgical Pathway Visit type: Bariatric Surgeon Visit I have communicated my name and active licensure. The patient's identity and physical location were verified at the time of this visit. Either the patient or their legal asset protection representative has been informed of the risks and benefits of -- and alternatives to -- treatment through a remote evaluation and consents to proceed with the evaluation remotely. IDENTIFYING INFORMATION: Ms. Eliana Hager is a 37 year old female. She was referred by Dr. Fritz. Ms. Hager is seeking revision ([address] Matthews converted to distal RYGB) surgery for morbid obesity. COLLATERAL PARTIES PRESENT: none. MOTIVATION FOR SURGERY / UNDERSTANDING OF PROCEDURE / EXPECTATIONS: Ms. Hager notes she is motivated for surgery by to qualify for another surgery (bilateral knee replacements) and weight regain s/p bariatric surgery. The patient has a good understanding of the surgery, risks, and benefits. She has not talked with other people who have undergone the distal bypass. Specific areas of understanding that should be addressed include nutrition after surgery, unrealistic expectations post surgery, and behavioral changes necessary. The patient has attended a weight loss surgery support groups on-line. The patient expects to lose 232 lbs. following surgery over 6 months; needs to be 300 lbs or less to have knee replacements. Other expectations include improvement in health, decreased need for medications, increased energy, increased quality of life, increased activity, and decreased pain. Educated patient regarding expected weight loss after surgical procedure and timeline of weight loss/surgery recovery. CAPACITY TO CONSENT: Ms. Hager evidences the following concerns regarding capacity to consent: none noted. 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 Yes. PAST SURGICAL HISTORY Procedure Laterality Date LITHOTRIPSY XTRCORP SHOCK WAVE 2002 Lithotripsy Gastric Bypass Knee scope Plates/screws in R. Ankles History of psychological complications post-surgery? No MEDICATIONS Current Outpatient Medications Medication Sig FERROUS SULFATE ORAL ferrous sulfate TRULICITY 1.5 mg/0.5 mL pen injector INJECT 1 SYRINGE SUBCUTANEOUSLY ONCE A WEEK thiamine (VITAMIN B1) 50 mg tablet Take 1 tablet by mouth once daily. cholecalciferol, Vitamin D3, (VITAMIN D3) 1,250 mcg (50,000 unit) cap capsule Take 1 capsule by mouth one time a week. cyanocobalamin (VITAMIN B-12) 1,000 mcg tab cyanocobalamin (vit B-12) 1,000 mcg tablet TAKE 1 TABLET BY MOUTH ONCE DAILY NYSTATIN 100,000 UNIT/G TOPICAL POWDER TOPICAL 2 TIMES DAILY (Patient not taking: Reported on 05/31/2022) ciprofloxacin hcl(CIPRO 500 MG TAB) Take one(1) tablet twice daily. (Patient not taking: Reported on 05/31/2022) SCOPOLAMINE 1.5 MG 72 HR TRANSDERM PATCH Every 72 hours (Patient not taking: Reported on 05/31/2022) ondansetron(ZOFRAN ODT 4 MG TAB, RAPID DISSOLVE) Take one(1) tablet daily. (Patient not taking: Reported on 05/31/2022) vits w-ca,fe,fa(<1mg)( FORMULA TAB) Take one(1) tablet daily. calcium carbonate/vitamin d3(CALCIUM 500 WITH VITAMIN D 500 MG-125 UNIT TAB) Take one(1) tablet twice daily. URSODIOL 300 MG CAP Take one(1) capsule twice daily. (Patient not taking: Reported on 05/31/2022) FAMOTIDINE 20 MG TAB take one tab twice a day (Patient not taking: Reported on 02/07/2023) CPAP Use as directed. ALLOPURINOL 300 MG TAB Take one(1) tablet daily. No current facility-administered medications for this visit. Medications were reviewed with patient. ALLERGIES ALLERGIES No Known Allergies EATING/WEIGHT HISTORY: As noted abo (more content not included)...[facility]10-30-2023 NoteHNO ID: [id number] Author: Vero Fritz MD Service: ? Author Type: Physician Type: Progress Notes Filed: 02/07/2023 2:25 PM Note Text: BARIATRIC SURGERY NEW PATIENT CONSULTATION HISTORY AND PHYSICAL Date: February 07, 2023 Time: 2:03 PM Name: Eliana Hager BMI Surgical Pathway Visit type: Bariatric Surgeon Visit This is a 37 year old female with morbid obesity (Body mass index is 80.31 kg/m?.) who presents to clinic for consideration of bariatric surgery. S/P silicon banded RYGB over 15 years ago. No GI symptoms. Weight gain Current BMI 80 Limited mobility, on wheelchair She needs to lose weight to be eligible for knee arthroplasty ARIELA T2DM, on trulicity PAST MEDICAL HISTORY: PAST MEDICAL HISTORY Diagnosis Date Calculus of kidney 2002 Pain in joint, multiple sites back,hips,knees Unspecified essential hypertension Unspecified sleep apnea Unspecified urinary incontinence PAST SURGICAL HISTORY: PAST SURGICAL HISTORY Procedure Laterality Date LITHOTRIPSY XTRCORP SHOCK WAVE 2002 Lithotripsy FAMILY HISTORY: No family history on file. SOCIAL HISTORY: Social History Tobacco Use Smoking status: Never Smokeless tobacco: Never Substance Use Topics Alcohol use: Yes Comment: social Drug use: No MEDICATIONS: Prior to Admission Medications: [facility].5 [facility] pen injector INJECT 1 SYRINGE SUBCUTANEOUSLY ONCE A WEEK cyanocobalamin (VITAMIN B-12) 1,000 mcg tab cyanocobalamin (vit B-12) 1,000 mcg tablet TAKE 1 TABLET BY MOUTH ONCE DAILY calcium carbonate/vitamin d3(CALCIUM 500 WITH VITAMIN D 500 MG-125 UNIT TAB) Take one(1) tablet twice daily. CPAP Use as directed. ALLOPURINOL 300 MG TAB Take one(1) tablet daily. thiamine (VITAMIN B1) 50 mg tablet Take 1 tablet by mouth once daily. cholecalciferol, Vitamin D3, (VITAMIN D3) 1,250 mcg (50,000 unit) cap capsule Take 1 capsule by mouth one time a week. NYSTATIN 100,000 UNIT/G TOPICAL POWDER TOPICAL 2 TIMES DAILY (Patient not taking: Reported on 05/31/2022) ciprofloxacin hcl(CIPRO 500 MG TAB) Take one(1) tablet twice daily. (Patient not taking: Reported on 05/31/2022) SCOPOLAMINE 1.5 MG 72 HR TRANSDERM PATCH Every 72 hours (Patient not taking: Reported on 05/31/2022) ondansetron(ZOFRAN ODT 4 MG TAB, RAPID DISSOLVE) Take one(1) tablet daily. (Patient not taking: Reported on 05/31/2022) vits w-ca,fe,fa(<1mg)( FORMULA TAB) Take one(1) tablet daily. URSODIOL 300 MG CAP Take one(1) capsule twice daily. (Patient not taking: Reported on 05/31/2022) FAMOTIDINE 20 MG TAB take one tab twice a day (Patient not taking: Reported on 02/07/2023) ALLERGIES: ALLERGIES No Known Allergies REVIEW OF SYSTEMS: GENERAL: Negative for malaise, significant weight loss and fever NECK: Negative for lumps, goiter, pain and significant neck swelling RESPIRATORY: Negative for cough, wheezing or shortness of breath. CARDIOVASCULAR: Negative for chest pain, leg swelling or palpitations. GI: Negative for abdominal discomfort, blood in stools or black stools or change in bowel habits : No history of dysuria, frequency or incontinence MUSCULOSKELETAL: Negative for joint pain or swelling, back pain or muscle pain. SKIN: Negative for lesions, rash, and itching. PSYCH: Negative for sleep disturbance, mood disorder and recent psychosocial stressors. ENDOCRINE: Negative for cold or heat intolerance, polyuria, polydipsia and goiter. PHYSICAL EXAM: BP 147/67 Pulse 91 Ht 165.1 cm (5' 5 ) Wt (!) 218.9 kg (482 lb 9.6 oz) LMP 01/08/2023 (Approximate) BMI 80.31 kg/m? GENERAL: No apparent distress. Pt is alert and oriented x3. HEENT: Head is normocephalic and atraumatic. Extraocular muscles are intact. Pupils are equal, round, and reactive to light and accommodation. Nares appeared normal. Mouth is well hydrated and without lesions. Mucous membranes are moist. Posterior pharynx clear of any exudate or lesions. NECK: Supple. No carotid bruits. No lymphadenopathy or thyromegaly. LUNGS: Clear to auscultation. HEART: Regular rate and rhythm without murmur. ABDOMEN: Soft, nontender, and nondistended. Positive bowel sounds. No hepatosplenomegaly was noted. EXTREMITIES: Without any cyanosis, clubbing, rash, lesions or edema. NEUROLOGIC: Cranial nerves II through XII are grossly intact. PSYCHIATRIC: Flat affect, but denies suicidal or homicidal ideations. SKIN: No ulceration or induration present. Assessment IMPRESSION: Eliana Hager is a 37 year old female with the following diagnosis and co-morbidities: Body mass index is 80.31 kg/m?. Diagnosis noted as above, no additional diagnosis at this time. This patient does meet the criteria for a surgical weight loss procedure according to NIH guidelines. PLAN: The plan of treatment for Eliana Hager is to continue with the consultations and tests ordered today in hopes (more content not included)... [facility]10-30-2023 History of Present illness Narrative* Vero Fritz MD - 02/07/2023 2:02 PM EDT BARIATRIC SURGERY NEW PATIENT CONSULTATION HISTORY AND PHYSICAL Date: February 07, 2023 Time: 2:03 PM Name: Eliana Hager BMI Surgical Pathway Visit type: Bariatric Surgeon Visit This is a 37 year old female with morbid obesity (Body mass index is 80.31 kg/m .) who presents to clinic for consideration of bariatric surgery. S/P silicon banded RYGB over 15 years ago. No GI symptoms. Weight gain Current BMI 80 Limited mobility, on wheelchair She needs to lose weight to be eligible for knee arthroplasty ARIELA T2DM, on trulicity PAST MEDICAL HISTORY: PAST MEDICAL HISTORY Diagnosis Date Calculus of kidney 2002 Pain in joint, multiple sites back,hips,knees Unspecified essential hypertension Unspecified sleep apnea Unspecified urinary incontinence PAST SURGICAL HISTORY: PAST SURGICAL HISTORY Procedure Laterality Date LITHOTRIPSY XTRCORP SHOCK WAVE 2002 Lithotripsy FAMILY HISTORY: No family history on file. SOCIAL HISTORY: Social History Tobacco Use Smoking status: Never Smokeless tobacco: Never Substance Use Topics Alcohol use: Yes Comment: social Drug use: No MEDICATIONS: Prior to Admission Medications: FERROUS SULFATE ORAL ferrous sulfate TRULICITY 1.5 mg/0.5 mL pen injector INJECT 1 SYRINGE SUBCUTANEOUSLY ONCE A WEEK cyanocobalamin (VITAMIN B-12) 1,000 mcg tab cyanocobalamin (vit B-12) 1,000 mcg tablet TAKE 1 TABLET BY MOUTH ONCE DAILY calcium carbonate/vitamin d3(CALCIUM 500 WITH VITAMIN D 500 MG-125 UNIT TAB) Take one(1) tablet twice daily. CPAP Use as directed. ALLOPURINOL 300 MG TAB Take one(1) tablet daily. thiamine (VITAMIN B1) 50 mg tablet Take 1 tablet by mouth once daily. cholecalciferol, Vitamin D3, (VITAMIN D3) 1,250 mcg (50,000 unit) cap capsule Take 1 capsule by mouth one time a week. NYSTATIN 100,000 UNIT/G TOPICAL POWDER TOPICAL 2 TIMES DAILY (Patient not taking: Reported on 05/31/2022) ciprofloxacin hcl(CIPRO 500 MG TAB) Take one(1) tablet twice daily. (Patient not taking: Reported on 05/31/2022) SCOPOLAMINE 1.5 MG 72 HR TRANSDERM PATCH Every 72 hours (Patient not taking: Reported on 05/31/2022) ondansetron(ZOFRAN ODT 4 MG TAB, RAPID DISSOLVE) Take one(1) tablet daily. (Patient not taking: Reported on 05/31/2022) vits w-ca,fe,fa(<1mg)( FORMULA TAB) Take one(1) tablet daily. URSODIOL 300 MG CAP Take one(1) capsule twice daily. (Patient not taking: Reported on 05/31/2022) FAMOTIDINE 20 MG TAB take one tab twice a day (Patient not taking: Reported on 02/07/2023) ALLERGIES: ALLERGIES No Known Allergies REVIEW OF SYSTEMS: GENERAL: Negative for malaise, significant weight loss and fever NECK: Negative for lumps, goiter, pain and significant neck swelling RESPIRATORY: Negative for cough, wheezing or shortness of breath. CARDIOVASCULAR: Negative for chest pain, leg swelling or palpitations. GI: Negative for abdominal discomfort, blood in stools or black stools or change in bowel habits : No history of dysuria, frequency or incontinence MUSCULOSKELETAL: Negative for joint pain or swelling, back pain or muscle pain. SKIN: Negative for lesions, rash, and itching. PSYCH: Negative for sleep disturbance, mood disorder and recent psychosocial stressors. ENDOCRINE: Negative for cold or heat intolerance, polyuria, polydipsia and goiter. PHYSICAL EXAM: BP 147/67 Pulse 91 Ht 165.1 cm (5' 5 ) Wt (!) 218.9 kg (482 lb 9.6 oz) LMP 01/08/2023 (Approximate) BMI 80.31 kg/m GENERAL: No apparent distress. Pt is alert and oriented x3. HEENT: Head is normocephalic and atraumatic. Extraocular muscles are intact. Pupils are equal, round, and reactive to light and accommodation. Nares appeared normal. Mouth is well hydrated and without lesions. Mucous membranes are moist. Posterior pharynx clear of any exudate or lesions. NECK: Supple. No carotid bruits. No lymphadenopathy or thyromegaly. LUNGS: Clear to auscultation. HEART: Regular rate and rhythm without murmur. ABDOMEN: Soft, nontender, and nondistended. Positive bowel sounds. No hepatosplenomegaly was noted. EXTREMITIES: Without any cyanosis, clubbing, rash, lesions or edema. NEUROLOGIC: Cranial nerves II through XII are grossly intact. PSYCHIATRIC: Flat affect, but denies suicidal or homicidal ideations. SKIN: No ulceration or induration present. Assessment IMPRESSION: Eliana Hager is a 37 year old female with the following diagnosis and co-morbidities: Body mass index is 80.31 kg/m . Diagnosis noted as above, no additional diagnosis at this time. This patient does meet the criteria for a surgical weight loss procedure according to NIH guidelines. PLAN: The plan of treatment for Eliana Hager is to continue with the consultations and tests ordered today in hopes of qualifying for pre-operative clearance for bariatric surgery. I have reviewed with this patient needed nutritional changes, post-operative recovery, and the potential for excess skin following surgery and subsequent weight loss. Risks of nicotine before and after bariatric surgery and risks of postoperative adverse events (post-operative and beyond) were alsodiscussed with patient. Furthermore, information regarding probable and potential postoperative complications, dietary and medical postoperative limitations, and potential cosmetic sequelae has been given to patient. Health risks associated with obesity, alternatives to surgery, alternative forms of surgery, pre-surgical strategies to reduce risks, potential psychological adjustment issues, post-s urgical commitment (aftercare program) were also explained. All questions were answered. Patient understood the risks and benefits and agreed to proceed with surgery. Patient is interested in: converting Mary-En-Y Gastric Bypass to distal bypass I explained to patient the risk of malabsorption, malnutrition, vitamin, protein and nutrient deficiencies (that can be severe and life-threatening), and risk of frequent bowel movements (diarrhea) after malabsorptive bariatric procedures. Patient understood. Preop liquid diet for 3 weeks VTE prophylaxis for 1 month after surgery I spent a total of 60 minutes on the date of the service which included preparing to see the patient, [id number] patient care, completing clinical documentation, obtaining and/or reviewing separately obtained history, performing a medically appropriate examination, and counseling and educating the patient/family/caregiver. Vero Fritz MD Advanced Laparoscopic and Bariatric Surgery documented in this encounterMag[facility]08[facility]29-[facility]23 Miscellaneous Notes* Telephone Encounter - Praful Bonilla Ma - 12/07/2022 8:46 AM EDT Requester: Pharmacy Patients last Endocrinology visit occurred 05/31/2022 Follow-up evaluation has been established N/A. Requested Prescriptions Pending Prescriptions Disp Refills TRULICITY 1.5 mg/0.5 mL pen injector [Pharmacy Med Name: Trulicity 1.5 MG/0.5ML Subcutaneous Solution Pen-injector] 4 mL 0 Sig: INJECT 1 SYRINGE SUBCUTANEOUSLY ONCE A WEEK If patient is due for an appointment please route to provider for refill consideration and also to the endo scheduling pool. PSS NOTE: Patient needs scheduled appointment No documented in this encounterMagruder [facility] Hospital07-31-2023 Miscellaneous Notes* Telephone Encounter - Dallas Colindres RN - 11/08/2022 4:07 PM EDT Requester: Pharmacy Patients last Endocrinology visit occurred 05/31/22 Follow-up evaluation has been established N/A. Requested Prescriptions Pending Prescriptions Disp Refills TRULICITY 1.5 mg/0.5 mL pen injector [Pharmacy Med Name: Trulicity 1.5 MG/0.5ML Subcutaneous Solution Pen-injector] 4 mL 0 Sig: INJECT 1 SYRINGE SUBCUTANEOUSLY ONCE A WEEK If patient is due for an appointment please route to provider for refill consideration and also to the endo scheduling pool. PSS NOTE: Patient needs scheduled appointment Yes documented in this encounterMagruder [facility]06-30-2023 Miscellaneous Notes* Telephone Encounter - Vanesa Carrizales - 10/08/2022 11:26 AM EDT Requester: Pharmacy Patients last Endocrinology visit occurred 05/31/2022 Follow-up evaluation has been established n/a. Requested Prescriptions Pending Prescriptions Disp Refills TRULICITY 1.5 mg/0.5 mL pen injector [Pharmacy Med Name: Trulicity 1.5 MG/0.5ML Subcutaneous Solution Pen-injector] 4 mL 0 Sig: INJECT 1 SYRINGE SUBCUTANEOUSLY ONCE A WEEK If patient is due for an appointment please route to provider for refill consideration and also to the endo scheduling pool. PSS NOTE: Patient needs scheduled appointment Yes documented in this encounterMagruder [facility] Hospital04-26-2023 Miscellaneous Notes* Telephone Encounter - Dallas Colindres RN - 08/04/2022 11:03 AM EDT Requester: Pharmacy Patients last Endocrinology visit occurred 05/31/22. Follow-up evaluation has been established N/A. Requested Prescriptions Pending Prescriptions Disp Refills TRULICITY 1.5 mg/0.5 mL pen injector [Pharmacy Med Name: Trulicity 1.5 MG/0.5ML Subcutaneous Solution Pen-injector] 4 mL 0 Sig: INJECT 1 SYRINGE SUBCUTANEOUSLY ONCE A WEEK If patient is due for an appointment please route to provider for refill consideration and also to the endo scheduling pool. PSS NOTE: Patient needs scheduled appointment No documented in this encounterMag[facility]* Diagnosis Morbid obesity (HCC)- Primary Morbid obesity Limited mobility S/P gastric bypass Bariatric surgery status Obstructive sleep apnea (adult) (pediatric) documented in this encounter [facility]* Diagnosis Dietary counseling- Primary Dietary surveillance and counseling BMI 70 and over, adult (HCC) Body Mass Index 70 and over, adult S/P gastric bypass Bariatric surgery status documented in this encounter [facility]* Diagnosis Dietary counseling- Primary Dietary surveillance and counseling S/P gastric bypass Bariatric surgery status BMI 70 and over, adult (HCC) Body Mass Index 70 and over, adult documented in this encounter [facility]* Diagnosis Onset Date Resolution Status Abscess of breast, right acu te [facility] Work Phone: Evaluation note* Diagnosis Onset Date Resolution Status Abscess of breast, right acu te BMI 70 and over, adult acute History of gastric bypass ac eve Neuropathy acute Type 2 diabetes mellitus acu te Vitamin B 12 deficiency acut e [facility] Work Phone: Hospital Discharge instructions Additional Instructions Dressing changes to right breast daily: Remove packing, irrigate with saline, repack with saline moistened 4 x 4 gauze and cover with dry dressing. Wound extends deeply and extends underneath the nipple areolar region. Please pack all of the open spaces.[facility] Work Phone: Summary Purpose Family History No Family History Records Found Relationship Condition Age at Onset Recorded Date/T jadiel father Disorder of kidney Unknown Heart disease Unknown Advance Directives No Advanced Directives Records Found Advance Directive Response Recorded Date/ Time Advance Directives No July 21, 1:59pm Chief Complaint and Reason for Visit Chief Complaint DR sent over for ID of breast DR sent over for ID of breast Reason for Visit Abscess of breast, r ight Chief Complaint DR sent over for ID of breast DR sent over for ID of breast Reason for Visit Abscess of breast, r ight BMI 70 and over, adult History of gastric bypass Neuropathy Type 2 diabetes mellitus Vitamin B [address] sent over for ID of breast DR sent over for ID of breast rt breast pain Reason for Visit Abscess of breast, r ight BMI 70 and over, adult History of gastric bypass Neuropathy Type 2 diabetes mellitus Vitamin B [address] sent over for ID of breast DR sent over for ID of breast rt breast pain Right Breast Abscess Reason for Visit Abscess of breast, r ight BMI 70 and over, adult History of gastric bypass Neuropathy Type 2 diabetes mellitus Vitamin B 12 deficiency Additional Source Comments INFORMATION SOURCE (unrecogn ized section and content) DATE CREATED AUTHOR 12/07/2018 [facility] DATE CREATED AUTHOR AUTHOR'S ORGANIZ ATION 03/20/2019 [facility] DATE CREATED AUTHOR AUTHOR'S ORGANIZ ATION 07/04/2020 [facility] DATE CREATED AUTHOR AUTHOR'S ORGANIZ ATION [facility]20/20[facility] DATE CREATED AUTHOR AUTHOR'S ORGANIZ ATION 07/20/2023 [facility] DATE CREATED AUTHOR AUTHOR'S ORGANIZ ATION 07/27/2023 [facility] DATE CREATED AUTHOR AUTHOR'S ORGANIZ ATION 09/17/2023 [facility] DATE CREATED AUTHOR AUTHOR'S ORGANIZ ATION 10/06/2023 [facility] DATE CREATED AUTHOR AUTHOR'S ORGANIZ ATION 12/15/2023 [facility] DATE CREATED AUTHOR AUTHOR'S ORGANIZ ATION 12/30/2023 [facility] Source Comments (unrecognize d section and content) In the event this informatio n is protected by the Federal Confidentiality of Alcohol and Drug Abuse Patient Records regulations: The Federal rules restrict any use of the information to criminally investigate or prosecute any alcohol or drug abuse patient.[facility] HospitalIn the event this information is protected by the Federal Confidentiality of Alcohol and Drug Abuse Patient Records regulations: The Federal rules restrict any use of the information to criminally investigate or prosecute any alcohol or drug abuse patient.[facility] HospitalIn the event this information is protected by the Federal Confidentiality of Alcohol and Drug Abuse Patient Records regulations: The Federal rules restrict any use of the information to criminally investigate or prosecute any alcohol or drug abuse patient.[facility] HospitalIn the event this information is protected by the Federal Confidentiality of Alcohol and Drug Abuse Patient Records regulations: The Federal rules restrict any use of the information to criminally investigate or prosecute any alcohol or drug abuse patient.[facility] HospitalIn the event this information is protected by the Federal Confidentiality of Alcohol and Drug Abuse Patient Records regulations: The Federal rules restrict any use of the information to criminally investigate or prosecute any alcohol or drug abuse patient.[facility] HospitalIn the event this information is protected by the Federal Confidentiality of Alcohol and Drug Abuse Patient Records regulations: The Federal rules restrict any use of the information to criminally investigate or prosecute any alcohol or drug abuse patient.[facility] HospitalIn the event this information is protected by the Federal Confidentiality of Alcohol and Drug Abuse Patient Records regulations: The Federal rules restrict any use of the information to criminally investigate or prosecute any alcohol or drug abuse patient.[facility] HospitalIn the event this information is protected by the Federal Confidentiality of Alcohol and Drug Abuse Patient Records regulations: The Federal rules restrict any use of the information to criminally investigate or prosecute any alcohol or drug abuse patient.[facility] HospitalIn the event this information is protected by the Federal Confidentiality of Alcohol and Drug Abuse Patient Records regulations: The Federal rules restrict any use of the information to criminally investigate or prosecute any alcohol or drug abuse patient.[facility] Care Teams (unrecognized sec tion and content) Team Status: Active Member Role Status Dates NON STAFF Primary Care Provider Active Team Status: Inactive Member Role Status Dates NON STAFF Primary Care Provider Active Start: July 22, 2023 End: July 25, 2023 Oumar Rivas APRN Emergency Provider Active Start: July 22, 2023 End: July 25, 2023 Lauren Oropeza MD Admit Provider Active Start: 2023 End: July 25, 2023 Kash Hooks DO Attending Provider Active Start: July 22, 2023 End: July 25, 2023 Мария Danielle MD Other Provider Active Start: July 22, 2023 End: July 25, 2023 Team Status: Active Member Role Status Dates NON STAFF Primary Care Provider Active Start: July 22, 2023 Oumar Rivas APRN Emergency Provider Active Start: July 22, 2023 Lauren Oropeza MD Admit Provider, Atte nding Provider, Other Provider Active Start: July 22, 2023 Potato Grader Relationship Specialty Start Date End Date Mp Smith PCP - General Family Medicine 12/23/14 Potato Grader Relationship Specialty Start Date End Date Mp Smith PCP - General Family Medicine 12/23/14 Potato Grader Relationship Specialty Start Date End Date Mp Smith PCP - General Family Medicine 12/23/14 Potato Grader Relationship Specialty Start Date End Date Mp Smith PCP - General Family Medicine 12/23/14 Potato Grader Relationship Specialty Start Date End Date Mp Smith PCP - General Family Medicine 12/23/14 Potato Grader Relationship Specialty Start Date End Date Mp Smith PCP - General Family Medicine 12/23/14 Potato Grader Relationship Specialty Start Date End Date Mp Smith PCP - General Family Medicine 12/23/14 Team Status: Active Member Role Status Dates NON STAFF Primary Care Provider Active Start: July 22, 2023 Oumar Rivas APRN Emergency Provider Active Start: July 22, 2023 Lauren Oropeza MD Admit Provider, Atte nding Provider Active Start: July 22, 2023 Team Status: Active Member Role Status Dates NON STAFF Primary Care Provider Active Start: July 22, 2023 End: July 25, 2023 Oumar Rivas APRN Emergency Provider Active Start: July 22, 2023 End: July 25, 2023 Lauren Oropeza MD Admit Provider, Atte nding Provider, Other Provider Active Start: July 22, 2023 End: July 25, 2023 Team Status: Inactive Member Role Status Dates NON STAFF Primary Care Provider Active Start: September 23, 2023 End: September 23, 2023 Yared Saavedra DO Emergency Provider Active St art: September 23, 2023 End: September 23, 2023 Team Status: Inactive Member Role Status Dates NON STAFF Primary Care Provider Active Start: September 27, 2023 End: September 27, 2023 Мария Danielle MD Attending Provider Active Sta rt: September 27, 2023 End: September 27, 2023 Reason for Visit (unrecogniz ed section and content) Reason Comments Refill Request Reason Comments New Patient Reason Comments Patient Education Assessment Reason Comments Patient Education Reassessment Goals (unrecognized section and content) Goals may be documented in a n alternate section FOR RECORDS PERTAINING TO PATIENTS WHO ARE OR HAVE BEEN ENROLLED IN A CHEMICAL DEPENDENCY/SUBSTANCEABUSE PROGRAM, SOME INFORMATION MAY BE OMITTED. This clinical summary was aggregated from multiple sources. Caution should be exercised in using it in the provision of clinical care. This summary normalizes information from multiple sources, and as a consequence, information in this document may materially change the coding, format and clinical context of patient data. In addition, data may be omitted in some cases. CLINICAL DECISIONS SHOULD BE BASED ON THE PRIMARY CLINICAL RECORDS. [employer] [facility]. provides no warranty or guarantee of the accuracy or completeness of information in this document.
[2024-02-20] MEDS: ONDANSETRON 4 MG RAPDIS TABLET SL (21:10)
[2024-02-20] MEDS: HYDROCODONE/ACET 5-325 MG TABLET 1 TAB PO (21:10)
[2024-02-20] MEDS: CLINDAMYCIN HCL 150 MG CAPSULE 300 MG PO (21:10)
--- NOTE | 2024-02-20 21:23 | ED_ITS ---
HPI - Skin/Abscess/Foreign Bdy General Chief complaint: Skin/Abscess/Foreign Body Stated complaint: Breast Pain Time Seen by Provider: 02/20/24 20:26 Source: patient Mode of arrival: Wheelchair History of Present Illness HPI narrative: This 38-year-old can [place] female with a history of abscesses that have been present in her axilla, inguinal region, labia and on her breast in the past but is never been told that she has hidradenitis presents for evaluation of a painful swelling at the 12 o'clock position on her right breast as well as a tender swelling in the submental aspect of her chin. The symptoms have been present for approximately 1 week. She states she also has some drainage from open wounds in her labial area that she does not wish to have me examine. She denies any fever. She has had 2 breast surgeries on the right breast for cysts versus abscesses in the past. There is some clear to white drainage from the right breast. She denies any chest pain or shortness of breath. She is a diabetic but states that her sugars have been in the normal range. Related Data Home Medications ?Medication ?Instructions ?Recorded ?Confirmed allopurinol 100 mg tablet 100 mg PO DAILY 05/24/23 09/28/23 cholecalciferol (vitamin D3) 1,250 1,250 mcg PO DAILY 05/24/23 09/28/23 mcg (50,000 unit) capsule dulaglutide 0.75 mg/0.5 mL 0.75 mg subcut .weekly 05/24/23 09/28/23 subcutaneous pen injector (Trulicity) ferrous sulfate 325 mg (65 mg 325 mg PO DAILY 05/24/23 09/28/23 iron) tablet,delayed release lorazepam 1 mg tablet 1 mg PO PRN 05/24/23 09/28/23 losartan 50 mg-hydrochlorothiazide 1 tab PO DAILY 05/24/23 09/28/23 12.5 mg tablet metformin 500 mg tablet 500 mg PO DAILY 05/24/23 09/28/23 thiamine HCl (vitamin B1) 50 mg 50 mg PO DAILY 05/24/23 09/28/23 tablet Previous Rx's ?Medication ?Instructions ?Recorded [id number] 5 ml PO Q6H PRN cold symptoms #118 05/24/23 2 mg-30 mg-10 mg/5 mL oral syrup mL (Bromfed DM) ondansetron 4 mg disintegrating 4 mg PO Q6H PRN nausea and 05/24/23 tablet vomiting #20 tabs Allergies Allergy/AdvReac Type Severity Reaction Status Date / Time No Known Drug Allergies Allergy Verified 05/24/23 19:54 Review of Systems ROS Status of ROS 10 or more systems reviewed and unremark able except as noted in history and below PFSH PFSH Social History Smoking status: Never smoker Little interest or pleasure in doing things: not at all Feeling down, depressed, or hopeless: not at all Exam Narrative Exam Narrative: Vital signs and Nursing Notes reviewed: Patient is afebrile with a normal pulse, blood pressure is mildly elevated at 120/93, she is not hypoxic with pulse ox of 99% on room air General: Awake, alert, oriented, nontoxic morbidly obese -[place] female, no respiratory distress HEENT: Normocephalic atraumatic, mucous membranes are moist and pink, eyes are clear, normal conjunctiva, vision is grossly intact, there is approx 0.5 x 1 cm indurated tender mass underneath the chin, it is not fluctuant or amenable to drainage, Neck: Supple, no meningeal signs, no anterior or posterior cervical lymphadenopathy Chest: Lungs are clear to auscultation with good air entry, there is no wheezing rhonchi or rales appreciated no accessory muscle use, patient is speaking in complete sentences-no chest wall tenderness to palpation Breast: Patient has large pendulous breasts. The right breast has an incision, former surgical excision at the proximal aspect of the nipple which is tender an d indurated with a small amount of white drainage. There is no nipple discharge. The breast is too tender to fully evaluate for other masses but there is no notable abnormality appreciated CVS: Regular rate and rhythm S1-S2, no murmurs rubs or gallops, pulses are brisk and equal bilaterally ABD: Soft, nondistended, nontender, no rebound guarding or rigidity, bowel sounds are normal, no pulsatile masses appreciated : pt declines exam Extremities: Moving all extremities, chronic hypertrophic lower extremity skin changes Skin: As described above in the breast and HEENT section, skin is otherwise normal in appearance without petechiae or purpura Neuro: No focal deficits Constitutional Vital Signs, click to edit/add: Last Vital Signs Temp 97.9 F 02/20/24 20:28 Pulse 68 02/20/24 20:28 Resp 16 02/20/24 20:28 BP 120/93 H 02/20/24 20:28 Pulse Ox 99 02/20/24 20:28 O2 Del Method Room Air 02/20/24 20:28 Course Vital Signs Vital signs: Vital Signs Temperature 97.9 F 02/20/24 20:28 Pulse Rate 68 02/20/24 20:28 Respiratory Rate 16 02/20/24 20:28 Blood Pressure 120/93 H 02/20/24 20:28 Pulse Oximetry 99 02/20/24 20:28 Oxygen Delivery Method Room Air 02/20/24 20:28 Temperature 97.9 F 02/20/24 20:28 Pulse Rate 68 02/20/24 20:28 Respiratory Rate 16 02/20/24 20:28 Blood Pressure 120/93 H 02/20/24 20:28 Pulse Oximetry 99 02/20/24 20:28 Oxygen Delivery Method Room Air 02/20/24 20:28 MDM - Skin/Abscess/Foreign Bdy MDM Narrative Medical decision making narrative: This 38-year-old female who is type II diabetic presents for evaluation of a tender swelling underneath her chin as well as painful swelling and drainage at a former surgical site in her right breast. She has had 2 cyst removed from the right breast from his surgeon in [place]. For the past week she has been having increasing pain swelling and now some drainage from the right breast. She states she also has some draining areas in her private area/labia which she does not wish to have me evaluate. She states her sugars have been running in the normal range. She has never been diagnosed with hidradenitis but has had cyst/abscesses in her inguinal regions and axilla in the past. Clinically she has hidradenitis. She has a tender lump under her chin that is indurated and tender but not cellulitic or amenable to drainage. There is tender swelling at the surgical site of her right breast with a small amount of white discharge that was cultured. She was medicated with a dose of clindamycin [place] and Zofran. She will be discharged home with prescription for clindamycin with recommendation for warm compresses. Additionally I suggested that she contact the general surgeon in [place] that did the incision and drainage on the cyst/abscess on her breast earlier this year. Discharge Plan Discharge Chief Complaint: Skin/Abscess/Foreign Body Clinical Impression: Abscess of skin or subcutaneous tissue, Hidradenitis suppurativa Patient Disposition: Home, Self-Care Time of Disposition Decision: 21:15 Condition: Good Prescriptions / Home Meds: No Action metformin 500 mg tablet 500 mg PO DAILY allopurinol 100 mg tablet 100 mg PO DAILY lorazepam 1 mg tablet 1 mg PO PRN ferrous sulfate 325 mg (65 mg iron) tablet,delayed release (DR/EC) 325 mg PO DAILY losartan-hydrochlorothiazide 50-12.5 mg tablet 1 tab PO DAILY thiamine HCl (vitamin B1) 50 mg tablet 50 mg PO DAILY cholecalciferol (vitamin D3) 1,250 mcg (50,000 unit) capsule 1,250 mcg PO DAILY Trulicity 0.75 mg/0.5 mL pen injector 0.75 mg SUBCUT .weekly ondansetron 4 mg tablet,disintegrating 4 mg PO Q6H PRN (Reason: nausea and vomiting) Qty: 20 0RF [id number] [Bromfed DM] 2-30-10 mg/5 mL syrup 5 ml PO Q6H PRN (Reason: cold symptoms) Qty: 118 0RF Print Language: Turkish Instructions: Abscess (ED), Hidradenitis Suppurativa (ED) Referrals: Physician,Non-Staff, MD [Primary Care Provider] - 1 week Discharge Date/Time: 02/20/24 21:27
--- NOTE | 2024-02-20 21:25 | PC.NURSE ---
i gave verbal and written discharge orders along with 3 Rx to this patient and she voices yes to understanding these. at time of discharge this patient voices no concerns and shows no signs of distress
--- NOTE | 2024-02-20 21:34 | PC.NURSE ---
complains of right breast abscess onset 2 weeks ago
== END 2024-02-20 21:27 | disposition home or self-care (01) ==
PROVIDERS: Emergency Provider Emergency Medicine
DX: L02.91 Cutaneous abscess, unspecified (principal); L73.2 Hidradenitis suppurativa; E11.9 Type 2 diabetes mellitus without complications; Z79.84 Long term (current) use of oral hypoglycemic drugs
CPT/HCPCS: 87070; 87075; 99283; Q0162